=== PATIENT | female | born 1990 | race Caucasian/White ===

== ENCOUNTER 2017-07-13 22:19 | Emergency (ER) | payer OTHER ==
--- OUTSIDE RECORDS SUMMARY | 2017-07-13 22:22 | XMS REPORT | Clinical Summary ---
:1990 Author Organization [facility] Address [address] [place] [address] Phone Care Team Providers Name Role Phone Unavailable Primary Care Provider Unavailable Allergies No Known Allergies Current Medications Prescription Sig. Disp. Refills Start Date End Date Status brompheniramine-pseudoeph Take 10 mLs by 118 mL 0 07/05/2015 Active -DM (BROMFED DM) 2-30-10 mouth every 6 mg/5 mL Syrp (six) hours as needed (cough). Active Problems Not on file Social History Tobacco Use Types Packs/Day Years Used Date Never Assessed Sex Assigned at Date Recorded Not on file Last Filed Vital Signs Not on file Plan of Treatment Not on file Results Not on fileafter 07/12/2016
[2017-07-14] MEDS ORDERED: DICYCLOMINE HCL 10 MG CAP ONE (00:16)
[2017-07-14] MEDS ORDERED: ONDANSETRON 4 MG/2 ML VIAL ONE (00:17)
[2017-07-14] MEDS ORDERED: NA CHLORIDE 0.9% 1,000 ML ONE (00:17)
[2017-07-14 00:20] LABS: Absolute Lymphocytes (CBC) 2.7 K/uL (0.7-4.9); Absolute Monocytes 1.2 K/uL (0.1-1.3); Absolute Neutrophil 10.1 K/uL (1.8-8.0); Basophils % 0.5 % (0-1.3); Eosinophils % 0.9 % (0-4.4); Hematocrit 41.4 % (36.0-45.0); Lymphocytes % 19.2 % (15.3-44.8); MCH 27.9 pg (27.0-35.0); MCV 84.6 fL (80-100); MPV 8.7 fL (7.6-11.3); Monocytes % 8.4 % (3.3-12.3)
[2017-07-14 00:27] LABS: Bicarbonate 26 mEq/L (21-31); Glucose Level 92 mg/dL (65-120); Lipase 36 U/L (22-51); Potassium 3.6 mEq/L (3.6-5.0); Sodium Level 135 mEq/L (135-145)
[2017-07-14 00:33] LABS: ALT/SGPT 19 IU/L (10-60); AST/SGOT 18 IU/L (10-42); Albumin 3.9 g/dL (3.2-5.5); Alkaline Phosphatase 100 IU/L (42-121); Amylase Level 63 U/L (28-100); BUN Blood Urea Nitrogen 14 mg/dL (6-20); Bilirubin Direct < 0.1 mg/dL (0-0.2); Bilirubin Total 0.3 mg/dL (0.3-1.2); Protein, Total 7.9 g/dL (6.0-8.3)
[2017-07-14 01:05] LABS: Urine Bacteria >50 /HPF (<20); Urine Culture Reflex Order REFLEXED; Urine RBC NONE SEEN /HPF (NONE SEEN)
[2017-07-14 01:24] LABS: Urine Glucose NEGATIVE (NEG)
[2017-07-14 01:25] LABS: Urine Blood NEGATIVE (NEG); Urine Protein NEGATIVE (NEG)
[2017-07-14] MEDS ORDERED: BUPIVACAINE 0.5% PF 10 ML VIAL ONE (02:41)
[2017-07-14] MEDS ORDERED: CODEINE 30MG/APAP 300MG TAB ONE (03:00)
[2017-07-14] MEDS ORDERED: KETOROLAC 30 MG/ML INJ ONE (03:00)
--- NOTE | 2017-07-14 03:26 | EDPHYS ---
Physician Documentation [facility] Name: Veronica Moore Age: 27 yrs Sex: Female : 1990 Arrival Date: 07/13/2017 Time: 22:22 Bed 19 Private MD: ED Physician Osman George HPI: 07/13 23:50 This 27 yrs old Female presents to ER via Ambulatory with complaints of cp Abdominal Pain, Boil. 23:50 The patient presents with abdominal pain that is diffuse. Onset: The symptoms/episode cp began/occurred 3 day(s) ago. 23:50 Associated signs and symptoms: Pertinent negatives: chest pain, constipation, diarrhea, cp dysuria, fever, vaginal discharge, vaginal bleeding. 23:50 Severity of pain: in the emergency department the pain is unchanged despite home cp interventions. Patient also c/o abscess and cellulitis left inner upper leg for past couple days. 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 - Social history:: Smoking status: Patient uses tobacco products, smokes one-half pack cigarettes per day, Patient uses alcohol, occasionally. Patient/guardian denies using street drugs. - Ebola Screening: : Patient negative for fever greater than or equal to 101.5 degrees Fahrenheit, and additional compatible Ebola Virus Disease symptoms Patient denies exposure to infectious person Patient denies travel to an Ebola-affected area in the 21 days before illness onset. ROS: 23:55 Constitutional: Negative for body aches, chills, fever, poor PO intake. cp 23:55 Eyes: Negative for injury, pain, redness, and discharge. cp 23:55 ENT: Negative for drainage from ear(s), ear pain, sore throat, difficulty swallowing, difficulty handling secretions. 23:55 Cardiovascular: Negative for chest pain, edema, palpitations. 23:55 Respiratory: Negative for cough, shortness of breath, wheezing. 23:55 Abdomen/GI: Positive for abdominal pain, of the right lower quadrant and left lower quadrant, Negative for vomiting, diarrhea, constipation, anorexia, black/tarry stool, rectal bleeding. 23:55 : Negative for urinary symptoms, flank pain, vaginal bleeding, vaginal discharge. 23:55 Skin: Positive for abscess, cellulitis, of the left upper inner leg, Negative for rash. 23:55 Neuro: Negative for altered mental status, dizziness, headache, weakness. 23:55 All other systems are negative. Exam: 23:59 Constitutional: The patient appears in no acute distress, alert, awake, non-toxic, well cp developed, well nourished. 23:59 Head/Face: Normocephalic, atraumatic. cp 23:59 Eyes: Periorbital structures: appear normal, Conjunctiva: normal, no exudate, no injection, Sclera: no appreciated abnormality, Lids and lashes: appear normal, bilaterally. 23:59 ENT: External ear(s): are unremarkable, Nose: is normal, Mouth: Lips: moist, Oral mucosa: pink and intact, moist, Posterior pharynx: is normal, airway is patent, no erythema, no exudate. 23:59 Neck: External neck: is normal, ROM/movement: is normal, is supple, without pain, no range of motions limitations, no nuchal rigidity. 23:59 Chest/axilla: Inspection: normal, Palpation: is normal, no crepitus, no tenderness. 23:59 Cardiovascular: Rate: normal, Rhythm: regular. 23:59 Respiratory: the patient does not display signs of respiratory distress, Respirations: normal, no use of accessory muscles, no retractions, no splinting, no tachypnea, labored breathing, is not present, Breath sounds: are clear throughout, no decreased breath sounds, no stridor, no wheezing. 23:59 Abdomen/GI: Inspection: obese Bowel sounds: active, all quadrants, Palpation: soft, in all quadrants, moderate abdominal tenderness, in the left lower quadrant, rebound tenderness, is not appreciated, involuntary guarding, is elicited in the left lower quadrant. 23:59 Back: pain, is absent, ROM is normal, CVA tenderness, is absent. 23:59 Skin: abscess, that is small, of the left upper inner leg, cellulitis, that is mild, well demarcated, on the left inner upper leg, induration, is not appreciated, no rash present. 23:59 Neuro: Orientation: to person, place \T\ time. Mentation: lucid, able to follow commands, Cerebellar function: is grossly normal, Motor: moves all fours, strength is normal, Sensation: no obvious gross deficits. Vital Signs: 22:44 BP 132 / 84; Pulse 78; Resp 18; Temp 97.6(O); Pulse Ox 98% on R/A; Weight 104.33 kg; ao Height 5 ft. 6 in. (167.64 cm); Pain 7/10; 23:48 BP 123 / 83; Pulse 85; Resp 16; Pulse Ox 97% on R/A; rv 04 00:21 BP 121 / 76; Pulse 62; Resp 16; Pulse Ox 99% on R/A; rv 02:06 BP 112 / 63; Pulse 75; Resp 16; Pulse Ox 97% on R/A; rv 03:17 BP 128 / 83; Pulse 65; Resp 17; Pulse Ox 99% on R/A; rv 07/13 22:44 Body Mass Index 37.12 (104.33 kg, 167.64 cm) ao Procedures: 02:48 I \T\ D: Incision and drainage was performed for an abscess of the left inner upper leg cp Prepped with Betadine, Anesthetized with 6 ccs of 1% lidocaine with epi and 0.5% marcaine. Incised with #11 blade. Drained small amount purulent fluid. Cultures obtained. Packed with iodoform gauze, Dressing: sterile 4x4 gauze, the patient tolerated the procedure well. MDM: 07/13 22:57 Patient medically screened. cp 07/14 00:00 Differential diagnosis: cholecystitis, Cholelithiasis, Endometriosis, gastritis, cp Ovarian Torsion, Pelvic Inflammatory Disease, Pyelonephritis, Tubal Ovarian Abcess, Ureterolithiasis, urinary tract infection, cellulitis, abscess. 03:21 ED course: VSS. Verbal report from US tech, noted blood flow to bilateral ovaries with cp no signs of torsion. 03:24 Data reviewed: vital signs, nurses notes, lab test result(s), radiologic studies, CT cp scan, ultrasound. 03:24 Counseling: I had a detailed discussion with the patient and/or guardian regarding: the cp historical points, exam findings, and any diagnostic results supporting the discharge/admit diagnosis, lab results, radiology results, the need for outpatient follow up, an OB/Gyne specialist, to return to the emergency department if symptoms worsen or persist or if there are any questions or concerns that arise at home. Response to treatment: the patient's symptoms have markedly improved after treatment. 07/13 23:51 Order name: Amylase, Serum cp 07/13 23:51 Order name: Basic Metabolic Panel cp 07/13 23:51 Order name: CBC with Diff cp 07/13 23:51 Order name: Creatinine for Radiology cp 07/13 23:51 Order name: Hepatic Function cp 07/13 23:51 Order name: Lipase cp 07/13 23:51 Order name: Urine Microscopic Only; Complete Time: 01:48 cp 07/14 01:48 Interpretation: Normal except: UBACT >50. cp 07/13 23:52 Order name: Amylase Level; Complete Time: 00:42 EDMS 07/13 23:52 Order name: Basic Metabolic Panel; Complete Time: 00:42 EDMS 07/14 00:42 Interpretation: Normal except: GFR 77. cp 07/13 23:52 Order name: CBC with Automated Diff; Complete Time: 00:42 EDMS 07/14 00:42 Interpretation: Normal except: WBC 14.2; RBC 4.90; RDW 15.3; NEUT A 10.1. cp 07/13 23:52 Order name: Creatinine (Radiology Only); Complete Time: 00:42 EDMS 07/13 23:52 Order name: Liver (Hepatic) Function; Complete Time: 00:42 EDMS 04 00:43 Interpretation: Normal except: GLOB 4.0; A/G 1.0. cp 07/13 23:52 Order name: Lipase; Complete Time: 00:42 EDMS 04 00:43 Interpretation: LIP 36; Reviewed. cp / 00:15 Order name: Urine Dipstick--Ancillary (enter results); Complete Time: 01:48 ms 07/13 23:51 Order name: Urine Test (obtain specimen); Complete Time: 00:13 cp 07/13 23:51 Order name: IV Saline Lock; Complete Time: 00:13 cp 07/13 23:51 Order name: Labs collected and sent; Complete Time: 00:13 cp 07/13 23:51 Order name: Urine Dipstick-Ancillary (obtain specimen); Complete Time: 00:13 cp 07/13 23:52 Order name: CT Abd/Pelvis - W/Contrast cp 07/14 00:15 Order name: Urine --Ancillary (enter results); Complete Time: 01:48 ms 07/14 01:06 Order name: Urine Culture EDMS 07/14 01:51 Order name: US Transvaginal Study (Probe): r/o left ovarian torsion cp 07/14 02:24 Order name: I\T\D Setup; Complete Time: 02:30 cp 07/14 03:06 Order name: Wound Culture rv Administered Medications: 00:19 Drug: Zofran 4 mg Route: IVP; Site: right antecubital; rv 00:51 Follow up: Response: No adverse reaction; Pain is decreased rv 00:20 Drug: NS 0.9% 1000 ml Route: IV; Rate: 1 bolus; Site: right antecubital; rv 02:19 Follow up: IV Status: Completed infusion rv 00:20 Drug: Bentyl 20 mg Route: PO; rv 00:52 Follow up: Response: No adverse reaction; Pain is decreased rv 03:15 Drug: TORadol 30 mg Route: IVP; Site: right antecubital; rv 03:37 Follow up: Response: No adverse reaction; Pain is decreased rv 03:15 Drug: Tylenol #3 (300 mg-30 mg) 2 tabs Route: PO; rv 03:38 Follow up: Response: No adverse reaction; Pain is decreased rv 03:37 Drug: Bactrim (160 mg-800 mg (DS) 1 tablet Route: PO; rv Disposition: 05:33 Co-signature as Attending Physician, Osman George MD I agree with the assessment and tw4 plan of care. Disposition: 07/14/17 03:25 Discharged to Home. Impression: Other ovarian cysts - Left, Cutaneous abscess of left lower limb - Left Thigh with cellulitis. - Condition is Stable. - Discharge Instructions: Abscess, Incision and Drainage, Ovarian Cyst. - Prescriptions for Ibuprofen 800 mg Oral Tablet - take 1 tablet by ORAL route every 8 hours As needed take with food; 30 tablet. Tylenol- Codeine #3 300-30 mg Oral Tablet - take 2 tablets by ORAL route every 6 hours As needed no driving while taking medication; 20 tablet. Bactrim DS 800- 160 mg Oral Tablet - take 1 tablet by ORAL route every 12 hours for 10 days; 20 tablet. - Medication Reconciliation Form, Thank You Letter, Antibiotic Education, Prescription Opioid Use, Work release form form. - Follow up: Nikia Medina MD; When: 1 week; Reason: left ovarian cyst. - Problem is new. - Symptoms have improved. Signatures: Dispatcher [employer] EDMS Kael Boudreaux PA PA cp Ortiz, Alex, RN RN Osman Bhakta MD MD tw4 Eugene Perkins RN RN rv Corrections: (The following items were deleted from the chart) 03:40 03:25 07/14/2017 03:25 Discharged to Home. Impression: Other ovarian cysts - Left; rv Cutaneous abscess of left lower limb - Left Thigh with cellulitis. Condition is Stable. Forms are Medication Reconciliation Form, Thank You Letter, Antibiotic Education, Prescription Opioid Use. Follow up: Nikia Medina; When: 1 week; Reason: left ovarian cyst. Problem is new. Symptoms have improved. cp
--- NOTE | 2017-07-14 03:26 | ER ---
Nurse's Notes [facility] Name: Veronica Moore Age: 27 yrs Sex: Female : 1990 Arrival Date: 07/13/2017 Time: 22:22 Bed 19 Private MD: Diagnosis: Other ovarian cysts-Left;Cutaneous abscess of left lower limb-Left Thigh with cellulitis Presentation: 07/13 22:41 Presenting complaint: Patient states: Abdominal pain for the past few day and also in ao ingrown boil in the left leg. Patient denies nausea and vomiting. Transition of care: patient was not received from another setting of care. Onset of symptoms was July 11, 2017. Risk Assessment: Do you want to hurt yourself or someone else? Patient reports no desire to harm self or others. Initial Sepsis Screen: Does the patient meet any 2 criteria? No. Patient's initial sepsis screen is negative. Does the patient have a suspected source of infection? No. Patient's initial sepsis screen is negative. Care prior to arrival: None. 22:41 Method Of Arrival: Ambulatory ao 22:41 Acuity: MEANUEL 3 ao Triage Assessment: 07/14 00:23 General: Appears in no apparent distress. uncomfortable, Behavior is calm, cooperative, rv appropriate for age. Pain: Complains of pain in abdomen. 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 - Social history:: Smoking status: Patient uses tobacco products, smokes one-half pack cigarettes per day, Patient uses alcohol, occasionally. Patient/guardian denies using street drugs. - Ebola Screening: : Patient negative for fever greater than or equal to 101.5 degrees Fahrenheit, and additional compatible Ebola Virus Disease symptoms Patient denies exposure to infectious person Patient denies travel to an Ebola-affected area in the 21 days before illness onset. Screenin/04 00:21 Abuse screen: Denies threats or abuse. Denies injuries from another. Nutritional rv screening: No deficits noted. Tuberculosis screening: No symptoms or risk factors identified. Fall Risk None identified. Assessment: 07/13 23:44 General: patient states that she had the abdominal pain since Friday. she took rv laxatives hoping to relive the constipation. she had watery stools since after taking the laxatives.. Pain: Complains of pain in abdomen. Neuro: Level of Consciousness is awake, alert, obeys commands, Oriented to person, place, time, situation. Cardiovascular: Capillary refill < 3 seconds. Respiratory: Airway is patent. GI: Bowel sounds present X 4 quads. Abd is soft. : No signs and/or symptoms were reported regarding the genitourinary system. EENT: No signs and/or symptoms were reported regarding the EENT system. Derm: Skin is intact. Musculoskeletal: No signs and/or symptoms reported regarding the musculoskeletal system. 07/14 00:58 Reassessment: PT TO WITH FACILITY ENGINEER, NO PO CONTRAST PER PROVIDER. bp 01:49 Reassessment: Notified radiology of u/s order to r/o ovarian torsion. aa1 02:07 Reassessment: patient verbalized improvement with abd pain. rv 02:33 Reassessment: waiting for ultrasound. Dr Boudreaux is doing I\T\D at bedside. rv 03:16 Reassessment: patient just came back from ultrasound. rv 03:38 Reassessment: patient discharged ambulatory. rv Vital Signs: 07/13 22:44 BP 132 / 84; Pulse 78; Resp 18; Temp 97.6(O); Pulse Ox 98% on R/A; Weight 104.33 kg; ao Height 5 ft. 6 in. (167.64 cm); Pain 7/10; 23:48 BP 123 / 83; Pulse 85; Resp 16; Pulse Ox 97% on R/A; rv /04 00:21 BP 121 / 76; Pulse 62; Resp 16; Pulse Ox 99% on R/A; rv 02:06 BP 112 / 63; Pulse 75; Resp 16; Pulse Ox 97% on R/A; rv 03:17 BP 128 / 83; Pulse 65; Resp 17; Pulse Ox 99% on R/A; rv 07/13 22:44 Body Mass Index 37.12 (104.33 kg, 167.64 cm) ao ED Course: 07/13 22:22 Patient arrived in ED. es 22:42 Triage completed. ao 22:46 Arm band placed on right wrist. Patient placed in waiting room, Patient notified of ao wait time. 22:54 Aries Strauss, JANICE is Primary Nurse. bp 22:56 Kael Boudreaux PA is PHCP. cp 22:56 Osman George MD is Attending Physician. cp 06/04 00:21 Patient has correct armband on for positive identification. Fall risk band placed. rv Placed in gown. Bed in low position. Side rails up X 1. 00:23 Inserted saline lock: 20 gauge in right antecubital area, using aseptic technique. rv 00:[address] via wheelchair. kw1 01:12 CT completed. Patient tolerated procedure well. Patient moved back from CT. kw1 01:15 CT Abd/Pelvis - W/Contrast In Process Unspecified. EDMS 02:46 Patient taken to ultrasound. via wheelchair. lc3 02:54 Assist provider with I \T\ D: of an abscess on left leg Set up I\T\D tray. Performed by rv Kael VILLA Wound packed. Dressing with Patient tolerated. 03:13 US Transvaginal Study (Probe): r/o left ovarian torsion In Process Unspecified. EDMS 03:13 Ultrasound completed. Patient tolerated well. Patient moved back from ultrasound. lc3 03:23 Nikia Medina MD is Referral Physician. cp 03:39 IV discontinued, intact, bleeding controlled, No redness/swelling at site. Pressure rv dressing applied. Administered Medications: 00:19 Drug: Zofran 4 mg Route: IVP; Site: right antecubital; rv 00:51 Follow up: Response: No adverse reaction; Pain is decreased rv 00:20 Drug: NS 0.9% 1000 ml Route: IV; Rate: 1 bolus; Site: right antecubital; rv 02:19 Follow up: IV Status: Completed infusion rv 00:20 Drug: Bentyl 20 mg Route: PO; rv 00:52 Follow up: Response: No adverse reaction; Pain is decreased rv 03:15 Drug: TORadol 30 mg Route: IVP; Site: right antecubital; rv 03:37 Follow up: Response: No adverse reaction; Pain is decreased rv 03:15 Drug: Tylenol #3 (300 mg-30 mg) 2 tabs Route: PO; rv 03:38 Follow up: Response: No adverse reaction; Pain is decreased rv 03:37 Drug: Bactrim (160 mg-800 mg (DS) 1 tablet Route: PO; rv Outcome: 03:25 Discharge ordered by . cp 03:39 Discharged to home ambulatory. rv 03:39 Condition: good 03:39 Discharge instructions given to patient, Instructed on discharge instructions. 03:40 Patient left the ED. rv Addendum: 07/18/2017 08:47 Addendum: Culture Results: Positive wound culture. Bacteria is resistant to, has i w intermediate sensitivity, or is not tested against prescribed antibiotics. Report given to YADIRA for further evaluation and then to pricing supervisor for follow up with patient. Phone call Attempt #1 pt did not answer, left voice mail with call back number. Signatures: Dispatcher [employer] Erica Steinberg, RN RN aa1 Bettye Dixon Irene RN RN iw Kael Boudreaux PA PA cp Cunningham, Laulita lc3 Ortiz, Alex RN Aries Tapia RN RN bp Chiquita Ruiz1 Eugene Perkins RN RN rv
[2017-07-14] MEDS ORDERED: SMZ./TMP. 800/160 MG TABLET ONE (03:28)
--- NOTE | 2017-07-14 08:23 | RAD REPORT ---
EXAM DESCRIPTION: CT - Abdomen Pelvis W Contrast - 07/14/2017 4:04 am CLINICAL HISTORY: Abdominal pain A preliminary written report was provided at the time of the study, and the report was reviewed prio r to final dictation. COMPARISON: None. TECHNIQUE: Biphasic, helical CT imaging of the abdomen and pelvis was performed following 100 ml non -ionic IV contrast. No oral contrast was given. All CT scans are performed using dose optimization technique as appropriate and may include automated exposure control or mA/KV adjustment according to patient size. FINDINGS: No acute infiltrate or pleural effusion. No pericardial thickening or effusion. There are multiple noncalcified pulmonary nodules 6 mm or less in size. Lung harg[place] are not fully lisandro luated. Noncalcified granulomas would be the most likely etiology. A malignant process would be unusu al in a patient this age. No followup recommendation is made with a low risk patient. If there is add itional information placing the patient at high risk, six-month follow-up could be performed. Also, i f the patient is considered high risk, a full CT chest study could be performed to evaluate for any a dditional, larger nodules. The liver, spleen, and pancreas show no suspicious findings. Gallbladder is contracted. No biliary tr ee dilatation. Symmetric renal function is seen with no hydronephrosis or suspicious renal mass. No pyelonephritis o r acute renal parenchymal process. Urinary bladder is normal. Uterus and right ovary are normal. Left ovary is enlarged measuring 4 cm with heterogeneity likely in dicating a dominant hemorrhagic left ovarian cyst. No rupture or leakage into the peritoneal cavity. No dilated bowel loops or bowel wall thickening. No appendicitis or other acute GI process identifiab le. No free air, free fluid or inflammatory stranding. No hernia, mass or bulky lymphadenopathy. No adrenal abnormality. No suspicious bony findings. IMPRESSION: Approximately 4 centimeter left ovarian mass believed to be a hemorrhagic ovarian cyst. Follow-up sonography after 2-3 menstrual cycles could be performed to evaluate for involution. No free air or other emergent CT finding. Multiple 6 mm or less lung base pulmonary nodules with the entirety of the lung hargrove not fully asse ssed. Noncalcified granulomas would be most likely. If the patient is considered high risk, a full CT chest study could be performed to evaluate for additional larger nodules. Pulmonary nodules at 6 mm or le ss in a low risk patient do not warrant additional follow-up.
--- NOTE | 2017-07-14 08:28 | RAD REPORT ---
EXAM DESCRIPTION: US - Transvaginal Study Probe - 07/14/2017 3:13 am CLINICAL HISTORY: Severe pelvic pain. A preliminary report was provided at the time of the study. COMPARISON: None. TECHNIQUE: Endovaginal and transabdominal sonography were performed. FINDINGS: Uterus measures 8.1 x 3.4 x 3.9 cm. Endometrium is 7 mm. No endometrial or myometrial abno rmality. No blood or fluid in the cul-de-sac. Normal size right ovary is identified. Doppler evaluati on shows a normal stromal blood flow pattern. No dominant solid or cystic ovarian or adnexal findings on the right. Left ovary was not clearly identifiable on endovaginal approach. Transabdominal sonography identified a left ovary. Doppler evaluation shows blood flow in the stroma. An 18 millimeter cyst is identified. An additional 2.8 centimeter area within the left ovary is poss ibly a hemorrhagic cyst. IMPRESSION: Suspected 2.8 centimeter left ovarian hemorrhagic cyst. Torsion is not suspected. Uterus and right ovary are unremarkable.
== END 2017-07-14 03:40 | disposition home or self-care (01) ==
LOC: ER 22:19
PROC: 0J9M0ZZ Drainage of Left Upper Leg Subcutaneous Tissue and Fascia, Open Approach (ICD-10-PCS; principal; 2017-07-14)
DX: L02.416 Cutaneous abscess of left lower limb (principal); L03.116 Cellulitis of left lower limb; N83.292 Other ovarian cyst, left side; F17.210 Nicotine dependence, cigarettes, uncomplicated
CPT/HCPCS: 10060; 36415; 74177; 76830; 80048; 80076; 81003; 81015; 81025; 82150; 83690; 85025; 87070; 87077; 87086; 87088; 87186; 87205; 96361; 96374; 96375; 99284; J2405; J7030; Q9967

== ENCOUNTER 2019-02-21 14:44 | Emergency (ER) | payer BC, OTHER ==
--- OUTSIDE RECORDS SUMMARY | 2019-02-21 14:45 | XMS REPORT ---
:1990 [facility] Address [facility] [place] [address] Care Team Providers Name Role Phone Unavailable Unavailable Unavailable Problems This patient has no known problems. Allergies, Adverse Reactions, Alerts This patient has no known allergies or adverse reactions. Medications This patient has no known medications.
--- OUTSIDE RECORDS SUMMARY | 2019-02-21 14:46 | XMS REPORT | Summary of Care ---
:1990 Author Organization [facility] Address [address] [place] [id number] Care Team Providers Name Role Phone Lazaro Ross MD Primary Care Provider Sherine Palacios MD Unavailable Reason for Visit Reason Comments ANNUAL EXAM LAB WORK Encounter Details Date Type Department Care Team Description 09/07/[address] [facility] Family Lazaro Ross Annual physical exam (Primary Dx); Medicine - Erik Gomez MD Routine screening for STI (sexually transmitted infection); [facility] [address] [place] [address] Exercise counseling; [place], [place] Nutritional counseling; [phone] Needs smoking cessation education; [phone] Frequent menstruation; Generalized anxiety disorder; Major depression, chronic Allergies No Known Allergiesdocumented as of this encounter (statuses as of 09/07/2018) Medications Medication Sig Dispensed Refills Start Date End Date Status escitalopram oxalate 20 Take 1 tablet by 90 tablet 1 08/31/2018 Active mg tabletIndications: mouth every Generalized anxiety morning. disorder documented as of this encounter (statuses as of 09/07/2018) Active Problems Problem Noted Date Prediabetes 02/04/2017 Low HDL (under 40) 02/04/2017 Vitamin D deficiency 02/04/2017 Anxiety disorder, unspecified type 01/21/2017 Atopic dermatitis, unspecified type 01/21/2017 Tobacco use documented as of this encounter (statuses as of 09/07/2018) Immunizations Name Administration Dates Next Due Pneumococcal Polysaccharide, PPSV23 (PNEUMOVAX) 01/29/2017 Tdap 08/19/2013 documented as of this encounter Social History Tobacco Use Types Packs/Day Years Used Date Current Every Day Smoker Cigarettes Smokeless Tobacco: Never Used Tobacco Cessation: Ready to Quit: No; Counseling Given: Yes Alcohol Use Drinks/Week oz/Week Comments Yes 1 Glasses of wine 0.6 Sex Assigned at Date Recorded Not on file Job Start Date Occupation Industry Not on file Not on file Not on file Travel History Travel Start Travel End No recent travel history available. documented as of this encounter Last Filed Vital Signs Vital Sign Reading Time Taken Comments Blood Pressure 99/72 09/07/2018 9:16 AM CDT Pulse 71 09/07/2018 9:16 AM CDT Temperature 36.2 C (97.1 F) 09/07/2018 9:16 AM CDT Respiratory Rate - - Oxygen Saturation - - Inhaled Oxygen Concentration - - Weight 96.2 kg (212 lb) 09/07/2018 9:16 AM CDT Height 167.6 cm (5' 6") 09/07/2018 9:16 AM CDT Body Mass Index 34.22 09/07/2018 9:16 AM CDT documented in this encounter Patient Instructions Patient InstructionsCoLazaro perez MD - 09/07/2018 9:30 AM CDT Prevention Guidelines,Women Ages 18 to 39 Screening tests and vaccines are an important part of managing your health. A screening test is doneto find possible disorders or diseases in people who don' t have any symptoms. The goal is to find a disease early so lifestyle changes can be made and you can be watched more closely to reduce the riskof disease, or to detect it early enough to treat it most effectively. Screening tests are not considered diagnostic, but are used to determine if more testing is needed. Health counseling is essential, too. Below are guidelines for these, for women ages 18 to 39. Talk with your healthcare provider tomake sure youre up-to- date on what you need. Screening Who needs it How often Alcohol misuse All women in this age group At routine exams Blood pressure All women in this age group Yearly checkup if your blood pressure is normal Normal blood pressure is less than 120/80 mm Hg If your blood pressure reading is higher than normal, follow the advice of your healthcare provider Breast cancer All women in this age group should talk with their healthcare providers about the needfor clinical breast exams (CBE)1 Clinical breast exam every 3 years1 Cervical cancer Women ages 21 and older Women between ages 21 and 29 should have a Pap test every 3 years; women between ages 30 and 65 are advised to have a Pap test plus an HPV test every 5 years Chlamydia Sexually active women ages 25 and younger, and women at increased risk for infection (suchas having multiple sex partners) Every year if you're at risk or have symptoms Depression All women in this age group At routine exams Type 2 diabetes, prediabetes All women with no symptoms who are overweight or obese and have 1 or more other risk factors for diabetes At least every 3 years. Also, testing for diabetes during after the 24th week. Type 2 diabetes, prediabetes All women diagnosed with gestational diabetes Lifelong testing every 3 years Type 2 diabetes All women with prediabetes Every year Gonorrhea Sexually active women at increased risk for infection At routine exams Hepatitis C Anyone at increased risk At routine exams HIV All women should be tested at least once for HIV between the ages of 13 and 64 At routine exams.Those with risk factors for HIV should be tested at least annually. Obesity All women in this age group At routine exams Syphilis Women at increased risk for infection should talk with their healthcare provider At routineexams Tuberculosis Women at increased risk for infection should talk with their healthcare provider Ask your healthcare provider Vision All women in this age group At least 1 complete exam in your 20s, and 2 in your 30s Vaccine2 Who needs it How often Chickenpox (varicella) All women in this age group who have no record of this infection or vaccine 2doses; the second dose should be given 4 to 8 weeks after the first dose Hepatitis A Women at increased risk for infection should talk with their healthcare provider 2 dosesgiven at least 6 months apart Hepatitis B Women at increased risk for infection should talk with their healthcare provider 3 dosesover 6 months; second dose should be given 1 month after the first dose; the third dose should be given at least 2 months after the second dose and at least 4 months after the first dose Haemophilus influenzaeType B (HIB) Women at increased risk for infection should talk with their healthcare provider 1 to 3 doses Human papillomavirus (HPV) All women in this age group up to age 26 3 doses; the second dose should be given 1 to 2 months after the first dose and the third dose given 6 months after the first dose Influenza (flu) All women in this age group Once a year Measles, mumps, rubella (MMR) All women in this age group who have no record of these infections or vaccines 1 or 2 doses Meningococcal Women at increased risk for infection should talk with their healthcare provider 1 or more doses Pneumococcal conjugate vaccine (PCV13)and pneumococcal polysaccharide vaccine(PPSV23) Women at increased risk for infection should talk with their healthcare provider PCV13: 1 dose ages 19 to 65 (protects against 13 types of pneumococcal bacteria) PPSV23: 1 to2 doses through age 64, or 1 dose at 65 or older (protects against 23 types of pneumococcal bacteria) Tetanus/diphtheria/pertussis (Td/Tdap) booster All women in this age group Td every 10 years, or a one-time dose of Tdap instead of a Td booster after age 18 , then Td every 10 years Counseling Who needs it How often BRCA gene mutation testing for breast and ovarian cancer susceptibility Women with increased risk for having gene mutation When your risk is known Breast cancer and chemoprevention Women at high risk for breast cancer When your risk is known Diet and exercise Women who are overweight or obese When diagnosed, and then at routine exams Domestic violence Women at the age in which they are able to have children At routine exams Sexually transmitted infection prevention Women who are sexually active At routine exams Skin cancer Prevention of skin cancer in fair-skinned adults At routine exams Use of tobacco and the health effects it can cause All women in this age group Every visit 1 According to the ACS, women ages 20 to 39 years should have a clinical breast exam (CBE) as part of their routine health exam every 3 years. Breast self- exams are an option for women starting in their 20s.But the USPSTF does not recommend CBE. Date Last Reviewed: 11/10/201619993651-0920 [employer]. [address] [place] [address], [place] [address]. All rights reserved. This information is not intended as a substitute for professional medical care. Always follow your healthcare professional's instructions. Kicking the Smoking Habit If you smoke, quitting is one of the best changes you can make for your heart and your overall health. Your risk of heart attack goes down within one day of putting out that last cigarette. As you go longer without smoking, your risk goes down even more. Quitting isnt easy, but millions of people have done it. You can, too. Its never too late to quit. Getting started Boost your chances of success by deciding on your quit plan. Your health care provider and cardiac rehab team can help you develop this plan. Even if youve already quit, its easy to slip back into smoking. Your plan can help you avoid and recover from relapse. In any case, start by setting a date to quit within a month, and do it. [place] to your quit plan Talk to your healthcare provider about prescription medicines and nicotine replacement products that help stop the urge to smoke. Join a support group or quit smoking program. Talking with others about the challenges of quitting can help you get through them. Ask other smokers in your household to quit with you. Look for the cues in your life that you associate with smoking and avoid them. Track your triggers What gives you that G-ncls-l-cigarette feeling? List all the situations that make you want a cigarette. Then think of other ways to deal with these situations. Here are some examples: Situation How I'll handle it Finishing a meal Get up from the table and take a walk Having an argument Find a quiet place and breathe deeply Feeling lonely or bored Call a friend to talk Tips for quitting successfully List the benefits of quitting such as reducing heart risks and saving money. Keep this list and review it whenever you feel like smoking. Get support. Let your friends know you may call them to chat when you have an urge to smoke. If youve tried to quit before without success, this time avoid the triggers that may cause therelapse. Make the most of slip-ups. Try to learn from them, and then get back on track. Be accountable to your friends and your calendar so that you stay on track. For family and friends Be supportive and patient. Quitting smoking can be difficult and stressful. If you smoke, nows a great time to quit. Even if you dont quit, never smoke around your loved one. Secondhand smoke is dangerous to his or her heart. The best goals are accomplished in teams. Remember that when your loved one states he or she wants to stop smoking. Date Last Reviewed: 08/11/201519992450-2148 [employer]. [address] [place] [address], [place] [address]. All rights reserved. This information is not intended as a substitute for professional medical care. Always follow your healthcare professional's instructions. documented in this encounter Progress Notes Bárbara Varner - 09/07/2018 9:30 AM CDTVenipuncture Collection performed by clean technique. Total of 1 attempts were made. Slight pressureand a bandage/ dressing were applied to the site(s). The patient experienced no complications. Specimens were sent processed to [facility] laboratories. Lazaro horta MD - 09/07/2018 9:30 AM CDT Cc: Chief Complaint Patient presents with ANNUAL EXAM HPI Veronica Moore is a 28 year old female who presents today for annual exam. Annual wellness visit: Describes diet: Fair. Exercise frequency: The patient is active but doesn't formally exercise. Last CNC WOOD LATHE OPERATOR exam/pap smear: 07/28. Manager Commodities: Dr Palacios. Patient's last menstrual period was 08/12/2018 (exact date). STD screening consent?: Accepts. Candidate for HPV vaccine?: Yes but will discuss with her CNC WOOD LATHE OPERATOR. Candidate for pneumococcal vaccine?: UTD. Candidate for influenza vaccine?: Not available yet. Candidate for Tdap?: UTD, received this vaccine in 2013. Domestic/relationship violence screen is negative. Depression screen: Says she is feeling much better since restarting her escitalopram (see last visit note). PHQ-2 Little interest or pleasure in doing things: (!) Several days Feeling down, depressed, or hopeless: (!) Several days PHQ-2 Score (_/6): (!) 2 PHQ-2 Scoring Interpretation: Negative screen Accepts referral for skin cancer screening exam with a Pl Sql Programmer?: Declines. Allergies Veronica has No Known Allergies. Medications Outpatient Medications Prior to Visit Medication Sig Dispense Refill escitalopram oxalate 20 mg tablet Take 1 tablet by mouth every morning. 90 tablet 1 No facility-administered medications prior to visit. Histories Past Medical History: Diagnosis Date Anxiety Depression Eczema Low HDL (under 40) 02/04/2017 Migraines Prediabetes 02/04/2017 Tobacco use Vitamin D deficiency 02/04/2017 Past Surgical History: Procedure Laterality Date SECTION Social History Socioeconomic History Marital status: Spouse name: Not on file Number of children: Not on file Years of education: Not on file Highest education level: Not on file Occupational History Not on file Social Needs Financial resource strain: Not on file Food insecurity: Worry: Not on file Inability: Not on file Transportation needs: Medical: Not on file Non-medical: Not on file Tobacco Use Smoking status: Current Every Day Smoker Types: Cigarettes Smokeless tobacco: Never Used Substance and Sexual Activity Alcohol use: Yes Alcohol/week: 0.6 oz Types: 1 Glasses of wine per week Drug use: No Sexual activity: Yes Partners: Male control/protection: Condom Lifestyle Physical activity: Days per week: Not on file Minutes per session: Not on file Stress: Not on file Relationships Social connections: Talks on phone: Not on file Gets together: Not on file Attends hinduism service: Not on file Active member of club or organization: Not on file Attends meetings of clubs or organizations: Not on file Relationship status: Not on file Intimate partner violence: Fear of current or ex partner: Not on file Emotionally abused: Not on file Physically abused: Not on file Forced sexual activity: Not on file Other Topics Concern Not on file Social History Narrative 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 Family History Problem Relation Age of Onset Diabetes Mother DM2 Hypertension Father Panic attack Brother Arthritis NoFHx Asthma NoFHx defects NoFHx Breast Cancer NoFHx Colon Cancer NoFHx Ovarian Cancer NoFHx Uterine Cancer NoFHx Cancer NoFHx Depression NoFHx Genetic NoFHx Heart NoFHx High cholesterol NoFHx Mental retardation NoFHx Neurological NoFHx Osteoporosis NoFHx Psychiatry NoFHx Other - see comments NoFHx Review of Systems Constitutional: Negative. HENT: Negative. Eyes: Negative. Respiratory: Negative. Cardiovascular: Negative. Gastrointestinal: Negative. Genitourinary: Negative. Musculoskeletal: Negative. Skin: Negative. Neurological: Negative. Psychiatric/Behavioral: Positive for dysphoric mood (improving with time). Negative for suicidal ideas. The patient is nervous/anxious (improving with time ). Endocrine: Endocrine negative Vital Signs BP 99/72 (BP Location: Left arm, Patient Position: Sitting, BP CUFF SIZE: Adult Large) | Pulse 71 | Temp 36.2 C (97.1 F) (Tympanic) | Ht 5' 6" (1.676 m) | Wt 212 lb (96.2 kg) | LMP 08/12/2018 (Exact Date) | BMI 34.22 kg/m Physical Exam Constitutional: She is oriented to person, place, and time. She appears well- developed and well-nourished. HENT: Head: Normocephalic and atraumatic. Right Ear: Tympanic membrane and ear canal normal. Left Ear: Tympanic membrane and ear canal normal. Nose: Nose normal. Mouth/Throat: Oropharynx is clear and moist. Eyes: Pupils are equal, round, and reactive to light. Conjunctivae and EOM are normal. No scleral icterus. Neck: Normal range of motion. Neck supple. No thyromegaly present. Cardiovascular: Normal rate, regular rhythm, normal heart sounds and intact distal pulses. Exam reveals no gallop and no friction rub. No murmur heard. Pulmonary/Chest: Effort normal and breath sounds normal. No respiratory distress. She has no wheezes. She has no rales. Abdominal: Soft. Bowel sounds are normal. She exhibits no distension and no mass. There is no tenderness. Musculoskeletal: She exhibits no edema. Lymphadenopathy: She has no cervical adenopathy. Neurological: She is alert and oriented to person, place, and time. She has normal reflexes. Skin: Skin is warm and dry. No rash noted. No pallor. Psychiatric: She has a normal mood and affect. Her speech is normal and behavior is normal. Judgmentand thought content normal. Cognition and memory are normal. She does not exhibit a depressed mood. She expresses no suicidal ideation. Nursing note and vitals reviewed. Assessment/Plan Veronica was seen today for annual exam. Diagnoses and all orders for this visit: Annual physical exam, Routine screening for STI (sexually transmitted infection) Discussed cancer screening guidelines and other health maintenance recommendations for her age and gender. Healthy diet, importance of regular exercise, preventive dental care, and regular eye exams were encouraged. General safety, breast self-awareness, and STD screening were all discussed. See assurance auditor annually for routine evaluation manager care, pap smear schedule per CNC WOOD LATHE OPERATOR. Labs and any other orders as noted below. - CBC WITH DIFF; Standing - COMP. METABOLIC PANEL (00121); Standing - GLYCOSYLATED HEMOGLOBIN (A1C); Standing - LIPID PANEL (21148)(TOTAL CHOLESTEROL, TRIGLYCERIDES, HDL); Standing - THYROID STIMULATING HORMONE; Standing - TRICHOMONAS AMPLIFIED ASSAY; Standing - ADC OR FARIDA ONLY - RPR; Standing - ADC, CLC OR LCC ONLY - HIV TYPE 1 AND 2 ANTIBODY SCREEN WITH P24; Standing - GC & CHLAMYDIA AMPLIFIED ASSAY; Standing - URINALYSIS; Standing - VITAMIN D, 25-OH; Standing - HCV ANTIBODY; Standing - HEPATITIS B SURFACE ANTIGEN; Standing Exercise counseling, Nutritional counseling Nutritional/Exercise Counseling and Education: - Counseled on diet, exercise, weight control and goals - Follow-Up plan: -Follow up visit for weight management at next clinic visit Needs smoking cessation education Patient was given printed information on smoking cessation. Plan of care, desired health behaviors, goals, Ddx, and any prescribed medications were discussed with the patient. This visit did not involve counseling and coordination that comprised more than 50% of the visit time. Education resources and self-management tools were provided and reviewed with the AVS. Patient/guardian/family verbalized understanding and agrees to the plan of care. Barriers tocare: None. Ability to manage care: Good. Advanced care planning (living will) information was not given/offered to the patient to review for discussion at a future visit. If applicable, the [facility] database was accessed to review any controlled substance prescription claims data. If the patient is taking prescribed medications, the [employer] prescription claims data in [employer] was reviewed to assess patient compliance with the medication treatment plan. Follow-up: Return in about 3 months (around 12/08/2018) for depression/anxiety follow-up. Follow-up sooner if any problems or concerns. documented in this encounter Plan of Treatment Date Type Specialty Care Team Description 09/10/2018 Office Visit Obstetrics & Gynecology Farzaneh Loredo MD [address] [place] [phone] Name Type Priority Associated Diagnoses Order Schedule COMP. METABOLIC PANEL LAB Routine Annual physical exam 1 Occurrences starting (08946) 09/07/2018 until 11/06/2018 GLYCOSYLATED HEMOGLOBIN LAB Routine Annual physical exam 1 Occurrences starting (A1C) 09/07/2018 until 11/06/2018 LIPID PANEL LAB Routine Annual physical exam 1 Occurrences starting (14059)(TOTAL 09/07/2018 until CHOLESTEROL, 11/06/2018 TRIGLYCERIDES, HDL) TRICHOMONAS AMPLIFIED LAB Routine Annual physical exam 1 Occurrences starting ASSAY Routine screening for 09/07/2018 until STI (sexually 11/06/2018 transmitted infection) ADC OR FARIDA ONLY - LAB Routine Annual physical exam 1 Occurrences starting RPR Routine screening for 09/07/2018 until STI (sexually 03/06/2019 transmitted infection) ADC, CLC OR LCC ONLY - LAB Routine Annual physical exam 1 Occurrences starting HIV TYPE 1 AND 2 Routine screening for 09/07/2018 until ANTIBODY SCREEN WITH P24 STI (sexually 11/06/2018 transmitted infection) GC & CHLAMYDIA AMPLIFIED LAB Routine Annual physical exam 1 Occurrences starting ASSAY Routine screening for 09/07/2018 until STI (sexually 11/06/2018 transmitted infection) URINALYSIS LAB Routine Annual physical exam 1 Occurrences starting 09/07/2018 until 11/06/2018 VITAMIN D, 25-OH LAB Routine Annual physical exam 1 Occurrences starting 09/07/2018 until 11/06/2018 HCV ANTIBODY LAB Routine Annual physical exam 1 Occurrences starting Routine screening for 09/07/2018 until STI (sexually 11/06/2018 transmitted infection) HEPATITIS B SURFACE LAB Routine Annual physical exam 1 Occurrences starting ANTIGEN Routine screening for 09/07/2018 until STI (sexually 11/06/2018 transmitted infection) CBC WITH DIFFERENTIAL LAB Routine Frequent menstruation Ordered: 09/07/2018 Health Maintenance Due Date Last Done Comments INFLUENZA VACCINE 10/11/2018 PAP SMEAR 07/28/2020 07/28/2017 DTaP,Tdap,and Td Vaccines (2 - Td) 08/20/2023 08/19/2013 PNEUMOCOCCAL 0-64 YEARS COMBINED SERIES Completed 01/29/2017 VARICELLA VACCINES Discontinued documented as of this encounter Results Not on filedocumented in this encounter Visit Diagnoses Diagnosis Annual physical exam - Primary Routine general medical examination at a health care facility Routine screening for STI (sexually transmitted infection) Screening examination for venereal disease Exercise counseling Nutritional counseling Needs smoking cessation education Educational circumstance Frequent menstruation Excessive or frequent menstruation Generalized anxiety disorder Major depression, chronic Major depressive disorder, single episode, unspecified documented in this encounter Insurance Payer Benefit Plan Subscriber ID Effective Dates Phone Address Type / Group [facility] [id number] 2018-Chiara [phone] [address] PPO/POS [place] - OUT OF t [id number] [place] [address] documented as of this encounter
--- OUTSIDE RECORDS SUMMARY | 2019-02-21 14:46 | XMS REPORT | Summary of Care ---
:1990 Author Organization [facility] Address [address] [place] [address] Care Team Providers Name Role Phone Lazaro Ross MD Primary Care Provider Reason for Referral (Routine) Status Reason Specialty Diagnoses / Referred By Referred To Procedures Contact Contact Authorized Obstetrics & Diagnoses Frequent menstruation Cody, Gynecology Procedures CONSULT/REFERRAL STARCH DUMPER Lazaro Gomez MD [address] [place] [address] [place] [address] Reason for Visit Reason Comments Depression Ear Problem right Encounter Details Date Type Department Care Team Description 08/31/2018 Office Visit [facility] Family Lazaro Ross Generalized anxiety disorder (Primary Dx); Medicine - Erik Gomez MD Major depression, chronic; [facility] [address] [place] [address] DR Joey noguerauation; [place], [place] Acute otalgia, right; [id number] Viral URI [phone] Allergies No Known Allergiesdocumented as of this encounter (statuses as of 09/06/2018) Medications Medication Sig Dispensed Refills Start Date End Date Status escitalopram Take 1 tablet 90 tablet 1 08/31/2018 Active oxalate 20 mg by mouth every tabletIndications: morning. Generalized anxiety disorder montelukast 10 mg Take 1 tablet 30 tablet 5 01/20/2017 08/31/2018 Discontinued tabletIndications: by mouth every Atopic dermatitis, evening. unspecified type Cholecalciferol, Take 1 capsule 0 02/04/2017 08/31/2018 Discontinued Vitamin D3, by mouth (VITAMIN D3) 1,000 daily. Take unit capsule with food. acetaminophen-codei TK 2 TS PO Q 6 0 07/14/2017 08/31/2018 Discontinued ne 300-30 mg tablet H PRF PAIN. ibuprofen 800 mg TK 1 T PO Q 8 0 07/14/2017 08/31/2018 Discontinued tablet H PRF PAIN. sulfamethoxazole-tr TK 1 T PO Q 12 0 07/14/2017 08/31/2018 Discontinued imethoprim 800-160 H FOR 10 DAYS. mg per tablet escitalopram Take 1 tablet 90 tablet 1 07/21/2017 08/31/2018 Discontinued oxalate 20 mg by mouth every tabletIndications: morning. Generalized anxiety disorder mometasone 0.1 % Apply to 60 g 2 07/21/2017 08/31/2018 Discontinued creamIndications: area(s) daily. Other atopic dermatitis LOESTRIN FE Take 1 tablet 1 Package 4 07/28/2017 08/31/2018 Discontinued (LOESTRIN FE 03/01) by mouth 1 mg-20 mcg (21)/75 daily. mg (7) tablet documented as of this encounter (statuses as of 09/06/2018) Active Problems Problem Noted Date Prediabetes 02/04/2017 Low HDL (under 40) 02/04/2017 Vitamin D deficiency 02/04/2017 Anxiety disorder, unspecified type 01/21/2017 Atopic dermatitis, unspecified type 01/21/2017 Tobacco use documented as of this encounter (statuses as of 09/06/2018) Immunizations Name Administration Dates Next Due Pneumococcal Polysaccharide, PPSV23 (PNEUMOVAX) 01/29/2017 documented as of this encounter Social History Tobacco Use Types Packs/Day Years Used Date Current Every Day Smoker Cigarettes Smokeless Tobacco: Never Used Alcohol Use Drinks/Week oz/Week Comments Yes 1 Glasses of wine 0.6 Sex Assigned at Date Recorded Not on file Job Start Date Occupation Industry Not on file Not on file Not on file Travel History Travel Start Travel End No recent travel history available. documented as of this encounter Last Filed Vital Signs Vital Sign Reading Time Taken Comments Blood Pressure 99/69 08/31/2018 11:41 AM CDT Pulse 85 08/31/2018 11:41 AM CDT Temperature 36.3 C (97.4 F) 08/31/2018 11:41 AM CDT Respiratory Rate - - Oxygen Saturation - - Inhaled Oxygen Concentration - - Weight 96.2 kg (212 lb) 08/31/2018 11:41 AM CDT Height 167.6 cm (5' 6") 08/31/2018 11:41 AM CDT Body Mass Index 34.22 08/31/2018 11:41 AM CDT documented in this encounter Patient Instructions Patient InstructionsLazaro Ross MD - 08/31/2018 11:15 AM CDT Understanding the Normal Menstrual Cycle Having a period (menstruation) is a normal, healthy part of being a woman. It s also part of the menstrual cycle, a process that makes it possible for women to become . The first day of your period is the first day of your menstrual cycle. A woman who has irregular cycles can become during bleeding. This may not be a true menstrual period. An egg is released Eggs are female reproductive cells stored in the ovaries. During each cycle, a woman's hormones trigger an egg, (usually 1), to mature and be released from an ovary. This is called ovulation. The egg then travels from the ovary to a fallopian tube. The egg travels through a tube The egg moves through the fallopian tube toward the uterus. If sperm are present in the tube, the egg may be fertilized, and could result. The uterine lining grows thicker The lining of the uterus is made up of blood, tissue, and fluid. During each cycle, hormones cause the lining to thicken. This helps prepare the uterus to receive and nourish a fertilized egg. The egg and lining are shed If doesnt happen, the egg and thickened lining of the uterus are no longer needed. Theyare then shed through the vagina. This is called a menstrual period. How long is each cycle? It is normal for a cycle to take 21 to 34 days. For teenagers, the time between periods might be as much as 45 days. For adults, it will be around a month from the first day of one period to the first day of the next. Thats why you may hear women talk about a monthly cycle, even though cycle length can vary from one month to another, and anywhere from 3 to 5 weeks is normal. Not everyone hasa 28-day cycle. How long does a period last? Its normal for a period to last 2 to 7 days. Talk to your healthcare provider if your period lasts longer than 7 days for 2 cycles in a row. Date Last Reviewed: 01/11/201619990235-6645 [employer]. [address] [place] [address], [place] [address]. All rights reserved. This information is not intended as a substitute for professional medical care. Always follow your healthcare professional's instructions. documented in this encounter Progress Notes Lazaro Ross MD - 08/31/2018 11:15 AM CDT Cc: Chief Complaint Patient presents with Depression Ear Problem right HPI Veronica Moore is a 28 year old female who presents today for depression. She has been lost to f/u with me for over a year. Patient also complains of ear pain. She also requests a SHOP STEWARD referral forfrequent menses (she had two menstrual periods in the past 30 days). Depression: C/o depression symptoms for the past several years. Severity: Severe. Progression: Worsening. The patient's depression symptoms include: See PHQ- 9 responses below. She admits she often feels she would be better off but says she would never harm herself. She denies SI currently. Associated symptoms: Anxiety, irritability. Denies HI, manic symptoms, delusions, or hallucinations. Past mental health diagnoses: LUCAS,. Past treatments: Escitalopram, it worked well for her and she would like to restart it. Psychosocial stressors: Recently lost her job, Family stress. PHQ-2/PHQ-9 Little interest or pleasure in doing things: Not at all Feeling down, depressed, or hopeless: (!) Nearly every day PHQ-2 Score (_/6): (!) 3 PHQ-2 Scoring Interpretation: Positive screen Trouble falling or staying asleep, or sleeping too much: More than half the days Feeling tired or having little energy: Nearly every day Poor appetite or overeating: More than half the days Feeling bad about yourself - or that you are a failure or have let yourself or your family down: Nearly every day Trouble concentrating on things, such as reading the newspaper or watching television: More than half the days Moving or speaking so slowly that other people could have noticed. Or the opposite - being so fidgety or restless that you have been moving around a lot more than usual: Several days Thoughts that you would be better off , or of hurting yourself in some way: More than half the days PHQ-9: TOTAL SCORE: 18 If you checked off any problems, how difficult have these problems made it for you to do your work, take care of things at home, or get along with other people ?: Very difficult Ear Pain Location: Right Behind ear: No abnormality Quality: Sore Severity: Moderate Duration: 1 day Timing: Constant Progression: Unchanged Chronicity: New Relieved by: None tried Ineffective treatments: None tried Associated symptoms: congestion, cough, neck pain, rhinorrhea and sore throat Associated symptoms: no diarrhea, no ear discharge, no fever, no headaches, no rash and no tinnitus Allergies Veronica has No Known Allergies. Medications Outpatient Medications Prior to Visit Medication Sig Dispense Refill LOESTRIN FE (LOESTRIN FE 03/01) 1 mg-20 mcg (21)/75 mg (7) tablet Take 1 tablet by mouth daily. 1Package 4 acetaminophen-codeine 300-30 mg tablet TK 2 TS PO Q 6 H PRF PAIN. 0 escitalopram oxalate 20 mg tablet Take 1 tablet by mouth every morning. 90 tablet 1 ibuprofen 800 mg tablet TK 1 T PO Q 8 H PRF PAIN. 0 mometasone 0.1 % cream Apply to area(s) daily. 60 g 2 sulfamethoxazole-trimethoprim 800-160 mg per tablet TK 1 T PO Q 12 H FOR 10 DAYS. 0 Cholecalciferol, Vitamin D3, (VITAMIN D3) 1,000 unit capsule Take 1 capsule by mouth daily. Takewith food. montelukast 10 mg tablet Take 1 tablet by mouth every evening. 30 tablet 5 No facility-administered medications prior to visit. 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 Family History Problem Relation Age of Onset Diabetes Mother DM2 Hypertension Father Panic attack Brother Arthritis NoFHx Asthma NoFHx defects NoFHx Breast Cancer NoFHx Colon Cancer NoFHx Ovarian Cancer NoFHx Uterine Cancer NoFHx Cancer NoFHx Depression NoFHx Genetic NoFHx Heart NoFHx High cholesterol NoFHx Mental retardation NoFHx Neurological NoFHx Osteoporosis NoFHx Psychiatry NoFHx Other - see comments NoFHx Review of Systems Constitutional: Negative. Negative for fever. HENT: Positive for congestion, ear pain, postnasal drip, rhinorrhea and sore throat. Negative for ear discharge and tinnitus. Eyes: Negative. Respiratory: Positive for cough. Cardiovascular: Negative. Gastrointestinal: Negative. Negative for diarrhea. Genitourinary: Positive for menstrual problem. Musculoskeletal: Positive for neck pain. Skin: Negative. Negative for rash. Neurological: Negative. Negative for headaches. Psychiatric/Behavioral: Positive for agitation, decreased concentration, dysphoric mood and sleep disturbance. The patient is nervous/anxious. Endocrine: Endocrine negative Vital Signs BP 99/69 (BP Location: Left arm, Patient Position: Sitting, BP CUFF SIZE: Adult Medium) | Pulse 85| Temp 36.3 C (97.4 F) (Oral) | Ht 5' 6" (1.676 m) | Wt 212 lb (96.2 kg) | LMP 08/12/2018 (Exact Date) | BMI 34.22 kg/m Physical Exam Constitutional: She is oriented to person, place, and time. She appears well- developed and well-nourished. HENT: Right Ear: Tympanic membrane and ear canal normal. Left Ear: Tympanic membrane and ear canal normal. Nose: Mucosal edema and rhinorrhea present. Right sinus exhibits no maxillary sinus tenderness and no frontal sinus tenderness. Left sinus exhibits no maxillary sinus tenderness and no frontal sinus tenderness. Mouth/Throat: Mucous membranes are normal. Posterior oropharyngeal erythema present. No oropharyngeal exudate or posterior oropharyngeal edema. Eyes: Conjunctivae are normal. Right eye exhibits no discharge. No scleral icterus. Neck: Neck supple. No thyromegaly present. Cardiovascular: Normal rate, regular rhythm, normal heart sounds and intact distal pulses. No murmur heard. Pulmonary/Chest: Effort normal. No respiratory distress. She has no wheezes. She has no rales. Lymphadenopathy: She has no cervical adenopathy. Neurological: She is alert and oriented to person, place, and time. Skin: Skin is warm and dry. No rash noted. Psychiatric: Her speech is normal and behavior is normal. Judgment and thought content normal. Her mood appears anxious. Cognition and memory are normal. She exhibits a depressed mood. She expresses nohomicidal and no suicidal ideation. She expresses no suicidal plans and no homicidal plans. Nursing note and vitals reviewed. Assessment/Plan Diagnoses and all orders for this visit: Major depression, chronic; Generalized anxiety disorder Discussed the medication treatment options for the patient's depressive and anxiety disorder. We decided upon another trial of escitalopram given it worked well for her in the past. The potential side effects of this drug class/ medication were reviewed and the patient voiced understanding. The patient declined referral for counseling or Psychiatry care at this time. We discussed healthy ways of coping with depression and anxiety. Thyroid function testing is due. Close follow-up has been scheduled but the patient understands she can follow-up even sooner if her symptoms don't improve or if other mental health issues develop. The patient was advised to seek care at her local ED or to call [facility]'s [employer]-7 crisis line if she feels suicidal. The patient agreed to this plan and contracted [facility]. - escitalopram oxalate 20 mg tablet; Take 1 tablet by mouth every morning. - THYROID STIMULATING HORMONE; Standing - FREE T4; Standing Frequent menses Recommended evaluation and management by a SHOP STEWARD specialist. Referral intiated. Labs as noted. - CONSULT/REFERRAL STARCH DUMPER - CBC WITH DIFF; Standing - THYROID STIMULATING HORMONE; Standing - FREE T4; Standing - IRON PANEL; Standing - FERRITIN SERUM; Standing Acute otalgia, right; Viral URI I explained to the patient that she likely has a viral condition and antibiotic tx is not necessary. Symptomatic therapy suggested: Increase intake of non- caffeinated fluids, gargle PRN sore throat, use mist at bedside PRN congestion, apply facial warm packs PRN sinus pain, Mucinex max strength 1200mg tabs q12hr PRN congestion, and may use Flonase OTC, acetaminophen, ibuprofen, cough suppressant ofchoice prn. Return for re-evaluation if the symptoms worsen or persist. Plan of care, desired health behaviors, goals, [...] at a future visit. If applicable, the [facility] database was accessed to review any controlled substance prescription claims data. If the patient is taking prescribed medications, the [employer] prescription claims data in Sign[employer] was reviewed to assess patient compliance with the medication treatment plan. Follow-up: Return soon for fasting annual preventive/wellness check. Follow- up sooner if any problems or concerns. Scribe Attestation Henny Pena , am scribing for, and in the presence of, Lazaro Ross MD who performed the services described here-in. Henny Petersen, August 31, 2018, 11:42 AM Physician Attestation Lazaro Pena MD, personally performed the services described in this documentation , as scribed by, Henny Petersen in my presence and it is both accurate and complete. Lazaro Ross MD August 31, 2018, 11:42 AM documented in this encounter Plan of Treatment Date Type Specialty Care Team Description 09/07/2018 Office Visit Family Medicine Lazaro Ross MD [address] [place] [address] [place] FEL[place] [phone] 09/10/2018 Office Visit Obstetrics & Gynecology Farzaneh Loredo MD [address] [place] [phone] Name Type Priority Associated Diagnoses Order Schedule CBC WITH DIFF LAB Routine Frequent menstruation 1 Occurrences starting 08/31/2018 until 10/30/2018 THYROID STIMULATING LAB Routine Generalized anxiety 1 Occurrences starting HORMONE disorder 08/31/2018 until Major depression, 10/30/2018 chronic Frequent menstruation FREE T4 LAB Routine Generalized anxiety 1 Occurrences starting disorder 08/31/2018 until Major depression, 10/30/2018 chronic Frequent menstruation IRON PANEL LAB Routine Frequent menstruation 1 Occurrences starting 08/31/2018 until 10/30/2018 FERRITIN SERUM LAB Routine Frequent menstruation 1 Occurrences starting 08/31/2018 until 10/30/2018 Health Maintenance Due Date Last Done Comments VARICELLA VACCINES (1 of 2 - 13+ 2-dose series) 2001 DTaP,Tdap,and Td Vaccines (1 - Tdap) 06/26/2007 INFLUENZA VACCINE 10/11/2018 PAP SMEAR 07/28/2020 07/28/2017 PNEUMOCOCCAL 0-64 YEARS COMBINED SERIES Completed 01/29/2017 documented as of this encounter Results Not on filedocumented in this encounter Visit Diagnoses Diagnosis Generalized anxiety disorder - Primary Major depression, chronic Major depressive disorder, single episode, unspecified Frequent menstruation Excessive or frequent menstruation Acute otalgia, right Viral URI Acute upper respiratory infections of unspecified site documented in this encounter Insurance Payer Benefit Plan Subscriber ID Effective Dates Phone Address Type / Group [facility] [id number] 2018-Chiara [phone] [address] PPO/POS [place] - OUT OF t 7 [id number] [place] [address] documented as of this encounter
--- OUTSIDE RECORDS SUMMARY | 2019-02-21 14:46 | XMS REPORT | Summary of Care ---
:1990 Author Organization [facility] Address [address] [place] [address] Care Team Providers Name Role Phone Lazaro Ross MD Primary Care Provider Reason for Referral (Routine) Status Reason Specialty Diagnoses / Referred By Referred To Procedures Contact Contact Authorized Obstetrics & Diagnoses Frequent menstruation Cody, Gynecology Procedures CONSULT/REFERRAL SPECIAL AGENT Lazaro Gomez MD [address] [place] [address] [place] [address] Reason for Visit Reason Comments Depression Ear Problem right Encounter Details Date Type Department Care Team Description 08/31/2018 Office Visit [facility] Family Lazaro Ross Generalized anxiety disorder (Primary Dx); Medicine - Erik Gomez MD Major depression, chronic; [facility] [address] [place] [address] DR Joey noguerauation; [place], [place] Acute otalgia, right; [phone] Viral URI [phone] Allergies No Known Allergiesdocumented as of this [...] cycles in a row. Date Last Reviewed: 01/11/201619996920-1156 [employer]. [address] [place] [address], [place] [address]. All rights reserved. This information is not [...] of ear pain. 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 Family History Problem Relation Age of Onset [...] at her local ED or to call [facility]'s [employer]-7 crisis line if she feels suicidal. The patient agreed to this plan and contracted [facility]. - escitalopram oxalate 20 mg tablet; Take 1 tablet by mouth every morning. - THYROID STIMULATING HORMONE; Standing - FREE T4; Standing Frequent menses Recommended evaluation and management by a ORTHOPEDIC SPECIALIST specialist. Referral intiated. Labs as noted. - CONSULT/REFERRAL SPECIAL AGENT - CBC WITH DIFF; Standing - THYROID [...] at a future visit. If applicable, the [facility] database was accessed to review any controlled substance prescription claims data. If the patient is taking prescribed medications, the [employer] prescription claims data in TLabs was reviewed to assess patient compliance with [...] Office Visit Family Medicine Lazaro Ross MD [address] [place] [address] [place] [phone] 09/10/2018 Office Visit Obstetrics & Gynecology Farzaneh Loredo MD [address] [place] [phone] Name Type Priority Associated Diagnoses Order [...] Effective Dates Phone Address Type / Group [facility] [id number] 2018-Chiara [phone] [address] PPO/POS [place] - OUT OF t 7 [id number] [place] [address] documented as of this encounter
--- OUTSIDE RECORDS SUMMARY | 2019-02-21 14:46 | XMS REPORT | Summary of Care ---
:1990 Author Organization [facility] Address [address] [place] [address] Care Team Providers Name Role Phone Lazaro Ross MD Primary Care Provider Sherine Palacios MD Unavailable Reason for Visit Reason Comments ANNUAL EXAM LAB WORK Encounter Details Date Type Department Care Team Description 09/07/2018 Office Visit [facility] Family Lazaro Ross Annual physical exam (Primary Dx); Medicine - Erik Gomez MD Routine screening for STI (sexually transmitted infection); [facility] [address] [place] [address] Exercise counseling; [place], [place] Nutritional counseling; [phone] Needs smoking cessation education; [phone] Frequent menstruation; Generalized anxiety disorder; Major depression, [...] does not recommend CBE. Date Last Reviewed: 11/10/201619998778-[address] [employer] [place] [address], [place] [address]. All rights reserved. This information is not [...] quit within a month, and do it. [place] to your quit plan Talk to your [...] Track your triggers What gives you that V-gfjo-y-cigarette feeling? List all the situations that make [...] wants to stop smoking. Date Last Reviewed: 08/11/201519998718-7937 [employer]. [address] [place] [address], [place] [address]. All rights reserved. This information is not [...] no complications. Specimens were sent processed to [facility] laboratories. Lazaro horta MD - 09/07/2018 9:30 AM CDT Cc: Chief Complaint Patient presents with ANNUAL EXAM HPI Veronica Moore is a 28 year old female who presents today for annual exam. Annual wellness visit: Describes diet: Fair. Exercise frequency: The patient is active but doesn't formally exercise. Last GROCERY BAGGER exam/pap smear: 07/28. Instrument Maintenance Supervisor: Dr Palacios. Patient's last menstrual period was 08/12/2018 (exact date). STD screening consent?: Accepts. Candidate for HPV vaccine?: Yes but will discuss with her GROCERY BAGGER. Candidate for pneumococcal vaccine?: UTD. Candidate for [...] for skin cancer screening exam with a Refrigeration Tech?: Declines. Allergies Veronica has No Known Allergies. 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 Family History Problem Relation Age of Onset [...] and STD screening were all discussed. See laundry worker annually for routine senior data warehouse developer care, pap smear schedule per GROCERY BAGGER. Labs and any other orders as noted below. - CBC WITH DIFF; Standing - COMP. METABOLIC PANEL (85808); Standing - GLYCOSYLATED HEMOGLOBIN (A1C); Standing - LIPID PANEL (07877)(TOTAL CHOLESTEROL, TRIGLYCERIDES, HDL); Standing - THYROID STIMULATING [...] at a future visit. If applicable, the [facility] database was accessed to review any controlled substance prescription claims data. If the patient is taking prescribed medications, the [employer] prescription claims data in [employer] was reviewed to assess patient compliance with the medication treatment plan. Follow-up: Return in about 3 months (around 12/08/2018) for depression/anxiety follow-up. Follow-up sooner if any problems or concerns. documented in this encounter Plan of Treatment Date Type Specialty Care Team Description 09/10/2018 Office Visit Obstetrics & Gynecology Farzaneh Loredo MD [address] [place] [phone] Name Type Priority Associated Diagnoses Order Schedule COMP. METABOLIC PANEL LAB Routine Annual physical exam 1 Occurrences starting (40700) 09/07/2018 until 11/06/2018 GLYCOSYLATED HEMOGLOBIN LAB Routine Annual physical exam 1 Occurrences starting (A1C) 09/07/2018 until 11/06/2018 LIPID PANEL LAB Routine Annual physical exam 1 Occurrences starting (91879)(TOTAL 09/07/2018 until CHOLESTEROL, 11/06/2018 TRIGLYCERIDES, HDL) TRICHOMONAS [...] Effective Dates Phone Address Type / Group [facility] [id number] 2018-Chiara [phone] [address] PPO/POS [place] - OUT OF t 7 [id number] [place] [address] documented as of this encounter
--- OUTSIDE RECORDS SUMMARY | 2019-02-21 14:46 | XMS REPORT | Summary of Care ---
:1990 Author Organization [facility] Address [address] [place] [address] Care Team Providers Name Role Phone Lazaro Ross MD Primary Care Provider Sherine Palacios MD Unavailable Reason for Visit Reason Comments ANNUAL EXAM LAB WORK Encounter Details Date Type Department Care Team Description 09/07/2018 Office Visit [facility] Family Lazaro Ross Annual physical exam (Primary Dx); Medicine - Erik Gomez MD Routine screening for STI (sexually transmitted infection); [facility] [address] [place] [address] Exercise counseling; [place], [place] Nutritional counseling; [phone] Needs smoking cessation education; [phone] Frequent menstruation; Generalized anxiety disorder; Major depression, [...] does not recommend CBE. Date Last Reviewed: 11/10/201619997780-3297 [employer]. [address] [place] [address], [place] [address]. All rights reserved. This information is not [...] quit within a month, and do it. [place] to your quit plan Talk to your [...] Track your triggers What gives you that S-qrvv-y-cigarette feeling? List all the situations that make [...] wants to stop smoking. Date Last Reviewed: 08/11/201519992508-1800 [employer]. [address] [place] [address], [place] [address]. All rights reserved. This information is not [...] no complications. Specimens were sent processed to [facility] laboratories. Lazaro horta MD - 09/07/2018 9:30 AM CDT Cc: Chief Complaint Patient presents with ANNUAL EXAM HPI Veronica Moore is a 28 year old female who presents today for annual exam. Annual wellness visit: Describes diet: Fair. Exercise frequency: The patient is active but doesn't formally exercise. Last PATROL COMMANDER exam/pap smear: 07/28. Triage Clinician: Dr Palacios. Patient's last menstrual period was 08/12/2018 (exact date). STD screening consent?: Accepts. Candidate for HPV vaccine?: Yes but will discuss with her PATROL COMMANDER. Candidate for pneumococcal vaccine?: UTD. Candidate for [...] for skin cancer screening exam with a General Accountant?: Declines. Allergies Veronica has No Known Allergies. 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 Family History Problem Relation Age of Onset [...] and STD screening were all discussed. See supervisor drapery hanging annually for routine rn gynecology care, pap smear schedule per PATROL COMMANDER. Labs and any other orders as noted below. - CBC WITH DIFF; Standing - COMP. METABOLIC PANEL (89804); Standing - GLYCOSYLATED HEMOGLOBIN (A1C); Standing - LIPID PANEL (53461)(TOTAL CHOLESTEROL, TRIGLYCERIDES, HDL); Standing - THYROID STIMULATING [...] at a future visit. If applicable, the [facility] database was accessed to review any controlled substance prescription claims data. If the patient is taking prescribed medications, the [employer] prescription claims data in [employer] was reviewed to assess patient compliance with the medication treatment plan. Follow-up: Return in about 3 months (around 12/08/2018) for depression/anxiety follow-up. Follow-up sooner if any problems or concerns. documented in this encounter Plan of Treatment Date Type Specialty Care Team Description 09/10/2018 Office Visit Obstetrics & Gynecology Farzaneh Loredo MD [address] [place] [phone] Name Type Priority Associated Diagnoses Order Schedule COMP. METABOLIC PANEL LAB Routine Annual physical exam 1 Occurrences starting (04592) 09/07/2018 until 11/06/2018 GLYCOSYLATED HEMOGLOBIN LAB Routine Annual physical exam 1 Occurrences starting (A1C) 09/07/2018 until 11/06/2018 LIPID PANEL LAB Routine Annual physical exam 1 Occurrences starting (85552)(TOTAL 09/07/2018 until CHOLESTEROL, 11/06/2018 TRIGLYCERIDES, HDL) TRICHOMONAS [...] Effective Dates Phone Address Type / Group [facility] [id number] 2018-Chiara [phone] [address] PPO/POS [place] - OUT OF t 7 [id number] [place] [address] documented as of this encounter
--- OUTSIDE RECORDS SUMMARY | 2019-02-21 14:47 | XMS REPORT | Summary of Care ---
:1990 Author Organization [facility] Address [address] [place] [address] Care Team Providers Name Role Phone Lazaro Ross MD Primary Care Provider Sherine Palacios MD Unavailable Encounter Details Date Type Department Care Team Description 09/10/2018 Orders Only [facility] Doctor Unassigned, No [address] [facility] Name [place] [phone] Allergies No Known Allergiesdocumented as of this encounter (statuses as of 10/01/2018) Medications Medication Sig Dispensed Refills Start Date End Date Status escitalopram oxalate 20 Take 1 tablet by 90 tablet 1 08/31/2018 Active mg tabletIndications: mouth every Generalized anxiety morning. disorder norethindrone-e.estradi Take 1 tablet by 3 Package 4 09/10/2018 Active ol-iron 1.5 mg-30 mcg mouth daily. (21)/75 mg (7) per tabletIndications: Irregular menstrual cycle documented as of this encounter (statuses as of 10/01/2018) Active Problems Problem Noted Date Prediabetes 02/04/2017 Low HDL (under 40) 02/04/2017 Vitamin D deficiency 02/04/2017 Anxiety disorder, unspecified type 01/21/2017 Atopic dermatitis, unspecified type 01/21/2017 Tobacco use documented as of this encounter (statuses as of 10/01/2018) Immunizations Name Administration Dates Next Due HPV9 09/10/2018 11/10/2018 Pneumococcal Polysaccharide, PPSV23 (PNEUMOVAX) 01/29/2017 Tdap 08/19/2013 [...] of this encounter Last Filed Vital Signs Not on filedocumented in this encounter Plan of Treatment Date Type Specialty Care Team Description 12/08/2018 Office Visit Family Medicine Lazaro Ross MD [address] [place] [address] [place] [phone] Health Maintenance Due Date Last Done Comments INFLUENZA VACCINE (Retired version) 10/11/2018 PAP SMEAR 07/28/2020 07/28/2017 DTaP,Tdap,and Td Vaccines (2 - Td) 08/20/2023 08/19/2013 PNEUMOCOCCAL 0-64 YEARS COMBINED SERIES Completed 01/29/2017 VARICELLA VACCINES Discontinued documented as of this encounter Procedures Procedure Name Priority Date/Time Associated Diagnosis Comments CONSENT/REFUSAL FOR Routine 09/10/2018 12:01 AM CDT DIAGNOSIS AND TREATMENT documented in this encounter Results Not on filedocumented in this encounter Insurance Payer Benefit Plan Subscriber ID Effective Dates Phone Address Type / Group [facility] [id number] 2018-Chaira [phone] [address] PPO/POS [place] - OUT OF t 7 [id number] [place] [address] documented as of this encounter
--- OUTSIDE RECORDS SUMMARY | 2019-02-21 14:47 | XMS REPORT | Summary of Care ---
:1990 Author Organization [address] [address] Care Team Providers Name Role Phone Lazaro Ross MD Primary Care Provider Sherine Palacios MD Unavailable Reason for Visit Reason Comments IRREGULAR CYCLE (Routine) Status Reason Specialty Diagnoses / Referred By Referred To Procedures Contact Contact Closed Obstetrics & Diagnoses Frequent menstruation [facility] Procedures CONSULT/REFERRAL RIVET SORTER Lazaro Gomez MD [address] [place] [phone] Encounter Details Date Type Department Care Team Description 09/10/2018 Office Visit [facility] Women's Farzaneh Loredo MD Irregular menstrual cycle (Primary Dx); Healthcare- [address] Need for HPV vaccine [address] [place] [address] [address] [phone] [place], [place] [phone] Allergies No Known Allergiesdocumented as of this encounter (statuses as of 09/10/2018) Medications Medication Sig Dispensed Refills Start Date End Date Status escitalopram oxalate 20 Take 1 tablet by 90 tablet 1 08/31/2018 Active mg tabletIndications: mouth every Generalized anxiety morning. disorder norethindrone-e.estradi Take 1 tablet by 3 Package 4 09/10/2018 Active ol-iron 1.5 mg-30 mcg mouth daily. (21)/75 mg (7) per tabletIndications: Irregular menstrual cycle documented as of this encounter (statuses as of 09/10/2018) Active Problems Problem Noted Date Prediabetes 02/04/2017 Low HDL (under 40) 02/04/2017 Vitamin D deficiency 02/04/2017 Anxiety disorder, unspecified type 01/21/2017 Atopic dermatitis, unspecified type 01/21/2017 Tobacco use documented as of this encounter (statuses as of 09/10/2018) Immunizations Name Administration Dates Next Due HPV9 [...] Sign Reading Time Taken Comments Blood Pressure 114/74 09/10/2018 11:03 AM CDT Pulse 74 09/10/2018 11:03 AM CDT Temperature 36.8 C (98.3 F) 09/10/2018 11:03 AM CDT Respiratory Rate 20 09/10/2018 11:03 AM CDT Oxygen Saturation - - Inhaled Oxygen Concentration - - Weight 96.1 kg (211 lb 12.8 oz) 09/10/2018 11:03 AM CDT Height - - Body Mass Index 34.19 09/07/2018 9:16 AM CDT documented in this encounter Progress Notes Doris Horton RN - 09/10/2018 11:00 AM CDTHPV VIS given. History reviewed. No significant history affecting immunization. Vaccine(s) given as ordered with patient consent. See documentation under "Immunizations". Pt tolerated well. No reactionnoted post vaccination. ER warnings associated with oral contraceptive pills reviewed and consent signed. Copy of consent given to pt. Instructions reviewed. Advised to use a back up method such as condoms during the first month for prevention. Understanding verbalized. Farzaneh Medel MD - 09/10/2018 11:00 AM CDT Chief complaint: Chief Complaint Patient presents with IRREGULAR CYCLE HPI Veronica Moore is a 28 year old female presents with irregular menses. Her menses had been somewhat every month with normal flow until the last 2 months. She now states that her menses occurred 2 times in the last 30 days. She noted her regular menses 7/3 x 5 days, the another menses 7/14 x 5 days. Flow has been moderate with with minimal- moderate dysmenorrhea. She had seen Dr. Palacios and had a title attorney evaluation in 07/2017 due to her dysmenorrhea. She was placed on Loestrin but has since discontinued the medication. Patient had an outside US on 07/14/2017 which revealed an unremarkable uterus and right ovary with a 2.8 cm hemorrhagic cyst on the left ovary. Pap 07/2017 was normal. She is currently being treated by Family Medicine for major depression and anxiety. Her evaluation on 09/07/2018 with Family Medicine included a TSH, GC, chlamydia, HIV , and RPR. Note that patient also desires her series of the HPV vaccine. Histories OB History Obstetric Comments One Past Medical History: Diagnosis Date Anxiety Depression Eczema Low HDL (under 40) 02/04/2017 Migraines Prediabetes 02/04/2017 Tobacco use Vitamin D deficiency 02/04/2017 Family History Problem Relation Age of Onset Diabetes Mother DM2 Hypertension Father Panic attack Brother Arthritis NoFHx Asthma NoFHx defects NoFHx Breast Cancer NoFHx Colon Cancer NoFHx Ovarian Cancer NoFHx Uterine Cancer NoFHx Cancer NoFHx Depression NoFHx Genetic NoFHx Heart NoFHx High cholesterol NoFHx Mental retardation NoFHx Neurological NoFHx Osteoporosis NoFHx Psychiatry NoFHx Other - see comments NoFHx Family Status Relation Name Status Mo Alive Fa Alive Bro Alive NoFHx (Not Specified) Past Surgical History: Procedure Laterality Date SECTION [...] file Gets together: Not on file Attends jain service: Not on file Active member of [...] file Social History Narrative 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 Social History Substance and Sexual Activity Sexual Activity Yes Partners: Male control/protection: Condom Labs No new labs Radiology No new radiology. Allergies Veronica has No Known Allergies. Medications Veronica has a current medication list which includes the following prescription( s): norethindrone-e.estradiol-iron and escitalopram oxalate. Review of Systems Constitutional: Negative. HENT: Negative. Eyes: Negative. Respiratory: Negative. Breasts: Negative. Cardiovascular: Negative. Gastrointestinal: Negative. Genitourinary: Negative. Musculoskeletal: Negative. Skin: Negative. Neurological: Negative. Psychiatric/Behavioral: Depression for which she is being treated Endocrine: Endocrine negative BP 114/74 (BP Location: Left arm, Patient Position: Sitting, BP CUFF SIZE: Adult Medium) | Pulse 74 | Temp 36.8 C (98.3 F) (Oral) | Resp 20 | Wt 211 lb 12.8 oz (96.1 kg) | LMP 08/23/2018 | BMI 34.19 kg/m Pregravid BMI: Could not be calculated Physical Exam Vitals reviewed. Constitutional: She appears well-developed. Cardiovascular: Regular rate and rhythm. No murmur auscultated. No peripheral edema present. Pulmonary/Chest: Breath sounds clear to auscultation. Normal inspiratory effort. Abdominal: Abdomen is soft. No mass palpated. No tenderness present. There is no hepatomegaly. Neuro/Psychiatric: She has a normal mood and affect. Skin: Skin normal. Breast: Right breast exhibits no mass and no tenderness. Left breast exhibits no mass and no tenderness. Uterus: Uterus is normal size and non-tender. Adnexa: Right adnexa without tenderness or mass. Left adnexa mass. Left adnexa without tenderness. Assessment/Plan Irregular menstrual cycle Comment: Normal exam today. Patient previously on OCA and now desires for both contraception and control. Plan: norethindrone-e.estradiol-iron 1.5 mg-30 mcg (21)/75 mg (7) per tablet Patient denies self or family history of thromboembolic disease or thrombophilia , migraine headache. I counseled patient regarding use of oral contraceptives. There are combined oral contraceptive, which has both estrogen and progestin, and there is progestin only oral contraceptive. With typical use, 9 out 100 women get in the first year and with perfect use 0.3 out of 100 women get in the first year according to ACOG Practice Bulletin. Risks include but not limited to increase risk of thromboembolic disease, headache, weight gain, mood lability, and breast cancer. Decrease risks of ovarian cancer , colon cancer, and endometrial cancer. Oral contraceptive may decrease milk supply. Alternatives reviewed include patch, ring, Depo-Provera, Nexplanon, and IUD. Advise using condoms for STDs prevention. Need for HPV vaccine Comment: Patient desires. Plan: GARDASIL 9 (HPV 9V) VACCINE She will f/u for the next 2 injections in the series. Patient info given. Return to clinic in 1 year or prn weeks. This visit did not involve counseling and coordination that comprised more than 50% of the visit time. Farzaneh Loredo MD documented in this encounter Plan of Treatment Date Type Specialty Care Team Description 12/08/2018 Office Visit Family Medicine Lazaro Ross MD [address] [place] [address] [place] [phone] Health Maintenance Due Date Last Done Comments INFLUENZA VACCINE 10/11/2018 PAP SMEAR 07/28/2020 07/28/2017 DTaP,Tdap,and Td Vaccines (2 - Td) 08/20/2023 08/19/2013 PNEUMOCOCCAL 0-64 YEARS COMBINED SERIES Completed 01/29/2017 VARICELLA VACCINES Discontinued documented as of this encounter Procedures Procedure Name Priority Date/Time Associated Diagnosis Comments GARDASIL 9 (HPV 9V) Routine 09/10/2018 11:43 AM CDT Need for HPV vaccine VACCINE documented in this encounter Results Not on filedocumented in this encounter Visit Diagnoses Diagnosis Irregular menstrual cycle - Primary Need for HPV vaccine Need for prophylactic vaccination and inoculation against other viral diseases documented in this encounter Insurance Payer Benefit Plan Subscriber ID Effective Dates Phone Address Type / Group [facility] [id number] 2018-Chiara [phone] [address] PPO/POS [place] - OUT OF t 7 [id number] [place] [address] documented as of this encounter
--- OUTSIDE RECORDS SUMMARY | 2019-02-21 14:47 | XMS REPORT | Summary of Care ---
:1990 Author Organization [facility] Address [address] [place] [address] Care Team Providers Name Role Phone Lazaro Ross MD Primary Care Provider Sherine Palacios MD Unavailable Reason for Visit Reason Comments ANNUAL EXAM LAB WORK Encounter Details Date Type Department Care Team Description 09/07/2018 Office Visit [facility] Family Lazaro Ross Annual physical exam (Primary Dx); Medicine - Erik Gomez MD Routine screening for STI (sexually transmitted infection); [facility] [address] [place] [address] Exercise counseling; [place], [place] Nutritional counseling; [phone] Needs smoking cessation education; [phone] Frequent menstruation; Generalized anxiety disorder; Major depression, chronic Allergies No Known Allergiesdocumented as of this encounter (statuses as of 09/09/2018) Medications Medication Sig Dispensed Refills Start Date End Date Status escitalopram oxalate 20 Take 1 tablet by 90 tablet 1 08/31/2018 Active mg tabletIndications: mouth every Generalized anxiety morning. disorder documented as of this encounter (statuses as of 09/09/2018) Active Problems Problem Noted Date Prediabetes 02/04/2017 Low HDL (under 40) 02/04/2017 Vitamin D deficiency 02/04/2017 Anxiety disorder, unspecified type 01/21/2017 Atopic dermatitis, unspecified type 01/21/2017 Tobacco use documented as of this encounter (statuses as of 09/09/2018) Immunizations Name Administration Dates Next Due Pneumococcal [...] does not recommend CBE. Date Last Reviewed: 11/10/201619999994-10[address] [employer] [place] [address], [place] [address]. All rights reserved. This information is not [...] quit within a month, and do it. [place] to your quit plan Talk to your [...] Track your triggers What gives you that Z-zdac-i-cigarette feeling? List all the situations that make [...] wants to stop smoking. Date Last Reviewed: 08/11/201519999569-6085 [employer]. [address] [place] [address], [place] [address]. All rights reserved. This information is not [...] no complications. Specimens were sent processed to [facility] laboratories. Lazaro horta MD - 09/07/2018 9:30 AM CDT Cc: Chief Complaint Patient presents with ANNUAL EXAM HPI Veronica Moore is a 28 year old female who presents today for annual exam. Annual wellness visit: Describes diet: Fair. Exercise frequency: The patient is active but doesn't formally exercise. Last ELECTRIC MOTOR WINDERS ASSEMBLER exam/pap smear: 07/28. Clay Pigeon Setter: Dr Palacios. Patient's last menstrual period was 08/12/2018 (exact date). STD screening consent?: Accepts. Candidate for HPV vaccine?: Yes but will discuss with her [employer]LECT[employer]OR [employer] ASSEMBLER. Candidate for pneumococcal vaccine?: UTD. Candidate for [...] for skin cancer screening exam with a Telemarketer?: Declines. Allergies Veronica has No Known Allergies. 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 Family History Problem Relation Age of Onset [...] STD screening were all discussed. See supervisor cereal annually for routine basket braider care, pap smear schedule per [employer]SEM[employer]ER. Labs and any other orders as noted below. - CBC WITH DIFF; Standing - COMP. METABOLIC PANEL (67687); Standing - GLYCOSYLATED HEMOGLOBIN (A1C); Standing - LIPID PANEL (02446)(TOTAL CHOLESTEROL, TRIGLYCERIDES, HDL); Standing - THYROID STIMULATING [...] at a future visit. If applicable, the [facility] database was accessed to review any controlled substance prescription claims data. If the patient is taking prescribed medications, the [employer] prescription claims data in FL3XX was reviewed to assess patient compliance with the medication treatment plan. Follow-up: Return in about 3 months (around 12/08/2018) for depression/anxiety follow-up. Follow-up sooner if any problems or concerns. documented in this encounter Plan of Treatment Date Type Specialty Care Team Description 09/10/2018 Office Visit Obstetrics & Gynecology Farzaneh Loredo MD [address] [place] [phone] 12/08/2018 Office Visit Family Medicine Lazaro Ross MD [address] [place] [address] [place] [phone] Name Type Priority Associated Diagnoses Date/Time VITAMIN D, 25-OH LAB Routine Annual physical exam 09/07/2018 9:49 AM CDT Name Type Priority Associated Diagnoses Order Schedule VITAMIN D, 25-OH LAB Routine Annual physical exam 1 Occurrences starting until 11/06/2018 Health Maintenance Due Date Last Done Comments INFLUENZA VACCINE 10/11/2018 PAP SMEAR 07/28/2020 07/28/2017 DTaP,Tdap,and Td Vaccines (2 - Td) 08/20/2023 08/19/2013 PNEUMOCOCCAL 0-64 YEARS COMBINED SERIES Completed 01/29/2017 VARICELLA VACCINES Discontinued documented as of this encounter Procedures Procedure Name Priority Date/Time Associated Diagnosis Comments TRICHOMONAS AMPLIFIED Routine 09/07/2018 9:52 Annual physical exam Results for this ASSAY AM CDT Routine screening procedure are in for STI (sexually the results transmitted section. infection) CBC WITH DIFFERENTIAL Routine 09/07/2018 9:52 Frequent Results for this AM CDT menstruation procedure are in the results section. ADC, CLC OR LCC ONLY Routine 09/07/2018 9:52 Annual physical exam Results for this - HIV TYPE 1 AND 2 AM CDT Routine screening procedure are in ANTIBODY SCREEN WITH for STI (sexually the results P24 transmitted section. infection) ADC OR FARIDA ONLY - Routine 09/07/2018 9:52 Annual physical exam Results for this RPR AM CDT Routine screening procedure are in for STI (sexually the results transmitted section. infection) GC & CHLAMYDIA Routine 09/07/2018 9:52 Annual physical exam Results for this AMPLIFIED ASSAY AM CDT Routine screening procedure are in for STI (sexually the results transmitted section. infection) HCV ANTIBODY Routine 09/07/2018 9:52 Annual physical exam Results for this AM CDT Routine screening procedure are in for STI (sexually the results transmitted section. infection) HEPATITIS B SURFACE Routine 09/07/2018 9:52 Annual physical exam Results for this ANTIGEN AM CDT Routine screening procedure are in for STI (sexually the results transmitted section. infection) URINALYSIS Routine 09/07/2018 9:52 Annual physical exam Results for this AM CDT procedure are in the results section. GLYCOSYLATED Routine 09/07/2018 9:52 Annual physical exam Results for this HEMOGLOBIN (A1C) AM CDT procedure are in the results section. CBC WITH DIFF Routine 09/07/2018 9:52 Frequent Results for this AM CDT menstruation procedure are in the results section. IRON PANEL Routine 09/07/2018 9:52 Frequent Results for this AM CDT menstruation procedure are in the results section. LIPID PANEL Routine 09/07/2018 9:52 Annual physical exam Results for this (74172)(TOTAL AM CDT procedure are in CHOLESTEROL, the results TRIGLYCERIDES, HDL) section. COMP. METABOLIC PANEL Routine 09/07/2018 9:52 Annual physical exam Results for this (66872) AM CDT procedure are in the results section. THYROID STIMULATING Routine 09/07/2018 9:52 Generalized anxiety Results for this HORMONE AM CDT disorder procedure are in Major depression, the results chronic section. Frequent menstruation FREE T4 Routine 09/07/2018 9:52 Generalized anxiety Results for this AM CDT disorder procedure are in Major depression, the results chronic section. Frequent menstruation FERRITIN SERUM Routine 09/07/2018 9:52 Frequent Results for this AM CDT menstruation procedure are in the results section. documented in this encounter Results CBC WITH DIFFERENTIAL (09/07/2018 9:52 AM CDT) WBC 7.53 4.30 - 11.10 [facility] 10*3/L [facility] RBC 4.63 3.93 - 5.25 [facility] 10*6/L [facility] HGB 13.6 11.6 - 15.0 g/dL [facility] HCT 40.6 35.7 - 45.2 % [facility] MCV 87.7 80.6 - 95.5 fL [facility] MCH 29.4 25.9 - 32.8 pg [facility] MCHC 33.5 31.6 - 35.1 g/dL [facility] RDW-SD 45.3 39.0 - 49.9 fL [facility] RDW-CV 14.2 12.0 - 15.5 % [facility] PLT 291 166 - 358 [facility] 10*3/L [facility] MPV 10.4 9.5 - 12.9 fL [facility] NRBC/100 WBC 0.0 0.0 - 10.0 /100 [facility] NRBC x10^3 <0.01 10*3/L [facility] GRAN MAT (NEUT) % 63.5 % [facility] IMM GRAN % 0.30 % [facility] LYMPH % 25.5 % [facility] MONO % 8.8 % [facility] EOS % 1.5 % [facility] BASO % 0.4 % [facility] GRAN MAT x10^3(ANC) 4.79 1.88 - 7.09 [facility] 10*3/uL [facility] IMM GRAN x10^3 <0.03 0.00 - 0.06 [facility] 10*3/uL HOSPITAL [facility] LYMPH x10^3 1.92 1.32 - 3.29 [facility] 10*3/uL H[facility]PITAL [facility] MONO x10^3 0.66 0.33 - 0.92 [facility] 10*3/uL [facility] EOS x10^3 0.11 0.03 - 0.39 [facility] 10*3/uL [facility] BASO x10^3 0.03 0.01 - 0.07 [facility] 103/uL [facility] Specimen Blood Performing Organization Address [facility] Phone Number [facility] CLIA: [id number], [address] [address] FERRITIN SERUM (09/07/2018 9:52 AM CDT) FERRITIN 10.9 6.0 - 137.0 ng/mL [facility] Specimen Blood Narrative Performed At Biotin has been reported to cause a negative [facility] bias, interpret results relative to patient's use of biotin. Performing Organization Address [facility] Phone Number [facility] CLIA: [id number], [id number] [address] IRON PANEL (09/07/2018 9:52 AM CDT) IRON 42 (L) 50 - 160 ug/dL [facility] TIBC 371 250 - 410 ug/dL [facility] % FE SAT 11 (L) 20 - 50 % [facility] Specimen Blood Performing Organization Address [facility] Phone Number [facility] CLIA: [id number], [address] FREE T4 (09/07/2018 9:52 AM CDT) FREE T4 1.09 0.78 - 2.20 ng/dL [facility] Specimen Blood Performing Organization Address City/[facility]/Zipcode Phone Number [facility] CLIA: [id number], [address] [place] [address] THYROID STIMULATING HORMONE (09/07/2018 9:52 AM CDT) TSH 1.36 0.45 - 4.70 mIU/L [facility] Specimen Blood Performing Organization Address [facility] Phone Number [facility] CLIA: [id number], [address] [place] [address] HEPATITIS B SURFACE ANTIGEN (09/07/2018 9:52 AM CDT) Pathologist [facility] HBsAg HEPATITIS B Negative [facility] SURFACE ANTIGEN SERVICES NEGATIVE HBsAg 0.05 [facility] Semi-Quantitative SERVICES Specimen Blood Performing Organization Address [facility] Phone Number [facility] CLIA: [id number], [address] [place] [address] [facility] HCV ANTIBODY (09/07/2018 9:52 AM CDT) Pathologist [facility] HCV Ab NEGATIVE [facility] HCV Semi-Quantitative 0.03 [facility] SERVICES Specimen Blood Performing Organization Address [facility] Phone Number [facility] CLIA: [id number], [address] [place] [address] [phone] [facility] URINALYSIS (09/07/2018 9:52 AM CDT) APPEARANCE Hazy (A) Clear [facility] COLOR Yellow Yellow [facility] PH 6.0 4.8 - 8.0 [facility] SP GRAVITY 1.025 1.003 - 1.030 [facility] GLU U QUAL Negative Negative [facility] BLOOD Negative Negative [facility] KETONES Negative Negative [facility] PROTEIN Negative Negative [facility] UROBILIN 0.2 mg/dL 0-1.0 mg/dL [facility] BILIRUBIN Negative Negative [facility] NITRITE Negative Negative [facility] LEUK ARABELLA Negative Negative [facility] RBC/HPF 0 0 - 3 HPF [facility] WBC/HPF 1 0 - 5 HPF [facility] BACTERIA Moderate (A) Negative [facility] MUCOUS Marked (A) Negative LPF [facility] AMORPHOUS Few HPF [facility] SQ EPITH 5 HPF [facility] Specimen Urine - URINE, CLEAN CATCH Performing Organization Address [facility] Phone Number [facility] CLIA: [id number], [address] [place] [address] GC & CHLAMYDIA AMPLIFIED ASSAY (09/07/2018 9:52 AM CDT) C. trachomatis Nucleic NEGATIVE Negative [facility] Acid SERVICES N. gonorrhoeae Nucleic NEGATIVE Negative [facility] Acid SERVICES Specimen Urine - URINE, UNSPECIFIED SOURCE Performing Organization Address [facility] Phone Number [facility] CLIA: [id number], [address] [place] [address] [phone] [facility] ADC, CLC OR LCC ONLY - HIV TYPE 1 AND 2 ANTIBODY SCREEN WITH P24 (09/07/2018 9: 52 AM CDT) HIV 1/2 AG/AB NON-REACTIVE Nonreactive [facility] Specimen Blood - VENOUS Performing Organization Address [facility] Phone Number [facility] CLIA: [id number], [address] [place] [address] ADC OR FARIDA ONLY - RPR (09/07/2018 9:52 AM CDT) RPR (Qualitative) NON-REACTIVE Nonreactive [facility] Specimen Blood Performing Organization Address [facility] Phone Number [facility] CLIA: [id number], [address] [place] [address] TRICHOMONAS AMPLIFIED ASSAY (09/07/2018 9:52 AM CDT) Trichomonas Nucleic Negative Negative [facility] Acid SERVICES Specimen Urine - URINE, UNSPECIFIED SOURCE Performing Organization Address [facility] Phone Number [facility] CLIA: [id number], [address] [place], [place] [address] [phone] [facility] LIPID PANEL (52814)(TOTAL CHOLESTEROL, TRIGLYCERIDES, HDL) (09/07/2018 9:52 AM CDT) CHOL 163 120 - 200 mg/dL [facility] HDL 30 (L) >50 mg/dL [facility] HDLC RATIO 5.4 (H) <=4.5 [facility] TRIG 92 30 - 170 mg/dL [facility] LDL CHOL 115 <=160 mg/dL [facility] VLDL 18 5 - 60 mg/dL [facility] Specimen Blood Performing Organization Address City/[facility] Phone Number [facility] CLIA: [id number], [address] [place] [address] GLYCOSYLATED HEMOGLOBIN (A1C) (09/07/2018 9:52 AM CDT) HGB A1C 5.0 4.0 - 6.0 % NGSP [facility] Specimen Blood Narrative Performed At %A1C (NGSP) Interpretation (ADA) [facility] 4.8-5.6 Normal or (Non-Diabetic Range) 5.7-6.4 Increased Risk (Pre-Diabetic) >6.5Diabetes Indicated Performing Organization Address City[facility] Phone Number [facility] CLIA: [id number], [address] [place] [address] COMP. METABOLIC PANEL (78523) (09/07/2018 9:52 AM CDT) NA 141 135 - 145 mmol/L [facility] K 4.4 3.5 - 5.0 mmol/L [facility] CL 105 98 - 108 mmol/L [facility] CO2 TOTAL 27 23 - 31 mmol/L [facility] AGAP 9 2 - 16 [facility] BUN 9 7 - 23 mg/dL [facility] GLUCOSE 93 70 - 110 mg/dL [facility] CREATININE 0.84 0.50 - 1.04 [facility] mg/dL HOSPITAL LABORATORY TOTAL BILI 0.4 0.1 - 1.1 mg/dL [facility] CALCIUM 8.7 8.6 - 10.6 mg/dL [facility] T PROTEIN 7.3 6.3 - 8.2 g/dL [facility] ALBUMIN 4.1 3.5 - 5.0 g/dL [facility] ALK PHOS 110 34 - 122 U/L [facility] ALT(SGPT) 19 9 - 51 U/L [facility] AST(SGOT) 17 13 - 40 U/L [facility] eGFR Calculation 79.6 mL/min/1.73m2 [facility] (Non-) [facility] eGFR Calculation 96.5 mL/min/1.73m2 [facility] () [facility] Specimen Blood Narrative Performed At Association of Glomerular Filtration Rate (GFR) [facility] and Staging of Kidney Disease* + + +- + | GFR (mL/min/1.73 m2)| With Kidney Damage|Without Kidney Damage + + +- + |>90| Stage one| Normal + + +- + |60-89|S tage two| Decreased GFR + + +- + |30-59|S tage three| Stage three + + +- + |15-29|S tage four | Stage four + + +- + |<15 (or dialysis)|Stage five | Stage five + + +- + *Each stage assumes the associated GFR level has been in effect for at least three months.Stages 1 to 5, with or without kidney disease, indicate chronic kidney disease. Notes: Determination of stages one and two (with eGFR >59mL/min/1.73 m2) requires estimation of kidney damage for at least three months as defined by structural or functional abnormalities of the kidney, manifested by either: Pathological abnormalities or Markers of kidney damage (including abnormalities in the composition of the blood or urine or abnormalities in imaging tests). Performing Organization Address City/State/Zipcode Phone Number [facility] CLIA: [id number], [address] [place] [address] [facility] [address] documented in this encounter Visit Diagnoses Diagnosis Annual [...] Effective Dates Phone Address Type / Group [facility] [id number] 2018-Chiara [phone] [address] PPO/POS [place] - OUT OF t 7 [id number] [place] [address] documented as of this encounter
--- OUTSIDE RECORDS SUMMARY | 2019-02-21 14:47 | XMS REPORT | Summary of Care ---
:1990 Author Organization [address] [address] Care Team Providers Name Role Phone Lazaro Ross MD Primary Care Provider Sherine Palacios MD Unavailable Reason for Visit Reason Comments IRREGULAR CYCLE (Routine) Status Reason Specialty Diagnoses / Referred By Referred To Procedures Contact Contact Closed Obstetrics & Diagnoses Frequent menstruation [facility]necology Procedures CONSULT/REFERRAL [employer] MATE G Lazaro Gomez MD [address] [place] [phone] Encounter Details Date Type Department Care Team Description 09/10/2018 Office Visit [facility] Women's Farzaneh Loredo MD Irregular menstrual cycle (Primary Dx); Healthcare- [address] Need for HPV vaccine [address] [place] [address] [address] [phone] [place], [place] [phone] [phone] Allergies No Known Allergiesdocumented as of this [...] had seen Dr. Palacios and had a supervisory it specialist evaluation in 07/2017 due to her dysmenorrhea. 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 Social History Substance and Sexual Activity Sexual [...] Office Visit Family Medicine Lazaro Ross MD [address] [place] [address] [place] [phone] Health Maintenance Due Date Last Done Comments [...] Dates Phone Address Type / Group [employer] [facility] [id number] 2018-[place] [phone] [address] PPO/POS [place] - OUT OF t 7 [id number] [place] [address] documented as of this encounter
--- OUTSIDE RECORDS SUMMARY | 2019-02-21 14:47 | XMS REPORT | Summary of Care ---
:1990 Author Organization [facility] Address [address] [place] [address] Care Team Providers Name Role Phone Lazaro Ross MD Primary Care Provider Sherine Palacios MD Unavailable Reason for Visit Reason Comments ANNUAL EXAM LAB WORK Encounter Details Date Type Department Care Team Description 09/07/2018 Office Visit [facility] Family Lazaro Ross Annual physical exam (Primary Dx); Medicine - Erik Gomez MD Routine screening for STI (sexually transmitted infection); [facility] [address] [place] [address] Exercise counseling; [place], [place] Nutritional counseling; [phone] Needs smoking cessation education; [phone] Frequent menstruation; Generalized anxiety disorder; Major depression, [...] does not recommend CBE. Date Last Reviewed: 11/10/201619994863-6575 [employer]. [address] [place] [address], [place] [address]. All rights reserved. This information is not [...] quit within a month, and do it. [place] to your quit plan Talk to your [...] Track your triggers What gives you that Y-ilmr-v-cigarette feeling? List all the situations that make [...] wants to stop smoking. Date Last Reviewed: 08/11/201519999883-3322 [employer]. [address] [place] [address], [place] [address]. All rights reserved. This information is not [...] no complications. Specimens were sent processed to [facility] laboratories. Lazaro horta MD - 09/07/2018 9:30 AM CDT Cc: Chief Complaint Patient presents with ANNUAL EXAM HPI Veronica Moore is a 28 year old female who presents today for annual exam. Annual wellness visit: Describes diet: Fair. Exercise frequency: The patient is active but doesn't formally exercise. Last FRAME CLEANER exam/pap smear: 07/28. Saddle Maker: Dr Palacios. Patient's last menstrual period was 08/12/2018 (exact date). STD screening consent?: Accepts. Candidate for HPV vaccine?: Yes but will discuss with her FRAME CLEANER. Candidate for pneumococcal vaccine?: UTD. Candidate for [...] for skin cancer screening exam with a Conventional Mortgage Underwriter?: Declines. Allergies Veronica has No Known Allergies. 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 Family History Problem Relation Age of [...] and STD screening were all discussed. See artificial stone setter annually for routine mechanical service specialist care, pap smear schedule per FRAME CLEANER. Labs and any other orders as noted below. - CBC WITH DIFF; Standing - COMP. METABOLIC PANEL (10177); Standing - GLYCOSYLATED HEMOGLOBIN (A1C); Standing - LIPID PANEL (42205)(TOTAL CHOLESTEROL, TRIGLYCERIDES, HDL); Standing - THYROID STIMULATING [...] at a future visit. If applicable, the [facility] database was accessed to review any controlled substance prescription claims data. If the patient is taking prescribed medications, the [employer] prescription claims data in [place] was reviewed to assess patient compliance with the medication treatment plan. Follow-up: Return in about 3 months (around 12/08/2018) for depression/anxiety follow-up. Follow-up sooner if any problems or concerns. documented in this encounter Plan of Treatment Date Type Specialty Care Team Description 09/10/2018 Office Visit Obstetrics & Gynecology Farzaneh Loredo MD [address] [place] [phone] 12/08/2018 Office Visit Family Medicine Lazaro Ross MD [address] [place] [address] [place] [address] Name Type Priority Associated Diagnoses Order Schedule COMP. METABOLIC PANEL LAB Routine Annual physical exam 1 Occurrences starting (15828) 09/07/2018 until 11/06/2018 GLYCOSYLATED HEMOGLOBIN LAB Routine Annual physical exam 1 Occurrences starting (A1C) 09/07/2018 until 11/06/2018 LIPID PANEL LAB Routine Annual physical exam 1 Occurrences starting (46139)(TOTAL 09/07/2018 until CHOLESTEROL, 11/06/2018 TRIGLYCERIDES, HDL) TRICHOMONAS [...] Effective Dates Phone Address Type / Group [facility] [id number] 2018-Chiara [phone] [address] PPO/POS [place] - OUT OF 7 [id number] [place] [address] documented as of this encounter
[2019-02-21] MEDS ORDERED: MORPHINE 4 MG/ML SYR ONE (15:08)
[2019-02-21] MEDS ORDERED: NA CHLORIDE 0.9% 1,000 ML ONE (15:08)
[2019-02-21] MEDS ORDERED: ONDANSETRON 4 MG/2 ML VIAL ONE (15:08)
[2019-02-21 15:12] LABS: Urine Blood 3+ (NEG); Urine Glucose NEGATIVE (NEG); Urine Protein 2+ (NEG); Urine Specific Gravity >1.030 (1.005-1.030); Urine pH 5.5 (5.0-7.0)
[2019-02-21 15:19] LABS: Urine Bacteria >50 /HPF (<20); Urine Culture Reflex Order NOT NEEDED; Urine RBC >50 /HPF (NONE SEEN)
[2019-02-21 15:26] LABS: Absolute Lymphocytes (CBC) 2.2 K/uL (0.7-4.9); Basophils % 0.6 % (0-1.3); Hematocrit 40.8 % (36.0-45.0); MPV 8.5 fL (7.6-11.3); RBC Red Blood Cell Count 4.57 M/uL (3.86-4.86)
--- NOTE | 2019-02-21 15:39 | RAD REPORT ---
EXAM DESCRIPTION: CT - Stone Protocol - 02/21/2019 3:29 pm CLINICAL HISTORY: Flank pain. Flank pain;Abd pain COMPARISON: Abdomen Pelvis W Contrast dated 07/14/2017 TECHNIQUE: Axial images were obtained without oral or IV contrast. Lack of contrast limits solid org an and vascular assessment. The [id number] spans the entirety of the system partially obscuring uppermost abdomen and lung bases. Coronal reformatted images were obtained and reviewed. All CT scans are performed using dose optimization technique as appropriate and may include automated exposure control or mA/KV adjustment according to patient size. FINDINGS: 6 mm nodule posterior left lung base. Imaged portions of the liver and spleen show no suspicious findings on non-contrast imaging. The panc reas and adrenal glands are normal. No pathologic lymphadenopathy in the abdomen or pelvis. Subtle inflammation is seen surrounding the left ureter suggesting ascending urinary tract infection. No renal stone or hydronephrosis. No bowel obstruction, free air, free fluid or abscess. Normal appendix noted. No significant bony abnormality. IMPRESSION: No urinary tract stones or obstructive uropathy. An ascending urinary tract infection may be present on the left. Suggest correlation with urinalysis.
[2019-02-21] MEDS ORDERED: CEFTRIAXONE/SWI 1gm 1 GM/10 ML SYR ONE (15:46)
[2019-02-21 16:03] LABS: Potassium 3.9 mmol/L (3.5-5.1)
--- NOTE | 2019-02-21 16:12 | ER ---
Nurse's Notes [facility] Name: Veronica Moore Age: 28 yrs Sex: Female : 1990 Arrival Date: 02/21/2019 Time: 14:45 Bed 25 Private MD: Diagnosis: Urinary tract infection, site not specified Presentation: 02/21 14:46 Presenting complaint: Patient states: "I have a really bad left side pain and its aj1 shooting all the way to my back and whenever I have the urge to pee its like trickles. I can't fully stand up straight because of the pain. It started last night." Denies N/V/D. Reports urinary frequency. Denies dysuria. Transition of care: patient was not received from another setting of care. Onset of symptoms was 2019. Risk Assessment: Do you want to hurt yourself or someone else? Patient reports no desire to harm self or others. Initial Sepsis Screen: Does the patient meet any 2 criteria? No. Patient's initial sepsis screen is negative. Does the patient have a suspected source of infection? Yes: Acute abdominal pain. Care prior to arrival: None. 14:46 Method Of Arrival: Ambulatory aj1 14:46 Acuity: EMANUEL 3 aj1 Triage Assessment: 14:49 General: Appears in no apparent distress. uncomfortable, Behavior is calm, cooperative, aj1 appropriate for age. Pain: Pain currently is 9 out of 10 on a pain scale. Neuro: Level of Consciousness is awake, alert, obeys commands. Cardiovascular: Patient's skin is warm and dry. Respiratory: Airway is patent Respiratory effort is even, unlabored, Respiratory pattern is regular, symmetrical. GI: Reports lower abdominal pain. 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 - Social history:: Smoking status: Patient uses tobacco products, smokes one-half pack cigarettes per day. - Ebola Screening: : Patient denies travel to an Ebola-affected area in the 21 days before illness onset. Screenin:56 Abuse screen: Denies threats or abuse. Denies injuries from another. Nutritional mg2 screening: No deficits noted. Tuberculosis screening: No symptoms or risk factors identified. Fall Risk None identified. Assessment: 15:20 General: Appears in no apparent distress. comfortable, Behavior is calm, cooperative. mg2 Pain: Complains of pain in abdomen Pain does not radiate. Pain currently is 5 out of 10 on a pain scale. Quality of pain is described as aching, Pain began gradually, 1 day ago. Is intermittent. Neuro: Level of Consciousness is awake, alert, obeys commands, Oriented to person, place, time, situation. Cardiovascular: Capillary refill < 3 seconds Patient's skin is warm and dry. Respiratory: Airway is patent Respiratory effort is even, unlabored, Respiratory pattern is regular, symmetrical. GI: Bowel sounds present X 4 quads. Abd is soft and non tender Reports lower abdominal pain. : Reports pain in left flank(s), in lower back urinary frequency. EENT: No signs and/or symptoms were reported regarding the EENT system. Derm: Skin is intact, is healthy with good turgor, Skin is pink, warm \\T\\ dry. normal. Musculoskeletal: Circulation, motion, and sensation intact. Capillary refill < 3 seconds. Vital Signs: 14:49 BP 125 / 88; Pulse 107; Resp 20; Temp 97.8; Pulse Ox 100% on R/A; Weight 95.71 kg (R); aj1 Height 5 ft. 6 in. (167.64 cm) (R); Pain 9/10; 16:07 BP 121 / 74 RA (auto/lg); Pulse 72; Pulse Ox 96% on R/A; jp3 16:49 BP 110 / 73; Pulse 85; Resp 18; Temp 98; Pulse Ox 100% on R/A; mg2 14:49 Body Mass Index 34.06 (95.71 kg, 167.64 cm) aj1 ED Course: 14:45 Patient arrived in ED. as 14:48 Triage completed. aj1 14:49 Julianna Arce FNP-C is PHCP. kb 14:49 Abimael Barrientos MD is Attending Physician. kb 14:49 Arm band placed on Patient placed in an exam room. aj1 14:51 Julian Li, JANICE is Primary Nurse. mg2 15:01 Placed in gown. Bed in low position. Call light in reach. Side rails up X 1. Warm jp3 blanket given. Verbal reassurance given. Pulse ox on. NIBP on. 15:01 Urine collected: clean catch specimen, cloudy, lillian colored. Patient maintains SpO2 jp3 saturation greater than 95% on room air. 15:05 Radiology exam delayed due to test not completed at this time. mw3 15:13 Inserted saline lock: 20 gauge in left antecubital area, using aseptic technique. Blood mg2 collected. 15:19 No provider procedures requiring assistance completed. mg2 15:29 CT Stone Protocol In Process Unspecified. EDMS 15:47 Lab(s) recollected, by me, sent to lab. jp3 16:49 IV discontinued, intact, bleeding controlled, No redness/swelling at site. Pressure mg2 dressing applied. Administered Medications: 15:18 Drug: morphine 4 mg Route: IVP; Site: left antecubital; mg2 16:46 Follow up: Response: No adverse reaction; Marked relief of symptoms mg2 15:18 Drug: Zofran 4 mg Route: IVP; Site: left antecubital; mg2 16:46 Follow up: Response: No adverse reaction mg2 15:19 Drug: NS 0.9% 1000 ml Route: IV; Rate: 1000 ml; Site: left antecubital; mg2 16:47 Follow up: Response: No adverse reaction; IV Status: Completed infusion; IV Intake: mg2 1000ml 15:50 Drug: Rocephin 1 grams Route: IV; Rate: calculated rate; Site: left antecubital; mg2 16:45 Follow up: Response: No adverse reaction; IV Status: Completed infusion mg2 Intake: 16:47 IV: 1000ml; Total: 1000ml. mg2 Outcome: 16:12 Discharge ordered by . kb 16:49 Discharged to home ambulatory, with family. mg2 16:49 Condition: stable 16:49 Discharge instructions given to patient, family, Instructed on discharge instructions, follow up and referral plans. medication usage, Demonstrated understanding of instructions, follow-up care, medications, Prescriptions given X 1. 16:50 Patient left the ED. mg2 Signatures: Dispatcher [employer] EDMS Julianna Arce, PASTRY ASSISTANT-C PASTRY ASSISTANT-Steph Villalta RN RN aj1 Ruby Evans Michele, RN RN mg2 Annetta Rivera mw3 Trevon Vasquez jp3
--- NOTE | 2019-02-21 16:12 | EDPHYS ---
Physician Documentation [facility] Name: Veronica Moore Age: 28 yrs Sex: Female : 1990 Arrival Date: 02/21/2019 Time: 14:45 Bed 25 Private MD: ED Physician Abimael Barrientos HPI: 02/21 15:45 This 28 yrs old Female presents to ER via Ambulatory with complaints of kb Abdominal Pain. 15:45 The patient presents with abdominal pain in the left lower quadrant. The symptoms kb radiate to the left flank. 15:46 Onset: The symptoms/episode began/occurred last week. Associated signs and symptoms: kb Pertinent positives: flank pain, urinary frequency, urgency and small amounts. The symptoms are described as constant. Modifying factors: The symptoms are alleviated by nothing, the symptoms are aggravated by nothing. Severity of pain: At its worst the pain was moderate in the emergency department the pain is unchanged. The patient has not experienced similar symptoms in the past. The patient has not recently seen a physician. 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 - Social history:: Smoking status: Patient uses tobacco products, smokes one-half pack cigarettes per day. - Ebola Screening: : Patient denies travel to an Ebola-affected area in the 21 days before illness onset. ROS: 15:45 Constitutional: Negative for fever, chills, and weight loss, ENT: Negative for injury, kb pain, and discharge, Neck: Negative for injury, pain, and swelling, Cardiovascular: Negative for chest pain, palpitations, and edema, Respiratory: Negative for shortness of breath, cough, wheezing, and pleuritic chest pain, MS/Extremity: Negative for injury and deformity, Skin: Negative for injury, rash, and discoloration, Neuro: Negative for headache, weakness, numbness, tingling, and seizure. 15:45 Abdomen/GI: Positive for abdominal pain. 15:45 : Positive for flank pain, urinary frequency, small amounts. Exam: 15:44 Constitutional: This is a well developed, well nourished patient who is awake, alert, kb and in no acute distress. Head/Face: Normocephalic, atraumatic. ENT: Nares patent. No nasal discharge, no septal abnormalities noted. Tympanic membranes are normal and external auditory canals are clear. Oropharynx with no redness, swelling, or masses, exudates, or evidence of obstruction, uvula midline. Mucous membranes moist. Neck: Trachea midline, no thyromegaly or masses palpated, and no cervical lymphadenopathy. Supple, full range of motion without nuchal rigidity, or vertebral point tenderness. No Meningismus. Chest/axilla: Normal chest wall appearance and motion. Nontender with no deformity. No lesions are appreciated. Cardiovascular: Regular rate and rhythm with a normal S1 and S2. No gallops, murmurs, or rubs. Normal PMI, no JVD. No pulse deficits. Respiratory: Lungs have equal breath sounds bilaterally, clear to auscultation and percussion. No rales, rhonchi or wheezes noted. No increased work of breathing, no retractions or nasal flaring. Skin: Warm, dry with normal turgor. Normal color with no rashes, no lesions, and no evidence of cellulitis. MS/ Extremity: Pulses equal, no cyanosis. Neurovascular intact. Full, normal range of motion. Neuro: Awake and alert, GCS 15, oriented to person, place, time, and situation. Cranial nerves II-XII grossly intact. Motor strength 5/5 in all extremities. Sensory grossly intact. Cerebellar exam normal. Normal gait. 15:44 Abdomen/GI: Inspection: abdomen appears normal, Bowel sounds: normal, in all quadrants, Palpation: soft, in all quadrants, moderate abdominal tenderness, in the left lower quadrant. 15:44 Back: CVA tenderness, that is moderate, is noted on the left. Vital Signs: 14:49 BP 125 / 88; Pulse 107; Resp 20; Temp 97.8; Pulse Ox 100% on R/A; Weight 95.71 kg (R); aj1 Height 5 ft. 6 in. (167.64 cm) (R); Pain 9/10; 16:07 BP 121 / 74 RA (auto/lg); Pulse 72; Pulse Ox 96% on R/A; jp3 16:49 BP 110 / 73; Pulse 85; Resp 18; Temp 98; Pulse Ox 100% on R/A; mg2 14:49 Body Mass Index 34.06 (95.71 kg, 167.64 cm) aj1 MDM: 14:55 Patient medically screened. kb 15:44 Data reviewed: vital signs, nurses notes. Data interpreted: Pulse oximetry: on room air kb is 100 %. Interpretation: normal. Counseling: I had a detailed discussion with the patient and/or guardian regarding: the historical points, exam findings, and any diagnostic results supporting the discharge/admit diagnosis, lab results, radiology results, the need for outpatient follow up, a family practitioner, to return to the emergency department if symptoms worsen or persist or if there are any questions or concerns that arise at home. 02/21 15:01 Order name: Urine Microscopic Only; Complete Time: 15:22 kb 02/21 15:01 Order name: Basic Metabolic Panel; Complete Time: 16:12 kb 02/21 15:01 Order name: CT Stone Protocol; Complete Time: 15:42 kb 02/21 15:01 Order name: CBC with Diff; Complete Time: 15:28 kb 02/21 15:06 Order name: Urine Dipstick--Ancillary (enter results); Complete Time: 15:13 ms 02/21 15:06 Order name: Urine --Ancillary (enter results); Complete Time: 15:13 ms 02/21 14:49 Order name: Urine Dipstick-Ancillary (obtain specimen); Complete Time: 15:00 kb 02/21 15:01 Order name: IV Saline Lock; Complete Time: 15:18 kb 02/21 15:01 Order name: Labs collected and sent; Complete Time: 15:18 kb 02/21 15:28 Order name: Labs - recollect needed; Complete Time: 15:41 ms Administered Medications: 15:18 Drug: morphine 4 mg Route: IVP; Site: left antecubital; mg2 16:46 Follow up: Response: No adverse reaction; Marked relief of symptoms mg2 15:18 Drug: Zofran 4 mg Route: IVP; Site: left antecubital; mg2 16:46 Follow up: Response: No adverse reaction mg2 15:19 Drug: NS 0.9% 1000 ml Route: IV; Rate: 1000 ml; Site: left antecubital; mg2 16:47 Follow up: Response: No adverse reaction; IV Status: Completed infusion; IV Intake: mg2 1000ml 15:50 Drug: Rocephin 1 grams Route: IV; Rate: calculated rate; Site: left antecubital; mg2 16:45 Follow up: Response: No adverse reaction; IV Status: Completed infusion mg2 Disposition: 17:33 Co-signature as Attending Physician, Abimael Barrientos MD. rn Disposition: 02/21/19 16:12 Discharged to Home. Impression: Urinary tract infection, site not specified. - Condition is Stable. - Discharge Instructions: Pyelonephritis, Adult, [id number], Urinary Tract Infection, Adult, [id number]. - Prescriptions for Augmentin 875- 125 mg Oral Tablet - take 1 tablet by ORAL route every 12 hours for 10 days; 20 tablet. - Medication Reconciliation Form, Thank You Letter, Antibiotic Education, Prescription Opioid Use form. - Follow up: Emergency Department; When: As needed; Reason: Worsening of condition. Follow up: Private Physician; When: 2 - 3 days; Reason: Recheck today's complaints, Continuance of care, Re-evaluation by your physician. Signatures: Dispatcher [employer] EDJulianna Luo, LINE UP EXAMINER-C LINE UP EXAMINER-Ckb Steph Mayorga RN RN ajLenore Turner ms, Roman, MD MD rn Gardose, Michele, RN RN mg2 Corrections: (The following items were deleted from the chart) 16:50 16:12 02/21/2019 16:12 Discharged to Home. Impression: Urinary tract infection, site mg2 not specified. Condition is Stable. Discharge Instructions: Pyelonephritis, Adult, Yxkz-au-Tixy, Urinary Tract Infection, Adult, Uufe-va-Mtcs. Prescriptions for Augmentin 875-125 mg Oral Tablet - take 1 tablet by ORAL route every 12 hours for 10 days; 20 tablet. and Forms are Medication Reconciliation Form, Thank You Letter, Antibiotic Education, Prescription Opioid Use. Follow up: Emergency Department; When: As needed; Reason: Worsening of condition. Follow up: Private Physician; When: 2 - 3 days; Reason: Recheck today's complaints, Continuance of care, Re-evaluation by your physician. kb
[2019-02-21 18:22] VITALS: BP 110/73; TEMP 98; O2SAT 100
== END 2019-02-21 16:50 | disposition home or self-care (01) ==
LOC: ER 14:44
DX: N39.0 Urinary tract infection, site not specified (principal); F17.210 Nicotine dependence, cigarettes, uncomplicated; Z88.6 Allergy status to analgesic agent
CPT/HCPCS: 96365; 96361; 85025; 80048; 36415; 81025; 76377; 74176; 96375; 99284; J0696; J7030; J2405; 81003; 81015

== ENCOUNTER 2019-06-19 22:57 | Emergency (ER) | payer BC, OTHER ==
--- OUTSIDE RECORDS SUMMARY | 2019-06-19 22:58 | XMS REPORT ---
:1990 Author Organization [facility] t Address [address] [place] [address] Dr. Braun [address] [place] [address] Care Team Providers Name Role Phone Unavailable Unavailable Unavailable Problems This patient has no known problems. Allergies, Adverse Reactions, Alerts This patient has no known allergies or adverse reactions. Medications This patient has no known medications.
--- OUTSIDE RECORDS SUMMARY | 2019-06-19 22:58 | XMS REPORT | Clinical Summary ---
:1990 Author Organization [facility] Address [address] [place] [address] Care Team Providers Name Role Phone Unavailable Primary Care Provider Unavailable Allergies No Known Allergies Medications Medication Sig Dispensed Refills Start Date End Date Status brompheniramine-pseudo Take 10 mLs by 118 mL 0 07/05/2015 Active eph-DM (BROMFED DM) mouth every 6 2-30-10 mg/5 mL Syrp (six) hours as needed (cough). Active Problems Not on file Social History Tobacco Use Types Packs/Day Years Used Date Never Assessed Sex Assigned at Date Recorded Not on file Job Start Date Occupation Industry Not on file Not on file Not on file Travel History Travel Start Travel End No recent travel history available. Last Filed Vital Signs Not on file Plan of Treatment Not on file Results Not on fileafter 06/18/2018 Insurance Payer Benefit Plan / Group Subscriber ID Type Phone A ddress [employer] - MGD CARE CIGNA HMO/POS/OPEN ACCESS xxxxxxxxxxx HMO/POS
--- OUTSIDE RECORDS SUMMARY | 2019-06-19 23:00 | XMS REPORT | Summary of Care ---
:[address] [facility] - Health Address [address] [place] [address] Care Team Providers Name Role Phone Lazaro Ross MD Primary Care Provider Ike Palacios MD Unavailable Encounter Details Date Type Department Care Team Description 03/22/[address] [facility] Doctor Unassigned, No [address] [facility] Name [place] [phone] [place] [phone] Allergies No Known Allergiesdocumented as of this encounter (statuses as of 03/22/2019) Medications Medication Sig Dispensed Refills Start Date End Date Status norethindrone-e.estradio Take 1 tablet by 3 Package 4 09/11/19 19 Active l-iron 1.5 mg-30 mcg mouth daily. (21)/75 mg (7) per tabletIndications: Irregular menstrual cycle buPROPion XL (WELLBUTRIN Take 1 tablet by 30 tablet 3 12/09/19 19 Active XL) 150 mg 24 hr mouth daily. tabletIndications: Chronic depression, Tobacco use escitalopram oxalate 20 Take 1 tablet by 90 tablet 1 9 Active mg tabletIndications: mouth every Generalized anxiety morning. disorder azithromycin (ZITHROMAX) Take 500 mg PO 6 tablet 0 12/08/2018 Active 250 mg day 1, then 250 tabletIndications: Acute mg daily days 2 bacterial bronchitis, to 5. Acute bacterial sinusitis benzonatate 200 mg Take 1 capsule 30 capsule 0 12/08/2018 Active capsuleIndications: by mouth 3 Acute bacterial (three) times bronchitis, Acute daily as needed bacterial sinusitis for Cough. methylPREDNISolone 4 mg follow package 21 Each 0 12/08/2018 Active tabletsIndications: directions Acute bacterial bronchitis, Acute bacterial sinusitis albuterol 90 Inhale 2 Puffs 1 Inhaler 0 12/08/2018 A ctive mcg/actuation every 6 (six) inhalerIndications: hours as needed Acute bacterial for Wheezing, bronchitis, Bronchospasm Shortness of Breath or Chest tightness. documented as of this encounter (statuses as of 03/22/2019) Active Problems Problem Noted Date Chronic depression 12/08/2018 Prediabetes 02/04/2017 Low HDL (under 40) 02/04/2017 Vitamin D deficiency 02/04/2017 Anxiety disorder, unspecified type 01/21/2017 Atopic dermatitis, unspecified type 01/21/2017 Tobacco use documented as of this encounter (statuses as of 03/22/2019) Immunizations Name Administration Dates Next Due HPV9 09/10/2018 11/10/2018 Pneumococcal Polysaccharide, PPSV23 (PNEUMOVAX) 01/29/2017 Tdap 08/19/2013 documented as of this encounter Social History Tobacco Use Types Packs/Day Years Used Date Current Every Day Smoker Cigarettes Smokeless Tobacco: Never Used Alcohol Use Drinks/Week oz/Week Comments Yes 1 Glasses of wine 1.0 Sex Assigned at Date Recorded Not on file Job Start Date Occupation Industry Not on file Not on file Not on file Travel History Travel Start Travel End No recent travel history available. documented as of this encounter Last Filed Vital Signs Not on filedocumented in this encounter Plan of Treatment Date Type Specialty Care Team Description 03/22/2019 Office Visit Family Medicine Edvin Ross MD [place] [phone] Health Maintenance Due Date Last Done Comments INFLUENZA VACCINE (#1) 2019 Postponed from 10/11/2018 (Refused) PAP SMEAR 07/28/2020 07/28/2017 DTaP,Tdap,and Td Vaccines (2 - 08/20/2023 08/19/2013 Td) PNEUMOCOCCAL 0-64 YEARS COMBINED Completed 01/29/2017 SERIES VARICELLA VACCINES Discontinued documented as of this encounter Procedures Procedure Name Priority Date/Time Associated Diagnosis Comme nts ASSIGNMENT OF BENEFITS Routine 03/22/2019 12:34 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
--- OUTSIDE RECORDS SUMMARY | 2019-06-19 23:01 | XMS REPORT | Summary of Care ---
:1990 Author Organization [facility] Address [address] [place] [address] Care Team Providers Name Role Phone Lazaro Ross MD Primary Care Provider Ike Palacios MD Unavailable Reason for Visit Reason Comments Anxiety Depression Follow-up Encounter Details Date Type Department Care Team Description 03/22/2019 Office Visit [facility] [place] Inso mnia due to other mental disorder (Primary Dx); Medicine - Erik Gomez MD Chronic depression; [facility] [address] [place] [address] [place] [phone] Allergies No Known Allergiesdocumented as of this encounter (statuses as of 03/28/2019) Medications Medication Sig Dispensed Refills Start End Status Date Date norethindrone-e.estrad Take 1 tablet 3 Package 4 09/11/19 Active iol-iron 1.5 mg-30 mcg by mouth 19 (21)/75 mg (7) per daily. tabletIndications: Irregular menstrual cycle TRINTELLIX 10 mg Take 1 tablet 30 tablet 5 03/22/19 Active TabIndications: by mouth 20 Chronic depression, daily. STOP Anxiety ESCITALOPRAM. buPROPion 200 mg 12 hr Take 1 tablet 60 tablet 5 03/22/19 Active tabletIndications: by mouth 2 20 Chronic depression, (two) times Anxiety daily. STOP BUPROPION XL. buPROPion XL Take 1 tablet 30 tablet 3 12/09/19 Dis continued (WELLBUTRIN XL) 150 mg by mouth (Alternate 24 hr daily. therapy) tabletIndications: Chronic depression, Tobacco use escitalopram oxalate Take 1 tablet 90 tablet 1 12/09/1903/22 Discontinued 20 mg by mouth every (Inef fective tabletIndications: morning. M edication) Generalized anxiety disorder azithromycin Take 500 mg PO 6 tablet 0 12/09/19 Di scontinued (ZITHROMAX) 250 mg day 1, then (Therapy tabletIndications: 250 mg daily completed) Acute bacterial days 2 to 5. bronchitis, Acute bacterial sinusitis benzonatate 200 mg Take 1 capsule 30 capsule 0 12/09/1903/22 Discontinued capsuleIndications: by mouth 3 (Therapy Acute bacterial (three) times completed) bronchitis, Acute daily as bacterial sinusitis needed for Cough. methylPREDNISolone 4 follow package 21 Each 0 12/09/1903/13 0/ Discontinued mg tabletsIndications: directions (Therapy Acute bacterial comp leted) bronchitis, Acute bacterial sinusitis albuterol 90 Inhale 2 Puffs 1 Inhaler 0 12/09/19 Di scontinued mcg/actuation every 6 (six) (T herapy inhalerIndications: hours as completed) Acute bacterial needed for bronchitis, Wheezing, Bronchospasm Shortness of Breath or Chest tightness. documented as of this encounter (statuses as of 03/28/2019) Active Problems Problem Noted Date Chronic depression 12/08/2018 Prediabetes 02/04/2017 Low HDL (under 40) 02/04/2017 Vitamin D deficiency 02/04/2017 Anxiety disorder, unspecified type 01/21/2017 Atopic dermatitis, unspecified type 01/21/2017 Tobacco use documented as of this encounter (statuses as of 03/28/2019) Immunizations Name Administration Dates Next Due HPV9 [...] Sign Reading Time Taken Comments Blood Pressure 98/64 03/22/2019 1:03 PM VIDEO LIBRARY ASSISTANT Pulse 75 03/22/2019 1:03 PM VIDEO LIBRARY ASSISTANT Temperature 36.9 C (98.4 F) 03/22/2019 1:03 PM VIDEO LIBRARY ASSISTANT Respiratory Rate - - Oxygen Saturation - - Inhaled Oxygen Concentration - - Weight 102.1 kg (225 lb) 03/22/2019 1:03 PM VIDEO LIBRARY ASSISTANT Height 167.6 cm (5' 6") 03/22/2019 1:03 PM VIDEO LIBRARY ASSISTANT Body Mass Index 36.32 03/22/2019 1:03 PM VIDEO LIBRARY ASSISTANT documented in this encounter Patient Instructions Patient InstructionsLazaro Ross MD - 03/22/2019 1:00 PM VIDEO LIBRARY ASSISTANT Depression: Tips to Help Yourself As your healthcare providers help treat your depression, you can also help yourself. Keep in mind that your illness affects you emotionally, physically, mentally, and socially. So full recovery will take time. Take care of your body and your soul, and be patient with yourself as you get better. Self-care Educate yourself. Read about treatment and medicine options. If you have the energy, attend localconferences or support groups. Keep a list of useful websites and helpful books and use them as needed. This illness is not your fault. Dont blame yourself for your depression. Manage early symptoms. If you notice symptoms returning, experience triggers, or identify other factors that may lead to a depressive episode, get help as soon as possible. Ask trusted friends and family to monitor your behavior and let you know if they see anything of concern. Work with your provider. Find a provider you can trust. Communicate honestly with that person andshare information on your treatment for depression and your reaction to medicines. Be prepared for a crisis. Know what to do if you experience a crisis. Keep the phone number of a crisis hotline and know the location of your community's urgent care centers and the closest emergency department. Hold off on big decisions. Depression can cloud your judgment. So wait until you feel better before making major life decisions, such as changing jobs, moving, or getting or . Be patient. Recovering from depression is a process. Dont be discouraged if it takes some timeto feel better. Keep it simple. Depression saps your energy and concentration. So you wont be able to do all the things you used to do. Set small goals and do what you can. Be with others. Dont isolate yourselfyoull only feel worse. Try to be with other people.And take part in fun activities when you can. Go to a movie, ballgame, baptism service, or social event. Talk openly with people you can trust. And accept help when its offered. Take care of your body People with depression often lose the desire to take care of themselves. That only makes their problems worse. During treatment and afterward, make a point to: Exercise. Its a great way to take care of your body. And studies have shown that exercise helps fight depression. Avoid drugs and alcohol. These may ease the pain in the short term. But theyll only make your problems worse in the long run. Get relief from stress. Ask your healthcare provider for relaxation exercises and techniques to help relieve stress. Eat right. A balanced and healthy diet helps keep your body healthy. [employer] last reviewed this educational content on 02/11/201619999318-4354 The [employer]. [address] [place] [address]. All rights reserved. This information is not intended as a substitute for professional medical care. Always follow your healthcare professional's instructions. Try melatonin for sleep. Try 3-10mg at bedtime. O LIBRARY ASSISTANT documented in this encounter Progress Notes Lazaro Ross MD - 03/22/2019 1:00 PM CST Cc: Chief Complaint Patient presents with Anxiety Depression Follow-up HPI Veronica [place] is a 28 year old female who presents for follow-up of anxiety and depression. Anxiety, Depression follow-up: Medication(s): Bupropion, escitalopram. Medication effectiveness: Poor lately. Residual symptomson medication: A lot of breakthrough episodes of dysphoric mood and anxiousness, frequent crying spells, profound anhedonia, difficulty sleeping, low motivation. Medication side effects: None. Current psychosocial stressors: Multiple stressors that she would not expound upon. In counseling?: No, declines referral. Denies manic sxs, delusions, hallucinations, SI or HI. Allergies Veronica has No Known Allergies. Medications Outpatient Medications Prior to Visit Medication Sig Dispense Refill albuterol 90 mcg/actuation inhaler Inhale 2 Puffs every 6 (six) hours as needed for Wheezing, Shortness of Breath or Chest tightness. 1 Inhaler 0 azithromycin (ZITHROMAX) 250 mg tablet Take 500 mg PO day 1, then 250 mg daily days 2 to 5. 6 tablet 0 benzonatate 200 mg capsule Take 1 capsule by mouth 3 (three) times daily as needed for Cough. 30capsule 0 buPROPion XL (WELLBUTRIN XL) 150 mg 24 hr tablet Take 1 tablet by mouth daily. 30 tablet 3 escitalopram oxalate 20 mg tablet Take 1 tablet by mouth every morning. 90 tablet 1 methylPREDNISolone 4 mg tablets follow package directions 21 Each 0 norethindrone-e.estradiol-iron 1.5 mg-30 mcg (21)/75 mg (7) per tablet Take 1 tablet by mouth daily. 3 Package 4 No facility-administered medications prior to visit. Histories Past Medical History: Diagnosis Date Anxiety Chronic depression 12/08/2018 Depression Eczema Low HDL (under 40) 02/04/2017 [...] and Sexual Activity Alcohol use: Yes Alcohol/week: 1.0 standard drinks Types: 1 Glasses of wine per week Drug use: No Sexual activity: Yes Partners: Male control/protection: Condom Lifestyle Physical activity: Days per week: Not on file Minutes per session: Not on file Stress: Not on file Relationships Social connections: Talks on phone: Not on file Gets together: Not on file Attends baptism service: Not on file Active member of [...] file Social History Narrative 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 Family History Problem Relation Age of Onset Diabetes Mother DM2, on insulin Hypertension Father Other - see comments Father prediabetes Panic attack Brother Arthritis NoFHx Asthma NoFHx defects NoFHx Breast Cancer NoFHx Colon Cancer NoFHx Ovarian Cancer NoFHx Uterine Cancer NoFHx Cancer NoFHx Depression NoFHx Genetic NoFHx Heart NoFHx High cholesterol NoFHx Mental retardation NoFHx Neurological NoFHx Osteoporosis NoFHx Psychiatry NoFHx Review of Systems Constitutional: Negative. Neurological: Negative. Psychiatric/Behavioral: Positive for decreased concentration, dysphoric mood and sleep disturbance. Negative for suicidal ideas. The patient is nervous/anxious. Vital Signs BP 98/64 | Pulse 75 | Temp 36.9 C (98.4 F) (Tympanic) | Ht 5' 6" (1.676 m) | Wt 225 lb (102.1 kg) | LMP 03/10/2019 (Approximate) | BMI 36.32 kg/m Physical Exam Constitutional: She appears well-developed and well-nourished. No distress. Psychiatric: Her speech is normal. Judgment and thought content normal. Her mood appears anxious. She is not actively hallucinating. Thought content is not paranoid and not delusional. Cognition and memory are normal. She exhibits a depressed mood. She expresses no homicidal and no suicidal ideation. She is attentive. Nursing note and vitals reviewed. Recent Labs 09/07/18 0952 TSH 1.36 Assessment/Plan Veronica was seen today for anxiety and depression follow-up. Diagnoses and all orders for this visit: ICD-10-CM ICD-9-CM 1. Chronic depression F32.9 311 2. Anxiety F41.9 300.00 3. Insomnia due to other mental disorder F51.05 300.9 F99 327.02 Discussed the medication treatment options and we decided on an increased dose of bupropion and a trial of Trintellix to replace the escitalopram. She will also try 3-10mg of melatonin QHS to help hersleep. The potential side effects of these drug classes/medications were reviewed and the patient voiced understanding. The patient declined referral for counseling or Psychiatry care at this time. We discussed healthy ways of coping with depression, anxiety, and insomnia. We discussed good sleep hygiene. Thyroid function testing is UTD. Close follow-up has been scheduled but the patient understands she can follow-up even sooner if her symptoms don't improve or if other mental health issues dev elop. Orders: - TRINTELLIX 10 mg Tab; Take 1 tablet by mouth daily. STOP ESCITALOPRAM. - buPROPion 200 mg 12 hr tablet; Take 1 tablet by mouth 2 (two) times daily. STOP BUPROPION XL. Plan of care, desired health behaviors, goals, [...] at a future visit. If applicable, the [facility] database was accessed to review any controlled substance prescription claims data. If the patient is taking prescribed medications, the [employer] prescription claims data in [place] was reviewed to assess patient compliance with the medication treatment plan. Follow-up: Return in about 6 weeks (around 05/03/2019) for depression and anxiety follow-up. Follow-up sooner if any problems or concerns. O LIBRARY ASSISTANT documented in this encounter Plan of Treatment Date Type Specialty Care Team Description 05/03/2019 Office Visit Family Medicine Edvin Ross MD [address] [place] [address] [phone] Health Maintenance Due Date Last Done Comments INFLUENZA VACCINE (#1) 2019 Postponed from 10/11/2018 (Refused) PAP SMEAR 07/28/2020 07/28/2017 DTaP,Tdap,and Td Vaccines (2 - 08/20/2023 08/19/2013 Td) PNEUMOCOCCAL 0-64 YEARS COMBINED Completed 01/29/2017 SERIES VARICELLA VACCINES Discontinued documented as of this encounter Results Not on filedocumented in this encounter Visit Diagnoses Diagnosis Insomnia due to other mental disorder - Primary Chronic depression Depressive disorder, not elsewhere class ified Anxiety Anxiety state, unspecified documented in this encounter Insurance Payer Benefit Plan Subscriber ID Effective Dates Phone Address Type / Group [facility] [id number] 2018-Chiara [phone] [address] PPO/POS [place] - OUT OF t 7 [id number] [place] [address] documented as of this encounter
--- OUTSIDE RECORDS SUMMARY | 2019-06-19 23:01 | XMS REPORT | Summary of Care ---
:1990 Author Organization [facility] Address [address] [place] [address] Care Team Providers Name Role Phone Lazaro Ross MD Primary Care Provider Ike Palacios MD Unavailable Reason for Visit Reason Comments Anxiety Depression Follow-up Encounter Details Date Type Department Care Team Description 03/22/[address] [facility] Family [place]uil[place]avneet Inso mnia due to other mental disorder (Primary Dx); Medicine - Erik Gomez MD Chronic depression; [facility] [address] [place] [address] [place] [phone] Allergies No Known Allergiesdocumented [...] Comments Blood Pressure 98/64 03/22/2019 1:03 PM LAPPER Pulse 75 03/22/2019 1:03 PM LAPPER Temperature 36.9 C (98.4 F) 03/22/2019 1:03 PM LAPPER Respiratory Rate - - Oxygen Saturation - - Inhaled Oxygen Concentration - - Weight 102.1 kg (225 lb) 03/22/2019 1:03 PM LAPPER Height 167.6 cm (5' 6") 03/22/2019 1:03 PM LAPPER Body Mass Index 36.32 03/22/2019 1:03 PM LAPPER documented in this encounter Patient Instructions Patient InstructionsLazaro Ross MD - 03/22/2019 1:00 PM LAPPER Depression: Tips to Help Yourself As your [...] you can. Go to a movie, ballgame, religion service, or social event. Talk openly with [...] healthy diet helps keep your body healthy. [employer] last reviewed this educational content on 02/11/201619994985-5554 [employer]. [address] [place] [address]. All rights reserved. This information is not intended as a substitute for professional medical care. Always follow your healthcare professional's instructions. Try melatonin for sleep. Try 3-10mg at bedtime. 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 Family History Problem Relation Age of Onset [...] at a future visit. If applicable, the [facility] database was accessed to review any controlled substance prescription claims data. If the patient is taking prescribed medications, the [employer] prescription claims data in [employer] was reviewed to assess patient compliance with the medication treatment plan. Follow-up: Return in about 6 weeks (around 05/03/2019) for depression and anxiety follow-up. Follow-up sooner if any problems or concerns. ER documented in this encounter Plan of Treatment Date Type Specialty Care Team Description 05/03/2019 Office Visit Family Medicine Edvin Ross MD [address] [place] [address] [phone] Health Maintenance Due Date Last Done [...] Effective Dates Phone Address Type / Group [facility] [id number] 2018-Chiara [phone] [address] PPO/POS [place] - OUT OF t 7 [id number] [place] [address] documented as of this encounter
--- OUTSIDE RECORDS SUMMARY | 2019-06-19 23:01 | XMS REPORT | Summary of Care ---
:1990 Author Organization [facility] Address [address] [place] [id number] Care Team Providers Name Role Phone Lazaro Ross MD Primary Care Provider Ike Palacios MD Unavailable Reason for Visit Reason Comments Follow-up Anxiety, Depression, Insomni a Encounter Details Date Type Department Care Team Description 05/03/2019 Telemedicine Visit [facility] Family Edvin Ross Insomnia due to other mental disorder (Primary Dx); Medicine - Erik Gomez MD Chronic depression; [facility] [address] [place] [id number] Allergies No Known Allergiesdocumented as of this encounter (statuses as of 05/04/2019) Medications Medication Sig Dispensed Refills Start Date End Date Status norethindrone-e. Take 1 tablet 3 Package 4 09/10/2018 Active estradiol-iron by mouth 1.5 mg-30 mcg daily. (21)/75 mg (7) per tabletIndication s: Irregular menstrual cycle traZODone 50 mg Take 0.5-1 90 tablet 1 05/03/2019 Ac tive tabletIndication tablets by s: Chronic mouth at depression, bedtime. Anxiety, Insomnia due to other mental disorder buPROPion 200 mg Take 1 tablet 180 tablet 1 05/03/2019 Active 12 hr by mouth 2 tabletIndication (two) times s: Chronic daily. depression, Anxiety, Insomnia due to other mental disorder TRINTELLIX 10 mg Take 1 tablet 30 tablet 5 05/03/2019 Active TabIndications: by mouth Chronic daily. depression, Anxiety, Insomnia due to other mental disorder TRINTELLIX 10 mg Take 1 tablet 30 tablet 5 03/22/2019 05/03/19 2 Discontinued TabIndications: by mouth 0 (Reo rder) Chronic daily. STOP depression, ESCITALOPRAM. Anxiety buPROPion 200 mg Take 1 tablet 60 tablet 5 03/22/2019 05/03/19 2 Discontinued 12 hr by mouth 2 0 (Reorder) tabletIndication (two) times s: Chronic daily. STOP depression, BUPROPION XL. Anxiety documented as of this encounter (statuses as of 05/04/2019) Active Problems Problem Noted Date Insomnia due to other mental disorder 05/04/2019 Chronic depression 12/08/2018 Prediabetes 02/04/2017 Low HDL (under 40) 02/04/2017 Vitamin D deficiency 02/04/2017 Anxiety disorder, unspecified type 01/21/2017 Atopic dermatitis, unspecified type 01/21/2017 Tobacco use documented as of this encounter (statuses as of 05/04/2019) Immunizations Name Administration Dates Next Due HPV9 [...] Signs Not on filedocumented in this encounter Patient Instructions Patient InstructionsLazaro Ross MD - 05/03/2019 1:15 PM CDT Patient Education Treating Insomnia Learning to relax before bedtime can improve your sleep. Good sleeping habits are a clifton part of treatment. If needed, some medicines may help you sleep better at first. But, making healthy lifestyle changes and learning to relax can improve your sleep long-term. Treating insomnia takes commitment. But trust that your efforts will pay off. Be sure to talk with your healthcare provider before taking any medicine. Healthy lifestyle Your lifestyle affects your health and your sleep. Here are some healthy habits: Keep a regular sleep schedule. Go to bed and get up at the same time each day. Exercise regularly. It may help you reduce stress. Don't do strenuous exercise for 2 to 4 hours before bedtime. Avoid or limit naps, especially in the late afternoon. Use your bed only for sleep and sex. Dont spend too much time in bed trying to fall asleep. If you cant fall asleep, get up and do something (no electronics)until you become tired and drowsy. Avoid or limit caffeine and nicotinefor up to 6 hours before bedtime. They can keep you awake at night. Also avoid alcoholfor at least 4 to 6 hoursbefore bedtime. It may help you fall asleep at first. Butyou will have more awakenings during the night. Andyour sleep will not be restful. Before bedtime To sleep better every night, try these tips: Have a bedtime routine to let your body and mind know when its time to sleep. Think of going to bed as relaxing and enjoyable. Sleep will come sooner. If your worries dont let you sleep, write them down in a diary. Then close it, and go to bed. Make sure the room is not too hot or too cold. If its not dark enough, an eye mask can help. If its noisy, try using earplugs. Don't eat alarge meal just before bedtime. If you are hungry, eat a light, healthy snack. Remove noises, bright lights, TVs, cell phones, and computers from your sleeping environment. Use a comfortable mattress and pillow. Learn to relax Stress, anxiety, and body tension may keep you awake at night. To unwind before bedtime, try a warm bath, meditation, or yoga. Also try the following: Deep breathing. Sit or lie back in a chair. Take a slow, deep breath. Hold it for 5 counts. Then breathe out slowly through your mouth. Keep doing this until you feel relaxed. Progressive muscle relaxation. Tense and then relax the muscles in your body as you breathe deeply. Start with your feet and work up your body to your neck and face. AudioName last reviewed this educational content on 10/11/201819990949-7254 [employer]. [address] [place] [id number]. All rights reserved. This information is not intended as a substitute for professional medical care. Always follow your healthcare professional's instructions. documented in this encounter Progress Notes Lazaro Ross MD - 05/03/2019 1:15 PM CDT TELEHEALTH NOTE Verbal consent obtained from Patient: Veronica Moore for telehealth services provided below. Communication with patient was conducted via Telephone. Other participants in this telehealth encounter: None. Location of Patient: Home. Location of Provider: Office. Date of Service: 05/03/2019 Cc: Chief Complaint Patient presents with Follow-up Anxiety, Depression, Insomnia HPI Veronica Moore is a 28 year old female who participated in a Telehealth visit today for anxiety, depression, and insomnia. Anxiety/ Depression/ Insomnia follow-up: Medication(s): Bupropion, Trintellix. Medication effectiveness: Good. She feels these medicationsare working much better that previously tried medications (SSRIs). Residual symptoms on medication:Mild situational anxiety, continued insomnia (trouble falling asleep and staying asleep). Medication side effects: None. Current psychosocial stressors: None voiced. In counseling?: No. Denies manic sxs, delusions, hallucinations, SI or HI. Allergies Veronica has No Known Allergies. Medications Outpatient Medications Prior to Visit Medication Sig Dispense Refill norethindrone-e.estradiol-iron 1.5 mg-30 mcg (21)/75 mg (7) per tablet Take 1 tablet by mouth daily. 3 Package 4 buPROPion 200 mg 12 hr tablet Take 1 tablet by mouth 2 (two) times daily. STOP BUPROPION XL. 60 tablet 5 TRINTELLIX 10 mg Tab Take 1 tablet by mouth daily. STOP ESCITALOPRAM. 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 Family History Problem Relation Age of Onset [...] Psychiatry NoFHx Review of Systems Constitutional: Negative. HENT: Negative. Eyes: Negative. Respiratory: Negative. Cardiovascular: Negative. Gastrointestinal: Negative. Genitourinary: Negative. Musculoskeletal: Negative. Skin: Negative. Neurological: Negative. Psychiatric/Behavioral: Positive for sleep disturbance. The patient is nervous/anxious. Endocrine: Endocrine negative Vital Signs Level of pain 0. Physical Exam Constitutional: She is oriented to person, place, and time. No distress. Pulmonary/Chest: No respiratory distress. No audible adventitious breath sounds Neurological: She is alert and oriented to person, place, and time. Answers questions appropriately Psychiatric: She has a normal mood and affect. Her speech is normal. Judgment and thought content normal. Her mood appears not anxious. She is not actively hallucinating. Thought content is not paranoid and not delusional. Cognition and memory are normal. She does not express impulsivity or inappropriate judgment. She does not exhibit a depressed mood. She expresses no homicidal and no suicidal ideation. She is attentive. LABS: CBC CMP WBC (10*3/L) Date Value 09/07/2018 7.53 NA (mmol/L) Date Value 09/07/2018 141 RBC (10*6/L) Date Value 09/07/2018 4.63 K (mmol/L) Date Value 09/07/2018 4.4 PLT (10*3/L) Date Value 09/07/2018 291 CALCIUM (mg/dL) Date Value 09/07/2018 8.7 HGB (g/dL) Date Value 09/07/2018 13.6 CL (mmol/L) Date Value 09/07/2018 105 HCT (%) Date Value 09/07/2018 40.6 BUN (mg/dL) Date Value 09/07/2018 9 LIPID PANEL CREATININE (mg/dL) Date Value 09/07/2018 0.84 CHOL (mg/dL) Date Value 09/07/2018 163 GLUCOSE (mg/dL) Date Value 09/07/2018 93 LDL CHOL (mg/dL) Date Value 09/07/2018 115 CO2 TOTAL (mmol/L) Date Value 09/07/2018 27 HDL (mg/dL) Date Value 09/07/2018 30 (L) ALBUMIN Date Value Ref Range Status 09/07/2018 4.1 3.5 - 5.0 g/dL Final TRIG (mg/dL) Date Value 09/07/2018 92 T PROTEIN Date Value Ref Range Status 09/07/2018 7.3 6.3 - 8.2 g/dL Final TSH TOTAL BILI Date Value Ref Range Status 09/07/2018 0.4 0.1 - 1.1 mg/dL Final TSH (mIU/L) Date Value 09/07/2018 1.36 No components found for: BILIUNCOM No results found for: BILICONJ ALT(SGPT) Date Value Ref Range Status 09/07/2018 19 9 - 51 U/L Final AST(SGOT) Date Value Ref Range Status 09/07/2018 17 13 - 40 U/L Final ALK PHOS Date Value Ref Range Status 09/07/2018 110 34 - 122 U/L Final ASSESSMENT/PLAN Veronica was seen today for follow-up. Diagnoses and all orders for this visit: ICD-10-CM ICD-9-CM 1. Insomnia due to other mental disorder F51.05 300.9 F99 327.02 2. Chronic depression F32.9 311 3. Anxiety F41.9 300.00 Her condition has improved. Discussed her psychotropic medication treatment options to better address her insomnia and we decided upon a trial of trazodone as an add-on medication, she will continue bupropion SR and Trintellix at the current doses. The potential side effects of this drug class/medication were reviewed and the patient voiced understanding. The patient declined referral for counseling or Psychiatry care at this time. We discussed healthy ways of coping with anxiety and insomnia. Sleep hygiene tips were reviewed. Thyroid function testing is UTD. Close follow-up has been scheduled but the patient understands she can follow-up even sooner if her symptoms don't improve or if other mental health issues develop. Orders: - traZODone 50 mg tablet; Take 0.5-1 tablets by mouth at bedtime. - buPROPion 200 mg 12 hr tablet; Take 1 tablet by mouth 2 (two) times daily. - TRINTELLIX 10 mg Tab; Take 1 tablet by mouth daily. Plan of care, desired health behaviors, goals, Ddx, and any prescribed medications were discussed with the patient. I spent 10 minute(s) conducting this Telehealth encounter with the patient. Education resources and self- management tools were provided is the AVS which is accessible through [employer]. Patient/guardian/family verbalized understanding and agrees to the plan of care. Barriers to care:None. Ability to manage care: Good. Advanced care planning (living will) information was not given/offered to the patient to review for discussion at a future visit. If applicable, the [place] [employer] database was accessed to review any controlled substance prescription claims data. If the patient is taking prescribed medications, the [employer] prescription claims data in [employer] was reviewed to assess patient compliance with the medication treatment plan. COVID-19 precautions given including frequent handwashing, social distancing, cleaning and disinfecting, indications for testing, etc. Follow-up: Return in about 6 months (around 11/03/2019) for routine follow- up/med refill. Follow-upsooner if any problems or concerns. Scribe Attestation I, Henny Petersen , am scribing for, and in the presence of, Lazaro Ross MD who performed the services described here-in. Henny Petersen, May 03, 2019, 4:46 PM Physician Attestation I, Lazaro Ross MD, personally performed the services described in this documentation , as scribed by, Henny Petersen in my presence and it is both accurate and complete. Lazaro Ross MD May 03, 2019, 4:46 PM documented in this encounter Plan of Treatment Health Maintenance Due Date Last Done Comments [...] Effective Dates Phone Address Type / Group [facility] [id number] 2018-Chiara [phone] [address] PPO/POS [place] - OUT OF t 7 [id number] [place] [address] documented as of this encounter
[2019-06-19] MEDS ORDERED: LIDOCAINE 1% 20 ML MDV ONE (23:17)
[2019-06-19] MEDS ORDERED: PROMETHAZINE 25 MG TABLET ONE (23:17)
[2019-06-19] MEDS ORDERED: HYDROCODONE/APAP 10/325 TAB ONE (23:17)
[2019-06-19] MEDS ORDERED: DOXYCYCLINE 100 MG CAP PO ONE (23:18)
[2019-06-19] MEDS ORDERED: TETANUS & DIPHTHERIA TOX,ADULT 0.5 ML VIAL ONE (23:18)
--- NOTE | 2019-06-19 23:57 | EDPHYS ---
Physician Documentation [facility] Name: Veronica Moore Age: 28 yrs Sex: Female : 1990 Arrival Date: 06/19/2019 Time: 23:00 Bed 17 Private MD: ED Physician Reggie Irwin HPI: 06/18 23:21 This 28 yrs old Female presents to ER via Ambulatory with complaints of Boil, snw Nausea. 23:21 The patient presents with an abscess of the right femoral area. Description: The snw affected area is large, poorly defined, draining, swollen, warm. Onset: The symptoms/episode began/occurred gradually, 4 day(s) ago, and became worse and became persistent. Possible cause(s): unknown. Associated signs and symptoms: Pertinent positives: nausea. Severity of symptoms: At their worst the symptoms were moderate, severe, in the emergency department the symptoms are unchanged. The patient has experienced a previous episode. It is unknown whether or not the patient has recently seen a physician. Historical: - Allergies: 23:15 Naprosyn; ll1 - PMHx: 23:15 Depression; Anxiety; ll1 - PSHx: 23:15 ; ll1 - Immunization history:: Adult Immunizations up to date. - Social history:: Smoking status: Patient reports the use of cigarette tobacco products, smokes one-half pack cigarettes per day, Patient uses alcohol, only on a social basis. Patient/guardian denies using street drugs. ROS: 23:20 Constitutional: Negative for fever, chills, and weight loss, Eyes: Negative for injury, snw pain, redness, and discharge, ENT: Negative for injury, pain, and discharge, Neck: Negative for injury, pain, and swelling, Cardiovascular: Negative for chest pain, palpitations, and edema, Respiratory: Negative for shortness of breath, cough, wheezing, and pleuritic chest pain, Abdomen/GI: Negative for abdominal pain, vomiting, diarrhea, and constipation, positive for nausea Back: Negative for injury and pain, : Negative for injury, bleeding, discharge, and swelling, MS/Extremity: Negative for injury and deformity, Neuro: Negative for headache, weakness, numbness, tingling, and seizure, Psych: Negative for depression, anxiety, suicide ideation, homicidal ideation, and hallucinations. 23:20 Skin: Positive for abscess, of the right femoral area. Exam: 23:19 Constitutional: This is a well developed, well nourished patient who is awake, alert, snw and in no acute distress. Head/Face: Normocephalic, atraumatic. Eyes: Pupils equal round and reactive to light, extra-ocular motions intact. Lids and lashes normal. Conjunctiva and sclera are non-icteric and not injected. Cornea within normal limits. Periorbital areas with no swelling, redness, or edema. ENT: Nares patent. No nasal discharge, no septal abnormalities noted. Tympanic membranes are normal and external auditory canals are clear. Oropharynx with no redness, swelling, or masses, exudates, or evidence of obstruction, uvula midline. Mucous membranes moist. Neck: Trachea midline, no thyromegaly or masses palpated, and no cervical lymphadenopathy. Supple, full range of motion without nuchal rigidity, or vertebral point tenderness. No Meningismus. Chest/axilla: Normal chest wall appearance and motion. Nontender with no deformity. No lesions are appreciated. Cardiovascular: Regular rate and rhythm with a normal S1 and S2. No gallops, murmurs, or rubs. Normal PMI, no JVD. No pulse deficits. Respiratory: Lungs have equal breath sounds bilaterally, clear to auscultation and percussion. No rales, rhonchi or wheezes noted. No increased work of breathing, no retractions or nasal flaring. Abdomen/GI: Soft, non-tender, with normal bowel sounds. No distension or tympany. No guarding or rebound. No evidence of tenderness throughout. Back: No spinal tenderness. No costovertebral tenderness. Full range of motion. Skin: Warm, dry with normal turgor. Normal color with no rashes, no lesions, and no evidence of cellulitis. + tender, draining abscess to right groin x 3x3cm MS/ Extremity: Pulses equal, no cyanosis. Neurovascular intact. Full, normal range of motion. Neuro: Awake and alert, GCS 15, oriented to person, place, time, and situation. Cranial nerves II-XII grossly intact. Motor strength 5/5 in all extremities. Sensory grossly intact. Cerebellar exam normal. Normal gait. Psych: Awake, alert, with orientation to person, place and time. Behavior, mood, and affect are within normal limits. Vital Signs: 23:13 BP 117 / 88; Pulse 87; Resp 17; Temp 97.6; Pulse Ox 96% ; Pain 10/10; ll1 Procedures: 23:23 I \T\ D: Incision and drainage was performed for an abscess of the right right femoral snw area Prepped with Betadine, Anesthetized with 5 ml's 1% Lidocaine. Incised with #11 blade. Drained large amount purulent fluid. Packed with iodoform gauze, Dressing: sterile 4x4 gauze. MDM: 23:25 Patient medically screened. snw 23:57 Data reviewed: vital signs, nurses notes. Data interpreted: Pulse oximetry: on room air snw is 96 %. Interpretation: acceptable. Counseling: I had a detailed discussion with the patient and/or guardian regarding: the historical points, exam findings, and any diagnostic results supporting the discharge/admit diagnosis, the need for outpatient follow up, to return to the emergency department if symptoms worsen or persist or if there are any questions or concerns that arise at home. Response to treatment: the patient's symptoms have markedly improved after treatment. Special discussion: Based on the history and exam findings, there is no indication for further emergent testing or inpatient evaluation. I discussed with the patient/guardian the need to see the general surgeon for further evaluation of the symptoms. I discussed with the patient/guardian the need to see the primary care provider for further evaluation of the symptoms. Administered Medications: 23:15 Drug: Tetanus-Diphtheria Toxoid Adult 0.5 ml {Director Regulatory Affairs: [employer]. Exp: lp1 03/26/2021. Lot #: [id number]. } Route: IM; Site: right deltoid; 23:15 Drug: Doxycycline 100 mg Route: PO; lp1 23:15 Drug: Portis 10 mg-325 mg 1 tabs {Note: RASS 0.} Route: PO; lp1 23:15 Drug: Phenergan 25 mg Route: PO; lp1 23:20 Drug: Lidocaine (1 %) 1 vials Volume: 20 ml; Route: Infiltration; lp1 Disposition: 06/19/19 23:56 Discharged to Home. Impression: Cutaneous abscess of right groin. - Condition is Stable. - Discharge Instructions: Skin Abscess, Wound Packing, Incision and Drainage, Care After. - Prescriptions for Ultram 50 mg Oral Tablet - take 1 tablet by ORAL route every 6 hours As needed; 12 tablet. promethazine 25 mg Oral Tablet - take 1 tablet by ORAL route every 6 hours As needed; 20 tablet. Doxycycline Hyclate 100 mg Oral Tablet - take 1 tablet by ORAL route every 12 hours; 20 tablet. - Medication Reconciliation Form, Thank You Letter, Antibiotic Education, Prescription Opioid Use form. - Follow up: Emergency Department; When: As needed; Reason: Worsening of condition. Follow up: Mike Gaines MD; When: 1 week; Reason: Recheck today's complaints, Continuance of care, Re-evaluation by your physician. - Problem is new. - Symptoms are unchanged. Addendum: 06/21/2019 07:11 Co-signature as Attending Physician, Reggie Irwin MD I agree with the assessment and m plan of care. Signatures: Enriqueta Crouch, DESK EDITOR-C DESK EDITOR-Csnw Estephanie Tang RN RN lp1 Daniella Byrd RN RN Belkis Pinedo RN RN 1 Reggie Irwin MD MD [email or web address] Corrections: (The following items were deleted from the chart) 06/19 00:04 06/18 23:56 06/19/2019 23:56 Discharged to Home. Impression: Cutaneous abscess of right vc groin. Condition is Stable. Discharge Instructions: Skin Abscess, Wound Packing, Incision and Drainage, Care After. Prescriptions for Ultram 50 mg Oral Tablet - take 1 tablet by ORAL route every 6 hours As needed; 12 tablet, promethazine 25 mg Oral Tablet - take 1 tablet by ORAL route every 6 hours As needed; 20 tablet. and Forms are Medication Reconciliation Form, Thank You Letter, Antibiotic Education, Prescription Opioid Use. Follow up: Emergency Department; When: As needed; Reason: Worsening of condition. Follow up: Mike Gaines; When: 1 week; Reason: Recheck today's complaints, Continuance of care, Re-evaluation by your physician. Problem is new. Symptoms are unchanged. snw
--- NOTE | 2019-06-19 23:57 | ER ---
Nurse's Notes [facility] Name: Veronica Moore Age: 28 yrs Sex: Female : 1990 Arrival Date: 06/19/2019 Time: 23:00 Bed 17 Private MD: Diagnosis: Cutaneous abscess of right groin Presentation: 06/18 23:13 Chief complaint: Patient states: Abscess to right groin area for 2 days getting ll1 progressively worse. Drainage has stopped now. No known fever. Coronavirus screen: Proceed with normal triage. Patient denies a cough. Patient denies shortness of breath or difficulty breathing. Patient denies measured and/or subjective temperature greater than 100.4F prior to today's visit. Patient denies travel on a cruise ship or to a country the [facility] currently lists as an affected area. Patient denies contact with known and/or suspected case of COVID-19. Ebola Screen: Patient denies travel to an Ebola-affected area in the 21 days before illness onset. Initial Sepsis Screen: Does the patient meet any 2 criteria? No. Patient's initial sepsis screen is negative. Does the patient have a suspected source of infection? No. Patient's initial sepsis screen is negative. Risk Assessment: Do you want to hurt yourself or someone else? Patient reports no desire to harm self or others. Onset of symptoms was June 18, 2019. 23:13 Method Of Arrival: Ambulatory ll1 23:13 Acuity: EMANUEL 3 ll1 Triage Assessment: 23:15 General: Appears in no apparent distress. Behavior is calm, cooperative, appropriate vc for age. Pain: Complains of pain in pelvis and right femoral area. GI: Reports nausea. Historical: - Allergies: 23:15 Naprosyn; ll1 - PMHx: 23:15 Depression; Anxiety; ll1 - PSHx: 23:15 ; ll1 - Immunization history:: Adult Immunizations up to date. - Social history:: Smoking status: Patient reports the use of cigarette tobacco products, smokes one-half pack cigarettes per day, Patient uses alcohol, only on a social basis. Patient/guardian denies using street drugs. Screenin:15 Abuse screen: Denies threats or abuse. Nutritional screening: No deficits noted. vc Tuberculosis screening: No symptoms or risk factors identified. 23:15 Fall Risk None identified. vc Assessment: 23:15 GI: Abdomen is round non-distended. vc 23:15 General: Appears in no apparent distress. Behavior is calm, cooperative, appropriate vc for age. Pain: Complains of pain in right femoral area. Neuro: Level of Consciousness is awake, alert, obeys commands, Oriented to person, place, time, situation, Appropriate for age. Cardiovascular: Capillary refill < 3 seconds Patient's skin is warm and dry. Vital Signs: 23:13 BP 117 / 88; Pulse 87; Resp 17; Temp 97.6; Pulse Ox 96% ; Pain 10/10; ll1 ED Course: 23:00 Patient arrived in ED. cl3 23:14 Triage completed. ll1 23:15 Arm band placed on Patient placed in an exam room, on a stretcher. ll1 23:18 Enriqueta Crouch FNP-C is PHCP. snw 23:18 Reggie Irwin MD is Attending Physician. snw 23:20 Assist provider with I \T\ D: of an abscess on right perineal Set up I\T\D tray. Performed vc by Enriqueta GASCA Culture sent to lab. Wound packed. iodoform gauze, Dressing with 4X4s, tape Patient tolerated well. 23:54 Mike Gaines MD is Referral Physician. snw 23:55 Patient did not have IV access during this emergency room visit. vc 06/19 00:03 Daniella Byrd RN is Primary Nurse. vc Administered Medications: 06/18 23:15 Drug: Tetanus-Diphtheria Toxoid Adult 0.5 ml {Bellows Tester: [employer]. Exp: lp1 03/26/2021. Lot #: [id number]. } Route: IM; Site: right deltoid; 23:15 Drug: Doxycycline 100 mg Route: PO; lp1 23:15 Drug: [place] 10 mg-325 mg 1 tabs {Note: RASS 0.} Route: PO; lp1 23:15 Drug: Phenergan 25 mg Route: PO; lp1 23:20 Drug: Lidocaine (1 %) 1 vials Volume: 20 ml; Route: Infiltration; lp1 Outcome: 23:56 Discharge ordered by . snw 06/19 00:00 Discharged to home ambulatory. vc Condition: good Discharge instructions given to patient, Instructed on discharge instructions, follow up and referral plans. no drinking with medication, no driving heavy equipment, medication usage, Demonstrated understanding of instructions, follow-up care, medications, Prescriptions given X 2. 00:04 Patient left the ED. vc Signatures: Enriqueta Crouch, INTERNET SITE DESIGNER-C INTERNET SITE DESIGNER-Csnw Estephanie Tang RN RN lp1 Praneeth Pinedo cl3 Daniella Byrd RN RN vc Lewis, Lynsay, RN RN ll1
[2019-06-20 00:18] VITALS: BP 117/88; TEMP 97.6; O2SAT 96
== END 2019-06-20 00:04 | disposition home or self-care (01) ==
LOC: ER 22:57
PROC: 0J9L0ZZ Drainage of Right Upper Leg Subcutaneous Tissue and Fascia, Open Approach (ICD-10-PCS; principal; 2019-06-19)
DX: L02.214 Cutaneous abscess of groin (principal); F17.210 Nicotine dependence, cigarettes, uncomplicated; Z23 Encounter for immunization
CPT/HCPCS: 90471; 90714; 99284; 10060; Q0169

== ENCOUNTER 2020-02-07 17:45 | Emergency (ER) | payer OTHER ==
--- OUTSIDE RECORDS SUMMARY | 2020-02-07 17:47 | XMS REPORT | Summary of Care ---
:1990 Author Organization [facility] Address [address] [place] [id number] Care Team Providers Name Role Phone Lazaro Ross MD Primary Care Provider Ike Palacios MD Unavailable Reason for Visit Reason Comments Refill Request Encounter Details Date Type Department Care Team Description 11/18/2019 Refill [facility] Women's Grazyna Lloyd PA-C Refill Request Healthcare- [address] [facility] [address] [place] [address] [place] [address] [phone] Allergies No Known Allergiesdocumented as of this encounter (statuses as of 11/18/2019) Medications Medication Sig Dispensed Refills Start Date End Date Status traZODone 50 mg Take 0.5-1 90 tablet [...] Anxiety, Insomnia due to other mental disorder norethindrone-e. Take 1 tablet 1 Package 0 11/18/2019 Active estradioL-iron by mouth 1.5 mg-30 mcg daily. (21)/75 mg (7) per tabletIndication s: Irregular menstrual cycle norethindrone-e. Take 1 tablet 3 Package 4 09/10/2018 11/18/19 2 Discontinued estradiol-iron by mouth 0 (Reor talia) 1.5 mg-30 mcg daily. (21)/75 mg (7) per tabletIndication s: Irregular menstrual cycle documented as of this encounter (statuses as of 11/18/2019) Active Problems Problem Noted Date Insomnia due to other mental disorder 05/04/2019 Chronic depression 12/08/2018 Prediabetes 02/04/2017 Low HDL (under 40) 02/04/2017 Vitamin D deficiency 02/04/2017 Anxiety disorder, unspecified type 01/21/2017 Atopic dermatitis, unspecified type 01/21/2017 Tobacco use documented as of this encounter (statuses as of 11/18/2019) Immunizations Name Administration Dates Next Due HPV9 09/10/2018 11/10/2018 Pneumococcal Polysaccharide, PPSV23 (PNEUMOVAX) 01/29/2017 TDAP 08/19/2013 documented as of this encounter Social History Tobacco Use Types Packs/Day Years Used Date Current Every Day Smoker Cigarettes Smokeless Tobacco: Never Used Alcohol Use Drinks/Week oz/Week Comments Yes 1 Glasses of wine 1.0 Sex Assigned at Date Recorded Not on file documented as of this encounter Last Filed Vital Signs Not on filedocumented in this encounter Miscellaneous Notes Telephone Encounter - Melissa Cunha MA - 11/18/2019 2:30 PM CDTSpoke with patient, name and verified. Patient stated she is needing a refill on her control pills. Informed patient I can send in a one month supply but she will need to make a WWE for future refills. Patient verbalized understanding, call transferred to [facility] for appointment. documented in this encounter Plan of Treatment Date Type Specialty Care Team Description 11/22/2019 Office Visit Obstetrics & Gynecology Radha Lloyd PA-C [address] [phone] Health Maintenance Due Date Last Done Comments Depression Screening 2000 INFLUENZA VACCINE (#1) 2019 PAP SMEAR 07/28/2020 07/28/2017 DTaP,Tdap,and Td Vaccines (2 - Td) 08/20/2023 08/19/2013 PNEUMOCOCCAL 0-64 YEARS COMBINED SERIES Completed 01/30/20 17 VARICELLA VACCINES Discontinued documented as of this encounter Results Not on filedocumented in this encounter Visit Diagnoses Diagnosis Irregular menstrual cycle documented in this encounter Insurance Payer Benefit Plan Subscriber ID Effective Dates Phone Address Type / Group BC[facility] OF [facility] [id number] 2018-[place]ara [phone] [place] [address] [place] P[place] - OUT OF t 7 [id number] [place] [address] documented as of this encounter
--- OUTSIDE RECORDS SUMMARY | 2020-02-07 17:47 | XMS REPORT | Summary of Care ---
:1990 Author Organization [facility] Address [address] [place] [id number] Care Team Providers Name Role Phone Lazaro Ross MD Primary Care Provider Ike Palacios MD Unavailable Reason for Visit Reason Comments Well Woman Exam Vaginal Discharge Encounter Details Date Type Department Care Team Description 12/13/2019 Office Visit [facility] Radha Lloyd Well woman exam with routine gynecological exam (Primary Dx); [facility]- Encounter for surveillance of contracept david pills; [address] [place] [address]i ng breast examination; [facility], [address] Vaginal discharge; [place], [place] [address] Vaginal odor; [id number] [place], [place] Irregular menstrual cycle [phone] [id number] Allergies No Known Allergiesdocumented as of this encounter (statuses as of 12/13/2019) Medications Medication Sig Dispensed Refills Start Date [...] disorder norethindrone-e. Take 1 tablet 1 Package 12 12/13/2019 Active estradioL-iron by mouth 1.5 mg-30 mcg daily. (21)/75 mg (7) per tabletIndication s: Irregular menstrual cycle norethindrone-e. Take 1 tablet 1 Package 0 11/18/2019 12/13/19 2 Discontinued estradioL-iron by mouth 0 (Reor talia) 1.5 mg-30 mcg daily. (21)/75 mg (7) per tabletIndication s: Irregular menstrual cycle documented as of this encounter (statuses as of 12/13/2019) Active Problems Problem Noted Date Obesity (BMI 30-39.9) 12/13/2019 Insomnia due to other mental disorder 05/04/2019 Chronic depression 12/08/2018 Prediabetes 02/04/2017 Low HDL (under 40) 02/04/2017 Vitamin D deficiency 02/04/2017 Anxiety disorder, unspecified type 01/21/2017 Atopic dermatitis, unspecified type 01/21/2017 Tobacco use documented as of this encounter (statuses as of 12/13/2019) Immunizations Name Administration Dates Next Due HPV9 09/10/2018 11/10/2018 Pneumococcal Polysaccharide, PPSV23 (PNEUMOVAX) 01/29/2017 TDAP 08/19/2013 documented as of this encounter Social History Tobacco Use Types Packs/Day Years Used Date Current Every Day Smoker Cigarettes 0.5 Smokeless Tobacco: Never Used Alcohol Use Drinks/Week oz/Week Comments Yes 1 Glasses of wine 1.0 Sex Assigned at Date Recorded Not on file COVID-19 Exposure Response Date Recorded In the last month, have you been in contact with No / Unsure 12/13/2019 12:56 PM MORTGAGE UNDERWRITER someone who was confirmed or suspected to have Coronavirus / COVID-19? documented as of this encounter Last Filed Vital Signs Vital Sign Reading Time Taken Comments Blood Pressure 115/75 12/13/2019 1:23 PM MORTGAGE UNDERWRITER Pulse 82 12/13/2019 1:23 PM MORTGAGE UNDERWRITER Temperature 36.8 C (98.2 F) 12/13/2019 1:23 PM MORTGAGE UNDERWRITER Respiratory Rate 18 12/13/2019 1:23 PM MORTGAGE UNDERWRITER Oxygen Saturation - - Inhaled Oxygen Concentration - - Weight 102.5 kg (226 lb) 12/13/2019 1:23 PM MORTGAGE UNDERWRITER Height 167.6 cm (5' 6") 12/13/2019 1:23 PM MORTGAGE UNDERWRITER Body Mass Index 36.48 12/13/2019 1:23 PM MORTGAGE UNDERWRITER documented in this encounter Patient Instructions Patient InstructionsPj Koehler - 12/13/2019 1:30 PM MORTGAGE UNDERWRITER Patient Education Clinical Breast Exam Many health organizations recommend a yearly clinical breast exam. This exam may be done by a 3rd grade teacher, family healthcare provider, nurse practitioner, nurse director product safety, or specially trained nurse. Yearly breast exams help tomake surethat breast conditions are found early. Your healthcare providers role A healthcare professional knows the tests and follow-up care needed if a problem is found. Your clinical exam is also a great time to ask questions about breast self-exams. You can find out if yourechecking your breasts in the best way. Or you may want to ask how , breast implants, or breast reduction surgery affect the way you should check your breasts. Diagnostic tests If a clinical exam reveals a breast change, you may have other tests to find out more. These tests may include: Mammography. A low-dose X-ray of your breast tissue. Ultrasound. An imaging test that uses sound waves to create images of your breast. Biopsy. A small amount of breast tissue is removed by needle or by a cut (incision). The tissue is then checked under a microscope. Guidelines for having clinical breast exams The [place] [employer] recommends that starting at age 29, you should have a clinical breast exam every 1 to 3 years. After age 40, have a clinical breast exam each year. If youre at higher risk for breast cancer, you may need exams more often. Risk factors for breast cancer may include: Being over 50 or postmenopausal Having a family history of breast cancer Having the BRCA1 or BRCA2 gene mutation or certain other gene mutations Having more menstrual periods due to starting menstruation early(before age 12) or having a late menopause (after age 55) Having no pregnancies Having a first after age 30 Being obese Having a history of radiation treatment to your chest area Exposure to BOL[place] during your mother's Not being active Drinking too much alcohol Having dense breast tissue Taking hormone therapy after menopause Other health organizations have different recommendations. Talk with your healthcare provider about what is best for you. [employer] reviewed this educational content on 05/12/201919992843-1938 The [employer]. All rights reserved. This information is not intended as a substitute for professional medical care. Always follow your healthcare professional's instructions. Patient Education Breast Health: Breast Self-Awareness What is breast self-awareness? Breast self-awareness is knowing how your breasts normally look and feel. Your breasts change as yougo through different stages of your life. So its important to learn what is normal for your breasts. Knowing about your breasts helps you spot any changes in them right away. Tell your healthcare provider about any changes. Why is breast self-awareness important? Many experts now say that women should focus on breast self-awareness instead of doing a breast self-examination (BSE). These experts include the [place] [employer] and the [place] [employer] Gynec[employer]. Some experts even advise not teaching women to do a BSE. Thats because research hasnt shown a clear benefit to doing BSEs. Breast self-awareness is different than a BSE. It isnt about following a certain method and schedule. Its about knowing what's normal for your breasts. That way you can spot even small changes right away. If you see any changes, tell your healthcare provider. Changes to look for Call your healthcare provider if you find any changes in your breasts that worry you. These changes may be: A lump Nipple discharge other than breast milk, especially if it's bloody Swelling A change in size or shape Skin changes, such as redness, thickening, or dimpling of the skin Swollen lymph nodes in the armpit Nipple problems, such as pain or redness If you find a lump Call your provider if you find lumpiness in one breast. Also call if you feel something different inthe tissue or feel a definite lump. Sometimes lumpiness may be due to menstrual changes. But there may be reason for concern. Your provider may want to see you right away if you have: Nipple discharge that is bloody Skin changes on your breast, such as dimpling or puckering Its okay to be upset if you find a lump. Be sure to call your provider right away. Remember that most breast lumps are benign. This means they are not cancer. [employer] last reviewed this educational content on 06/11/201919992985-0471 The [employer]. All rights reserved. This information is not intended as a substitute for professional medical care. Always follow your healthcare professional's instructions. Patient Education Ethinyl Estradiol; Norethindrone Acetate tablets (contraception) Brand Names: Gildess, Junel .07/09, Junel 03/01, COLE, Loestrin .07/09, Loestrin 03/01, Microgestin .07/09, Microgestin 03/01 What is this medicine? ETHINYL ESTRADIOL; NORETHINDRONE ACETATE (ETH in il es tra DYE ole; nor eth IN drone e curiel) is an oral contraceptive. The products combine two types of female hormones, an estrogen and a progestin.They are used to prevent ovulation and . How should I use this medicine? Take this medicine by mouth. To reduce nausea, this medicine may be taken with food. Follow the directions on the prescription label. Take this medicine at the same time each day and in the order directed on the package. Do not take your medicine more often than directed. Contact your paid search marketing strategist regarding the use of this medicine in children. Special care may be needed. This medicine has been used in female children who have started having menstrual periods. A patient package insert for the product will be given with each prescription and refill. Read this sheet carefully each time. The sheet may change frequently. What side effects may I notice from receiving this medicine? Side effects that you should report to your doctor or health post acute care nurse practitioner as soon as possible: breast tissue changes or discharge changes in vaginal bleeding during your period or between your periods chest pain coughing up blood dizziness or fainting spells headaches or migraines leg, arm or groin pain severe or sudden headaches stomach pain (severe) sudden shortness of breath sudden loss of coordination, especially on one side of the body speech problems symptoms of vaginal infection like itching, irritation or unusual discharge tenderness in the upper abdomen vomiting weakness or numbness in the arms or legs, especially on one side of the body yellowing of the eyes or skin Side effects that usually do not require medical attention (report to your doctor or health post acute care nurse practitioner if they continue or are bothersome): breakthrough bleeding and spotting that continues beyond the 3 initial cycles of pills breast tenderness mood changes, anxiety, depression, frustration, anger, or emotional outbursts increased sensitivity to sun or ultraviolet light nausea skin rash, acne, or brown spots on the skin weight gain (slight) What may interact with this medicine? Do not take this medicine with the following medication: dasabuvir; ombitasvir; paritaprevir; ritonavir ombitasvir; paritaprevir; ritonavir This medicine may also interact with the following medications: acetaminophen antibiotics or medicines for infections, especially rifampin, rifabutin, rifapentine, and griseofulvin, and possibly penicillins or tetracyclines aprepitant ascorbic acid (vitamin C) atorvastatin barbiturate medicines, such as phenobarbital bosentan carbamazepine caffeine clofibrate cyclosporine dantrolene doxercalciferol felbamate grapefruit juice hydrocortisone medicines for anxiety or sleeping problems, such as diazepam or temazepam medicines for diabetes, including pioglitazone mineral oil modafinil mycophenolate nefazodone oxcarbazepine phenytoin prednisolone ritonavir or other medicines for HIV infection or AIDS rosuvastatin selegiline soy isoflavones supplements [place]'s wort tamoxifen or raloxifene theophylline thyroid hormones topiramate warfarin What if I miss a dose? If you miss a dose, refer to the patient information sheet you received with your medicine for direction. If you miss more than one pill, this medicine may not be as effective and you may need to use another form of control. Where should I keep my medicine? Keep out of the reach of children. Store at room temperature between 15 and 30 degrees C (59 and 86 degrees F). Throw away any unused medicine after the expiration date. What should I tell my health care provider before I take this medicine? They need to know if you have or ever had any of these conditions: abnormal vaginal bleeding blood vessel disease or blood clots breast, cervical, endometrial, ovarian, liver, or uterine cancer diabetes gallbladder disease heart disease or recent heart attack high blood pressure high cholesterol kidney disease liver disease migraine headaches stroke systemic lupus erythematosus (SLE) tobacco smoker an unusual or allergic reaction to estrogens, progestins, other medicines, foods, dyes, or preservatives or trying to get breast-feeding What should I watch for while using this medicine? Visit your doctor or health post acute care nurse practitioner for regular checks on your progress. You will need a regular breast and pelvic exam and Pap smear while on this medicine. Use an additional method of contraception during the first cycle that you take these tablets. If you have any reason to think you are , stop taking this medicine right away and contact your doctor or health post acute care nurse practitioner. If you are taking this medicine for hormone related problems, it may take several cycles of use to see improvement in your condition. Smoking increases the risk of getting a blood clot or having a stroke while you are taking control pills, especially if you are more than 35 years old. You are strongly advised not to smoke. This medicine can make your body retain fluid, making your fingers, hands, or ankles swell. Your blood pressure can go up. Contact your doctor or health post acute care nurse practitioner if you feel you are retaining fluid. This medicine can make you more sensitive to the sun. Keep out of the sun. If you cannot avoid beingin the sun, wear protective clothing and use sunscreen. Do not use sun lamps or tanning beds/booths. If you wear contact lenses and notice visual changes, or if the lenses begin to feel uncomfortable, consult your eye nurse healthcare manager. In some women, tenderness, swelling, or minor bleeding of the gums may occur. Notify your dentist ifthis happens. Brushing and flossing your teeth regularly may help limit this. See your dentist regularly and inform your dentist of the medicines you are taking. If you are going to have elective surgery, you may need to stop taking this medicine before the surgery. Consult your health post acute care nurse practitioner for advice. This medicine does not protect you against HIV infection (AIDS) or any other sexually transmitted diseases. NOTE:This sheet is a summary. It may not cover all possible information. If you have questions aboutthis medicine, talk to your doctor, pharmacist, or health care provider. Copyright 2018 [employer] GAGE UNDERWRITER documented in this encounter Progress Notes Radha Lloyd PA-C - 12/13/2019 1:30 PM CST Chief complaint: Chief Complaint Patient presents with Well Woman Exam HPI Veronica Moore is a 29 year old female No obstetric history on file. presenting for well woman exam. She is particularly concerned about vaginal discharge/vaginal odor. The patient has a Body mass index is 36.48 kg/m.. She is working on eating healthier and exercising more. The patient is not concerned about her menstrual cycles. Her cycles are regular and last about 4-7days. Her bleeding is moderate. The patient is sexually active. She currently has 1 sexual partner(s). She is offered sexually transmitted disease testing and declines. She has had 1 sexual partners in the past year. She engages in vaginal and oral sex. She prefers men. She is currently using ocps for contraception. The patient denies any urinary incontinence. She denies any fecal incontinence. Her last pap smear was in 2017 and was normal. Her next pap smear is due 2020. She engages in breast self awareness. She denies any breast changes. She denies any family history of breast, ovarian, uterine or colon cancer. She declines to get a flu shot this year. The patient feels safe at home. She denies any history of drug use. She does smoke cigarettes daily. She drinks socially. Her mood is good. Histories OB History Obstetric Comments One Past Medical History: Diagnosis Date Anxiety Chronic depression 12/08/2018 Depression Eczema Insomnia Low HDL (under 40) 02/04/2017 Migraines Prediabetes [...] NoFHx Neurological NoFHx Osteoporosis NoFHx Psychiatry NoFHx Family Status Relation Name Status Mo [...] Financial resource strain: Not on file Food insecurity Worry: Not on file Inability: Not on file Transportation needs Medical: Not on file Non-medical: Not on file Tobacco Use Smoking status: Current Every Day Smoker Packs/day: 0.50 Types: Cigarettes Smokeless tobacco: Never Used Substance and Sexual Activity Alcohol use: Yes Alcohol/week: 1.0 standard drinks Types: 1 Glasses of wine per week Drug use: No Sexual activity: Yes Partners: Male control/protection: Condom Lifestyle Physical activity Days per week: Not on file Minutes per session: Not on file Stress: Not on file Relationships Social connections Talks on phone: Not on file Gets together: Not on file Attends druze service: Not on file Active member of club or organization: Not on file Attends meetings of clubs or organizations: Not on file Relationship status: Not on file Intimate partner violence Fear of current or ex partner: Not on file Emotionally abused: Not on file Physically abused: Not on file Forced sexual activity: Not on file Other Topics Concern Not on file Social History Narrative 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 Social History Substance and Sexual Activity Sexual Activity Yes Partners: Male control/protection: Condom Labs None Radiology none Allergies Veronica has No Known Allergies. Medications Veronica has a current medication list which includes the following prescription(s): norethindrone-e.estradiol-iron, bupropion, trintellix, and trazodone. Review of Systems Constitutional: Negative for appetite change, fatigue, fever, unexpected weight change, weight gain and weight loss. HENT: Negative for rhinorrhea and sore throat. Eyes: Negative for pain and itching. Respiratory: Negative for cough, chest tightness and shortness of breath. Breasts: Negative for discharge, mass and pain. Cardiovascular: Negative for chest pain, palpitations and leg swelling. Gastrointestinal: Negative for abdominal pain, constipation, diarrhea and nausea. Genitourinary: Positive for vaginal discharge. Negative for bladder incontinence, dysuria, difficulty urinating, vaginal pain and pelvic pain. Musculoskeletal: Negative for gait problem and myalgias. Skin: Negative for rash. Neurological: Negative for dizziness and headaches. Psychiatric/Behavioral: Negative for suicidal ideas. The patient is not nervous/anxious. Endocrine: Negative for hair loss, weight gain and weight loss. BP 115/75 (BP Location: Left arm, Patient Position: Sitting, BP CUFF SIZE: Adult Large) | Pulse 82| Temp 36.8 C (98.2 F) (Oral) | Resp 18 | Ht 5' 6" (1.676 m) | Wt 226 lb (102.5 kg) | LMP 11/22/2019 | BMI 36.48 kg/m Pregravid BMI: Could not be calculated Physical Exam Vitals reviewed. Constitutional: She is oriented to person, place, and time. She appears well- developed and well-nourished. Neck: No mass. No thyromegaly palpated. No neck adenopathy. Cardiovascular: Regular rate and rhythm. Pulmonary/Chest: Normal inspiratory effort. Abdominal: Abdomen is soft. No tenderness present. No hernia palpated or inspected. Neuro/Psychiatric: She has a normal mood and affect. She is oriented to person, place, and time. Skin: Skin normal. Lymphadenopathy: No neck adenopathy present. No axillary adenopathy present. No inguinal adenopathy present. Breast: Right breast exhibits no mass, no nipple discharge and no tenderness. Left breast exhibits no mass, no nipple discharge and no tenderness. Breasts are symmetrical. Normal left breast and normalright breast External genitalia: Normal external genitalia appropriate for age. Urethral meatus: Normal urethral meatus Urethra: Normal urethra. Bladder: No tenderness. Normal bladder Vagina:Normal vagina. No lesion inspected. No abnormal vaginal discharge found. No lesions in thevagina. Cervix: Normal cervix. No lesion. No tenderness and no discharge present. Uterus: Uterus is non-tender. Normal uterus Adnexa: Right adnexa without tenderness. Left adnexa without tenderness. Normal left adnexa and normal right adnexa Anus/perineum: Normal perineum and normal anus. Assessment/Plan Well woman exam with routine gynecological exam (primary encounter diagnosis) FOLLOW-UP in 1 yr WWE Vaginal discharge Vag path -ordered. Encounter for surveillance of contraceptive pills Patient denies self or family history of thromboembolic disease or thrombophilia, migraine headache. I counseled patient regarding use of oral contraceptives. There are combined oral contraceptive, which has both estrogen and progestin, and there is progestin only oral contraceptive. With typical us e, 9 out 100 women get in the first year and with perfect use 0.3 out of 100 women get in the first year according to ACOG Practice Bulletin. Risks include but not limited to increase risk of thromboembolic disease, headache, weight gain, mood lability, and breast cancer. Decrease risks of ovarian cancer, colon cancer, and endometrial cancer. Oral contraceptive may decrease milk supply. Alternatives reviewed include patch, ring, Depo-Provera, Nexplanon, and IUD. Advise using condoms for STDs prevention. Screening breast examination No complaints, self awareness Return to clinic in 1 yr WWE Discussed treatment options. Medications as ordered. Reviewed patient instructions and provided printed copy. This visit did not involve counseling and coordination that comprised more than 50% of the visit time. Radha Lloyd PA-C 12/13/2019 1:03 PM GAGE UNDERWRITER documented in this encounter Plan of Treatment Health Maintenance Due Date Last Done Comments Depression Screening 2000 INFLUENZA VACCINE (#1) 2019 PAP SMEAR 07/28/2020 07/28/2017 DTaP,Tdap,and Td Vaccines (2 - Td) 08/20/2023 08/19/2013 PNEUMOCOCCAL 0-64 YEARS COMBINED SERIES Completed 01/30/20 17 VARICELLA VACCINES Discontinued documented as of this encounter Results Not on filedocumented in this encounter Visit Diagnoses Diagnosis Well woman exam with routine gynecologic al exam - Primary Routine gynecological examination Encounter for surveillance of contracept david pills Surveillance of previously prescribed co ntraceptive pill Screening breast examination Other screening breast examination Vaginal discharge Leukorrhea, not specified as infective Vaginal odor Unspecified symptom associated with fema le genital organs Irregular menstrual cycle documented in this encounter Insurance Payer Benefit Plan Subscriber ID Effective Dates Phone Address Type / Group [facility] [id number] 2018-Chiara [phone] [address] PPO/POS [place] - OUT OF t [id number] [place] [address] documented as of this encounter
--- OUTSIDE RECORDS SUMMARY | 2020-02-07 17:47 | XMS REPORT | Summary of Care ---
:1990 Author Organization [facility] Address [address] [place] [address] Care Team Providers Name Role Phone Lazaro Ross MD Primary Care Provider Ike Palacios MD Unavailable Reason for Visit Reason Comments Well Woman Exam Vaginal Discharge Encounter Details Date Type Department Care Team Description 12/13/2019 Office Visit [facility] Women's Radha Lloyd Well woman exam with routine gynecological exam (Primary Dx); [facility]- Encounter for surveillance of contracept david pills; [address] [place], [place] [address]i ng breast examination; [facility], [address] Vaginal discharge; [place], [place] [address] Vaginal odor; [address] [place], [place] Irregular menstrual cycle [phone] Allergies No Known Allergiesdocumented as of [...] with No / Unsure 12/13/2019 12:56 PM JAVASCRIPT DEVELOPER someone who was confirmed or suspected to have Coronavirus / COVID-19? documented as of this encounter Last Filed Vital Signs Vital Sign Reading Time Taken Comments Blood Pressure 115/75 12/13/2019 1:23 PM JAVASCRIPT DEVELOPER Pulse 82 12/13/2019 1:23 PM JAVASCRIPT DEVELOPER Temperature 36.8 C (98.2 F) 12/13/2019 1:23 PM JAVASCRIPT DEVELOPER Respiratory Rate 18 12/13/2019 1:23 PM JAVASCRIPT DEVELOPER Oxygen Saturation - - Inhaled Oxygen Concentration - - Weight 102.5 kg (226 lb) 12/13/2019 1:23 PM JAVASCRIPT DEVELOPER Height 167.6 cm (5' 6") 12/13/2019 1:23 PM JAVASCRIPT DEVELOPER Body Mass Index 36.48 12/13/2019 1:23 PM JAVASCRIPT DEVELOPER documented in this encounter Patient Instructions Patient InstructionsPj Koehler - 12/13/2019 1:30 PM JAVASCRIPT DEVELOPER Patient Education Clinical Breast Exam Many health organizations recommend a yearly clinical breast exam. This exam may be done by a building carpenter, family healthcare provider, nurse practitioner, nurse pediatric acute care unit nurse, or specially trained nurse. Yearly breast exams [...] Guidelines for having clinical breast exams The [employer] College [employer] Obstetricians and Gynecologists recommends that [...] provider about what is best for you. [facility] ruddy reviewed this educational content on 05/12/201919998841-9552 The [employer], [employer]. All rights reserved. This information is not [...] breast self-examination (BSE). These experts include the [employer] and the [place] [employer] of Obstetricians and Gynecologists. Some experts [...] benign. This means they are not cancer. [employer] last reviewed this educational content on 06/11/201919992445-5307 The [employer]. All rights reserved. This information is not [...] medicine more often than directed. Contact your glass sander belt regarding the use of this medicine in [...] should report to your doctor or health care management assistant as soon as possible: breast tissue changes [...] attention (report to your doctor or health care management assistant if they continue or are bothersome): breakthrough [...] or AIDS rosuvastatin selegiline soy isoflavones supplements [employer]'s wort tamoxifen or raloxifene theophylline thyroid hormones [...] this medicine? Visit your doctor or health care management assistant for regular checks on your progress. You will need a regular breast and pelvic exam and Pap smear while on this medicine. Use an additional method of contraception during the first cycle that you take these tablets. If you have any reason to think you are , stop taking this medicine right away and contact your doctor or health care management assistant. If you are taking this medicine for [...] go up. Contact your doctor or health care management assistant if you feel you are retaining fluid. This medicine can make you more sensitive to the sun. Keep out of the sun. If you cannot avoid beingin the sun, wear protective clothing and use sunscreen. Do not use sun lamps or tanning beds/booths. If you wear contact lenses and notice visual changes, or if the lenses begin to feel uncomfortable, consult your eye daycare worker. In some women, tenderness, swelling, or minor [...] medicine before the surgery. Consult your health care management assistant for advice. This medicine does not protect you against HIV infection (AIDS) or any other sexually transmitted diseases. NOTE:This sheet is a summary. It may not cover all possible information. If you have questions aboutthis medicine, talk to your doctor, pharmacist, or health care provider. 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 Social History Substance and Sexual Activity Sexual [...] time. Radha Lloyd PA-C 12/13/2019 1:03 PM SCRIPT DEVELOPER documented in this encounter Plan of Treatment [...] Dates Phone Address Type / Group BCBS [facility] [id number] 2018-Chiara [phone] [address] PPO/POS [place] - OUT OF t 7 [id number] [place] [address] documented as of this encounter
--- OUTSIDE RECORDS SUMMARY | 2020-02-07 17:47 | XMS REPORT | Continuity of Care Document ---
:1990 Author Organization [facility] t Address [address] [place] [address] Care Team Providers Name Role Phone Gabino ALCANTARA Attending Clinician Problems This patient has no known problems. Allergies, Adverse Reactions, Alerts This patient has no known allergies or adverse reactions. Social History Social Habit Start Date Stop Date Quantity Comments Source Sex Assigned At [facility] Medications Ordered Filled Start Stop Current Ordering Indication Dosage Frequency Signature Comments Components Source Medication Medication Date Date Medication? Clinician (SIG) Name Name vilma Yes 10mL Take 10 [facility] mine-pseudo 5-25 mLs by [facility]-DM 00:00: mouth Medical (BROMFED 00 every 6 Center DM) 2-30-10 (six) mg/5 mL hours as Syrp needed (cough). Procedures This patient has no known procedures. Encounters Start End Encounter Admission Attending Care Care Encounter Source Date/Time Date/Time Type Type Clinicians Facility Department ID 2020-01-04 2020-01-04 Office MIRANDA Lloyd [id number] 07:59:56 08:53:24 Visit Radha Valencia [id number] Micky [id number] Tonio [id number] [address] Building Results This patient has no known results.
--- OUTSIDE RECORDS SUMMARY | 2020-02-07 17:47 | XMS REPORT | Clinical Summary ---
:1990 Author Organization [facility] Address [address] [place] [address] Care Team Providers Name Role Phone Unavailable [...] Not on file Results Not on fileafter 02/06/2019 Insurance Payer Benefit Plan / Subscriber ID Effective Dates Phone Addre ss Type Group CIGNA - MGD CIGNA [id number] 2015-Present HMO/POS CARE HMO/POS/OPEN ACCESS
--- OUTSIDE RECORDS SUMMARY | 2020-02-07 17:48 | XMS REPORT | Summary of Care ---
:1990 Author Organization [facility] Address [address] [place] [address] Care Team Providers Name Role Phone Lazaro Ross MD Primary Care Provider Ike Palacios MD Unavailable Reason for Visit Reason Comments Well Woman Exam Vaginal Discharge Encounter Details Date Type Department Care Team Description 12/13/2019 Office Visit [facility] Women's Radha Lloyd Well woman exam with routine gynecological exam (Primary Dx); [facility]- Encounter for surveillance of contracept david pills; [address] [place], [place] [address] ng breast examination; [facility], [address] Vaginal discharge; [place], [place] [address] Vaginal odor; [address] [place], [place] Irregular menstrual cycle [phone] Allergies No Known Allergiesdocumented as of [...] with No / Unsure 12/13/2019 12:56 PM KICKING MACHINE OPERATOR someone who was confirmed or suspected to have Coronavirus / COVID-19? documented as of this encounter Last Filed Vital Signs Vital Sign Reading Time Taken Comments Blood Pressure 115/75 12/13/2019 1:23 PM KICKING MACHINE OPERATOR Pulse 82 12/13/2019 1:23 PM KICKING MACHINE OPERATOR Temperature 36.8 C (98.2 F) 12/13/2019 1:23 PM KICKING MACHINE OPERATOR Respiratory Rate 18 12/13/2019 1:23 PM KICKING MACHINE OPERATOR Oxygen Saturation - - Inhaled Oxygen Concentration - - Weight 102.5 kg (226 lb) 12/13/2019 1:23 PM KICKING MACHINE OPERATOR Height 167.6 cm (5' 6") 12/13/2019 1:23 PM KICKING MACHINE OPERATOR Body Mass Index 36.48 12/13/2019 1:23 PM KICKING MACHINE OPERATOR documented in this encounter Patient Instructions Patient InstructionsPj Koehler - 12/13/2019 1:30 PM KICKING MACHINE OPERATOR Patient Education Clinical Breast Exam Many health organizations recommend a yearly clinical breast exam. This exam may be done by a radiology teacher, family healthcare provider, nurse practitioner, nurse slag production worker, or specially trained nurse. Yearly breast exams [...] Guidelines for having clinical breast exams The [place] [employer] of Obstetricians and Gynecologists recommends that [...] provider about what is best for you. [employer] ruddy reviewed this educational content on 05/12/201919994908-8962 The [employer], [employer]. All rights reserved. This information is not [...] breast self-examination (BSE). These experts include the [place] [employer] and the [place] Congress of Obstetricians and Gynecologists. Some experts [...] benign. This means they are not cancer. MersimoLambert last reviewed this educational content on 06/11/201919991069-4709 The [employer]. All rights reserved. This information is not [...] medicine more often than directed. Contact your information technology intern regarding the use of this medicine in [...] should report to your doctor or health regular senior care provider as soon as possible: breast tissue changes [...] attention (report to your doctor or health regular senior care provider if they continue or are bothersome): breakthrough [...] or AIDS rosuvastatin selegiline soy isoflavones supplements [employer]'s wort tamoxifen or raloxifene theophylline thyroid hormones [...] this medicine? Visit your doctor or health regular senior care provider for regular checks on your progress. You will need a regular breast and pelvic exam and Pap smear while on this medicine. Use an additional method of contraception during the first cycle that you take these tablets. If you have any reason to think you are , stop taking this medicine right away and contact your doctor or health regular senior care provider. If you are taking this medicine for [...] go up. Contact your doctor or health regular senior care provider if you feel you are retaining fluid. This medicine can make you more sensitive to the sun. Keep out of the sun. If you cannot avoid beingin the sun, wear protective clothing and use sunscreen. Do not use sun lamps or tanning beds/booths. If you wear contact lenses and notice visual changes, or if the lenses begin to feel uncomfortable, consult your eye medicare sales executive. In some women, tenderness, swelling, or minor [...] medicine before the surgery. Consult your health regular senior care provider for advice. This medicine does not protect you against HIV infection (AIDS) or any other sexually transmitted diseases. NOTE:This sheet is a summary. It may not cover all possible information. If you have questions aboutthis medicine, talk to your doctor, pharmacist, or health care provider. 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 Social History Substance and Sexual Activity Sexual [...] time. Radha Lloyd PA-C 12/13/2019 1:03 PM ING MACHINE OPERATOR documented in this encounter Miscellaneous Notes Addendum Note - Pj Koehler - 12/13/2019 1:30 PM KICKING MACHINE OPERATOR Addended by: PJ KOEHLER on: 12/13/2019 03:45 PM Modules accepted: Orders documented in this encounter Plan of Treatment Date Type Specialty Care Team Description 12/12/2020 Office Visit Obstetrics & Gynecology Radha Lloyd PA-C [address] [place] [phone] Name Type Priority Associated Diagnoses Order S chedule [facility] ONLY - VAGINAL LAB Routine Well woman exam with Ordered: 12/13/2019 PATHOGENS BY NUCLEIC routine ground support agent ecological exam ACID TESTING Vaginal discharg e Vaginal odor Health Maintenance Due Date Last Done Comments [...] Dates Phone Address Type / Group [facility]BS [facility] [id number] 2018-Chiara [phone] [address] PPO/POS [place] - OUT OF t 7 [id number] [place] [address] documented as of this encounter
--- OUTSIDE RECORDS SUMMARY | 2020-02-07 17:48 | XMS REPORT | Summary of Care ---
:1990 Author Organization [facility] Address [address] [place] [address] Care Team Providers Name Role Phone Lazaro Ross MD Primary Care Provider Ike Palacios MD Unavailable Reason for Visit Reason Comments Assessment Encounter Details Date Type Department Care Team Description 01/03/2020 Telephone [facility] Women's Grazyna Lloyd PA-C Assessment Healthcare- [address] [facility] [address] [place] [address] [place] [address] [phone] Allergies No Known Allergiesdocumented as of this encounter (statuses as of 01/03/2020) Medications Medication Sig Dispensed Refills Start Date End Date Status traZODone 50 mg Take 0.5-1 tablets 90 tablet 1 05/03/2019 Active tabletIndications: by mouth at Chronic depression, bedtime. Anxiety, Insomnia due to other mental disorder buPROPion 200 mg 12 Take 1 tablet by 180 tablet 1 05/03/2019 Active hr tabletIndications: mouth 2 (two) Chronic depression, times daily. Anxiety, Insomnia due to other mental disorder TRINTELLIX 10 mg Take 1 tablet by 30 tablet 5 05/03/2019 Active TabIndications: mouth daily. Chronic depression, Anxiety, Insomnia due to other mental disorder norethindrone-e.estra Take 1 tablet by 1 Package 12 12/13/2019 Active dioL-iron 1.5 mg-30 mouth daily. mcg (21)/75 mg (7) per tabletIndications: Irregular menstrual cycle documented as of this encounter (statuses as of 01/03/2020) Active Problems Problem Noted Date Obesity (BMI 30-39.9) 12/13/2019 Insomnia due to other mental disorder 05/04/2019 Chronic depression 12/08/2018 Prediabetes 02/04/2017 Low HDL (under 40) 02/04/2017 Vitamin D deficiency 02/04/2017 Anxiety disorder, unspecified type 01/21/2017 Atopic dermatitis, unspecified type 01/21/2017 Tobacco use documented as of this encounter (statuses as of 01/03/2020) Immunizations Name Administration Dates Next Due HPV9 [...] with No / Unsure 12/13/2019 12:56 PM LOW VOLTAGE TECHNICIAN someone who was confirmed or suspected to have Coronavirus / COVID-19? documented as of this encounter Last Filed Vital Signs Not on filedocumented in this encounter Miscellaneous Notes Telephone Encounter - Atiya Zambrano RN - 01/03/2020 4:58 PM CSTRN spoke with patient, name and verified. Patient reports that she had some vaginal irritation yesterday, so she used monistat 1 day treatment. RN educated patient that the monistat 1 day treatmentis very irritating to the vagina and we only recommend the 7 day treatment. RN advised patient to use a douche bottle with warm water only and rinse her vagina out 2-3 times a day for the next several d ays and schedule an appointment to be seen next week. Call transferred to [facility] for scheduling. Patient verbalized understanding and agrees to plan of care. Atiya Zambrano RN 01/03/2020 5:02 PM VOLTAGE TECHNICIAN Telephone Encounter - Milly Ugalde - 01/03/2020 8:34 AM CSTPatient states she thinks she has a yeast infection or UTI but she would like to speak to a nurse before scheduling,please call [phone] Patient also states if she does not answer, please leave a voicemail. documented in this encounter Plan of Treatment Date Type Specialty Care Team Description 12/12/2020 Office Visit Obstetrics & Gynecology Radha Lloyd PA-C [address] [place] [phone] Health Maintenance Due Date Last Done Comments Depression Screening 2000 INFLUENZA VACCINE (#1) 2019 PAP SMEAR 07/28/2020 07/28/2017 DTaP,Tdap,and Td Vaccines (2 - Td) 08/20/2023 08/19/2013 PNEUMOCOCCAL 0-64 YEARS COMBINED SERIES Completed 01/30/20 17 VARICELLA VACCINES Discontinued documented as of this encounter Results Not on filedocumented in this encounter
--- OUTSIDE RECORDS SUMMARY | 2020-02-07 17:48 | XMS REPORT | Summary of Care ---
:1990 Author Organization [facility] Address [address] [place] [address] Care Team Providers Name Role Phone Lazaro Ross MD Primary Care Provider Ike Palacios MD Unavailable Reason for Visit Reason Comments UTI Vaginal Problem Encounter Details Date Type Department Care Team Description 01/04/2020 Office Visit [facility] [place] Women's Radha Lloyd Vagi nal discharge (Primary Dx); [facility]- [place] PA-C Burning with urination; [address] [place] [address] Urinary tract infection without hematuria, site unspecified Drive, [address] [facility] 208 [address] [place], [place] [phone] Allergies No Known Allergiesdocumented as of this encounter (statuses as of 01/04/2020) Medications Medication Sig Dispensed Refills Start Date End Date Status traZODone 50 mg Take 0.5-1 90 tablet 1 05/03/2019 Ac tive tabletIndications: tablets by mouth Chronic at bedtime. depression, Anxiety, Insomnia due to other mental disorder buPROPion 200 mg Take 1 tablet by 180 tablet 1 05/03/2019 Active 12 hr mouth 2 (two) tabletIndications: times daily. Chronic depression, Anxiety, Insomnia due to other mental disorder TRINTELLIX 10 mg Take 1 tablet by 30 tablet 5 05/03/2019 Active TabIndications: mouth daily. Chronic depression, Anxiety, Insomnia due to other mental disorder norethindrone-e.es Take 1 tablet by 1 Package 12 12/13/2019 Active tradioL-iron 1.5 mouth daily. mg-30 mcg (21)/75 mg (7) per tabletIndications: Irregular menstrual cycle Nitrofurantoin&Nit Take 1 capsule by 14 capsule 0 01/04/2020 Active . Macrocryst mouth 2 (two) (MACROBID) 100 mg times daily. capsuleIndications : Vaginal discharge, Burning with urination miconazole 100 mg Insert 1 7 Suppository 0 01/04/2020 Active vaginal Suppository into suppositoryIndicat vagina at ions: Vaginal bedtime. discharge, Burning with urination fluconazole 200 mg Take 1 tablet by 1 tablet 0 01/04/2020 Active tabletIndications: mouth daily for 1 Vaginal discharge, day. Burning with urination documented as of this encounter (statuses as of 01/04/2020) Active Problems Problem Noted Date Obesity (BMI 30-39.9) 12/13/2019 Insomnia due to other mental disorder 05/04/2019 Chronic depression 12/08/2018 Prediabetes 02/04/2017 Low HDL (under 40) 02/04/2017 Vitamin D deficiency 02/04/2017 Anxiety disorder, unspecified type 01/21/2017 Atopic dermatitis, unspecified type 01/21/2017 Tobacco use documented as of this encounter (statuses as of 01/04/2020) Immunizations Name Administration Dates Next Due HPV9 [...] been in contact with No / Unsure 01/04/2020 7:59 AM DIRECTOR OF SPEECH PATHOLOGY someone who was confirmed or suspected to have Coronavirus / COVID-19? documented as of this encounter Last Filed Vital Signs Vital Sign Reading Time Taken Comments Blood Pressure 124/84 01/04/2020 8:17 AM DIRECTOR OF SPEECH PATHOLOGY Pulse 86 01/04/2020 8:17 AM DIRECTOR OF SPEECH PATHOLOGY Temperature 36.7 C (98.1 F) 01/04/2020 8:17 AM DIRECTOR OF SPEECH PATHOLOGY Respiratory Rate 18 01/04/2020 8:17 AM DIRECTOR OF SPEECH PATHOLOGY Oxygen Saturation - - Inhaled Oxygen Concentration - - Weight 102.1 kg (225 lb) 01/04/2020 8:17 AM DIRECTOR OF SPEECH PATHOLOGY Height 167.6 cm (5' 6") 01/04/2020 8:17 AM DIRECTOR OF SPEECH PATHOLOGY Body Mass Index 36.32 01/04/2020 8:17 AM DIRECTOR OF SPEECH PATHOLOGY documented in this encounter Progress Notes Radha Lloyd PA-C - 01/04/2020 8:15 AM CST Veronica Moore is a 29 year old female presented for vaginal discharge. Patient had WWE on 12/13/2019. Vaginal discharge started last week. Vaginal discharge appears white/thick. + vaginal itching. + vaginal pain. + vaginal odor. not associated with menstrual cycle. + associated with intercourse. no vaginal douching. + history of prior infection: trich/BV. + cotton underwear. Past Medical History: Diagnosis Date Anxiety Chronic depression 12/08/2018 Depression Eczema Insomnia Low HDL (under 40) 02/04/2017 Migraines Prediabetes 02/04/2017 Tobacco use Vitamin D deficiency 02/04/2017 Past Surgical History: Procedure Laterality Date SECTION No Known Allergies Current Outpatient Medications on File Prior to Visit Medication Sig Dispense Refill norethindrone-e.estradioL-iron 1.5 mg-30 mcg (21)/75 mg (7) per tablet Take 1 tablet by mouth daily. 1 Package 12 buPROPion 200 mg 12 hr tablet Take 1 tablet by mouth 2 (two) times daily. 180 tablet 1 traZODone 50 mg tablet Take 0.5-1 tablets by mouth at bedtime. 90 tablet 1 TRINTELLIX 10 mg Tab Take 1 tablet by mouth daily. 30 tablet 5 No current facility-administered medications on file prior to visit. 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 Family History Problem Relation Age of Onset Diabetes Mother DM2, on insulin Hypertension Father Other - see comments Father prediabetes Panic attack Brother Arthritis NoFHx Asthma NoFHx defects NoFHx Breast Cancer NoFHx Colon Cancer NoFHx Ovarian Cancer NoFHx Uterine Cancer NoFHx Cancer NoFHx Depression NoFHx Genetic NoFHx Heart NoFHx High cholesterol NoFHx Mental retardation NoFHx Neurological NoFHx Osteoporosis NoFHx Psychiatry NoFHx ROS: Denies chest pain, SOB, fever/chill, abdominal pain, vaginal bleeding/spotting, +dysuria. BP: (124)/(84) Temp: [36.7 C (98.1 F)] Temp source: Oral (01/03 0817) Pulse: [86] Resp: [18] SpO2: -- Height: [5' 6" (167.6 cm)] Weight: [225 lb (102.1 kg)] BMI (calculated): [36.32] NAD RRR Breathing unlabored External genitalia: + erythema. no lesions. Speculum exam: + vaginal discharge (white). no odor BME: no uterine tenderness, no CMT, no adnexal tenderness Vaginal discharge (primary encounter diagnosis) Patient reports took TWO one day monistat and states it worsened the pain. Patient was recently treated for BV and trich. +UTI. Sent rx to pharmacy. Patient advised to incr fluid intake. Pending UC. Vag path collected today. Pending results. Feminine hygiene reviewed. Advise patient to rinse vagina with warm water after sexual intercourse and menses. May try probiotic yogurt. Follow-up PRN if symptoms do not resolved, improved, or worsened Radha Lloyd PA-C 01/04/2020 8:17 AM CTOR OF SPEECH PATHOLOGY documented in this encounter Plan of Treatment Date Type Specialty Care Team Description 03/07/2020 Nurse Visit Obstetrics & Gynecology Nurse, [facility] Women' s Health 12/12/2020 Office Visit Obstetrics & Gynecology Radha Lloyd PA-C [address] [place] [address] [phone] Name Type Priority Associated Diagnoses Order S chedule GALV ONLY - VAGINAL LAB Routine Vaginal discharge Ord ered: 01/04/2020 PATHOGENS BY NUCLEIC ACID TESTING URINE CULTURE LAB Routine Vaginal discharg e Expected: 01/04/2020, Burning with urination Expir es: 04/05/2020 Health Maintenance Due Date Last Done Comments Depression Screening 2000 INFLUENZA VACCINE (#1) 2019 PAP SMEAR 07/28/2020 07/28/2017 DTaP,Tdap,and Td Vaccines (2 - Td) 08/20/2023 08/19/2013 PNEUMOCOCCAL 0-64 YEARS COMBINED SERIES Completed 01/30/20 17 VARICELLA VACCINES Discontinued documented as of this encounter Procedures Procedure Name Priority Date/Time Associated Diagnosis Comme nts POCT URINALYSIS W/O Routine 01/04/2020 Burning with urinatio n Results for this SPECIFIC GRAVITY procedure a re in the results section . documented in this encounter Results POCT URINALYSIS W/O SPECIFIC GRAVITY (01/04/2020) Pathologist Sig nature POCT PH U 5 5 - 8 mg/dl POCT U LEUK EST ++ Negative - Negative POCT U NIT positive Negative - Negative POCT U PROT trace Negative - Negative POCT U GLU neg Negative - Negative POCT U KETONE neg Negative - Negative POCT U BLD 250 Negative - Negative Specimen Urine - URINE, CLEAN CATCH documented in this encounter Visit Diagnoses Diagnosis Vaginal discharge - Primary Leukorrhea, not specified as infective Burning with urination Dysuria Urinary tract infection without hematuri a, site unspecified documented in this encounter documented as of this encounter
--- OUTSIDE RECORDS SUMMARY | 2020-02-07 17:48 | XMS REPORT | Summary of Care ---
:1990 Author Organization [facility] Address [address] [place] [address] Care Team Providers Name Role Phone Lazaro Ross MD Primary Care Provider Ike Palacios MD Unavailable Encounter Details Date Type Department Care Team Description 12/13/2019 Orders Only [facility] Doctor Unassigned, No [address] [facility] Name [place] [id number] [place] [address] Allergies No Known Allergiesdocumented as of this encounter (statuses as of 12/21/2019) Medications Medication Sig Dispensed Refills Start Date [...] as of this encounter (statuses as of 12/21/2019) Active Problems Problem Noted Date Obesity (BMI 30-39.9) 12/13/2019 Insomnia due to other mental disorder 05/04/2019 Chronic depression 12/08/2018 Prediabetes 02/04/2017 Low HDL (under 40) 02/04/2017 Vitamin D deficiency 02/04/2017 Anxiety disorder, unspecified type 01/21/2017 Atopic dermatitis, unspecified type 01/21/2017 Tobacco use documented as of this encounter (statuses as of 12/21/2019) Immunizations Name Administration Dates Next Due HPV9 [...] with No / Unsure 12/13/2019 12:56 PM SHUTTLE VAN DRIVER someone who was confirmed or suspected to have Coronavirus / COVID-19? documented as of this encounter Last Filed Vital Signs Not on filedocumented in this encounter Plan of Treatment Date Type Specialty Care Team Description 12/12/2020 Office Visit Obstetrics & Gynecology Radha Lloyd PA-C [address] [place] [address] [phone] Health Maintenance Due Date Last Done Comments Depression Screening 2000 INFLUENZA VACCINE (#1) 2019 PAP SMEAR 07/28/2020 07/28/2017 DTaP,Tdap,and Td Vaccines (2 - Td) 08/20/2023 08/19/2013 PNEUMOCOCCAL 0-64 YEARS COMBINED SERIES Completed 01/30/20 17 VARICELLA VACCINES Discontinued documented as of this encounter Procedures Procedure Name Priority Date/Time Associated Diagnosis Comme nts CONSENT FOR ORAL Routine 12/13/2019 12:01 AM CONTRACEPTIVES SHUTTLE VAN DRIVER documented in this encounter Results Not on filedocumented in this encounter
--- OUTSIDE RECORDS SUMMARY | 2020-02-07 17:48 | XMS REPORT | Summary of Care ---
:1990 Author Organization [facility] Address [address] [place] [address] Care Team Providers Name Role Phone Lazaro Ross MD Primary Care Provider Ike Palacios MD Unavailable Reason for Visit Reason Comments Medication Assistance Encounter Details Date Type Department Care Team Description 12/14/2019 Telephone [facility] Radha Lloyd [facility] [address] [place] [address], [address] [place] [address] [place], [place] [phone] Allergies No Known Allergiesdocumented as of this encounter (statuses as of 12/14/2019) Medications Medication Sig Dispensed Refills Start Date End Date Status traZODone 50 mg Take 0.5-1 90 tablet 1 05/03/2019 Ac tive tabletIndications: tablets by Chronic depression, mouth at Anxiety, Insomnia due bedtime. to other mental disorder buPROPion 200 mg 12 hr Take 1 tablet 180 tablet 1 05/03/2019 Active tabletIndications: by mouth 2 Chronic depression, (two) times Anxiety, Insomnia due daily. to other mental disorder TRINTELLIX 10 mg Take 1 tablet 30 tablet 5 05/03/2019 Active TabIndications: by mouth daily. Chronic depression, Anxiety, Insomnia due to other mental disorder norethindrone-e.estrad Take 1 tablet 1 Package 12 12/13/2019 Active ioL-iron 1.5 mg-30 mcg by mouth daily. (21)/75 mg (7) per tabletIndications: Irregular menstrual cycle metroNIDAZOLE 500 mg Take 4 tablets 4 tablet 0 12/14/201904/2019 Active tabletIndications: by mouth once Trichomoniasis, BV now for 1 dose. (bacterial vaginosis) documented as of this encounter (statuses as of 12/14/2019) Active Problems Problem Noted Date Obesity (BMI 30-39.9) 12/13/2019 Insomnia due to other mental disorder 05/04/2019 Chronic depression 12/08/2018 Prediabetes 02/04/2017 Low HDL (under 40) 02/04/2017 Vitamin D deficiency 02/04/2017 Anxiety disorder, unspecified type 01/21/2017 Atopic dermatitis, unspecified type 01/21/2017 Tobacco use documented as of this encounter (statuses as of 12/14/2019) Immunizations Name Administration Dates Next Due HPV9 [...] with No / Unsure 12/13/2019 12:56 PM ASSISTANT BOOKKEEPER someone who was confirmed or suspected to have Coronavirus / COVID-19? documented as of this encounter Last Filed Vital Signs Not on filedocumented in this encounter Miscellaneous Notes Telephone Encounter - Estephanie Douglas RN - 12/14/2019 2:44 PM CSTPatient called back regarding recent diagnosis of trichomonas. She would now like rx called in for her . Husbands name: Dinesh Moore : 08/13/1986 Allergies: NKDA Pharmacy: [facility] in [place]. Flagyl 2gm called in to [facility] in [place] for partner as requested. Patient advised to remain abstinent x 1 week post tx of both partners. DENISE appointment recommended in 3 months. Understanding verbalized. ETOH warnings given r/t flagyl use. documented in this encounter Plan of Treatment Date Type Specialty Care Team Description 12/12/2020 Office Visit Obstetrics & Gynecology Radha Lloyd PA-C [address] [place] [phone] Health Maintenance Due Date Last Done [...] Phone Address Type / Group [facility] [id number] 2018-[place] [phone] [address] PPO/POS [place] - OUT OF t 7 [id number] [place] [address] documented as of this encounter
--- OUTSIDE RECORDS SUMMARY | 2020-02-07 17:48 | XMS REPORT | Summary of Care ---
:1990 Author Organization [facility] Address [address] [place] [address] Care Team Providers Name Role Phone Lazaro Ross MD Primary Care Provider Ike Palacios MD Unavailable Reason for Visit Reason Comments New Medication Encounter Details Date Type Department Care Team Description 12/14/2019 Case Management [facility] Women's Radha Lloyd N ew Medication [facility] [place] PA-C [address] [place] [address], [address] [place] [address] [facility] 208 [place] [address] Allergies No Known Allergiesdocumented as of this [...] with No / Unsure 12/13/2019 12:56 PM ORIENTAL MEDICINE PRACTITIONER someone who was confirmed or suspected to have Coronavirus / COVID-19? documented as of this encounter Last Filed Vital Signs Not on filedocumented in this encounter Plan of Treatment Date Type Specialty Care Team Description 12/12/2020 Office Visit Obstetrics & Gynecology Radha Lloyd PA-C [address] [place] [address] [phone] Health Maintenance Due Date Last Done Comments Depression Screening 2000 INFLUENZA VACCINE (#1) 2019 PAP SMEAR 07/28/2020 07/28/2017 DTaP,Tdap,and Td Vaccines (2 - Td) 08/20/2023 08/19/2013 PNEUMOCOCCAL 0-64 YEARS COMBINED SERIES Completed 01/30/20 17 VARICELLA VACCINES Discontinued documented as of this encounter Results Not on filedocumented in this encounter Visit Diagnoses Diagnosis Trichomoniasis - Primary Trichomoniasis, unspecified BV (bacterial vaginosis) Vaginitis and vulvovaginitis, unspecifie d documented in this encounter Insurance Payer Benefit Plan Subscriber ID Effective Dates Phone Address Type / Group [facility] [id number] [facility] [phone] [address] PPO/POS [place] - OUT OF t 7 [id number] [place] [address] documented as of this encounter
--- OUTSIDE RECORDS SUMMARY | 2020-02-07 17:48 | XMS REPORT | Summary of Care ---
:1990 Author Organization [facility] Address [address] [place] [address] Care Team Providers Name Role Phone Lazaro Ross MD Primary Care Provider Ike Palacios MD Unavailable Reason for Visit Reason Comments UTI Vaginal Problem Encounter Details Date Type Department Care Team Description 01/04/[address] [facility] Women's Radha Lloyd Vagi nal discharge (Primary Dx); [facility] [place] PA-C Burning with urination; [address] [place] [address] Urinary tract infection without hematuria, site unspecified Drive, [address] [facility] 208 [address] [place], [place] [phone] Allergies No Known Allergiesdocumented as of this [...] with No / Unsure 01/04/2020 7:59 AM MED SURG RN someone who was confirmed or suspected to have Coronavirus / COVID-19? 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 Family History Problem Relation Age of Onset [...] worsened Radha Lloyd PA-C 01/04/2020 8:17 AM SURG RN documented in this encounter Plan of Treatment Date Type Specialty Care Team Description 03/07/2020 Nurse Visit Obstetrics & Gynecology Nurse, [facility] Women' s Health 12/12/2020 Office Visit Obstetrics & Gynecology Radha Lloyd PA-C [address] [place] [address] [phone] Name Type Priority Associated Diagnoses Order [...]
--- OUTSIDE RECORDS SUMMARY | 2020-02-07 17:48 | XMS REPORT | Summary of Care ---
:1990 Author Organization [facility] Address [address] [place] [address] Care Team Providers Name Role Phone Lazaro Ross MD Primary Care Provider Ike Palacios MD Unavailable Reason for Visit Reason Comments UTI Vaginal Problem Encounter Details Date Type Department Care Team Description 01/04/2020 Office Visit [facility] Women's Radha Lloyd Vagi nal discharge (Primary Dx); [facility]- [place] PA-C Burning with urination; [address] [place] [address] Urinary tract infection without hematuria, site unspecified Drive, [address] [facility] [phone] [place], [place] [phone] Allergies No Known Allergiesdocumented as of this [...] with No / Unsure 01/04/2020 7:59 AM MEDICAL EDUCATION MANAGER someone who was confirmed or suspected to have Coronavirus / COVID-19? documented as of this encounter Last Filed Vital Signs Vital Sign Reading Time Taken Comments Blood Pressure 124/84 01/04/2020 8:17 AM MEDICAL EDUCATION MANAGER Pulse 86 01/04/2020 8:17 AM MEDICAL EDUCATION MANAGER Temperature 36.7 C (98.1 F) 01/04/2020 8:17 AM MEDICAL EDUCATION MANAGER Respiratory Rate 18 01/04/2020 8:17 AM MEDICAL EDUCATION MANAGER Oxygen Saturation - - Inhaled Oxygen Concentration - - Weight 102.1 kg (225 lb) 01/04/2020 8:17 AM MEDICAL EDUCATION MANAGER Height 167.6 cm (5' 6") 01/04/2020 8:17 AM MEDICAL EDUCATION MANAGER Body Mass Index 36.32 01/04/2020 8:17 AM MEDICAL EDUCATION MANAGER documented in this encounter Progress Notes Radha [...] file Gets together: Not on file Attends [employer] service: Not on file Active member of [...] file Social History Narrative 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 Family History Problem Relation Age of [...] worsened Radha Lloyd PA-C 01/04/2020 8:17 AM CAL EDUCATION MANAGER documented in this encounter Plan of Treatment Date Type Specialty Care Team Description 03/07/2020 Nurse Visit Obstetrics & Gynecology Nurse, [facility] Women' s Health 12/12/2020 Office Visit Obstetrics & Gynecology Radha Lloyd PA-C [address] [place] [address] [phone] Name Type Priority Associated Diagnoses Order [...]
[2020-02-07] MEDS ORDERED: LIDOCAINE 1% MPF 5 ML VIAL ONE (19:05)
--- NOTE | 2020-02-07 19:08 | EDPHYS ---
Physician Documentation [facility] Name: Veronica Moore Age: 29 yrs Sex: Female : 1990 Arrival Date: 02/07/2020 Time: 17:48 Bed 27 Private MD: ED Physician Abimael Barrientos HPI: 02/06 19:05 This 29 yrs old Female presents to ER via Ambulatory with complaints of Ear pm1 Pain. 19:05 The patient presents with pain, swelling. The complaints affect the right ear. pm1 19:05 Onset: The symptoms/episode began/occurred 1 week(s) ago. Modifying factors: The pm1 symptoms are alleviated by nothing, the symptoms are aggravated by touching, wearing mask. Associated signs and symptoms: Pertinent negatives: fever. Severity of symptoms: in the emergency department the symptoms are worse. The patient has not experienced similar symptoms in the past. The patient has not recently seen a physician. Patient noticed small bump behind right ear. Worse this AM with drainage from the bottom of right ear and abscess present to posterior aspect of right ear. Historical: - Allergies: 17:57 Naprosyn; ll1 - PMHx: 17:57 Anxiety; Depression; ll1 - PSHx: 17:57 ; ll1 - Immunization history:: Flu vaccine is not up to date. - Social history:: Smoking status: Patient reports the use of cigarette tobacco products, smokes one-half pack cigarettes per day. ROS: 19:05 Constitutional: Negative for fever, chills, and weight loss. pm1 19:05 Cardiovascular: Negative for chest pain, palpitations, and edema, Respiratory: Negative for shortness of breath, cough, wheezing, and pleuritic chest pain. 19:05 ENT: Positive for ear pain, Negative for sore throat. 19:05 Skin: Positive for abscess, of the right ear. Exam: 19:05 Constitutional: This is a well developed, well nourished patient who is awake, alert, pm1 and in no acute distress. Head/Face: Normocephalic, atraumatic. 19:05 MS/ Extremity: Pulses equal, no cyanosis. Neurovascular intact. Full, normal range of motion. 19:05 Cardiovascular: Exam negative for acute changes, Rate: normal, Rhythm: regular, Pulses: no pulse deficits are appreciated. 19:05 Respiratory: Exam negative for acute changes, respiratory distress, shortness of breath. 19:05 Skin: Exam negative for Appearance: normal except for affected area, abscess, that is small, approximately 0.5 cm(s), of the posterior aspect of pinna of right ear, with fluctuance, no drainage, induration, pointing, or surrounding cellulitis, cellulitis, is not appreciated. 19:05 Neuro: Exam negative for acute changes, Orientation: is normal, Mentation: is normal, Motor: is normal, moves all fours. Vital Signs: 17:55 BP 135 / 89; Pulse 85; Resp 17; Temp 98.4; Pulse Ox 98% ; Weight 102.51 kg; Height 5 ll1 ft. 6 in. (167.64 cm); Pain 8/10; 18:36 BP 136 / 99 RA (auto/reg); Pulse 86; Pulse Ox 95% ; Pain 8/10; jp3 17:55 Body Mass Index 36.48 (102.51 kg, 167.64 cm) ll1 Procedures: 19:03 I \T\ D: Incision and drainage was performed for an abscess of the right posterior aspect pm1 of pinna of right ear Prepped with Betadine, Anesthetized with 1 ml's 1% Lidocaine. Incised with #11 blade. Drained small amount serosanguinous fluid. Loculations removed. Cultures obtained. Packed with too small to apply. the patient tolerated the procedure well. MDM: 18:35 Patient medically screened. pm1 19:04 Data reviewed: vital signs. Data interpreted: Pulse oximetry: on room air is 95 %. pm1 Interpretation: normal. 19:05 Counseling: I had a detailed discussion with the patient and/or guardian regarding: the pm1 historical points, exam findings, and any diagnostic results supporting the discharge/admit diagnosis, the need for outpatient follow up, a plastic surgeon, to return to the emergency department if symptoms worsen or persist or if there are any questions or concerns that arise at home. 02/06 19:05 Order name: Wound Culture pm1 02/06 18:45 Order name: Incision \T\ Drainage Setup; Complete Time: 19:53 pm1 Administered Medications: 19:33 Drug: Bactrim (160 mg-800 mg (DS) 1 tablet Route: PO; iw 19:40 Drug: Tetanus-Diphtheria Toxoid Adult 0.5 ml {Paste Maker: [employer]. Exp: iw 02/11/2020. Lot #: [id number]. } Route: IM; Site: right deltoid; Disposition: 02/07 07:06 Co-signature as Attending Physician, Abimael Barrientos MD. rn Disposition: 02/07/20 19:07 Discharged to Home. Impression: Cutaneous abscess of other sites - right ear. - Condition is Stable. - Discharge Instructions: Skin Abscess. - Prescriptions for Bactrim DS 800- 160 mg Oral Tablet - take 1 tablet by ORAL route every 12 hours for 10 days; 20 tablet. - Medication Reconciliation Form, Thank You Letter, Antibiotic Education, Prescription Opioid Use form. - Follow up: Emergency Department; When: As needed; Reason: Worsening of condition. Follow up: Private Physician; When: 2 - 3 days; Reason: Recheck today's complaints, Continuance of care, Re-evaluation by your physician. - Problem is new. - Symptoms have improved. Signatures: Dispatcher [employer] EDSridevi Escobar RN RN iw Nieto, MD MD adelaida Varghese Patrick, CHILD SUPPORT AGENT CHILD SUPPORT AGENT pm1 Belkis Pinedo RN RN ll1 Corrections: (The following items were deleted from the chart) 02/06 19:53 19:07 02/07/2020 19:07 Discharged to Home. Impression: Cutaneous abscess of other sites iw - right ear. Condition is Stable. Forms are Medication Reconciliation Form, Thank You Letter, Antibiotic Education, Prescription Opioid Use. Follow up: Emergency Department; When: As needed; Reason: Worsening of condition. Follow up: Private Physician; When: 2 - 3 days; Reason: Recheck today's complaints, Continuance of care, Re-evaluation by your physician. Problem is new. Symptoms have improved. pm1
--- NOTE | 2020-02-07 19:08 | ER ---
Nurse's Notes [facility] Name: Veronica Moore Age: 29 yrs Sex: Female : 1990 Arrival Date: 02/07/2020 Time: 17:48 Bed 27 Private MD: Diagnosis: Cutaneous abscess of other sites-right ear Presentation: 02/06 17:55 Chief complaint: Patient states: R posterior ear pain and swelling for 1 week, worse ll1 today. Small abscesses behind R ear. States one drained pus earlier today, Site feels hot, no fever. Coronavirus screen: Client denies travel out of the [place] in the last 14 days. At this time, the client does not indicate any symptoms associated with coronavirus-19. Ebola Screen: Patient denies travel to an Ebola-affected area in the 21 days before illness onset. Initial Sepsis Screen: Does the patient meet any 2 criteria? No. Patient's initial sepsis screen is negative. Does the patient have a suspected source of infection? Yes: Skin breakdown/wound. Risk Assessment: Do you want to hurt yourself or someone else? Patient reports no desire to harm self or others. Onset of symptoms was January 31, 2020. 17:55 Method Of Arrival: Ambulatory ll1 17:55 Acuity: EMANUEL 4 ll1 Historical: - Allergies: 17:57 Naprosyn; ll1 - PMHx: 17:57 Anxiety; Depression; ll1 - PSHx: 17:57 ; ll1 - Immunization history:: Flu vaccine is not up to date. - Social history:: Smoking status: Patient reports the use of cigarette tobacco products, smokes one-half pack cigarettes per day. Vital Signs: 17:55 BP 135 / 89; Pulse 85; Resp 17; Temp 98.4; Pulse Ox 98% ; Weight 102.51 kg; Height 5 ll1 ft. 6 in. (167.64 cm); Pain 8/10; 18:36 BP 136 / 99 RA (auto/reg); Pulse 86; Pulse Ox 95% ; Pain 8/10; jp3 17:55 Body Mass Index 36.48 (102.51 kg, 167.64 cm) ll1 ED Course: 17:48 Patient arrived in ED. rg4 17:57 Triage completed. ll1 17:57 Arm band placed on. ll1 18:35 Marinas, Carl, DECORATION CHECKER is PHCP. pm1 18:35 Abimael Barrientos MD is Attending Physician. pm1 18:36 Patient maintains SpO2 saturation greater than 95% on room air. jp3 18:37 Bed in low position. Call light in reach. Warm blanket given. Verbal reassurance given. jp3 Pulse ox on. NIBP on. 18:52 Sridevi Mike RN is Primary Nurse. iw Administered Medications: 19:33 Drug: Bactrim (160 mg-800 mg (DS) 1 tablet Route: PO; iw 19:40 Drug: Tetanus-Diphtheria Toxoid Adult 0.5 ml {Customer Field Representative: [employer]. Exp: iw 02/11/2020. Lot #: [id number]. } Route: IM; Site: right deltoid; Outcome: 19:07 Discharge ordered by . pm1 19:53 Patient left the ED. iw Addendum: 02/11/2020 07:52 Addendum: Culture Results: Positive wound culture. No further action required. Bacteria e b sensitive to prescribed antibiotic. Signatures: Sridevi Mike, RN RN Carl Burleson NP DECORATION CHECKER pm1 Melany Mcnamara rg4 Brandi Alberts Jacob jp3 Belkis Pinedo RN RN ll1 Corrections: (The following items were deleted from the chart) 02/06 18:07 17:55 Acuity: EMANUEL 3 ll1 ll1
[2020-02-07] MEDS ORDERED: SMZ./TMP. 800/160 MG TABLET ONE (19:32)
[2020-02-07] MEDS ORDERED: TETANUS & DIPHTHERIA TOX,ADULT 0.5 ML VIAL ONE (19:58)
[2020-02-07 20:15] VITALS: BP 136/99; O2SAT 95
[2020-02-07 20:17] VITALS: TEMP 98.4
== END 2020-02-07 19:53 | disposition home or self-care (01) ==
LOC: ER 17:45
PROC: 0990XZZ Drainage of Right External Ear, External Approach (ICD-10-PCS; principal; 2020-02-07)
DX: H60.01 Abscess of right external ear (principal); F17.210 Nicotine dependence, cigarettes, uncomplicated; Z23 Encounter for immunization; Z88.6 Allergy status to analgesic agent
CPT/HCPCS: 87070; 87077; 87186; 87205; 90471; 90714; 99284

== ENCOUNTER 2020-04-16 22:26 | Emergency (ER) | payer OTHER ==
--- OUTSIDE RECORDS SUMMARY | 2020-04-16 22:29 | XMS REPORT | Continuity of Care Document ---
:1990 Author Organization [facility] t Address [address] [place] [address] Care Team Providers Name Role Phone Gabino ALCANTARA Attending Clinician Problems This patient has no known problems. Allergies, Adverse Reactions, Alerts This patient has no known allergies or adverse reactions. Social History Social Habit Start Date Stop Date Quantity Comments Source Sex Assigned At [facility] Medications Ordered Filled Start Stop Current Ordering Indication Dosage Frequency Signature Comments Components Source Medication Medication Date Date Medication? Clinician (SIG) Name Name vilma Yes 10mL Take [address] [facility] [address] mine-pseudo 5-25 mLs by [facility]-DM 00:00: mouth Medical (BROMFED 00 every 6 Center DM) 2-30-10 (six) mg/5 mL hours as Syrp needed (cough). Procedures This patient has no known procedures. Encounters Start End Encounter Admission Attending Care Care Encounter Source Date/Time Date/Time Type Type Clinicians Facility Department ID 2020-01-04 2020-01-04 Office MIRANDA Lloyd [id number] 07:59:56 08:53:24 Visit Radha Valencia [id number] Micky [id number] Tonio [id number] [address] Building Results This patient has no known results.
[2020-04-16] MEDS ORDERED: NA CHLORIDE 0.9% 1,000 ML ONE (23:34)
[2020-04-16] MEDS ORDERED: MORPHINE 4 MG/ML SYR ONE (23:34)
[2020-04-16] MEDS ORDERED: ONDANSETRON 4 MG/2 ML VIAL ONE (23:34)
[2020-04-16 23:39] LABS: Absolute Lymphocytes (CBC) 2.8 K/uL (0.7-4.9); Basophils % 0.8 % (0-1.3); Hematocrit 41.4 % (36.0-45.0); Lymphocytes % 23.4 % (15.3-44.8); MPV 8.6 fL (7.6-11.3); RBC Red Blood Cell Count 4.56 M/uL (3.86-4.86)
[2020-04-16 23:50] LABS: Potassium 3.8 mmol/L (3.5-5.1)
--- NOTE | 2020-04-17 00:39 | EDPHYS ---
Physician Documentation [facility] Name: Veronica Moore Age: 29 yrs Sex: Female : 1990 Arrival Date: 04/16/2020 Time: 22:39 Bed 19 Private MD: ED Physician Reggie Irwin HPI: 04/17 00:23 This 29 yrs old Female presents to ER via Ambulatory with complaints of Pain. kb 00:23 The patient presents with abdominal pain right lower quadrant. Onset: The kb symptoms/episode began/occurred yesterday. The symptoms do not radiate. Associated signs and symptoms: none. The symptoms are described as constant. Modifying factors: The symptoms are alleviated by nothing, the symptoms are aggravated by movement, pressure, walking. Severity of pain: At its worst the pain was moderate severe in the emergency department the pain is unchanged. The patient has not experienced similar symptoms in the past. The patient has not recently seen a physician. STORE RECEIVING CLERK: 00:15 LMP 04/09/2020 rr5 Historical: - Allergies: 04/16 23:00 No Known Allergies; rr5 - Home Meds: 23:00 control pill [Active]; rr5 - PMHx: 23:00 Anxiety; Depression; rr5 - PSHx: 23:00 ; rr5 - Immunization history:: Adult Immunizations unknown. - Social history:: Smoking status: Patient reports the use of cigarette tobacco products, smokes one-half pack cigarettes per day. ROS: 04/17 00:21 Constitutional: Negative for fever, chills, and weight loss, Cardiovascular: Negative kb for chest pain, palpitations, and edema, Respiratory: Negative for shortness of breath, cough, wheezing, and pleuritic chest pain, : Negative for injury, bleeding, discharge, and swelling, MS/Extremity: Negative for injury and deformity, Skin: Negative for injury, rash, and discoloration, Neuro: Negative for headache, weakness, numbness, tingling, and seizure. Abdomen/GI: Positive for abdominal pain, Negative for nausea, vomiting, and diarrhea. Exam: 00:21 Constitutional: This is a well developed, well nourished patient who is awake, alert, kb and in no acute distress. Head/Face: Normocephalic, atraumatic. Chest/axilla: Normal chest wall appearance and motion. Cardiovascular: Regular rate and rhythm with a normal S1 and S2. No gallops, murmurs, or rubs. No pulse deficits. Respiratory: Lungs have equal breath sounds bilaterally, clear to auscultation. No rales, rhonchi or wheezes noted. No increased work of breathing, no retractions or nasal flaring. Skin: Warm, dry with normal turgor. Normal color with no rashes, no lesions, and no evidence of cellulitis. MS/ Extremity: Pulses equal, no cyanosis. Neurovascular intact. Full, normal range of motion. Neuro: Awake and alert, GCS 15, oriented to person, place, time, and situation. Cranial nerves II-XII grossly intact. Moves all extremities. Sensory grossly intact. Cerebellar exam normal. Normal gait. 00:21 Abdomen/GI: Inspection: abdomen appears normal, Bowel sounds: normal, in all quadrants, Palpation: soft, in all quadrants, mild abdominal tenderness, in the right upper quadrant and left lower quadrant, moderate abdominal tenderness, in the right lower quadrant. Vital Signs: 04/16 23:00 BP 126 / 91; Pulse 94; Resp 17; Temp 97.8; Pulse Ox 99% ; rr5 04/17 00:30 BP 115 / 70; Pulse 90; Resp 16; Pulse Ox 98% ; Pain 9/10; rr5 MDM: 04/16 23:01 Patient medically screened. kb 04/17 00:20 Data reviewed: vital signs, nurses notes. Data interpreted: Pulse oximetry: on room air kb is 99 %. Interpretation: normal. 00:37 Counseling: I had a detailed discussion with the patient and/or guardian regarding: the kb historical points, exam findings, and any diagnostic results supporting the discharge/admit diagnosis, lab results, radiology results, the need for outpatient follow up, an OB/Gyne specialist, to return to the emergency department if symptoms worsen or persist or if there are any questions or concerns that arise at home. 04/16 23:02 Order name: Basic Metabolic Panel kb 04/16 23:02 Order name: CBC with Diff kb 04/16 23:26 Order name: Urine --Ancillary (enter results) tt3 04/16 23:26 Order name: Urine Dipstick--Ancillary (enter results) tt3 04/16 23:41 Order name: CBC with Automated Diff; Complete Time: 23:44 EDMS 04/16 23:50 Order name: Basic Metabolic Panel; Complete Time: 23:54 EDMS 04/16 23:02 Order name: IV Saline Lock; Complete Time: 23:24 kb 04/16 23:02 Order name: Labs collected and sent; Complete Time: 23:24 kb 04/16 23:02 Order name: CT Abd/Pelvis - IV Contrast Only kb 04/16 23:02 Order name: Urine Test (obtain specimen); Complete Time: 23:24 kb 04/16 23:02 Order name: Urine Dipstick-Ancillary (obtain specimen); Complete Time: 23:24 kb Administered Medications: 04/16 23:23 Drug: Zofran (Ondansetron) 4 mg Route: IVP; Site: left antecubital; mg2 04/17 00:41 Follow up: Response: No adverse reaction mg2 04/16 23:23 Drug: NS 0.9% 1000 ml Route: IV; Rate: 1000 ml; Site: left antecubital; mg2 04/17 00:41 Follow up: Response: No adverse reaction; IV Status: Completed infusion; IV Intake: mg2 1000ml 00:51 Follow up: Response: No adverse reaction; IV Status: Completed infusion; IV Intake: rr5 1000ml 04/16 23:24 Drug: morphine 4 mg Route: IVP; Site: left antecubital; mg2 0308 00:42 Follow up: Response: No adverse reaction mg2 00:41 Drug: TORadol 30 mg Route: IVP; Site: left antecubital; mg2 01:03 Follow up: Response: No adverse reaction; Pain is decreased rr5 Disposition: 05:54 Co-signature as Attending Physician, Reggie Irwin MD. mh7 Disposition: 04/17/20 00:38 Discharged to Home. Impression: Other ovarian cysts. - Condition is Stable. - Discharge Instructions: Ovarian Cyst, [id number]. - Prescriptions for Diclofenac Sodium 75 mg Oral Tablet, Delayed Release (E.C.) - take 1 tablet by ORAL route 2 times per day As needed; 30 tablet. - Medication Reconciliation Form, Thank You Letter, Antibiotic Education, Prescription Opioid Use, Work release form form. - Follow up: Emergency Department; When: As needed; Reason: Worsening of condition. Follow up: Private Physician; When: 2 - 3 days; Reason: Recheck today's complaints, Continuance of care, Re-evaluation by your physician. Signatures: Dispatcher [employer] EDJulianna Luo, ELO GOMEZ-Julian Keller, RN RN mg2 Dylan Preston RN RN rr5 Reggie Irwin MD MD mh7 Corrections: (The following items were deleted from the chart) 01:03 00:38 04/17/2020 00:38 Discharged to Home. Impression: Other ovarian cysts. Condition rr5 is Stable. Forms are Medication Reconciliation Form, Thank You Letter, Antibiotic Education, Prescription Opioid Use. Follow up: Emergency Department; When: As needed; Reason: Worsening of condition. Follow up: Private Physician; When: 2 - 3 days; Reason: Recheck today's complaints, Continuance of care, Re-evaluation by your physician. kb
--- NOTE | 2020-04-17 00:39 | ER ---
Nurse's Notes [facility] Name: Veronica Moore Age: 29 yrs Sex: Female : 1990 Arrival Date: 04/16/2020 Time: 22:39 Bed 19 Private MD: Diagnosis: Other ovarian cysts Presentation: 04/16 23:00 Ebola Screen: Patient negative for fever greater than or equal to 101.5 degrees rr5 Fahrenheit, and additional compatible Ebola Virus Disease symptoms Patient denies exposure to infectious person. Patient denies travel to an Ebola-affected area in the 21 days before illness onset. Initial Sepsis Screen: Does the patient meet any 2 criteria? No. Patient's initial sepsis screen is negative. Does the patient have a suspected source of infection? No. Patient's initial sepsis screen is negative. 23:00 Chief complaint: Patient states: pain in my right lower abdomen started yesterday. rr5 23:00 Coronavirus screen: Client denies travel out of the [place] in the last 14 days. At this rr5 time, the client does not indicate any symptoms associated with coronavirus-19. Risk Assessment: Do you want to hurt yourself or someone else? Patient reports no desire to harm self or others. Onset of symptoms was April 15, 2020. 23:00 Method Of Arrival: Ambulatory rr5 23:00 Acuity: EMANUEL 3 rr5 ROUGH ROUNDER: 04/17 00:15 LMP 04/09/2020 rr5 Historical: - Allergies: 04/16 23:00 No Known Allergies; rr5 - Home Meds: 23:00 control pill [Active]; rr5 - PMHx: 23:00 Anxiety; Depression; rr5 - PSHx: 23:00 ; rr5 - Immunization history:: Adult Immunizations unknown. - Social history:: Smoking status: Patient reports the use of cigarette tobacco products, smokes one-half pack cigarettes per day. Screenin/08 00:15 Abuse screen: Denies threats or abuse. Denies injuries from another. Nutritional rr5 screening: No deficits noted. Tuberculosis screening: No symptoms or risk factors identified. Fall Risk IV access (20 points). Total Messina Fall Scale indicates No Risk (0-24 pts). Assessment: 00:15 General: Appears in no apparent distress. comfortable, Behavior is calm, cooperative. rr5 Pain: Complains of pain in abdomen and right lower quadrant Pain currently is 9 out of 10 on a pain scale. Quality of pain is described as aching, Pain began gradually, Is intermittent. 00:15 Neuro: Level of Consciousness is awake, alert, obeys commands, Oriented to person, rr5 place, time. Cardiovascular: Capillary refill < 3 seconds Patient's skin is warm and dry. Respiratory: Airway is patent Respiratory effort is even, unlabored, Respiratory pattern is regular, symmetrical. GI: Abdomen is round non-distended, Reports lower abdominal pain. : No signs and/or symptoms were reported regarding the genitourinary system. EENT: No signs and/or symptoms were reported regarding the EENT system. Derm: Skin is intact, is healthy with good turgor, Skin temperature is warm. Musculoskeletal: Capillary refill < 3 seconds. 00:50 Reassessment: Patient appears in no apparent distress at this time. Patient is alert, rr5 oriented x 3, equal unlabored respirations, skin warm/dry/pink. discharge instruction given and explained without complaints made Patient states symptoms have improved. Vital Signs: 04/16 23:00 BP 126 / 91; Pulse 94; Resp 17; Temp 97.8; Pulse Ox 99% ; rr5 04/17 00:30 BP 115 / 70; Pulse 90; Resp 16; Pulse Ox 98% ; Pain 9/10; rr5 ED Course: 04/16 22:39 Patient arrived in ED. am4 23:01 Julian[facility] Arec [facility]-C [facility]. kb 23:01 Reggie Irwin MD is Attending Physician. kb 23:15 Inserted saline lock: 20 gauge in left antecubital area, using aseptic technique. Blood mg2 collected. 23:20 Triage completed. rr5 23:23 Julian Li, JANICE is Primary Nurse. mg2 04/17 00:10 Patient has correct armband on for positive identification. Bed in low position. Call rr5 light in reach. Pulse ox on. NIBP on. 00:15 Arm band placed on right wrist. rr5 00:51 No provider procedures requiring assistance completed. IV discontinued, intact, rr5 bleeding controlled, No redness/swelling at site. Pressure dressing applied. Administered Medications: 04/16 23:23 Drug: Zofran (Ondansetron) 4 mg Route: IVP; Site: left antecubital; mg2 04/17 00:41 Follow up: Response: No adverse reaction mg2 04/16 23:23 Drug: NS 0.9% 1000 ml Route: IV; Rate: 1000 ml; Site: left antecubital; mg2 04/17 00:41 Follow up: Response: No adverse reaction; IV Status: Completed infusion; IV Intake: mg2 1000ml 00:51 Follow up: Response: No adverse reaction; IV Status: Completed infusion; IV Intake: rr5 1000ml 04/16 23:24 Drug: morphine 4 mg Route: IVP; Site: left antecubital; mg2 03 00:42 Follow up: Response: No adverse reaction mg2 00:41 Drug: TORadol 30 mg Route: IVP; Site: left antecubital; mg2 01:03 Follow up: Response: No adverse reaction; Pain is decreased rr5 Intake: 00:41 IV: 1000ml; Total: 1000ml. mg2 00:51 IV: 1000ml; Total: 2000ml. rr5 Outcome: 00:38 Discharge ordered by . sergey 00:51 Discharged to home ambulatory. rr5 00:51 Condition: stable 00:51 Discharge instructions given to patient, Instructed on discharge instructions, follow up and referral plans. medication usage, Demonstrated understanding of instructions, follow-up care, medications, Prescriptions given X 1. 01:03 Patient left the ED. rr5 Signatures: Julianna Arce FNP-C FNP-Julian Keller RN RN mg2 Dylan Preston RN RN rr5 Yeni Evans
[2020-04-17] MEDS ORDERED: KETOROLAC 30 MG/ML INJ ONE (00:59)
[2020-04-17 01:05] LABS: Urine Blood 1+ (NEG); Urine Glucose NEGATIVE (NEG); Urine Protein NEGATIVE (NEG); Urine Specific Gravity 1.025 (1.005-1.030); Urine pH 6.5 (5.0-7.0)
[2020-04-17 01:55] VITALS: TEMP 97.8
[2020-04-17 01:56] VITALS: BP 115/70; O2SAT 98
--- NOTE | 2020-04-17 12:35 | RAD REPORT ---
EXAM DESCRIPTION: CT - Abdomen Pelvis W Contrast - 04/17/2020 5:03 am CLINICAL HISTORY: The patient is 29 years old and is Female; abdominal pain TECHNIQUE: Axial computed tomography images of the abdomen and pelvis with intravenous contrast. S agittal and coronal reformatted images were created and reviewed. This CT exam was performed using one or more of the following dose reduction techniques: automated exposure control, adjustment of t he mA and/or kV according to patient size, and/or use of iterative reconstruction technique. DLP: 2254 mGy*cm COMPARISON: CT head without contrast dated 02/21/2019. FINDINGS: LUNG BASES: Mild bibasilar atelectasis or scarring. No focal consolidation. No pleural e ffusion. HEART: Visualized heart is normal. ABDOMEN: LIVER: Unremarkable. No mass. GALLBLADDER AND BILE DUCTS: Unremarkable. No calcified stones. No ductal dilation. PANCREAS: Unremarkable. No mass. No ductal dilation. SPLEEN: Unremarkable. No splenomegaly. ADRENALS: Unremarkable. No mass. KIDNEYS AND URETERS: Unremarkable. No solid mass. No hydronephrosis. STOMACH AND BOWEL: Unremarkable. No obstruction. No mucosal thickening. PELVIS: APPENDIX: The appendix is seen and is within normal limits. BLADDER: Bladder is decompressed. REPRODUCTIVE: 3 cm right ovarian cyst. ABDOMEN and PELVIS: INTRAPERITONEAL SPACE: Unremarkable. No free air. No significant fluid collection. BONES/JOINTS: No acute fracture. No dislocation. SOFT TISSUES: Unremarkable. VASCULATURE: Minimal atherosclerotic vascular disease. No abdominal aortic aneurysm. LYMPH NODES: Unremarkable. No enlarged lymph nodes. IMPRESSION: 1. No acute abdominal or pelvic abnormality. 2. 3 cm right ovarian cyst. No follow-up imaging is recommended. Reference: US recommendations based on Radiology 2010 Sep;256(3):943-54; CT/MR recommendations based on J Am Hope Radiol 2013;10:675-681. Electronically signed by: Kavin Mills DO 04/17/2020 12:24 AM STORY WRITER Due to temporary technical issues with the PACS/Fluency reporting system, reports are being signed by the in house radiologists without review as a courtesy to insure prompt reporting. The interpreting radiologist is fully responsible for the content of the report.
== END 2020-04-17 01:03 | disposition home or self-care (01) ==
LOC: ER 22:26
DX: N83.291 Other ovarian cyst, right side (principal); F17.210 Nicotine dependence, cigarettes, uncomplicated
CPT/HCPCS: 96361; 85025; 80048; 36415; 81025; 82565; 81003; 74177; 96375; 96374; 99284; Q9967; J7030; J2405

== ENCOUNTER 2020-06-11 23:05 | Emergency (ER) | payer OTHER ==
--- OUTSIDE RECORDS SUMMARY | 2020-06-11 23:07 | XMS REPORT | Continuity of Care Document ---
:1990 Author Organization [facility] t Address [address] [place] [address] Care Team Providers Name Role Phone Joe Becker DO Attending Clinician Doctor Unassigned, Name Attending Clinician Unavailable Gabino ALCANTARA Attending Clinician Problems This patient has no known problems. Allergies, Adverse Reactions, Alerts This patient has no known allergies or adverse reactions. Medications This patient has no known medications. Procedures This patient has no known procedures. Encounters Start End Encounter Admission Attending Care Care Encounter Source Date/Time Date/Time Type Type Clinicians Facility Department ID 2020-05-02 2020-05-02 Patient MIRANDA Becker [id number] 00:00:00 00:00:00 Outreach [facility] [id number] [facility] [id number] LINDA [id number] 2020-05-01 2020-05-01 Orders Doctor JAEL [id number] 00:00:00 00:00:00 Only UnassignedMARCELINO [id number] [place] [facility] [id number] 2020-04-26 2020-04-26 Telephone MIRANDA Lloyd [id number] 00:00:00 00:00:00 Radha Valencia [id number] [place] [id number] Professbuddy [id number] [address] 2020-04-25 2020-04-25 Case Gabino [facility] [id number] 00:00:00 00:00:00 Management Radha Valencia [id number] [place] [id number] [place] [id number] [address] 2020-04-19 2020-04-19 Orders Doctor JAEL [id number] 00:00:00 00:00:00 Only Unassigned, MARCELINO [id number] [place] [facility] [id number] Results This patient has no known results.
[2020-06-12] MEDS ORDERED: NA CHLORIDE 0.9% 1,000 ML ONE (01:06)
[2020-06-12] MEDS ORDERED: ONDANSETRON 4 MG/2 ML VIAL ONE (01:06)
[2020-06-12] MEDS ORDERED: MORPHINE 4 MG/ML SYR ONE ×2 (01:06→04:53)
[2020-06-12 01:14] LABS: Urine Blood Trace-intact (Negative); Urine Glucose Negative (Negative); Urine Protein Negative (Negative); Urine Specific Gravity 1.025 (1.005-1.030)
[2020-06-12 01:25] LABS: Urine Specific Gravity/Preg 1.025 (1.005-1.030)
[2020-06-12 01:33] LABS: Absolute Lymphocytes (CBC) 2.9 K/uL (0.7-4.9); Basophils % 0.8 % (0-1.3); Hematocrit 38.5 % (36.0-45.0); Lymphocytes % 28.7 % (15.3-44.8); MPV 8.5 fL (7.6-11.3); RBC Red Blood Cell Count 4.29 M/uL (3.86-4.86)
[2020-06-12 01:45] LABS: ALT/SGPT 15 U/L (12-78); AST/SGOT 9 U/L (15-37); Albumin 3.2 g/dL (3.4-5.0); Alkaline Phosphatase 84 U/L (45-117); BUN Blood Urea Nitrogen 10 mg/dL (7-18); Bicarbonate 25 mmol/L (21-32); Bilirubin Direct < 0.1 mg/dL (0-0.2); Bilirubin Total 0.2 mg/dL (0.2-1.0); Glucose Level 97 mg/dL (74-106); Lipase 162 U/L (73-393); Potassium 3.8 mmol/L (3.5-5.1); Protein, Total 7.7 g/dL (6.4-8.2); Sodium Level 139 mmol/L (136-145)
[2020-06-12] MEDS ORDERED: KETOROLAC 30 MG/ML INJ ONE (05:04)
--- NOTE | 2020-06-12 05:22 | ER ---
Nurse's Notes [facility] Name: Veronica Moore Age: 29 yrs Sex: Female : 1990 Arrival Date: 06/11/2020 Time: 23:09 Bed 15 Private MD: Diagnosis: Lower abdominal pain, unspecified Presentation: 06/11 23:30 Chief complaint: Patient states: lower ABD pain since yesterday , stomach is swelling iw today, denies n/v/d. Coronavirus screen: At this time, the client does not indicate any symptoms associated with coronavirus-19. Ebola Screen: Patient negative for fever greater than or equal to 101.5 degrees Fahrenheit, and additional compatible Ebola Virus Disease symptoms Patient denies exposure to infectious person. Patient denies travel to an Ebola-affected area in the 21 days before illness onset. No symptoms or risks identified at this time. Initial Sepsis Screen: Does the patient meet any 2 criteria? No. Patient's initial sepsis screen is negative. Does the patient have a suspected source of infection? No. Patient's initial sepsis screen is negative. Risk Assessment: Do you want to hurt yourself or someone else? Patient reports no desire to harm self or others. Onset of symptoms was June 10, 2020. 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 - Social history:: Smoking status: Patient reports the use of cigarette tobacco products, smokes one-half pack cigarettes per day. Screenin/03 01:10 Abuse screen: Denies threats or abuse. Denies injuries from another. Nutritional rr5 screening: No deficits noted. Tuberculosis screening: No symptoms or risk factors identified. Fall Risk IV access (20 points). Total Messina Fall Scale indicates No Risk (0-24 pts). Assessment: 00:30 General: Appears in no apparent distress. uncomfortable, Behavior is calm, cooperative, rr5 appropriate for age. 00:30 Pain: Complains of pain in right lower quadrant and left lower quadrant Pain radiates rr5 to pelvis Pain currently is 8 out of 10 on a pain scale. Quality of pain is described as aching, Pain began gradually, Is intermittent. Neuro: Level of Consciousness is awake, alert, obeys commands, Oriented to person, place, time. Cardiovascular: Capillary refill < 3 seconds Patient's skin is warm and dry. Respiratory: Airway is patent Respiratory effort is even, unlabored, Respiratory pattern is regular, symmetrical. GI: Abdomen is round non-distended, Abd is soft and non tender Reports lower abdominal pain. : No signs and/or symptoms were reported regarding the genitourinary system. Denies burning with urination. EENT: No signs and/or symptoms were reported regarding the EENT system. Derm: Skin is intact, is healthy with good turgor, Skin temperature is warm. Musculoskeletal: Capillary refill < 3 seconds. 02:00 Reassessment: Patient appears in no apparent distress at this time. Patient is alert, rr5 oriented x 3, equal unlabored respirations, skin warm/dry/pink. Patient states symptoms have improved. 03:00 Reassessment: Patient appears in no apparent distress at this time. Patient is alert, rr5 oriented x 3, equal unlabored respirations, skin warm/dry/pink. awaiting for result. 04:00 Reassessment: Patient appears in no apparent distress at this time. Patient is alert, rr5 oriented x 3, equal unlabored respirations, skin warm/dry/pink. 04:50 Reassessment: complaint of abdominal pain ED provider aware with order made and carried rr5 out. 05:31 Reassessment: Patient appears in no apparent distress at this time. Patient is alert, rr5 oriented x 3, equal unlabored respirations, skin warm/dry/pink. discharge instruction given and explained without complaints made. Vital Signs: 06/11 23:30 BP 131 / 94; Pulse 88; Resp 16; Temp 97.6; Pulse Ox 99% on R/A; Weight 102.06 kg; iw Height 5 ft. 6 in. (167.64 cm); Pain 8/10; 06/12 01:00 BP 126 / 85; Pulse 80; Resp 19; Pulse Ox 98% ; rr5 02:00 BP 105 / 65; Pulse 80; Resp 16; Pulse Ox 98% ; Pain 6/10; rr5 03:00 BP 121 / 70; Pulse 80; Resp 19; Pulse Ox 98% ; rr5 04:00 BP 110 / 80; Pulse 86; Resp 17; Pulse Ox 99% ; rr5 04:51 BP 112 / 65; Pulse 75; Resp 19; Pulse Ox 98% ; rr5 05:31 BP 115 / 70; Pulse 70; Resp 18; Pulse Ox 98% ; rr5 06/11 23:30 Body Mass Index 36.32 (102.06 kg, 167.64 cm) ED Course: 06/11 23:09 Patient arrived in ED. bp1 23:31 Triage completed. iw 23:32 Arm band placed on. iw 06/12 00:09 Reggie Irwin MD is Attending Physician. 7 00:42 Dylan Preston RN is Primary Nurse. rr5 01:05 Patient has correct armband on for positive identification. Bed in low position. Call rr5 light in reach. 01:05 Pulse ox on. NIBP on. rr5 01:10 Inserted saline lock: 20 gauge in right forearm, using aseptic technique. Blood rr5 collected. 01:15 Urine collected: clean catch specimen, clear. rr5 03:29 CT Abd/Pelvis - IV Contrast Only In Process Unspecified. EDMS 05:31 No provider procedures requiring assistance completed. IV discontinued, intact, rr5 bleeding controlled, No redness/swelling at site. Pressure dressing applied. Administered Medications: 01:10 Drug: NS 0.9% 1000 ml Route: IV; Rate: 1000 ml; Site: right forearm; rr5 02:41 Follow up: Response: No adverse reaction; IV Status: Completed infusion; IV Intake: rr5 1000ml 01:10 Drug: Zofran (Ondansetron) 4 mg Route: IVP; Site: right forearm; rr5 02:10 Follow up: Response: No adverse reaction rr5 01:12 Drug: morphine 4 mg {Note: rass 0.} Route: IVP; Site: right forearm; rr5 02:10 Follow up: Response: No adverse reaction; Pain is decreased; RASS: Alert and Calm (0) rr5 04:49 Drug: TORadol (ketorolac) 30 mg Route: IVP; Site: right forearm; rr5 05:30 Follow up: Response: No adverse reaction; Pain is decreased rr5 Intake: 02:41 IV: 1000ml; Total: 1000ml. rr5 Outcome: 05:21 Discharge ordered by . padmini 05:31 Discharged to home ambulatory. rr5 05:31 Condition: stable 05:31 Discharge instructions given to patient, Instructed on discharge instructions, follow up and referral plans. medication usage, Demonstrated understanding of instructions, follow-up care, medications, Prescriptions given X 2. 05:31 Patient left the ED. rr5 Signatures: Dispatcher [employer] EDMS Sridevi Mike RN JANICE Dylan Preston RN RN rr5 Jacqueline Caldwell Maurice, MD MD mh7
--- NOTE | 2020-06-12 05:22 | EDPHYS ---
Physician Documentation [facility] Name: Veronica Moore Age: 29 yrs Sex: Female : 1990 Arrival Date: 06/11/2020 Time: 23:09 Bed 15 Private MD: ED Physician Reggie Irwin HPI: 06/12 01:28 This 29 yrs old Female presents to ER via Ambulatory with complaints of mh7 Abdominal Pain. 01:28 The patient presents with abdominal pain in the lower abdomen. Onset: The mh7 symptoms/episode began/occurred 2 day(s) ago. The symptoms do not radiate. 01:28 Associated signs and symptoms: Pertinent negatives: nausea, vomiting, and diarrhea, mh7 nausea and vomiting, anorexia, blood in stools, chest pain, constipation, diarrhea, dysuria, fever, headache, hematuria, nausea, palpitations, shortness of breath, vaginal discharge, vomiting, vomiting blood. The symptoms are described as intermittent, vague, waxing/waning. Modifying factors: The symptoms are alleviated by nothing, the symptoms are aggravated by movement, touching the area. Severity of pain: At its worst the pain was moderate yesterday, in the emergency department the pain is unchanged. 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 - Social history:: Smoking status: Patient reports the use of cigarette tobacco products, smokes one-half pack cigarettes per day. ROS: 06/12 01:28 Constitutional: Negative for fever, chills, and weight loss, Eyes: Negative for injury, mh7 pain, redness, and discharge, Neck: Negative for injury, pain, and swelling, Cardiovascular: Negative for chest pain, palpitations, and edema, Respiratory: Negative for shortness of breath, cough, wheezing, and pleuritic chest pain. Back: Negative for injury and pain, : Negative for injury, bleeding, discharge, and swelling, MS/Extremity: Negative for injury and deformity, Skin: Negative for injury, rash, and discoloration, Neuro: Negative for headache, weakness, numbness, tingling, and seizure, Psych: Negative for depression, anxiety, suicide ideation, homicidal ideation, and hallucinations, Allergy/Immunology: Negative for hives, rash, and allergies, Endocrine: Negative for neck swelling, polydipsia, polyuria, polyphagia, and marked weight changes, Hematologic/Lymphatic: Negative for swollen nodes, abnormal bleeding, and unusual bruising. Exam: 01:28 Constitutional: This is a well developed, well nourished patient who is awake, alert, mh7 and in no acute distress. Head/Face: Normocephalic, atraumatic. Eyes: Pupils equal round and reactive to light, extra-ocular motions intact. Lids and lashes normal. Conjunctiva and sclera are non-icteric and not injected. Cornea within normal limits. Periorbital areas with no swelling, redness, or edema. Neck: Trachea midline, no thyromegaly or masses palpated, and no cervical lymphadenopathy. Supple, full range of motion without nuchal rigidity, or vertebral point tenderness. No Meningismus. Chest/axilla: Normal chest wall appearance and motion. Nontender with no deformity. No lesions are appreciated. Cardiovascular: Regular rate and rhythm with a normal S1 and S2. No gallops, murmurs, or rubs. Normal PMI, no JVD. No pulse deficits. Respiratory: Lungs have equal breath sounds bilaterally, clear to auscultation and percussion. No rales, rhonchi or wheezes noted. No increased work of breathing, no retractions or nasal flaring. 01:28 Back: No spinal tenderness. No costovertebral tenderness. Full range of motion. Skin: Warm, dry with normal turgor. Normal color with no rashes, no lesions, and no evidence of cellulitis. MS/ Extremity: Pulses equal, no cyanosis. Neurovascular intact. Full, normal range of motion. Neuro: Awake and alert, GCS 15, oriented to person, place, time, and situation. Cranial nerves II-XII grossly intact. Motor strength 5/5 in all extremities. Sensory grossly intact. Cerebellar exam normal. Normal gait. Psych: Awake, alert, with orientation to person, place and time. Behavior, mood, and affect are within normal limits. 01:28 Abdomen/GI: Inspection: abdomen appears normal, Bowel sounds: normal, in all quadrants, Palpation: moderate abdominal tenderness, in the suprapubic area, right lower quadrant and left lower quadrant, mass, is not appreciated, rebound tenderness, is not appreciated, voluntary guarding, is not appreciated, involuntary guarding, is not appreciated, no appreciated organomegaly, Rectal exam: the exam is deferred, because of patient request, Indicators: McBurney's point is not tender, Coe's sign is negative, Rovsing's sign is negative, Obturator sign is negative, Psoas sign is negative, Liver: no appreciated palpable abnormalities, Hernia: not appreciated. Vital Signs: 06/11 23:30 BP 131 / 94; Pulse 88; Resp 16; Temp 97.6; Pulse Ox 99% on R/A; Weight 102.06 kg; iw Height 5 ft. 6 in. (167.64 cm); Pain 8/10; 06/12 01:00 BP 126 / 85; Pulse 80; Resp 19; Pulse Ox 98% ; rr5 02:00 BP 105 / 65; Pulse 80; Resp 16; Pulse Ox 98% ; Pain 6/10; rr5 03:00 BP 121 / 70; Pulse 80; Resp 19; Pulse Ox 98% ; rr5 04:00 BP 110 / 80; Pulse 86; Resp 17; Pulse Ox 99% ; rr5 04:51 BP 112 / 65; Pulse 75; Resp 19; Pulse Ox 98% ; rr5 05:31 BP 115 / 70; Pulse 70; Resp 18; Pulse Ox 98% ; rr5 06/11 23:30 Body Mass Index 36.32 (102.06 kg, 167.64 cm) iw MDM: 05:19 Differential diagnosis: bowel obstruction, diverticulitis, Ectopic , mh7 non-specific abd pain, Pyelonephritis, Ureterolithiasis, urinary tract infection. Data reviewed: vital signs, nurses notes, lab test result(s), amylase and lipase, CBC, electrolytes, urinalysis, UPT: negative radiologic studies, CT scan. Data interpreted: Pulse oximetry: on room air is 98 %. Interpretation: normal. Counseling: I had a detailed discussion with the patient and/or guardian regarding: the historical points, exam findings, and any diagnostic results supporting the discharge/admit diagnosis, lab results, radiology results, the need for outpatient follow up, to return to the emergency department if symptoms worsen or persist or if there are any questions or concerns that arise at home. Response to treatment: the patient's symptoms have resolved after treatment, the patient's blood pressure is in an acceptable range, mental status has returned to baseline, the patient no longer shows bradycardia, the patient is not short of breath, the patient is not tachycardic, the patient's pain is gone, the patient's temperature has normalized, the patient is now symptom free, patient is well hydrated. 05:21 Patient medically screened. [facility] 06/12 00:36 Order name: Basic Metabolic Panel; Complete Time: 02:43 [facility] 06/12 00:36 Order name: CBC with Diff; Complete Time: 02:43 [facility] 06/12 00:36 Order name: Hepatic Function; Complete Time: 02:43 [facility] 06/12 00:36 Order name: Lipase; Complete Time: 02:43 7 06/12 01:14 Order name: Urine Dipstick-Ancillary; Complete Time: 02:43 [facility] 06/12 01:15 Order name: Urine --Ancillary (enter results); Complete Time: 02:43 [facility] 06/12 00:36 Order name: IV Saline Lock; Complete Time: 01:50 7 06/12 00:36 Order name: Labs collected and sent; Complete Time: 01:50 [facility] 06/12 00:36 Order name: Urine Dipstick-Ancillary (obtain specimen); Complete Time: 01:49 7 06/12 02:44 Order name: CT Abd/Pelvis - IV Contrast Only [facility] 06/12 00:36 Order name: Urine Test (obtain specimen); Complete Time: 01:49 mh7 Administered Medications: 01:10 Drug: NS 0.9% 1000 ml Route: IV; Rate: 1000 ml; Site: right forearm; rr5 02:41 Follow up: Response: No adverse reaction; IV Status: Completed infusion; IV Intake: rr5 1000ml 01:10 Drug: Zofran (Ondansetron) 4 mg Route: IVP; Site: right forearm; rr5 02:10 Follow up: Response: No adverse reaction rr5 01:12 Drug: morphine 4 mg {Note: rass 0.} Route: IVP; Site: right forearm; rr5 02:10 Follow up: Response: No adverse reaction; Pain is decreased; RASS: Alert and Calm (0) rr5 04:49 Drug: TORadol (ketorolac) 30 mg Route: IVP; Site: right forearm; rr5 05:30 Follow up: Response: No adverse reaction; Pain is decreased rr5 Disposition: 06/12/20 05:21 Discharged to Home. Impression: Lower abdominal pain, unspecified. - Condition is Stable. - Discharge Instructions: Abdominal Pain, Adult, [id number]-Pdbt, Clear Liquid Diet, Qhaq-ly-Nbwb. - Prescriptions for Bentyl 20 mg Oral Tablet - take 1 tablet by ORAL route every 6 hours As needed; 20 tablet. Pepcid 20 mg Oral Tablet - take 1 tablet by ORAL route every 12 hours for 5 days; 10 tablet. - Work release form, Medication Reconciliation Form, Thank You Letter, Antibiotic Education, Prescription Opioid Use form. - Follow up: Private Physician; When: 1 - 2 days; Reason: Worsening of condition, Recheck today's complaints, Continuance of care, Re-evaluation by your physician. - Problem is new. - Symptoms have improved. Signatures: Dispatcher [employer] EDMS Sridevi Miek RN RN Dylan Preston RN RN rr5 Reggie Irwin MD MD mh7 Corrections: (The following items were deleted from the chart) 05:31 05:21 06/12/2020 05:21 Discharged to Home. Impression: Lower abdominal pain, rr5 unspecified. Condition is Stable. Forms are Medication Reconciliation Form, Thank You Letter, Antibiotic Education, Prescription Opioid Use. Follow up: Private Physician; When: 1 - 2 days; Reason: Worsening of condition, Recheck today's complaints, Continuance of care, Re-evaluation by your physician. Problem is new. Symptoms have improved. mh7
[2020-06-12 05:44] VITALS: TEMP 97.6
[2020-06-12 05:53] VITALS: O2SAT 98
[2020-06-12 05:55] VITALS: BP 115/70
--- NOTE | 2020-06-12 16:04 | RAD REPORT ---
EXAM DESCRIPTION: CT Abdomen and Pelvis COMPARISON: CT abdomen and pelvis April 16, 2020 report only CLINICAL HISTORY: [facility] MAIN ABD PAIN TECHNIQUE: CT of the abdomen and pelvis was acquired with IV contrast material. Coronal and sagitt al reconstructions were obtained. Automated exposure control was utilized on this examination as a dose lowering technique. FINDINGS: Lung bases: Atelectasis is present in the lung bases there are several bilateral small pul monary nodules. The largest, in the right lower lobe, measures up to 5 mm on axial series 4 one image 5. Liver: Normal. Gallbladder and biliary: Normal gallbladder. Unremarkable biliary tree. Pancreas: Normal. Spleen: Normal. Adrenal glands: Normal adrenal glands. Kidneys: Normal kidneys Stomach and Small Bowel: Normal stomach. A few loops of small bowel in the left abdomen are mildly di lated. Urinary bladder: Normal. Uterus and Adnexa: Normal. Colon and Appendix: The colon is unremarkable. No evidence of appendicitis. Retroperitoneum and lymph nodes: Normal. Vascular: Trace atherosclerosis. Peritoneal cavity: No ascites or free air. Musculoskeletal and soft tissues: Soft tissues are unremarkable. No aggressive bone lesions. No com pression fracture. IMPRESSION: 1. A few loops of small bowel in the left abdomen are mildly dilated. This is nonspecifi c but may be seen with mild enteritis or ileus. 2. Small bilateral pulmonary nodules measure up to 5 mm. These are favored to be infectious or inflam matory given patient age and size. No dedicated routine follow-up is necessary if the patient is low- risk for neoplasm. Electronically signed by: Eugenio Breen MD 06/12/2020 3:49 AM CDT Due to temporary technical issues with the PACS/Fluency reporting system, reports are being signed by the in house radiologists without review as a courtesy to insure prompt reporting. The interpreting radiologist is fully responsible for the content of the report.
== END 2020-06-12 05:31 | disposition home or self-care (01) ==
LOC: ER 23:05
DX: R10.30 Lower abdominal pain, unspecified (principal); F17.210 Nicotine dependence, cigarettes, uncomplicated
CPT/HCPCS: 85025; 80048; 36415; 81025; 80076; 81003; 83690; 74177; Q9967; J7030; J2405; 96361; 96374; 96375; 99284

== ENCOUNTER 2020-06-30 01:51 | Emergency (ER) | payer OTHER ==
--- OUTSIDE RECORDS SUMMARY | 2020-06-30 01:55 | XMS REPORT | Continuity of Care Document ---
:1990 Author Organization [facility] t Address [address] [place] [address] Care Team Providers Name Role Phone Joe Becker DO Attending Clinician Doctor Unassigned, Name Attending Clinician Unavailable Gabino ALCANTARA Attending Clinician Problems This patient has no known problems. Allergies, Adverse Reactions, Alerts This patient has no known allergies or adverse reactions. Social History Social Habit Start Date Stop Date Quantity Comments Source Sex Assigned At [facility] Medications Ordered Filled Start Stop Current Ordering Indication Dosage Frequency Signature Comments Components Source Medication Medication Date Date Medication? Clinician (SIG) Name Name bromphenira 2016-0 Yes 10mL Take 10 [facility] mine-pseudo 5-25 mLs by [facility]-DM 00:00: mouth Medical (BROMFED 00 every 6 Center DM) 2-30-10 (six) mg/5 mL hours as Syrp needed (cough). Procedures This patient has no known procedures. Encounters Start End Encounter Admission Attending Care Care Encounter Source Date/Time Date/Time Type Type Clinicians Facility Department ID 2020-05-02 2020-05-02 Patient Eugenio MIRANDA [id number] 00:00:00 00:00:[address] [facility] [id number] Joe [facility] [id number] LINDA [id number] 2020-05-01 2020-05-01 Orders Doctor JAEL [id number] 00:00:00 00:00:00 Only Unassigned, MARCELINO [id number] [place] [facility] [id number] 2020-04-26 2020-04-26 [facility] [id number] 00:00:00 00:00:00 aRdha Valencia [id number] [place] [id number] [place] [id number] [address] 2020-04-25 2020-04-25 [facility] [id number] 00:00:00 00:00:00 Management Radha Valencia [id number] [place] [id number] [facility] [id number] [address] 2020-04-19 2020-04-19 Orders Doctor JAEL [id number] 00:00:00 00:00:00 Only Unassigned, MARCELINO [id number] [place] [facility] [id number] Results This patient has no known results.
[2020-06-30] MEDS ORDERED: METOCLOPRAMIDE 10 MG/2mL INJ ONE (03:10)
[2020-06-30] MEDS ORDERED: NA CHLORIDE 0.9% 1,000 ML ONE (03:11)
[2020-06-30] MEDS ORDERED: DIPHENHYDRAMINE 50 MG/ML VIAL ONE (03:11)
[2020-06-30] MEDS ORDERED: KETOROLAC 30 MG/ML INJ ONE (03:11)
[2020-06-30 03:12] LABS: Urine Blood Trace-intact (Negative); Urine Glucose Negative (Negative); Urine Protein Negative (Negative)
[2020-06-30 03:28] LABS: Absolute Lymphocytes (CBC) 2.6 K/uL (0.7-4.9); Basophils % 0.9 % (0-1.3); Lymphocytes % 26.5 % (15.3-44.8); MPV 8.6 fL (7.6-11.3)
[2020-06-30 03:40] LABS: Albumin 3.4 g/dL (3.4-5.0); Bilirubin Total 0.2 mg/dL (0.2-1.0); C-Reactive Protein 14.6 mg/L (<3.00); Potassium 3.7 mmol/L (3.5-5.1); Protein, Total 7.5 g/dL (6.4-8.2)
--- NOTE | 2020-06-30 05:24 | ER ---
Nurse's Notes [facility] Name: Veronica Moore Age: 30 yrs Sex: Female : 1990 Arrival Date: 06/30/2020 Time: 01:54 Bed 24 Private MD: Diagnosis: Headache;Dizziness and giddiness Presentation: 06/30 02:14 Chief complaint: Patient states: Pt c/o CHAPPELL that began yesterday with dizziness. ad5 +nausea. No relief at home with Tylenol, last dose 1500. HOWARD with ease, speech clear and appropriate. Pt denies hx of similar s/s. Recent BC change in past 2 mos. Coronavirus screen: Client denies travel out of the [place] in the last 14 days. At this time, the client does not indicate any symptoms associated with coronavirus-19. Ebola Screen: Patient negative for fever greater than or equal to 101.5 degrees Fahrenheit, and additional compatible Ebola Virus Disease symptoms Patient denies exposure to infectious person. Patient denies travel to an Ebola-affected area in the 21 days before illness onset. No symptoms or risks identified at this time. Initial Sepsis Screen: Does the patient meet any 2 criteria? No. Patient's initial sepsis screen is negative. Does the patient have a suspected source of infection? No. Patient's initial sepsis screen is negative. Risk Assessment: Do you want to hurt yourself or someone else? Patient reports no desire to harm self or others. Onset of symptoms was June 29, 2020. 02:14 Method Of Arrival: Ambulatory ad5 02:14 Acuity: EMANUEL 3 ad5 Triage Assessment: 05:33 Headache History: The patient has had previous headaches and this one is similar to iw previous episodes. General: Appears in no apparent distress. Behavior is calm. Pain: Pain Also complains of no other associated symptoms. 05:34 Pain: Pain began. 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 - Social history:: Smoking status: unknown. - Family history:: not pertinent. Screenin:21 Abuse screen: Denies threats or abuse. Denies injuries from another. Nutritional ad5 screening: No deficits noted. Tuberculosis screening: No symptoms or risk factors identified. Fall Risk None identified. Assessment: 02:18 General: Appears in no apparent distress. uncomfortable, Behavior is calm, cooperative, ad5 appropriate for age. Pain: Complains of pain in right sikh, left sikh, occipital area. Neuro: Level of Consciousness is awake, alert, obeys commands, Oriented to person, place, time, situation, Appropriate for age Machine Operator Slitter Technician are equal bilaterally Moves all extremities. Gait is steady, Speech is normal, Facial symmetry appears normal, Pupils are PERRLA, Intact Reports headache occipital area, L and R sikh regions. Cardiovascular: No deficits noted. Heart tones present Capillary refill < 3 seconds Patient's skin is warm and dry. Pulses are all present. Rhythm is regular. Respiratory: No deficits noted. Airway is patent Respiratory effort is even, unlabored, Respiratory pattern is regular, symmetrical, Breath sounds are clear bilaterally. GI: No deficits noted. Bowel sounds present X 4 quads. Reports nausea. : No deficits noted. EENT: No deficits noted. Derm: No deficits noted. Skin is pink, warm \T\ dry. Musculoskeletal: No deficits noted. 03:30 Reassessment: Patient and/or family updated on plan of care and expected duration. Pain ad5 level reassessed. Patient is alert, oriented x 3, equal unlabored respirations, skin warm/dry/pink. Patient states feeling better. 05:30 Reassessment: Patient appears in no apparent distress at this time. Patient and/or iw family updated on plan of care and expected duration. Pain level reassessed. Patient is alert, oriented x 3, equal unlabored respirations, skin warm/dry/pink. Patient states feeling better. Patient states symptoms have improved. Vital Signs: 02:14 BP 134 / 96; Pulse 81; Resp 18 S; Temp 98.2; Pulse Ox 100% on R/A; Weight 102.06 kg; ad5 Height 5 ft. 6 in. (167.64 cm); Pain 8/10; 04:07 BP 101 / 64; Pulse 68; Resp 16 S; Pulse Ox 100% ; ad5 02:14 Body Mass Index 36.32 (102.06 kg, 167.64 cm) ad5 Mitchell Coma Score: 02:46 Eye Response: spontaneous(4). Verbal Response: oriented(5). Motor Response: obeys romeo commands(6). Total: 15. ED Course: 01:54 Patient arrived in ED. bp1 02:07 Kael Finley MD is Attending Physician. romeo 02:07 Ric Brooke is Primary Nurse. ad5 02:17 Triage completed. ad5 02:17 Arm band placed on Patient placed in the treatment room, on a stretcher. ad5 02:21 Patient has correct armband on for positive identification. Bed in low position. Call ad5 light in reach. Side rails up X 1. Pulse ox on. NIBP on. Door closed. Noise minimized. Lights dimmed. Head of bed elevated. 03:11 No provider procedures requiring assistance completed. Initial lab(s) drawn, by ks, ad5 sent to lab. Urine collected: clean catch specimen, clear. Inserted saline lock: 20 gauge in left antecubital area, using aseptic technique. 04:10 CT Head Angio In Process Unspecified. EDMS 04:10 CT Head Brain wo Cont In Process Unspecified. EDMS 05:23 Osbaldo Brown MD is Referral Physician. romeo 05:33 IV discontinued, intact, bleeding controlled, No redness/swelling at site. Pressure iw dressing applied. Administered Medications: 02:56 Drug: NS 0.9% 1000 ml Route: IV; Rate: 1 bolus; Site: left antecubital; ad5 02:58 Drug: Benadryl (diphenhydrAMINE) 50 mg Route: IVP; Site: left antecubital; ad5 05:35 Follow up: Response: No adverse reaction; Pain is decreased iw 03:00 Drug: Reglan (metoCLOPramide) 10 mg Route: IVP; Site: left antecubital; ad5 05:34 Follow up: Response: No adverse reaction; Pain is decreased iw 03:03 Drug: TORadol (ketorolac) 30 mg Route: IVP; Site: left antecubital; ad5 05:34 Follow up: Response: No adverse reaction; Pain is decreased iw Outcome: 05:23 Discharge ordered by . romeo 05:33 Discharged to home ambulatory. iw 05:33 Condition: good 05:33 Discharge instructions given to patient, Instructed on discharge instructions, follow up and referral plans. medication usage, Demonstrated understanding of instructions, follow-up care, medications, Prescriptions given X 2. 05:33 Patient left the ED. iw Signatures: Dispatcher [employer] EDSC Kael Finley MD MD cha Williams, Irene, RN RN iw Jacqueline Caldwell Andrea ad5
--- NOTE | 2020-06-30 05:24 | EDPHYS ---
Physician Documentation [facility] Name: Veronica Moore Age: 30 yrs Sex: Female : 1990 Arrival Date: 06/30/2020 Time: 01:54 Bed 24 Private MD: ED Physician Kael Finley HPI: 06/30 02:44 This 30 yrs old Female presents to ER via Ambulatory with complaints of romeo Headache, Dizziness. 02:44 The patient complains of pain to the top of head, forehead, left frontal area, left romeo side of the back of head, left occipital area, left base of the skull, right frontal area, right side of the back of head, right occipital area and right base of the skull. The patient describes the headache as aching, a pressure. Onset: The symptoms/episode began/occurred yesterday. Associated signs and symptoms: Pertinent positives: dizziness, nausea. Severity of symptoms: At its worst the pain was moderate, in the emergency department the pain is actually worse. Headache History: Denies prior headaches. The symptoms are alleviated by nothing. the symptoms are aggravated by nothing. The patient has not experienced similar symptoms in the past. 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 - Social history:: Smoking status: unknown. - Family history:: not pertinent. ROS: 02:44 Constitutional: Negative for fever, chills, and weight loss, Eyes: Negative for injury, romeo pain, redness, and discharge, ENT: Negative for injury, pain, and discharge, Neck: Negative for injury, pain, and swelling, Cardiovascular: Negative for chest pain, palpitations, and edema, Respiratory: Negative for shortness of breath, cough, wheezing, and pleuritic chest pain, Abdomen/GI: Negative for abdominal pain, nausea, vomiting, diarrhea, and constipation, Back: Negative for injury and pain, : Negative for injury, bleeding, discharge, and swelling, MS/Extremity: Negative for injury and deformity, Skin: Negative for injury, rash, and discoloration, Psych: Negative for depression, anxiety, suicide ideation, homicidal ideation, and hallucinations, Allergy/Immunology: Negative for hives, rash, and allergies, Endocrine: Negative for neck swelling, polydipsia, polyuria, polyphagia, and marked weight changes, Hematologic/Lymphatic: Negative for swollen nodes, abnormal bleeding, and unusual bruising. 02:44 Neuro: Positive for dizziness, headache, weakness. Exam: :44 Constitutional: This is a well developed, well nourished patient who is awake, alert, romeo and in no acute distress. Head/Face: Normocephalic, atraumatic. Eyes: Pupils equal round and reactive to light, extra-ocular motions intact. Lids and lashes normal. Conjunctiva and sclera are non-icteric and not injected. Cornea within normal limits. Periorbital areas with no swelling, redness, or edema. ENT: Nares patent. No nasal discharge, no septal abnormalities noted. Tympanic membranes are normal and external auditory canals are clear. Oropharynx with no redness, swelling, or masses, exudates, or evidence of obstruction, uvula midline. Mucous membranes moist. Neck: Trachea midline, no thyromegaly or masses palpated, and no cervical lymphadenopathy. Supple, full range of motion without nuchal rigidity, or vertebral point tenderness. No Meningismus. Chest/axilla: Normal chest wall appearance and motion. Nontender with no deformity. No lesions are appreciated. Cardiovascular: Regular rate and rhythm with a normal S1 and S2. No gallops, murmurs, or rubs. Normal PMI, no JVD. No pulse deficits. Respiratory: Lungs have equal breath sounds bilaterally, clear to auscultation and percussion. No rales, rhonchi or wheezes noted. No increased work of breathing, no retractions or nasal flaring. Abdomen/GI: Soft, non-tender, with normal bowel sounds. No distension or tympany. No guarding or rebound. No evidence of tenderness throughout. Back: No spinal tenderness. No costovertebral tenderness. Full range of motion. Skin: Warm, dry with normal turgor. Normal color with no rashes, no lesions, and no evidence of cellulitis. MS/ Extremity: Pulses equal, no cyanosis. Neurovascular intact. Full, normal range of motion. Neuro: Awake and alert, GCS 15, oriented to person, place, time, and situation. Cranial nerves II-XII grossly intact. Motor strength 5/5 in all extremities. Sensory grossly intact. Cerebellar exam normal. Normal gait. Psych: Awake, alert, with orientation to person, place and time. Behavior, mood, and affect are within normal limits. 02:44 Musculoskeletal/extremity: DVT Exam: No signs of deep vein thrombosis. no pain, no swelling, no tenderness, negative Homans' sign noted on exam, no appreciated bluish discoloration, no erythema, no increased warmth. Vital Signs: 02:14 BP 134 / 96; Pulse 81; Resp 18 S; Temp 98.2; Pulse Ox 100% on R/A; Weight 102.06 kg; ad5 Height 5 ft. 6 in. (167.64 cm); Pain 8/10; 04:07 BP 101 / 64; Pulse 68; Resp 16 S; Pulse Ox 100% ; ad5 02:14 Body Mass Index 36.32 (102.06 kg, 167.64 cm) ad5 [place] Coma Score: 02:46 Eye Response: spontaneous(4). Verbal Response: oriented(5). Motor Response: obeys [facility] commands(6). Total: 15. MDM: 02:07 Patient medically screened. [facility] 02:46 Differential diagnosis: cluster headache, intracerebral hemorrhage, meningitis, romeo migraine, neoplasm, sinusitis, subarachnoid bleed, subdural hematoma, temporal arteritis, tension headache, traumatic injuries, trigeminal neuralgia, vasomotor headache. Data reviewed: vital signs, nurses notes, lab test result(s), radiologic studies, CT scan. Data interpreted: ball assembler: rate is 81 beats/min, rhythm is regular, Pulse oximetry: is not applicable for this patient encounter. Test interpretation: by ED physician or midlevel provider:. Counseling: I had a detailed discussion with the patient and/or guardian regarding: the historical points, exam findings, and any diagnostic results supporting the discharge/admit diagnosis, lab results, radiology results. 06/30 02:44 Order name: CBC with Diff; Complete Time: 04:07 romeo 06/30 02:44 Order name: Comprehensive Metabolic Panel; Complete Time: 04:07 [facility] 06/30 02:44 Order name: Urine Culture [facility] 06/30 03:12 Order name: Urine --Ancillary (enter results) tt3 06/30 02:44 Order name: CT Head Angio romeo 06/30 02:44 Order name: CT Head Brain wo Cont [facility] 06/30 03:12 Order name: Urine Dipstick-Ancillary EDMS 06/30 03:19 Order name: C-Reactive Protein; Complete Time: 04:07 EDPR 06/30 03:19 Order name: Sedimentation Rate, Westergren; Complete Time: 04:07 [facility] 06/30 02:44 Order name: Urine Dipstick-Ancillary (obtain specimen); Complete Time: 03:13 [facility] 06/30 02:44 Order name: Urine Test (obtain specimen); Complete Time: 03:13 [facility] 06/30 02:44 Order name: Oxygen; Complete Time: 03:13 [facility] Administered Medications: 02:56 Drug: NS 0.9% 1000 ml Route: IV; Rate: 1 bolus; Site: left antecubital; ad5 02:58 Drug: Benadryl (diphenhydrAMINE) 50 mg Route: IVP; Site: left antecubital; ad5 05:35 Follow up: Response: No adverse reaction; Pain is decreased iw 03:00 Drug: Reglan (metoCLOPramide) 10 mg Route: IVP; Site: left antecubital; ad5 05:34 Follow up: Response: No adverse reaction; Pain is decreased iw 03:03 Drug: TORadol (ketorolac) 30 mg Route: IVP; Site: left antecubital; ad5 05:34 Follow up: Response: No adverse reaction; Pain is decreased iw Disposition: 06/30/20 05:23 Discharged to Home. Impression: Headache, Dizziness and giddiness. - Condition is Stable. - Discharge Instructions: Dizziness, General Headache Without Cause, General Headache Without Cause, Fqek-gn-Iljq, Dizziness, Vxzk-to-Rrmo. - Prescriptions for Fioricet with Codeine 50- 325-40-30 mg Oral capsule - take 1 capsule by ORAL route every 4 hours as needed not to exceed 6 capsules per 24hrs; 20 capsule. Zofran 4 mg Oral Tablet - take 1 tablet by ORAL route every 12 hours As needed; 20 tablet. - Medication Reconciliation Form, Thank You Letter, Antibiotic Education, Prescription Opioid Use, Work release form form. - Follow up: Private Physician; When: 2 - 3 days; Reason: Recheck today's complaints, Continuance of care, Re-evaluation by your physician. Follow up: Osbaldo Brown; When: 2 - 3 days; Reason: Recheck today's complaints, Re-evaluation by your physician. - Problem is new. - Symptoms have improved. Signatures: Dispatcher [employer] EDPR Kael Finley MD MD cha Williams, Irene, RN RN Ric Vargas Corrections: (The following items were deleted from the chart) 03:19 02:49 C-REACTIVE PROTEIN+C.LAB.BRZ ordered. EDPR EDPR 03:19 02:49 WESTERGREN SEDRATE+H.LAB.BRZ ordered. EDPR EDPR 05:33 05:23 06/30/2020 05:23 Discharged to Home. Impression: Headache; Dizziness and iw giddiness. Condition is Stable. Discharge Instructions: Dizziness, General Headache Without Cause, General Headache Without Cause, Ijbz-eq-Uvfi, Dizziness, Ovez-sr-Cfta. Prescriptions for Fioricet with Codeine 70-873-01-30 mg Oral capsule - take 1 capsule by ORAL route every 4 hours as needed not to exceed 6 capsules per 24hrs; 20 capsule, Zofran 4 mg Oral Tablet - take 1 tablet by ORAL route every 12 hours As needed; 20 tablet. and Forms are Medication Reconciliation Form, Thank You Letter, Antibiotic Education, Prescription Opioid Use. Follow up: Private Physician; When: 2 - 3 days; Reason: Recheck today's complaints, Continuance of care, Re-evaluation by your physician. Follow up: Osbaldo Brown; When: 2 - 3 days; Reason: Recheck today's complaints, Re-evaluation by your physician. Problem is new. Symptoms have improved. romeo
[2020-06-30 05:48] VITALS: TEMP 98.2; O2SAT 100
[2020-06-30 05:52] VITALS: BP 101/64
--- NOTE | 2020-06-30 08:49 | RAD REPORT ---
EXAM DESCRIPTION: CT Angiography Head With Intravenous Contrast CLINICAL HISTORY: The patient is 30 years old and is Female; Dizziness;Headache TECHNIQUE: Axial computed tomographic angiography images of the head with intravenous contrast. Sa gittal and coronal reformatted images were created and reviewed. This CT exam was performed using o ne or more of the following dose reduction techniques: automated exposure control, adjustment of th e mA and/or kV according to patient size, and/or use of iterative reconstruction technique. MIP rec onstructed images were created and reviewed. COMPARISON: No relevant prior studies available. FINDINGS: Right internal carotid artery: No acute findings. Intracranial segment is patent with no significant stenosis. No aneurysm. Right anterior cerebral artery: Unremarkable. No occlusion or significant stenosis. No aneur ysm. Right middle cerebral artery: Unremarkable. No occlusion or significant stenosis. No aneurys m. Right posterior cerebral artery: Unremarkable. No occlusion or significant stenosis. No aneu rysm. Right vertebral artery: Unremarkable as visualized. Left internal carotid artery: No acute findings. Intracranial segment is patent with no signif icant stenosis. No aneurysm. Left anterior cerebral artery: Unremarkable. No occlusion or significant stenosis. No aneury sm. Left middle cerebral artery: Unremarkable. No occlusion or significant stenosis. No aneurysm . Left posterior cerebral artery: Left STAFF TOXICOLOGIST. No occlusion or significant stenosis. No aneur ysm. Left vertebral artery: Unremarkable as visualized. Basilar artery: Unremarkable. No occlusion or significant stenosis. No aneurysm. IMPRESSION: No occlusion or significant stenosis. No aneurysm. Electronically signed by: Jase Sue MD 06/30/2020 4:56 AM CDT Due to temporary technical issues with the PACS/Fluency reporting system, reports are being signed by the in house radiologist without review as a courtesy to ensure prompt reporting. The interpreting r adiologist is fully responsible for the content of the report.
--- NOTE | 2020-06-30 08:50 | RAD REPORT ---
EXAM DESCRIPTION: CT Head Without Intravenous Contrast CLINICAL HISTORY: The patient is 30 years old and is Female; HEADACHE TECHNIQUE: Axial computed tomography images of the head/brain without intravenous contrast. Sagitt al and coronal reformatted images were created and reviewed. This CT exam was performed using one o r more of the following dose reduction techniques: automated exposure control, adjustment of the mA and/or kV according to patient size, and/or use of iterative reconstruction technique. COMPARISON: No relevant prior studies available. FINDINGS: Brain: Unremarkable. No hemorrhage. No significant white matter disease. No edema. Ventricles: Unremarkable. No ventriculomegaly. Bones/joints: Unremarkable. No acute fracture. Soft tissues: Unremarkable. Sinuses: Unremarkable as visualized. Mastoid air cells: Unremarkable as visualized. No mastoid effusion. IMPRESSION: No acute intracranial abnormality. Electronically signed by: Jase Sue MD 06/30/2020 4:55 AM CDT Due to temporary technical issues with the PACS/Fluency reporting system, reports are being signed by the in house radiologist without review as a courtesy to ensure prompt reporting. The interpreting r adiologist is fully responsible for the content of the report.
== END 2020-06-30 05:33 | disposition home or self-care (01) ==
LOC: ER 01:51
DX: R51.9 Headache, unspecified (principal)
CPT/HCPCS: 87088; 85025; 87086; 36415; 81025; 85652; 81003; 80053; 86140; 70450; 70496; 96375; 96374; 99284; Q9967; J2765; J1200; J7030

== ENCOUNTER 2020-08-17 04:24 | Emergency (ER) | payer OTHER ==
--- OUTSIDE RECORDS SUMMARY | 2020-08-17 04:27 | XMS REPORT | Continuity of Care Document ---
:[address] [facility] t Address [address] [place] [address] Care Team Providers Name Role Phone Joe Becker DO Attending Clinician Doctor Unassigned, Name Attending Clinician Unavailable Gabino ALCANTARA Attending Clinician Problems This patient has no known problems. Allergies, Adverse Reactions, Alerts This patient has no known allergies or adverse reactions. Social History Social Habit Start Date Stop Date Quantity Comments Source Sex Assigned At [facility] Medications Ordered Filled Start Stop Current Ordering Indication Dosage Frequency Signature Comments Components Source Medication Medication Date Date Medication? Clinician (SIG) Name Name bromphenira 2016-0 Yes 10mL Take 10 [facility] mine-pseudo 5-25 mLs by [facility]-DM 00:00: mouth Medical (BROMFED 00 every 6 Center DM) 2-30-10 (six) mg/5 mL hours as Syrp needed (cough). Procedures This patient has no known procedures. Encounters Start End Encounter Admission Attending Care Care Encounter Source Date/Time Date/Time Type Type Clinicians Facility Department ID 2020-05-02 2020-05-02 Patient Eugenio MIRANDA [id number] 00:00:00 00:00:00 Outreach [facility] [id number] Joe [facility] [id number] LINDA [id number] 2020-05-01 2020-05-01 Orders Doctor JAEL [id number] 00:00:00 00:00:00 Only Unassigned, MARCELINO [id number] [place] [facility] [id number] 2020-04-26 2020-04-26 [facility] [id number] 00:00:00 00:00:00 Radha Valencia [id number] [place] [id number] Professio [phone] [address] 2020-04-25 2020-04-25 [facility] [id number] 00:00:00 00:00:00 Management Radha Valencia [id number] [place] [id number] Profess[facility] [id number] [address] 2020-04-19 2020-04-19 Orders Doctor JAEL [id number] 00:00:00 00:00:00 Only Unassigned, MARCELINO [id number] [place] [facility] [id number] Results This patient has no known results.
[2020-08-17] MEDS ORDERED: METHYLPREDNISOLONE 125 MG INJ ONE (05:02)
[2020-08-17] MEDS ORDERED: DIPHENHYDRAMINE 50 MG/ML VIAL ONE (05:03)
[2020-08-17] MEDS ORDERED: FAMOTIDINE 20 MG/2 ML VIAL IV ONE (05:03)
--- NOTE | 2020-08-17 05:12 | ER ---
Nurse's Notes [facility] Name: eVronica Moore Age: 30 yrs Sex: Female : 1990 Arrival Date: 08/17/2020 Time: 04:27 Bed 4 Private MD: Diagnosis: Allergic urticaria;Allergy status to other antibiotic agents status Presentation: 08/17 04:40 Chief complaint: Patient states: she suddenly started having an allergic reaction to bb something this morning took Bactrim but does not know what it could be. Coronavirus screen: At this time, the client does not indicate any symptoms associated with coronavirus-19. Ebola Screen: No symptoms or risks identified at this time. Onset: The symptoms/episode began/occurred suddenly. Anaphylaxis evaluation, no signs or symptoms of anaphylaxis were noted. Initial Sepsis Screen: Does the patient meet any 2 criteria? No. Patient's initial sepsis screen is negative. Does the patient have a suspected source of infection? No. Patient's initial sepsis screen is negative. Risk Assessment: Do you want to hurt yourself or someone else? Patient reports no desire to harm self or others. Onset of symptoms was August 17, 2020. 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 - Social history:: Smoking status: Patient reports the use of cigarette tobacco products, smokes one-half pack cigarettes per day, Smoking status: Patient reports the use of cigarette tobacco products, smokes one-half pack cigarettes per day. Screenin:47 Abuse screen: Denies threats or abuse. Nutritional screening: No deficits noted. ea Tuberculosis screening: No symptoms or risk factors identified. Fall Risk IV access (20 points). Assessment: 04:49 General: Appears uncomfortable, Behavior is appropriate for age. Pain: Denies pain. ea Neuro: Level of Consciousness is awake, alert, obeys commands, Oriented to person, place, time. Cardiovascular: Patient's skin is warm and dry. Respiratory: Airway is patent Respiratory effort is even, unlabored, Respiratory pattern is regular, symmetrical. Derm: Skin is pink, warm \T\ dry. 05:20 Reassessment: Patient and/or family updated on plan of care and expected duration. Pain ea level reassessed. Patient is alert, oriented x 3, equal unlabored respirations, skin warm/dry/pink. Discharge instruction given to patient verbalized the understanding of instruction Patient states feeling better. Vital Signs: 04:40 BP 133 / 77; Pulse 78; Resp 18 S; Temp 97.7(O); Pulse Ox 97% on R/A; Weight 104.33 kg bb (R); Height 5 ft. 6 in. (167.64 cm) (R); Pain 0/10; 04:40 Body Mass Index 37.12 (104.33 kg, 167.64 cm) bb ED Course: 04:27 Patient arrived in ED. es 04:35 Osman George MD is Attending Physician. tw4 04:41 Missed attempt(s): 20 gauge in right antecubital area. Bleeding controlled, band aid bb applied, catheter tip intact. Inserted saline lock: 20 gauge in left antecubital area, using aseptic technique. 04:46 Yanni Pacheco, RN is Primary Nurse. ea 04:48 Triage completed. bb 04:48 Patient has correct armband on for positive identification. Call light in reach. Side ea rails up X2. 04:49 Arm band placed on right wrist. Patient placed in an exam room, on a stretcher, on ea pulse oximetry. 05:20 IV discontinued, intact, bleeding controlled, No redness/swelling at site. Pressure ea dressing applied. 05:21 No provider procedures requiring assistance completed. ea Administered Medications: 04:46 Drug: SOLU-Medrol (methylPrednisoLONE) 125 mg Route: IVP; Site: left antecubital; ea 05:21 Follow up: Response: No adverse reaction ea 04:47 Drug: Pepcid (famotidine) 20 mg Route: IVP; Site: left antecubital; ea 05:21 Follow up: Response: No adverse reaction ea 04:47 Drug: Benadryl (diphenhydrAMINE) 12.5 mg Route: IVP; Site: left antecubital; ea 05:22 Follow up: Response: No adverse reaction ea 04:47 Drug: Benadryl (diphenhydrAMINE) 12.5 mg Route: IVP; Site: left antecubital; ea 05:22 Follow up: Response: No adverse reaction ea Outcome: 05:11 Discharge ordered by tw4 05:20 Discharged to home ambulatory, with family. ea 05:20 Condition: stable 05:20 Discharge instructions given to patient, Instructed on discharge instructions, follow up and referral plans. medication usage, Demonstrated understanding of instructions, follow-up care, medications, Prescriptions given X 1. 05:21 Patient left the ED. ea Signatures: Bettye Dixon Brenda, RN RN Yanni Ken RN RN Osman Rosenbaum MD MD tw4
--- NOTE | 2020-08-17 05:13 | EDPHYS ---
Physician Documentation [facility] Name: Veronica Moore Age: 30 yrs Sex: Female : 1990 Arrival Date: 08/17/2020 Time: 04:27 Bed 4 Private MD: ED Physician Osman George HPI: 08/17 04:36 This 30 yrs old Female presents to ER via Unassigned with complaints of tw4 Allergic Reaction. 04:36 The patient presents with itching, rash. Onset: The symptoms/episode began/occurred tw4 just prior to arrival. Associated signs and symptoms: The patient has no apparent associated signs or symptoms. Possible causes: antibiotics, Bactrim. At home the patient or guardian has treated the symptoms with nothing. Severity of symptoms: At their worst the symptoms were moderate in the emergency department the symptoms are unchanged. 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 - Social history:: Smoking status: Patient reports the use of cigarette tobacco products, smokes one-half pack cigarettes per day, Smoking status: Patient reports the use of cigarette tobacco products, smokes one-half pack cigarettes per day. ROS: 04:36 Constitutional: Negative for fever, chills, and weight loss, Eyes: Negative for injury, tw4 pain, redness, and discharge, Cardiovascular: Negative for chest pain, palpitations, and edema, Respiratory: Negative for shortness of breath, cough, wheezing, and pleuritic chest pain, Abdomen/GI: Negative for abdominal pain, nausea, vomiting, diarrhea, and constipation, Back: Negative for injury and pain, Skin: Negative for injury, rash, and discoloration. Exam: 04:36 Constitutional: This is a well developed, well nourished patient who is awake, alert, tw4 and in no acute distress. Head/Face: Normocephalic, atraumatic. Chest/axilla: Normal chest wall appearance and motion. Nontender with no deformity. No lesions are appreciated. Cardiovascular: Regular rate and rhythm with a normal S1 and S2. No gallops, murmurs, or rubs. Normal PMI, no JVD. No pulse deficits. Respiratory: Lungs have equal breath sounds bilaterally, clear to auscultation and percussion. No rales, rhonchi or wheezes noted. No increased work of breathing, no retractions or nasal flaring. Abdomen/GI: Soft, non-tender, with normal bowel sounds. No distension or tympany. No guarding or rebound. No evidence of tenderness throughout. Back: No spinal tenderness. No costovertebral tenderness. Full range of motion. 04:36 Skin: urticaria. Vital Signs: 04:40 BP 133 / 77; Pulse 78; Resp 18 S; Temp 97.7(O); Pulse Ox 97% on R/A; Weight 104.33 kg bb (R); Height 5 ft. 6 in. (167.64 cm) (R); Pain 0/10; 04:40 Body Mass Index 37.12 (104.33 kg, 167.64 cm) bb MDM: 04:46 Patient medically screened. tw4 Administered Medications: 04:46 Drug: SOLU-Medrol (methylPrednisoLONE) 125 mg Route: IVP; Site: left antecubital; ea 05:21 Follow up: Response: No adverse reaction ea 04:47 Drug: Pepcid (famotidine) 20 mg Route: IVP; Site: left antecubital; ea 05:21 Follow up: Response: No adverse reaction ea 04:47 Drug: Benadryl (diphenhydrAMINE) 12.5 mg Route: IVP; Site: left antecubital; ea 05:22 Follow up: Response: No adverse reaction ea 04:47 Drug: Benadryl (diphenhydrAMINE) 12.5 mg Route: IVP; Site: left antecubital; ea 05:22 Follow up: Response: No adverse reaction ea Disposition Summary: 08/17/20 05:12 Discharge Ordered Location: Home tw4 Problem: new tw4 Symptoms: have improved tw4 Condition: Stable tw4 Diagnosis - Allergic urticaria tw4 - Allergy status to other antibiotic agents status tw4 Followup: tw4 - With: Private Physician - When: Upon discharge from the Emergency Department - Reason: Recheck today's complaints, Continuance of care, Re-evaluation by your physician Discharge Instructions: - Discharge Summary Sheet tw4 - Allergies, Adult tw4 - Drug Allergy, [id number] tw4 Forms: - Medication Reconciliation Form tw4 - Work release form bb - Thank You Letter 4 - Antibiotic Education tw4 - Prescription Opioid Use tw4 Prescriptions: - Medrol (Elvin) 4 mg Oral Tablets, Dose Pack - take 1 tablet by ORAL route as directed - follow package instructions; 1 4 packet; Refills: 0, Product Selection Permitted Signatures: Lorena Minor RN RN Yanni Ken RN RN Osman Rosenbaum MD MD tw4
[2020-08-17 06:13] VITALS: BP 133/77; TEMP 97.7; O2SAT 97
== END 2020-08-17 05:21 | disposition home or self-care (01) ==
LOC: ER 04:24
DX: L50.0 Allergic urticaria (principal); Z88.1 Allergy status to other antibiotic agents; F17.210 Nicotine dependence, cigarettes, uncomplicated
CPT/HCPCS: 96375; 96374; 99284; J1200; J2930

== ENCOUNTER 2020-09-05 23:16 | Emergency (ER) | payer OTHER ==
--- OUTSIDE RECORDS SUMMARY | 2020-09-05 23:19 | XMS REPORT | Continuity of Care Document ---
:1990 Author Organization [facility] t Address [address] [place] [address] Care Team Providers Name Role Phone Joe Becker DO Attending Clinician Doctor Unassigned, Name Attending Clinician Unavailable Gabino ALCANTARA Attending Clinician Problems This patient has no known problems. Allergies, Adverse Reactions, Alerts This patient has no known allergies or adverse reactions. Social History Social Habit Start Date Stop Date Quantity Comments Source Sex Assigned At [facility] Medications Ordered Filled Start Stop Current Ordering Indication Dosage Frequency Signature Comments Components Source Medication Medication Date Date Medication? Clinician (SIG) Name Name bromphenira 2016-0 Yes 10mL Take 10 [facility] mine-pseudo 5-25 mLs by [facility]-DM 00:00: mouth Medical (BROMFED 00 every 6 Center DM) 2-30-10 (six) mg/5 mL hours as Syrp needed (cough). Procedures This patient has no known procedures. Encounters Start End Encounter Admission Attending Care Care Encounter Source Date/Time Date/Time Type Type Clinicians Facility Department ID 2020-05-02 2020-05-02 Patient Eugenio MIRANDA [id number] 00:00:00 00:00:00 Outreach Thiago [facility] [id number] Joe [facility] [id number] LINDA [id number] 2020-05-01 2020-05-01 Orders Doctor JAEL [id number] 00:00:00 00:00:00 Only Unassigned, MARCELINO [id number] [place] [facility] [id number] 2020-04-26 2020-04-26 [facility] [id number] 00:00:00 00:00:00 Radha Valencia [id number] [place] [id number] Professio [id number] [address] 2020-04-25 2020-04-25 [facility] [id number] 00:00:00 00:00:00 Management Radha Valencia [id number] [place] [id number] Professio [id number] [address] 2020-04-19 2020-04-19 Orders Doctor JAEL [id number] 00:00:00 00:00:00 Only Unassigned, MARCELINO [id number] [place] [facility] [id number] [id number] Results This patient has no known results.
[2020-09-06] MEDS ORDERED: LIDOCAINE 1% 20 ML MDV ONE (00:13)
[2020-09-06] MEDS ORDERED: BUPIVACAINE 0.5% PF 10 ML VIAL ONE (00:13)
--- NOTE | 2020-09-06 00:20 | EDPHYS ---
Physician Documentation [facility] Name: Veronica Moore Age: 30 yrs Sex: Female : 1990 Arrival Date: 09/05/2020 Time: 23:18 Bed 2 Private MD: ED Physician Brady Woodard HPI: 09/06 00:16 This 30 yrs old Female presents to ER via Ambulatory with complaints of jmm Abscess, IN BIKINI LINE. 00:16 The patient presents with an abscess of the left leg. Onset: The symptoms/episode jmm began/occurred gradually, 4 day(s) ago. Possible cause(s): unknown. Associated signs and symptoms: Pertinent positives: swelling, Pertinent negatives: fever. Modifying factors: the symptoms are alleviated by nothing, the symptoms are aggravated by nothing. The patient has experienced similar episodes in the past. 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 - Social history:: Smoking status: Patient reports the use of cigarette tobacco products, smokes one-half pack cigarettes per day, Patient uses alcohol, occasionally. ROS: 09/06 00:16 Constitutional: Negative for fever, chills, and weight loss, Cardiovascular: Negative jmm for chest pain, palpitations, and edema, Respiratory: Negative for shortness of breath, cough, wheezing, and pleuritic chest pain. Skin: Positive for swelling. All other systems are negative. Exam: 00:16 Constitutional: This is a well developed, well nourished patient who is awake, alert, jmm and in no acute distress. Head/Face: atraumatic. Eyes: EOMI, no conjunctival erythema appreciated ENT: Moist Mucus Membranes Neck: Trachea midline, Supple Chest/axilla: Normal chest wall appearance and motion. Cardiovascular: Regular rate and rhythm. No edema appreciated Respiratory: Normal respirations, no respiratory distress appreciated Abdomen/GI: Non distended, soft Back: Normal ROM 00:16 Skin: abscess, that is moderate sized, of the left leg. 00:16 Neuro: Orientation: is normal, Mentation: is normal, Memory: is normal. 00:16 Psych: Behavior/mood is pleasant, cooperative. Vital Signs: 09/05 23:39 BP 137 / 89; Pulse 93; Resp 20; Temp 98.1(O); Pulse Ox 100% on R/A; Weight 95.25 kg; kg Height 5 ft. 6 in. (167.64 cm); Pain 8/10; 23:39 Body Mass Index 33.89 (95.25 kg, 167.64 cm) kg Procedures: 09/06 00:16 I \T\ D: Incision and drainage was performed for an abscess of the left left leg Prepped [facility] with Deepak. Anesthetized with 10 ml's 1% Lidocaine. Incised with #11 blade. Drained moderate amount purulent fluid. Loculations removed. Abscess cavity explored. Packed with sterile gauze, Dressing: sterile 4x4 gauze, the patient tolerated the procedure well. MDM: 00:[address] [facility] 00:16 Data reviewed: vital signs, nurses notes. Counseling: I had a detailed discussion with rico the patient and/or guardian regarding: the historical points, exam findings, and any diagnostic results supporting the discharge/admit diagnosis, the need for outpatient follow up, to return to the emergency department if symptoms worsen or persist or if there are any questions or concerns that arise at home. ED course: Patient is alert nontoxic in appearance in the ED. The abscess was drained and packed. Advised to follow general surgery for further evaluation otherwise given strict return precautions. Patient understood and agrees plan of care.. Administered Medications: 00:15 Drug: Lidocaine (1 %) 20 ml {Note: by provider .} Volume: 20 ml; Route: Infiltration; ea 00:24 Follow up: Response: No adverse reaction ea 00:15 Drug: Marcaine (bupivacaine) (0.5 %) 10 ml {Note: by provider .} Volume: 10 ml; Route: ea Infiltration; 00:24 Follow up: Response: No adverse reaction ea Disposition Summary: 09/06/20 00:19 Discharge Ordered Location: Home [facility] Condition: Stable [facility] Diagnosis - Cutaneous abscess of left lower limb [facility] Followup: [facility] - With: Mike Gaines MD - When: 2 - 3 days - Reason: Recheck today's complaints, Continuance of care, Re-evaluation by your physician Discharge Instructions: - Discharge Summary Sheet rico - Skin Abscess rico - Incision and Drainage, Care After jmm Forms: - Medication Reconciliation Form rico - Thank You Letter rico - Antibiotic Education jmm - Prescription Opioid Use jmm - Work release form ea Prescriptions: - Doxycycline Monohydrate 100 mg Oral Tablet - take 1 tablet by ORAL route every 12 hours for 10 days; 20 tablet; Refills: 0, jmm Product Selection Permitted Signatures: Miquel Bowling PA PA jmm Antunez, Elena, RN RN Ashley Murphy, RN RN kg
--- NOTE | 2020-09-06 00:20 | ER ---
Nurse's Notes [facility] Name: Veronica Moore Age: 30 yrs Sex: Female : 1990 Arrival Date: 09/05/2020 Time: 23:18 Bed 2 Private MD: Diagnosis: Cutaneous abscess of left lower limb Presentation: 09/05 23:39 Chief complaint: Patient states: Abscess left groin starting 09/02 and has gotten bigger kg and now has a long red streak coming off of it. Pt denies oozing. Coronavirus screen: Client denies travel out of the [place] in the last 14 days. At this time, unable to obtain information related to travel outside the [place] At this time, the client does not indicate any symptoms associated with coronavirus-19. Ebola Screen: Patient negative for fever greater than or equal to 101.5 degrees Fahrenheit, and additional compatible Ebola Virus Disease symptoms Patient denies exposure to infectious person. Patient denies travel to an Ebola-affected area in the 21 days before illness onset. Initial Sepsis Screen: Does the patient meet any 2 criteria? No. Patient's initial sepsis screen is negative. Does the patient have a suspected source of infection? No. Patient's initial sepsis screen is negative. Risk Assessment: Do you want to hurt yourself or someone else? Patient reports no desire to harm self or others. Onset of symptoms was September 02, 2020. 23:39 Method Of Arrival: Ambulatory kg 23:39 Acuity: EMANUEL 4 kg Triage Assessment: 23:42 General: Appears in no apparent distress. Behavior is calm, cooperative, appropriate kg for age, quiet. Pain: Complains of pain in Left groin Pain currently is 8 out of 10 on a pain scale. at worst was 10 out of 10 on a pain scale. level that patient reports is acceptable is 5 out of 10 on a pain scale. Quality of pain is described as burning, throbbing. Derm: Abscess located on groin left is quarter sized, has no drainage, is red, is raised, Long red streak. 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 - Social history:: Smoking status: Patient reports the use of cigarette tobacco products, smokes one-half pack cigarettes per day, Patient uses alcohol, occasionally. Screenin:44 Abuse screen: Denies threats or abuse. Denies injuries from another. Nutritional kg screening: No deficits noted. Tuberculosis screening: No symptoms or risk factors identified. Fall Risk None identified. No fall in past 12 months (0 pts). No secondary diagnosis (0 pts). No IV (0 pts). Ambulatory Aid- None/Bed Rest/Nurse Assist (0 pts). Gait- Normal/Bed Rest/Wheelchair (0 pts) Mental Status- Oriented to own ability (0 pts). Total Messina Fall Scale indicates No Risk (0-24 pts). Assessment: 09/06 00:23 General: Appears in no apparent distress. Behavior is calm, cooperative, appropriate ea for age. Neuro: Level of Consciousness is awake, alert, obeys commands, Oriented to person, place, time. Respiratory: Airway is patent Respiratory effort is even, unlabored, Respiratory pattern is regular, symmetrical. Derm: Skin is pink, warm \T\ dry. Vital Signs: 09/05 23:39 BP 137 / 89; Pulse 93; Resp 20; Temp 98.1(O); Pulse Ox 100% on R/A; Weight 95.25 kg; kg Height 5 ft. 6 in. (167.64 cm); Pain 8/10; 23:39 Body Mass Index 33.89 (95.25 kg, 167.64 cm) kg ED Course: 23:18 Patient arrived in ED. cf2 23:42 Triage completed. kg 23:44 Patient has correct armband on for positive identification. kg 23:44 No provider procedures requiring assistance completed. kg 23:45 Arm band placed on right wrist. kg 23:49 Miquel Bowling PA is PHCP. [facility] 23:49 Brady Woodard MD is Attending Physician. [facility] 09/06 00:19 Mike Gaines MD is Referral Physician. [facility] 00:22 Yanni Pacheco RN is Primary Nurse. ea 00:24 Patient did not have IV access during this emergency room visit. ea Administered Medications: 00:15 Drug: Lidocaine (1 %) 20 ml {Note: by provider .} Volume: 20 ml; Route: Infiltration; ea 00:24 Follow up: Response: No adverse reaction ea 00:15 Drug: Marcaine (bupivacaine) (0.5 %) 10 ml {Note: by provider .} Volume: 10 ml; Route: ea Infiltration; 00:24 Follow up: Response: No adverse reaction ea Outcome: 00:19 Discharge ordered by MD. gómez 00:24 Condition: stable ea 00:40 Patient left the ED. ea Signatures: Miquel Bowling PA PA jmm Antunez, Elena RN RN Lauryn Li 2 Ashley Metzger, RN RN kg
[2020-09-07 05:32] VITALS: BP 137/89; TEMP 98.1; O2SAT 100
== END 2020-09-06 00:40 | disposition home or self-care (01) ==
LOC: ER 23:16
PROC: 0H9LXZZ Drainage of Left Lower Leg Skin, External Approach (ICD-10-PCS; principal; 2020-09-06)
DX: L02.416 Cutaneous abscess of left lower limb (principal); F17.210 Nicotine dependence, cigarettes, uncomplicated; Z88.1 Allergy status to other antibiotic agents
CPT/HCPCS: 99282

== ENCOUNTER 2020-10-09 00:01 | Emergency (ER) | payer OTHER ==
--- OUTSIDE RECORDS SUMMARY | 2020-10-09 00:06 | XMS REPORT | Continuity of Care Document ---
:1990 Author Organization [facility] t Address [address] [place] [address] Care Team Providers Name Role Phone Joe Becker DO Attending Clinician Doctor Unassigned, Name Attending Clinician Unavailable Gabino ALCANTARA Attending Clinician Problems This patient has no known problems. Allergies, Adverse Reactions, Alerts This patient has no known allergies or adverse reactions. Social History Social Habit Start Date Stop Date Quantity Comments Source Sex Assigned At [facility] Medications Ordered Filled Start Stop Current Ordering Indication Dosage Frequency Signature Comments Components Source Medication Medication Date Date Medication? Clinician (SIG) Name Name vilma Yes 10mL Take [address] [facility] mine-pseudo 5-25 mLs by [facility]DM 00:00: mouth Medical (BROMFED 00 every 6 Center DM) 2-30-10 (six) mg/5 mL hours as Syrp needed (cough). bromphenira Yes 10mL Take [address] [facility] mine-pseudo 5-25 mLs by [facility]-DM 00:00: mouth Medical (BROMFED 00 every 6 Center DM) 2-30-10 (six) mg/5 mL hours as Syrp needed (cough). Procedures This patient has no known procedures. Encounters Start End Encounter Admission Attending Care Care Encounter Source Date/Time Date/Time Type Type Clinicians Facility Department ID 2020-05-02 2020-05-02 Patient Eugenio ORANA [id number] 00:00:00 00:00:00 Outreach [facility] [id number] [facility] [id number] PAVJAVIER [id number] 2020-05-01 2020-05-01 Orders Doctor JAEL [id number] 00:00:00 00:00:00 Only Unassigned, MARCELINO [id number] [place] [facility] [id number] 2020-04-26 2020-04-[address] [facility] [facility] [id number] 00:00:00 00:00:00 Radha Valencia [id number] [place] [id number] Professio [phone] [address] 2020-04-25 2020-04-[address] [facility] [id number] 00:00:00 00:00:00 Management Radha Valencia [id number] [place] [id number] Professio [phone] [address] 2020-04-19 2020-04-19 Orders Doctor JAEL [id number] 00:00:00 00:00:00 Only Unassigned, MARCELINO [id number] [place] [facility] [id number] Results This patient has no known results.
--- NOTE | 2020-10-09 02:10 | EDPHYS ---
Physician Documentation [facility] Name: Veronica Moore Age: 30 yrs Sex: Female : 1990 Arrival Date: 10/09/2020 Time: 00:04 Bed Treatment Private MD: ED Physician Reggie Irwin HPI: 10/09 02:08 This 30 yrs old Female presents to ER via Ambulatory with complaints of Poss. pm1 Staph Infection on inner thigh. 02:08 the patient presents with a swollen area of the left inner thigh. Description: raised. pm1 Onset: The symptoms/episode began/occurred 2 day(s) ago. Possible cause(s): unknown. Associated signs and symptoms: Pertinent negatives: fever. Modifying factors: the symptoms are aggravated by walking, touching. Severity of symptoms: in the emergency department the symptoms are actually worse. The patient has experienced a previous episode, approximately 1 months ago, and the symptoms today are exactly the same. The patient has not recently seen a physician. Patient with abscess to left groin/left upper thigh area 1 month ago requiring incision and drainage. patient reports that the same area she is starting to develop another possible abscess. Reports positive for drainage from a small quantity this morning. 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 - Social history:: Smoking status: Patient denies any tobacco usage or history of. ROS: 02:08 Constitutional: Negative for fever, chills, and weight loss, Cardiovascular: Negative pm1 for chest pain, palpitations, and edema, Respiratory: Negative for shortness of breath, cough, wheezing, and pleuritic chest pain, MS/Extremity: Negative for injury and deformity. 02:08 Neuro: Negative for headache, weakness, numbness, tingling, and seizure. 02:08 Skin: Positive for abscess, of the left inner thigh. 02:08 All other systems are negative. Exam: 02:08 Constitutional: This is a well developed, well nourished patient who is awake, alert, pm1 and in no acute distress. Head/Face: Normocephalic, atraumatic. 02:08 Cardiovascular: Exam negative for acute changes, Rate: normal, Rhythm: regular, Pulses: no pulse deficits are appreciated. 02:08 Respiratory: Exam negative for acute changes, respiratory distress, shortness of breath. 02:08 Skin: Appearance: normal except for affected area, cellulitis, 1 x 2 cm phlegmon area without fluctuance or drainage or surrounding cellulitis. 02:08 Neuro: Exam negative for acute changes, Orientation: is normal, Mentation: is normal, Motor: is normal, moves all fours, Gait: is steady, at a normal pace, without difficulty. Vital Signs: 00:29 BP 122 / 93; Pulse 88; Resp 18; Temp 97.8; Pulse Ox 100% on R/A; Weight 97.52 kg; bb Height 5 ft. 6 in. (167.64 cm); Pain 8/10; 00:29 Body Mass Index 34.70 (97.52 kg, 167.64 cm) bb MDM: 01:52 Patient medically screened. pm1 02:08 Data reviewed: vital signs. Data interpreted: Pulse oximetry: on room air is 100 %. pm1 Interpretation: normal. Counseling: I had a detailed discussion with the patient and/or guardian regarding: the historical points, exam findings, and any diagnostic results supporting the discharge/admit diagnosis, the need for outpatient follow up, to return to the emergency department if symptoms worsen or persist or if there are any questions or concerns that arise at home. Administered Medications: No medications were administered Disposition: 05:15 Co-signature as Attending Physician, Reggie Irwin MD. [email or web address] Disposition Summary: 10/09/20 02:09 Discharge Ordered Location: Home pm1 Problem: new pm1 Symptoms: have improved pm1 Condition: Stable pm1 Diagnosis - Phlegmon left upper leg pm1 Followup: pm1 - With: Emergency Department - When: As needed - Reason: Worsening of condition Followup: pm1 - With: Private Physician - When: 2 - 3 days - Reason: Recheck today's complaints, Continuance of care, Re-evaluation by your physician Discharge Instructions: - Discharge Summary Sheet pm1 - Cellulitis, Adult pm1 Forms: - Medication Reconciliation Form pm1 - Thank You Letter pm1 - Work release form em - Antibiotic Education pm1 - Prescription Opioid Use pm1 Prescriptions: - Doxycycline Hyclate 100 mg Oral Tablet - take 1 tablet by ORAL route every 12 hours; 20 tablet; Refills: 0, Product pm1 Selection Permitted Signatures: Lorena Minor, RN RN bb Carl Burleson, WHITESMITH WHITESMITH pm1 Reggie Irwin MD MD mh7
--- NOTE | 2020-10-09 02:10 | ER ---
Nurse's Notes [facility] Name: Veronica Moore Age: 30 yrs Sex: Female : 1990 Arrival Date: 10/09/2020 Time: 00:04 Bed Treatment Private MD: Diagnosis: Phlegmon left upper leg Presentation: 10/09 00:29 Chief complaint: Patient states: left inner thigh infection has been there for 2 days, bb reports drainage, denies fever. Coronavirus screen: Vaccine status: Patient reports being unvaccinated. Ebola Screen: Patient negative for fever greater than or equal to 101.5 degrees Fahrenheit, and additional compatible Ebola Virus Disease symptoms Patient denies exposure to infectious person. Patient denies travel to an Ebola-affected area in the 21 days before illness onset. No symptoms or risks identified at this time. Initial Sepsis Screen: Does the patient meet any 2 criteria? No. Patient's initial sepsis screen is negative. Does the patient have a suspected source of infection? Yes: Skin breakdown/wound. Risk Assessment: Do you want to hurt yourself or someone else? Patient reports no desire to harm self or others. Onset of symptoms was October 09, 2020. 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 - Social history:: Smoking status: Patient denies any tobacco usage or history of. Screenin:55 Abuse screen: Denies threats or abuse. Nutritional screening: No deficits noted. em Tuberculosis screening: No symptoms or risk factors identified. Fall Risk None identified. Assessment: 01:00 General: Appears in no apparent distress. uncomfortable, Behavior is calm, cooperative, em appropriate for age, Denies fever. Pain: Complains of pain in pelvis Pain currently is 8 out of 10 on a pain scale. Neuro: Level of Consciousness is awake, alert, obeys commands, Oriented to person, place, time, situation. Cardiovascular: Capillary refill < 3 seconds Patient's skin is warm and dry. Respiratory: Airway is patent Respiratory effort is even, unlabored, Respiratory pattern is regular, symmetrical. Derm: Skin is intact, is healthy with good turgor, Skin is pink, warm \T\ dry. Wound noted pelvis. Musculoskeletal: Capillary refill < 3 seconds, Range of motion: intact in all extremities. Vital Signs: 00:29 BP 122 / 93; Pulse 88; Resp 18; Temp 97.8; Pulse Ox 100% on R/A; Weight 97.52 kg; bb Height 5 ft. 6 in. (167.64 cm); Pain 8/10; 00:29 Body Mass Index 34.70 (97.52 kg, 167.64 cm) bb ED Course: 00:04 Patient arrived in ED. 00:31 Triage completed. bb 00:31 Arm band placed on. bb 01:52 Carl Burleson NP is PHCP. pm1 01:52 Reggie Irwin MD is Attending Physician. pm1 01:55 Maximilian Arellano, RN is Primary Nurse. em 01:55 Patient has correct armband on for positive identification. em 02:16 No provider procedures requiring assistance completed. Patient did not have IV access em during this emergency room visit. Administered Medications: No medications were administered Outcome: 02:09 Discharge ordered by . pm1 02:16 Discharged to home ambulatory. em 02:16 Condition: stable 02:16 Discharge instructions given to patient, Instructed on discharge instructions, follow up and referral plans. medication usage, Demonstrated understanding of instructions, follow-up care, medications, wound care, Prescriptions given X 1. 02:16 Patient left the ED. em Signatures: Maximilian Arellano, JANICE RN em Lorena Minor RN RN bb Carl Burleson NP PROFESSIONAL SKATEBOARDER pm1 Anayeli Hager
[2020-10-09 02:22] VITALS: BP 122/93; TEMP 97.8; O2SAT 100
== END 2020-10-09 02:16 | disposition home or self-care (01) ==
LOC: ER 00:01
DX: L02.416 Cutaneous abscess of left lower limb (principal); Z88.1 Allergy status to other antibiotic agents
CPT/HCPCS: 99282

== ENCOUNTER 2020-11-06 01:30 | Emergency (ER) | payer OTHER ==
[2020-11-06 02:43] LABS: SARS-COV-2 RT PCR NEGATIVE (NEGATIVE)
--- NOTE | 2020-11-06 03:08 | ER ---
Nurse's Notes [facility] Name: Veronica Moore Age: 30 yrs Sex: Female : 1990 Arrival Date: 11/06/2020 Time: 01:31 Bed 16 Private MD: Diagnosis: Acute pharyngitis, unspecified;Acute upper respiratory infection, unspecified Presentation: 11/06 01:41 Chief complaint: Patient states: that she had body aches, chills, sore throat, runny lh3 nose, and non productive cough for past 3 days. Denies being around anybody sick. Took tylenol yesterday at 6pm. Coronavirus screen: Vaccine status: Patient reports being unvaccinated. Ebola Screen: No symptoms or risks identified at this time. Initial Sepsis Screen: Does the patient meet any 2 criteria? No. Patient's initial sepsis screen is negative. Does the patient have a suspected source of infection? No. Patient's initial sepsis screen is negative. Risk Assessment: Do you want to hurt yourself or someone else? Patient reports no desire to harm self or others. Onset of symptoms was November 06, 2020. 01:41 Method Of Arrival: Ambulatory 3 01:41 Acuity: EMANUEL 4 3 Triage Assessment: 01:47 General: Appears in no apparent distress. Behavior is calm, cooperative, appropriate lh3 for age. Pain: Complains of pain in generalized body aches. EENT: Throat has enlarged tonsils with gag reflex present, Reports nasal congestion since yesterday. 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 - Social history:: Smoking status: Patient reports the use of cigarette tobacco products, smokes one-half pack cigarettes per day. - Family history:: not pertinent. - Hospitalizations: : No recent hospitalization is reported. Screenin:52 Abuse screen: Denies threats or abuse. Nutritional screening: No deficits noted. cw2 Tuberculosis screening: No symptoms or risk factors identified. Fall Risk None identified. Assessment: 02:02 General: Appears in no apparent distress. Behavior is calm, cooperative, Smells of. cw2 Neuro: No deficits noted. Cardiovascular: No deficits noted. Respiratory: No deficits noted. GI: No deficits noted. : No deficits noted. 03:08 Respiratory: Airway is patent Breath sounds are clear bilaterally. cw2 03:09 Respiratory: Respiratory effort is even, Respiratory pattern is regular. cw2 Vital Signs: 01:41 Pulse 98; Resp 18; Temp 98.3(O); Pulse Ox 99% on R/A; Weight 96.16 kg; Height 5 ft. 6 3 in. (167.64 cm); 01:41 Body Mass Index 34.22 (96.16 kg, 167.64 cm) 3 ED Course: 01:31 Patient arrived in ED. 01:42 Abimael Barrientos MD is Attending Physician. rn 01:47 Triage completed. 3 01:47 Arm band placed on right wrist. [facility] 01:51 Olivier Mike RN is Primary Nurse. 2 02:44 COVID-19 : Document "Date of Symptom Onset" if Symptomatic. Sent. cw2 03:08 No provider procedures requiring assistance completed. cw2 03:09 Patient has correct armband on for positive identification. Bed in low position. Call cw2 light in reach. Side rails up X 1. Administered Medications: No medications were administered Outcome: 03:08 Discharge ordered by . rn 03:08 Condition: good cw2 03:35 Patient left the ED. cw2 Signatures: Abimael Barrientos MD MD rn Marsh, Wendy Marta Dutton RN RN [facility] Olivier Mike RN RN cw2
--- NOTE | 2020-11-06 03:08 | EDPHYS ---
Physician Documentation [facility] Name: Veronica Moore Age: 30 yrs Sex: Female : 1990 Arrival Date: 11/06/2020 Time: 01:31 Bed 16 Private MD: ED Physician Abimael Barrientos HPI: 11/06 01:44 This 30 yrs old Female presents to ER via Unassigned with complaints of Sore rn Throat, Fever, Cough. 01:44 The patient presents with sore throat. The patient describes throat pain as raw. Onset: rn The symptoms/episode began/occurred 2 day(s) ago. Severity of symptoms: At their worst the symptoms were mild, in the emergency department the symptoms are unchanged. Modifying factors: The symptoms are alleviated by nothing, the symptoms are aggravated by swallowing. Associated signs and symptoms: Pertinent positives: chills, cough, fever, flu-like symptoms, rhinorrhea. The patient has not experienced similar symptoms in the past. The patient has not recently seen a physician. Reports 2 days of subjective fever/chills/congestion/sore throat/cough. No known sick contacts. No shortness of breath. No diarrhea.. 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 - Social history:: Smoking status: Patient reports the use of cigarette tobacco products, smokes one-half pack cigarettes per day. - Family history:: not pertinent. - Hospitalizations: : No recent hospitalization is reported. ROS: 01:44 Constitutional: + for fever and chills Eyes: Negative for injury, pain, redness, and internal control analyst, ENT: + nasal congestion, + sore throat Neck: Negative for injury, pain, and swelling, Cardiovascular: Negative for chest pain, palpitations, and edema, Respiratory: + cough, negative for shortness of breath Abdomen/GI: Negative for abdominal pain, nausea, vomiting, diarrhea, and constipation, Back: Negative for injury and pain, MS/Extremity: Negative for injury and deformity, Skin: Negative for injury, rash, and discoloration, Neuro: Negative for weakness, numbness, tingling, and seizure. Exam: 01:44 Constitutional: This is a well developed, well nourished patient who is awake, alert, rn and in no acute distress. Ambulatory to triage room without difficulty or assistance. Head/Face: Normocephalic, atraumatic. Eyes: Periorbital areas with no swelling, redness, or edema. ENT: Moist mucous membranes, no stridor, mild pharyngeal erythema without tonsillar hypertrophy or exudate Neck: Trachea midline, no masses palpated, and no cervical lymphadenopathy. Supple, full range of motion without nuchal rigidity, or vertebral point tenderness. No Meningismus. Cardiovascular: Regular rate and rhythm. No pulse deficits. Respiratory: No increased work of breathing, no retractions or nasal flaring. Abdomen/GI: Soft, non-tender Skin: Warm, dry MS/ Extremity: Pulses equal, no cyanosis. Neuro: Awake and alert, GCS 15 Vital Signs: 01:41 Pulse 98; Resp 18; Temp 98.3(O); Pulse Ox 99% on R/A; Weight 96.16 kg; Height 5 ft. 6 lh3 in. (167.64 cm); 01:41 Body Mass Index 34.22 (96.16 kg, 167.64 cm) 3 MDM: 01:50 Patient medically screened. rn 03:05 Differential diagnosis: group A strep tonsillitis, influenza, laryngitis, pharyngitis, rn upper respiratory infection, viral syndrome covid. Data reviewed: vital signs, nurses notes, lab test result(s), and as a result, I will discharge patient. Counseling: I had a detailed discussion with the patient and/or guardian regarding: the historical points, exam findings, and any diagnostic results supporting the discharge/admit diagnosis, lab results, the need for outpatient follow up, to return to the emergency department if symptoms worsen or persist or if there are any questions or concerns that arise at home. Response to treatment: There is no appreciated change of the patient's symptoms at this time, and as a result, I will discharge patient. Special discussion: I discussed with the patient/guardian in detail that at this point there is no indication for admission to the hospital. It is understood, however, that if the symptoms persist or worsen the patient needs to return immediately for re-evaluation. 11/06 01:43 Order name: COVID-19 : Document "Date of Symptom Onset" if Symptomatic. rn 11/06 01:43 Order name: Strep; Complete Time: 03:03 rn 11/06 02:44 Order name: COVID-19/FLU A+B; Complete Time: 03:03 EDMS Administered Medications: No medications were administered Disposition Summary: 11/06/20 03:08 Discharge Ordered Location: Home rn Problem: new rn Symptoms: have improved rn Condition: Stable rn Diagnosis - Acute pharyngitis, unspecified rn - Acute upper respiratory infection, unspecified rn Followup: rn - With: Private Physician - When: As needed - Reason: Recheck today's complaints, Re-evaluation by your physician Discharge Instructions: - Discharge Summary Sheet rn - Upper Respiratory Infection, Adult rn - Viral Respiratory Infection rn - Form - Return To Work cw2 Forms: - Medication Reconciliation Form rn - Thank You Letter rn - Antibiotic rn tele - Prescription Opioid Use rn - Work release form cw2 Signatures: Dispatcher [employer] EDMS Abimael Barrientos MD MD rn Hardee, Latisha, RN RN 3 Corrections: (The following items were deleted from the chart) 01:58 01:43 Influenza Screen (A \\T\\ B)+[id number].[id number] ordered. EDMS EDMS 01:59 01:43 CORONAVIRUS ordered. EDMS EDMS
[2020-11-06 03:42] VITALS: TEMP 98.3; O2SAT 99
== END 2020-11-06 03:35 | disposition home or self-care (01) ==
LOC: ER 01:30
DX: J06.9 Acute upper respiratory infection, unspecified (principal); Z20.822 Contact with and (suspected) exposure to COVID-19; Z88.1 Allergy status to other antibiotic agents
CPT/HCPCS: 87070; 87081; 0240U; 99282

== ENCOUNTER 2021-01-23 21:59 | Emergency (ER) | payer OTHER ==
--- OUTSIDE RECORDS SUMMARY | 2021-01-23 22:02 | XMS REPORT | Continuity of Care Document ---
:1990 Author Organization [facility] t Address [address] [place] [address] Care Team Providers Name Role Phone Raul BARGER, A Primary Care Physician Patricia CARTER Attending Clinician Unavailable AGUSTÍN Attending Clinician Unavailable Raul BARGER, A Attending Clinician Joe Becker DO Attending Clinician Doctor Unassigned, Name Attending Clinician Unavailable Agustín ALCANTARA Attending Clinician Payers Payer Name Policy Type Policy Number Effective Date Ex[facility] Date [id number] 2018 00:00:00 OUT OF STATE Problems Condition Condition Condition Status Onset Resolution Last Treating Co mments Source Name Details Category Date Date Treatment Clinician Date Obesity Obesity Disease Active 2019-02 Univers (BMI (BMI 1-02 ity of 30-39.9) 30-39.9) 00:00: [place] [address] Medical Branch Insomnia Insomnia Disease Active Unive rs due to due to 3-24 ity of other other 00:00: [place] mental mental 00 Medical disorder disorder Branch Chronic Chronic Disease Active 2018-02 Univers depression depression 0-29 it y of 00:00: [place] [address] Medical Branch Prediabete Prediabete Disease Active 2016-02 U nivers s s 2-26 ity of 00:00: [place] [address] Medical Branch Low HDL Low HDL Disease Active 2016-02 Univers (under 40) (under 40) 2-26 it y of 00:00: [place] 00 [facility] Vitamin D Vitamin D Disease Active 2016-02 Uni vers deficiency deficiency 04-07 it y of 00:00: [place] 00 [facility] Anxiety Anxiety Disease Active 2016-02 Univers disorder, disorder, -12 ity of unspecif[place]specif[place] type d type 00 [place] Atopic Atopic Disease Active 2016-02 Univers dermatitis dermatitis -12 it y of , , 00:00: [place] unspecifie unspecifie 00 Me dical d type d type Branch Tobacco Tobacco Disease Active Univers use use ity of [facility] Allergies, Adverse Reactions, Alerts Allergy Allergy Status Severity Reaction(s) Onset Inactive Treating Comm ents Source Name Type Date Date Clinician Sulfa Propensi Active Swelling Univer s (Sulfona ty to 9-13 ity of mide adverse 00:00: [place] Antibiot reaction 00 Medica l ics) s Branch SULFA Drug Active Hives Univers (SULFONA Class 9-13 ity of MIDE 00:00: [place] ANTIBIOT 00 Medical ICS) Branch NO KNOWN Drug Active Univers ALLERGIE Class ity of S [facility] Social History Social Habit Start Date Stop Date Quantity Comments Source History of tobacco Cigarette Smoker University of use [facility] Exposure to Not sure [facility] SARS-CoV-2 (event) [facility] Alcohol intake 2020-12-03 2020-12-03 .14 /d University of 00:00:00 00:00:00 [facility] Cigarettes smoked 2017-01-20 2017-01-20 Univers ity of current (pack per 00:00:00 00:00:00 ) - Reported Branch Tobacco use and 2017-01-20 2017-01-20 Never used Universit y of exposure 00:00:00 00:00:00 [facility] Sex [birth year] Universit y of 00:00:00 00:00:00 [facility] Smoking Status Start Date Stop Date Source Current every day smoker 2017-01-20 00:00:00 Uni versity of [facility] Medications Ordered Filled Start Stop Current Ordering Indication Dosage Frequency Signature Comments Components Source Medication Medication Date Date Medication? Clinician (SIG) Name Name dwayne 2020-02 Yes [id number] Take 500 Univers n 0-18 mg PO day ity of (ZITHROMAX 00:00[place] Z-[place] 250 00 250 mg Medical mg tablet days 2 to Branc h 5. methylPREDN 2020-02 Yes [id number] Follow Univers ISolone 4 0-18 package ity of mg tablets 00:00: directions [place] benzonatate 2020-02 Yes [id number] 200mg Take 1 Univers 200 mg 0-18 capsule by ity of capsule 00:00: mouth 3 [place] 00 (three) Medical times Branch daily as needed for Cough. buPROPion 2020-02 Yes [id number] 200mg Take 1 U nivers 200 mg 12 0-18 tablet by ity o f hr tablet 00:00: mouth 2 [place] 00 (two) Medical times Branch daily. traZODone 2020-02 Yes [id number] 25mg Take 0.5-1 Univers 50 mg 0-18 tablets by ity of tablet 00:00: mouth at [place] 00 bedtime. Medical Branch vortioxetin 2020-02 Yes [id number] 1{tbl} Take 1 Univers e 0-18 tablet by ity of (TRINTELLIX 00:00: mouth [place] ) 10 mg Tab 00 daily. Medica l Branch norgestimat Yes [id number] 1{tbl} Take 1 Univers e-ethinyl 3-10 tablet by ity o f estradioL 00:00: mouth [place] 0.25-35 00 daily. Medical mg-mcg per Branch tablet diclofenac No TAKE 1 Univ ers 75 mg EC 3-08 10-18 TABLET BY ity o f tablet 00:00: 00:00 MOUTH [place] 00 :00 TWICE Medical DAILY Branch NEEDED traZODone No [id number] 25mg Take 0.5-1 Univers 50 mg 3-23 10-18 tablets by ity of tablet 00:00: 00:00 mouth at [place] 00 :00 bedtime. Medical Branch buPROPion 2020- No [id number] 200mg Take 1 Univers 200 mg 12 3-23 10-18 tablet by ity of hr tablet 00:00: 00[place] (two) Medical times Branch daily. TRINTELLIX 2020- No [id number] 1{tbl} Take 1 Univers 10 mg Tab 3-23 -18 tablet by ity 00:00: 00:00 mouth [place] 00 :00 daily. Medical Branch [facility] Yes 10mL Take [address] [facility]-pseudo 5-25 mLs by [facility] eph-DM 00:00: mouth Medical (BROMFED 00 every 6 Center DM) 2-30-10 (six) mg/5 mL hours as Syrp needed (cough). [facility] Yes 10mL Take [address] [facility] mine-pseudo 5-25 mLs by [facility] - eph-DM 00:00: mouth Medical (BROMFED 00 every 6 Center DM) 2-30-10 (six) mg/5 mL hours as Syrp needed (cough). Immunizations Ordered Filled Immunization Date Status Comments [facility] e Immunization Name Name HPV9 2018-09-10 Completed [facility] 00:00:00 [facility] Pneumococcal 2017-01-29 Completed [facility] Polysaccharide, 00:00:00 [facility] ical PPSV23 (PNEUMOVAX) Branch TDAP 2013-08-19 Completed [facility] 00:00:00 [facility] Procedures This patient has no known procedures. Encounters Start End Encounter Admission Attending Care Care Encounter Source Date/Time Date/Time Type Type Clinicians Facility Department ID 2021-05-28 2021-05-28 Outpatient Lalo CARTER [facility] [id number] Univers 14:00:00 14:00:00 [facility] [id number] ity o f [facility] 2020-12-12 2020-12-12 Outpatient Lalo RANDOLPH [facility] [id number] Univers 13:00:00 13:00:00 RADHA [id number] [facility] 2020-12-12 2020-12-12 Outpatient Lalo RANDOLPH [facility] [id number] Univers 13:00:00 13:00:00 RADHA [facility] 2020-11-27 2020-11-27 Office Raul [facility] [id number] Univers 12:55:17 13:47:11 Visit [facility] A [facility] [id number] [facility] [place] [id number] Nikko as Julian?Blea [phone] Hi larry [address]man[address] Medical Office [facility] 2020-11-27 2020-11-27 Outpatient R RAUL [facility] [id number] Univers 13:15:00 13:15:00 W[place] [id number] ity o f [facility] 2020-11-27 2020-11-[address] [facility] [id number] Univers 13:15:00 13:15:00 WOND[place] ity o f [facility] 2020-10-23 2020-10-23 Outpatient R [facility] [id number] Univers 08:30:00 08:30:00 RADHA [id number] [facility] 2020-10-23 2020-10-23 Outpatient R AGUSTÍN, [facility] [id number] Univers 08:30:00 08:30:00 RADHA [facility] 2020-05-02 2020-05-02 [facility] [id number] 00:00:00 00:00:00 Outreach [facility] [id number] [facility] [id number] [facility] [phone] [id number] 2020-05-01 2020-05-01 Orders Doctor JAEL [id number] 00:00:00 00:00:00 Only Unassigned, MARCELINO [id number] [place] [facility] [id number] 2020-04-26 2020-04-26 Telephone [facility] [id number] 00:00:00 00:00:00 Radha Valencia [id number] [place] [id number] Professio [id number] [address] 2020-04-25 2020-04-25 Case [facility] [id number] 00:00:00 00:00:00 Management Radha Valencia [id number] [place] [id number] Professio [id number] [address] 2020-04-19 2020-04-19 Outpatient R AGUSTÍN [facility] [id number] Univers 16:15:00 16:15:00 RADHA [id number] [facility] 2020-04-19 2020-04-19 Outpatient R AGUSTÍN [facility] [id number] Univers 16:15:00 16:15:00 RADHA [facility] 2020-04-19 2020-04-19 Orders Doctor JAEL [id number] 00:00:00 00:00:00 Only Unassigned, MARCELINO [id number] [place] [facility] [id number] 2020-03-07 2020-03-07 Outpatient R [facility] [id number] Univers 08:00:00 08:00:00 [id number] [facility] 2020-03-07 2020-03-07 Outpatient R [facility] [id number] Univers 08:00:00 08:00:00 [facility] 2020-01-04 2020-01-04 Outpatient R AGUSTÍN [facility] [id number] Univers 08:15:00 08:15:00 RADHA [id number] [facility] 2020-01-04 2020-01-04 Outpatient R AGUSTÍN [facility] [id number] Univers 08:15:00 08:15:00 RADHA [facility] 2019-12-13 2019-12-13 Outpatient R AGUSTÍN [facility] [id number] Univers 13:30:00 13:30:00 RADHA [facility] 2019-12-13 2019-12-13 Outpatient R JUDITHGERALD [facility] [id number] Univers 13:30:00 13:30:00 RADHA [facility] 2019-11-22 2019-11-22 Outpatient R TORIXUANGERALD [facility] [id number] Univers 16:00:00 16:00:00 RADHA [id number] [facility] 2019-11-22 2019-11-22 Outpatient R JUDITHGERALD, [facility] [id number] [facility] 16:00:00 16:00:00 RADHA salmeron [facility] 2019-05-03 2019-05-03 Outpatient Lalo CARTER [facility] [id number] [facility] 13:15:00 13:15:00 FELICITY harris [facility] Results This patient has no known results.
[2021-01-23] MEDS ORDERED: METOCLOPRAMIDE 10 MG/2mL INJ ONE (23:10)
[2021-01-23] MEDS ORDERED: DIPHENHYDRAMINE 50 MG/ML VIAL ONE (23:10)
--- NOTE | 2021-01-24 00:34 | EDPHYS ---
Physician Documentation [facility] Name: Veronica Moore Age: 30 yrs Sex: Female : 1990 Arrival Date: 01/23/2021 Time: 22:03 Bed 18 Private MD: ED Physician Kael Finley HPI: 01/23 23:18 This 30 yrs old Female presents to ER via Ambulatory with complaints of Vomiting, jr8 Headache. 23:18 Severity of symptoms: At their worst the symptoms were moderate in the emergency jr8 department the symptoms are unchanged. The patient has not experienced similar symptoms in the past. The patient has not recently seen a physician. This is a 30-year-old female that presented to the emergency room with complaints of vomiting and headache. Patient stated that she has had this migraine for the past 3 days. Similar symptoms in the past but symptoms this time have persisted longer than usual. Patient stated that she has associated photophobia as well. Denies any other symptoms at this time.. 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 - Social history:: Smoking status: Patient reports the use of cigarette tobacco products, smokes one-half pack cigarettes per day. ROS: 23:18 Eyes: Negative for injury, pain, redness, and discharge, ENT: Negative for injury, jr8 pain, and discharge, Neck: Negative for injury, pain, and swelling, Cardiovascular: Negative for chest pain, palpitations, and edema, Respiratory: Negative for shortness of breath, cough, wheezing, and pleuritic chest pain, Back: Negative for injury and pain, MS/Extremity: Negative for injury and deformity, Skin: Negative for injury, rash, and discoloration. 23:18 Abdomen/GI: Positive for nausea, vomiting, Negative for abdominal pain, diarrhea. 23:18 Neuro: Positive for headache. Exam: 23:18 Eyes: Pupils equal round and reactive to light, extra-ocular motions intact. Lids and jr8 lashes normal. Conjunctiva and sclera are non-icteric and not injected. Cornea within normal limits. Periorbital areas with no swelling, redness, or edema. ENT: Nares patent. No nasal discharge, no septal abnormalities noted. Tympanic membranes are normal and external auditory canals are clear. Oropharynx with no redness, swelling, or masses, exudates, or evidence of obstruction, uvula midline. Mucous membranes moist. Neck: Trachea midline, no thyromegaly or masses palpated, and no cervical lymphadenopathy. Supple, full range of motion without nuchal rigidity, or vertebral point tenderness. No Meningismus. Cardiovascular: Regular rate and rhythm with a normal S1 and S2. No gallops, murmurs, or rubs. Normal PMI, no JVD. No pulse deficits. Respiratory: Lungs have equal breath sounds bilaterally, clear to auscultation and percussion. No rales, rhonchi or wheezes noted. No increased work of breathing, no retractions or nasal flaring. Abdomen/GI: Soft, non-tender, with normal bowel sounds. No distension or tympany. No guarding or rebound. No evidence of tenderness throughout. Back: No spinal tenderness. No costovertebral tenderness. Full range of motion. Skin: Warm, dry with normal turgor. Normal color with no rashes, no lesions, and no evidence of cellulitis. MS/ Extremity: Pulses equal, no cyanosis. Neurovascular intact. Full, normal range of motion. Neuro: Awake and alert, GCS 15, oriented to person, place, time, and situation. Cranial nerves II-XII grossly intact. Motor strength 5/5 in all extremities. Sensory grossly intact. Cerebellar exam normal. Normal gait. Vital Signs: 22:07 BP 126 / 88; Pulse 77; Resp 20; Temp 97.8; Pulse Ox 100% on R/A; Weight 99.79 kg; da3 Height 5 ft. 6 in. (167.64 cm); 01/24 00:50 BP 121 / 79; Pulse 75; Resp 19; Pulse Ox 99% on R/A; sm5 01/23 22:07 Body Mass Index 35.51 (99.79 kg, 167.64 cm) da3 MDM: 01/23 22:48 Patient medically screened. jr8 01/24 00:33 Data reviewed: vital signs, nurses notes, and as a result, I will discharge patient. jr8 Data interpreted: Pulse oximetry: on room air is 100 %. Interpretation: normal. Counseling: I had a detailed discussion with the patient and/or guardian regarding: the historical points, exam findings, and any diagnostic results supporting the discharge/admit diagnosis, the need for outpatient follow up, a family practitioner, to return to the emergency department if symptoms worsen or persist or if there are any questions or concerns that arise at home. Response to treatment: the patient's symptoms have markedly improved after treatment. 01/23 23:02 Order name: IV; Complete Time: 23:11 jr8 Administered Medications: 01/23 23:27 Drug: Reglan (metoCLOPramide) 10 mg Route: IVP; Site: right forearm; 5 01/24 00:51 Follow up: Response: Marked relief of symptoms 5 01/23 23:27 Drug: Benadryl (diphenhydrAMINE) 25 mg Route: IVP; Site: right forearm; 5 01/24 00:51 Follow up: Response: Marked relief of symptoms 5 Disposition: 07:04 Co-signature as Attending Physician, Kael Finley MD I agree with the assessment and romeo plan of care. Disposition Summary: 01/24/21 00:34 Discharge Ordered Location: Home jr8 Problem: new jr8 Symptoms: have improved jr8 Condition: Stable jr8 Diagnosis - Migraine without aura, intractable jr8 Followup: jr8 - With: Private Physician - When: 2 - 3 days - Reason: Recheck today's complaints, Continuance of care, Re-evaluation by your physician Discharge Instructions: - Discharge Summary Sheet jr8 - Migraine Headache jr8 Forms: - Medication Reconciliation Form jr8 - Thank You Letter jr8 - Antibiotic Education jr8 - Work release form jr8 - Prescription Opioid Use jr8 Signatures: Kael Finley MD MD cha Roszak, Josh, PA PA jr8 Destin Domingo, RN RN da3 Carol Rodriguez RN RN sm5
--- NOTE | 2021-01-24 00:34 | ER ---
Nurse's Notes [facility] Name: Veronica Moore Age: 30 yrs Sex: Female : 1990 Arrival Date: 01/23/2021 Time: 22:03 Bed 18 Private MD: Diagnosis: Migraine without aura, intractable Presentation: 01/23 22:07 Chief complaint: Patient states: head ache x 3 days with N/V. Coronavirus screen: da3 Vaccine status: Patient reports being unvaccinated. Ebola Screen: No symptoms or risks identified at this time. Initial Sepsis Screen: Does the patient meet any 2 criteria? No. Patient's initial sepsis screen is negative. Does the patient have a suspected source of infection? No. Patient's initial sepsis screen is negative. Risk Assessment: Do you want to hurt yourself or someone else? Patient reports no desire to harm self or others. Onset of symptoms was January 14, 2021 at 15:00. 22:07 Method Of Arrival: Ambulatory da3 22:07 Acuity: EMANUEL 3 da3 Triage Assessment: 22:07 General: Appears in no apparent distress. uncomfortable, Behavior is calm, cooperative. da3 Pain: Complains of pain in head Pain currently is 10 out of 10 on a pain scale. GI: Reports vomiting. 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 - Social history:: Smoking status: Patient reports the use of cigarette tobacco products, smokes one-half pack cigarettes per day. Screenin:45 Abuse screen: Denies threats or abuse. Denies injuries from another. Nutritional sm5 screening: No deficits noted. Tuberculosis screening: No symptoms or risk factors identified. Fall Risk No fall in past 12 months (0 pts). No secondary diagnosis (0 pts). IV access (20 points). Ambulatory Aid- None/Bed Rest/Nurse Assist (0 pts). Gait- Normal/Bed Rest/Wheelchair (0 pts) Mental Status- Oriented to own ability (0 pts). Total Messina Fall Scale indicates No Risk (0-24 pts). Assessment: 23:43 General: Appears in no apparent distress. Behavior is calm, cooperative. Pain: sm5 Complains of pain in head. Neuro: Level of Consciousness is awake, alert, Oriented to person, place, time, situation. Cardiovascular: No deficits noted. Respiratory: No deficits noted. Airway is patent Trachea midline Respiratory effort is even, unlabored. GI: Abdomen is flat, non-distended, Reports vomiting. 01/24 00:50 Reassessment: Patient states symptoms have improved. sm5 Vital Signs: 01/23 22:07 BP 126 / 88; Pulse 77; Resp 20; Temp 97.8; Pulse Ox 100% on R/A; Weight 99.79 kg; da3 Height 5 ft. 6 in. (167.64 cm); 01/24 00:50 BP 121 / 79; Pulse 75; Resp 19; Pulse Ox 99% on R/A; sm5 01/23 22:07 Body Mass Index 35.51 (99.79 kg, 167.64 cm) da3 ED Course: 01/23 22:03 Patient arrived in ED. wm 22:07 Arm band placed on right wrist. da3 22:09 Triage completed. da3 22:34 Carol Rodriguez, JANICE is Primary Nurse. sm5 22:47 Wilfred Funk PA is PHCP. jr8 22:47 Kael Finley MD is Attending Physician. jr8 23:11 Inserted saline lock: 22 gauge in right forearm, using aseptic technique. ds4 23:45 Patient has correct armband on for positive identification. Bed in low position. Call sm5 light in reach. Side rails up X2. 01/24 00:50 No provider procedures requiring assistance completed. IV discontinued, intact, sm5 bleeding controlled, No redness/swelling at site. Pressure dressing applied. Administered Medications: 01/23 23:27 Drug: Reglan (metoCLOPramide) 10 mg Route: IVP; Site: right forearm; sm5 01/24 00:51 Follow up: Response: Marked relief of symptoms 5 01/23 23:27 Drug: Benadryl (diphenhydrAMINE) 25 mg Route: IVP; Site: right forearm; sm5 01/24 00:51 Follow up: Response: Marked relief of symptoms sm5 Outcome: 00:34 Discharge ordered by MD. abreu 00:50 Discharged to home ambulatory. 5 00:50 Condition: good 00:50 Discharge instructions given to patient, Instructed on discharge instructions, follow up and referral plans. Demonstrated understanding of instructions, follow-up care. 00:51 Patient left the ED. 5 Signatures: Wilfred Funk PA PA jr8 Jonny Vásquez4 Anayeli Hager David, RN RN 3 aCrol Rodriguez, JANICE RN sm5
[2021-01-24 01:28] VITALS: TEMP 97.8
[2021-01-24 01:30] VITALS: BP 121/79; O2SAT 99
== END 2021-01-24 00:51 | disposition home or self-care (01) ==
LOC: ER 21:59
DX: G43.019 Migraine without aura, intractable, without status migrainosus (principal); F41.8 Other specified anxiety disorders
CPT/HCPCS: 96375; 96374; 99283; J2765; J1200

== ENCOUNTER 2021-03-09 00:24 | Emergency (ER) | payer OTHER ==
--- OUTSIDE RECORDS SUMMARY | 2021-03-09 00:28 | XMS REPORT | Continuity of Care Document ---
:1990 Author Organization [facility] t Address [address] [place] [address] Care Team Providers Name Role Phone Group, [facility] Primary Care Physician [phone] SABINA Attending Clinician Unavailable Agustín ALCANTARA Attending Clinician AGUSTÍN Attending Clinician Unavailable Doctor Unassigned, Name Attending Clinician Unavailable Sabina BARGER Attending Clinician [address] Attending Clinician Unavailable Joe Becker DO Attending Clinician Payers Payer Name Policy Type Policy Number Effective Date Expiration Date Ariel HICKS 2 [id number] 2020 00:00:00 Problems Condition Condition Condition Status Onset Resolution Last Treating Co mments Source Name Details Category Date Date Treatment Clinician Date Obesity Obesity Disease Active 2019- Univers (BMI (BMI 1-02 ity of 30-39.9) 30-39.9) 00:00: [place] 00 Medical Branch Insomnia Insomnia Disease Active Unive rs due to due to 3-24 ity of other other 00:00: [place] mental mental 00 Medical disorder disorder Branch Chronic Chronic Disease Active 2018-02 Univers depression depression 0-29 it y of 00:00: [place] 00 Medical Branch Prediabete Prediabete Disease Active 2016-02 U nivers s s 2- ity of 00:00: [place] 00 Medical Branch Low HDL Low HDL Disease Active 2016-02 Univers (under 40) (under 40) 2- it y of 00:00: [place] 00 Medical Branch Vitamin D Vitamin D Disease Active 2016-02 Uni vers deficiency deficiency 04-07 it y of 00:00: [place] 00 Medical Branch Anxiety Anxiety Disease Active 2016-02 Univers disorder, disorder, - ity of unspecif[place] 00 Medical [place] Atopic Atopic Disease Active 2016-02 Univers dermatitis dermatitis 2- it y of , , 00:00: [place] unspecifie unspecifie 00 Me dical d type d type Branch Tobacco Tobacco Disease Active Univers use use ity of [facility] No known No known Disease Kelse y active active Sey[facility] problems problems Allergies, Adverse Reactions, Alerts Allergy Allergy Status Severity Reaction(s) Onset Inactive Treating Comm ents Source Name Type Date Date Clinician Na Propensi Active Hives 2020-02 Quynh Benzoate ty to 04-09 [place] -Sulfame adverse 00:00: thoxazol reaction 00 e-Trimet s hoprim Sulfa Propensi Active Swelling Univer s (Sulfona ty to 9-13 ity of mide adverse 00:00: [place] Antibiot reaction 00 Medica l ics) s Branch SULFA Drug Active Hives Univers (SULFONA Class 9-13 ity of MIDE 00:00: [place] ANTIBIOT 00 Medical ICS) Branch Social History Social Habit Start Date Stop Date Quantity Comments Source History of tobacco Cigarette Smoker University of use [facility] Exposure to Not sure [facility] SARS-CoV-2 (event) [facility] History SDOH Quynh zaidi Alcohol Frequency History SDOH Quynh Peters ld Alcohol Std Drinks History SDOH Quynh Peters ld Alcohol Binge Alcohol intake 2021-02-06 2021-02-06 Current drinker Ning Treviño 00:00:00 00:00:00 of alcohol (finding) Tobacco use and 2015-12-04 2015-12-04 Smokeless Quynh kent exposure 00:00:00 00:00:00 tobacco non-user Alcohol Comment 2015-12-04 2015-12-04 says "slim" very Victor M Treviño 00:00:00 00:00:00 little Cigarettes smoked 2015-12-04 2015-12-04 Quynh Treviño current (pack per 00:00:00 00:00:00 day) - Reported Cigarette 2015-12-04 2015-12-04 Quynh Treviño pack-years 00:00:00 00:00:00 Sex [birth year] Quynh kent 00:00:00 00:00:00 Smoking Status Start Date Stop Date Source Current every day smoker 2017-01-20 00:00:00 [facility] Branch Medications Ordered Filled Start Stop Current Ordering Indication Dosage Frequency Signature Comments Components Source Medication Medication Date Date Medication? Clinician (SIG) Name Name norgestimat Yes [id number] 1{tbl} Take 1 Univers e-ethinyl 1-20 tablet by ity o f estradioL 00:00: mouth [place] 0.25-35 00 daily. Medical mg-mcg per Branch tablet norgestimat Yes [id number] 1{tbl} Take 1 Univers e-ethinyl 1-20 tablet by ity o f estradioL 00:00: mouth [place] 0.25-35 00 daily. Medical mg-mcg per Branch tablet norgestimat Yes [id number] 1{tbl} Take 1 Univers e-ethinyl 1-20 tablet by ity o f estradioL 00:00: mouth [place] 0.25-35 00 daily. Medical mg-mcg per Branch tablet norgestimat Yes [id number] 1{tbl} Take 1 Univers e-ethinyl 1-20 tablet by ity o f estradioL 00:00: mouth [place] 0.25-35 00 daily. Medical mg-mcg per Branch tablet fluconazole 2021- Yes [id number] 150mg Take 1 Univers 150 mg 1-20 - tablet by ity of tablet 00:00: 05:59 [place] now for 1 Medical dose. Branch fluconazole 2021- Yes [id number] 150mg Take 1 Univers 150 mg 1-20 01-21 tablet by ity of tablet 00:00: 05:59 [place] now for 1 Medical dose. Branch Clindamycin 2020-02 Yes [id number] 300mg Take 1 Quynh HCl 300 MG 2-28 capsule Seybol d oral 00:00: (300 mg Capsule 00 total) by mouth 3 times daily Estarylla 2020-02 Yes 1{tbl} Take 1 Carly ey 0.25-35 2-11 tablet by Seybold MG-MCG oral 00:00: mouth Tablet 00 daily Bupropion 2020-02 Yes 200mg Take 200 Victor M sey HCL SR 200 0-18 mg by Seybold MG OR TB12 00:00: mouth 2 00 times daily Trazodone 2020-02 Yes TAKE 1/2 Carly ey HCl 50 MG 0-18 TO 1 [place] oral Tablet 00:00: TABLET BY 00 MOUTH AT BEDTIME methylPREDN 2020-02 Yes [id number] Follow Univers ISolone 4 0-18 package ity of mg tablets 00:00: directions [facility] benzonatate 2020-02 Yes [id number] 200mg Take 1 Univers 200 mg 0-18 capsule by ity of capsule 00:00: mouth 3 (three) Medical times Branch daily as needed for Cough. buPROPion 2020-02 Yes [id number] 200mg Take 1 U nivers 200 mg 12 0-18 tablet by ity o f hr tablet 00:00: mouth 2 (two) Medical times Branch daily. traZODone 2020-02 Yes [id number] 25mg Take 0.5-1 Univers 50 mg 0-18 tablets by ity of tablet 00:00: mouth at [place] 00 bedtime. Medical Branch vortioxetin 2020-02 Yes [id number] 1{tbl} Take 1 Univers e 0-18 tablet by ity of (TRINTELLIX 00:00: mouth ) 10 mg Tab 00 daily. Medica l Branch methylPREDN 2020-02 Yes [id number] Follow Univers ISolone 4 0-18 package ity of mg tablets 00:00: directions ex [facility] benzonatate 2020-02 Yes [id number] 200mg Take 1 Univers 200 mg 0-18 capsule by ity of capsule 00:00: mouth 3 (three) Medical times Branch daily as needed for Cough. buPROPion 2020-02 Yes [id number] 200mg Take 1 U nivers 200 mg 12 0-18 tablet by ity o f hr tablet 00:00: mouth 2 (two) Medical times Branch daily. traZODone 2020-02 Yes [id number] 25mg Take 0.5-1 Univers 50 mg 0-18 tablets by ity of tablet 00:00: mouth at [place] 00 bedtime. Medical Branch vortioxetin 2020-02 Yes [id number] 1{tbl} Take 1 Univers e 0-18 tablet by ity of (TRINTELLIX 00:00: mouth ) 10 mg Tab 00 daily. Medica l Branch methylPREDN 2020-02 Yes [id number] Follow Univers ISolone 4 0-18 package ity of mg tablets 00:00: directions T ex Medical Branch benzonatate 2020-02 Yes [id number] 200mg Take 1 Univers 200 mg 0-18 capsule by ity of capsule 00:00: mouth (three) Medical times Branch daily as needed for Cough. buPROPion 2020-02 Yes [id number] 200mg Take 1 U nivers 200 mg 12 0-18 tablet by ity o f hr tablet 00:00: mouth 2 (two) Medical times Branch daily. traZODone 2020-02 Yes [id number] 25mg Take 0.5-1 Univers 50 mg 0-18 tablets by ity of tablet 00:00: mouth at [place] bedtime. Medical Branch vortioxetin 2020-02 Yes [id number] 1{tbl} Take 1 Univers e 0-18 tablet by ity of (TRINTELLIX 00:00: mouth ) 10 mg Tab 00 daily. Medica l Branch methylPREDN 2020-02 Yes [id number] Follow Univers ISolone 4 0-18 package ity of mg tablets 00:00: directions T ex Medical Branch benzonatate 2020-02 Yes [id number] 200mg Take 1 Univers 200 mg 0-18 capsule by ity of capsule 00:00: mouth 3 (three) Medical times Branch daily as needed for Cough. buPROPion 2020-02 Yes [id number] 200mg Take 1 U nivers 200 mg 12 0-18 tablet by ity o f hr tablet 00:00: mouth 2 [place] 00 (two) Medical times Branch daily. traZODone 2020-02 Yes [id number] 25mg Take 0.5-1 Univers 50 mg 0-18 tablets by ity of tablet 00:00: mouth at [place] 00 bedtime. Medical Branch vortioxetin 2020-02 Yes [id number] 1{tbl} Take 1 Univers e 0-18 tablet by ity of (TRINTELLIX 00:00: mouth [place] ) 10 mg Tab 00 daily. Medica l Branch azithromyci 2020-02- No [id number] Take 500 Univers n 0-18 01-20 mg PO day ity of (ZITHROMAX 00:00: 00:00 1, then Nikko as Z-ES) 250 00 :00 250 mg Medical mg tablet days 2 to Branc h 5. azithromyci 2020-02- No [id number] Take 500 Univers n 0-18 01-20 mg PO day ity of (ZITHROMAX 00:00: 00:00 1, then Nikko as Z-ES) 250 00 :00 250 mg Medical mg tablet days 2 to Branc h 5. norgestimat 2021- No [id number] 1{tbl} Take 1 Univers e-ethinyl 3-10 01-20 tablet by ity of estradioL 00:00: 00:00 mouth [place] 0.25-35 00 :00 daily. Medical mg-mcg per Branch tablet norgestimat 2021- No [id number] 1{tbl} Take 1 Univers e-ethinyl 3-10 01-20 tablet by ity of estradioL 00:00: 00:00 mouth [place] 0.25-35 00 :00 daily. Medical mg-mcg per Branch tablet HydrOXYzine 2020- No TAKE ONE K elsey HCl 25 MG -02-06 OR TWO Seybold oral Tab 00:00: 00:00 TABLETS 00 :00 QHS PRN ITCHING. WILL MAKE SLEEPY Desoximetas 2015-02- No [id number] Apply Quynh one 0.25 % -02-06 sparingly Sey bold apply 00:00: 00:00 BID to externally 00 :00 rash Ointment Mon-Fri PRN. Not for use on face, armpits or groin. bromphenira Yes 10mL Take [address] [facility]-pseudo 5-25 mLs [facility] eph-DM 00:00: mouth Medical (BROMFED 00 every 6 Center DM) 2-30-10 (six) mg/5 mL hours as Syrp needed (cough). bromphenira 0 Yes 10mL Take [address] [facility] [address] mine-pseudo 5-25 mLs by [facility] - eph-DM 00:00: mouth Medical (BROMFED 00 every 6 Center DM) 2-30-10 (six) mg/5 mL hours as Syrp needed (cough). Immunizations Ordered Filled Immunization Date Status Comments [facility] Immunization Name Name [facility] 2018-09-10 Completed University of 00:00:00 [place] [address] 2018-09-10 Completed University of 00:00:00 [place] [address] 2018-09-10 Completed University of 00:00:00 [place] [address] 2018-09-10 Completed University of 00:00:00 [facility] [place] [facility] Pneumococcal 2017-01-29 Completed [place] o f Polysaccharide, 00:00:00 [facility] ical PPSV23 (PNEUMOVAX) Branch Pneumococcal 2017-01-29 Completed [place] o f Polysaccharide, 00:00:00 [place] Med ical PPSV23 (PNEUMOVAX) Branch Pneumococcal 2017-01-29 Completed [place] o f Polysaccharide, 00:00:00 [facility] ical PPSV23 (PNEUMOVAX) Branch Pneumococcal 2017-01-29 Completed [place] o f Polysaccharide, 00:00:00 [facility] ical PPSV23 (PNEUMOVAX) Branch TDAP 2013-08-19 Completed University of 00:00:00 [facility] [place] [facility] TDAP 2013-08-19 Completed University of 00:00:00 [facility] TDAP 2013-08-19 Completed University of 00:00:00 [facility] [place] [facility] TDAP 2013-08-19 Completed University of 00:00:00 [facility] Vital Signs Vital Name Observation Time Observation Value Comments Source Systolic blood 2021-03-01 19:00:00 132 mm[Hg] Univer sity of pressure [facility] [place] [facility] Diastolic blood 2021-03-01 19:00:00 79 mm[Hg] Unive rsity of pressure [facility] [place] [facility] Heart rate 2021-03-01 19:00:00 82 /min [facility] [place] [facility] [place] ty [facility] Body temperature 2021-03-01 19:00:00 36.83 Simona [facility] Respiratory rate 2021-03-01 19:00:00 18 /min [facility] Body height 2021-03-01 19:00:00 167.6 cm Universi ty [facility] Body weight 2021-03-01 19:00:00 100.426 kg Universi ty [facility] BMI 2021-03-01 19:00:00 35.73 kg/m2 Universi ty [facility] Body temperature 2021-02-06 14:54:00 36.61 Simona Carly ewelina [facility] Body weight 2021-02-06 14:54:00 100.245 kg Quynh S eybold BMI 2021-02-06 14:54:00 35.67 kg/m2 Quynh S eybold Procedures Procedure Date / Time Performing Clinician Source Performed CONSENT FOR 2021-03-01 06:01:00 Doctor Unassigned, Alexa Amaya [facility] Encounters Start End Encounter Admission Attending Care Care Encounter Source Date/Time Date/Time Type Type Clinicians Facility Department ID 2021-03-20 2021-03-20 Outpatient QUYNH MUHAMMAD [id number] Quynh 16:00:00 16:00:00 MEENAKSHI Peters ld 2021-03-01 2021-03-01 Office Agustín [facility] [id number] Univers 13:30:00 13:42:53 Visit Radha CHUNG [id number] i ty of [place] [id number] Miguel barone PROFESSIO [id number] Ny dical [address] 2021-03-01 2021-03-01 Outpatient Lalo [facility] [id number] Univers 13:30:00 13:42:53 RADHA salmeron [facility] 2021-03-01 2021-03-01 Refill Agustín [facility] [id number] Univers 00:00:00 00:00:00 Radha CHUNG [id number] i ty [place] [id number] [place] PROFESS[place] [phone] Ny dical [facility] [address] [facility] 2021-03-01 2021-03-01 Orders Doctor JAEL [id number] Univers 00:00:00 00:00:00 Only Unassigned, MARCELINO [id number] ity of [place] [facility] [id number] Nikko as [id number] [address] 2021-02-06 2021-02-06 Office ADRIAN Muhammad [id number] Quynh 09:00:00 09:15:00 Visit Meenakshi [id number] S bradley [id number] 2021-02-06 2021-02-06 Outpatient [id number] QUYNH GUERRA [id number] Quynh 07:05:00 07:05:00 Seybol d 2020-05-02 2020-05-02 Patient Eugenio [facility] [id number] 00:00:00 00:00:00 Outreach [facility] [id number] [facility] [id number] LINDA [id number] 2020-05-01 2020-05-01 Orders Doctor JAEL [id number] 00:00:00 00:00:00 Only Unassigned, MARCELINO [id number] [place] [facility] [id number] 2020-04-26 2020-04-26 Telephone Agustín MIANA [id number] 00:00:00 00:00:00 Radha Chung [id number] [place] [id number] Professio [id number] [address] 2020-04-25 2020-04-25 Case Agustín MIANA [id number] 00:00:00 00:00:00 Management Radha Chung [id number] [place] [id number] Tonio [id number] [address] 2020-04-19 2020-04-19 Orders Doctor JAEL [id number] 00:00:00 00:00:00 Only Unassigned, MARCELINO [id number] [place] [facility] [id number] Results This patient has no known results.
--- NOTE | 2021-03-09 01:40 | EDPHYS ---
Physician Documentation [facility] Name: Veronica Moore Age: 30 yrs Sex: Female : 1990 Arrival Date: 03/09/2021 Time: 00:26 Bed 18 Private MD: ED Physician Reji Palacios HPI: 03/09 01:34 This 30 yrs old Female presents to ER via Ambulatory with complaints of Knot on inner jmm thigh. 01:34 the patient presents with a swollen area of the medial aspect of right thigh. Onset: jmm The symptoms/episode began/occurred gradually. Possible cause(s): unknown. Associated signs and symptoms: Pertinent positives: erythema, Pertinent negatives: fever. Modifying factors: the symptoms are alleviated by nothing, the symptoms are aggravated by nothing. It is unknown whether or not the patient has had similar symptoms in the past. TEAM GUIDE: 00:33 LMP 02/17/2021 vc1 Historical: - Allergies: 00:33 Bactrim; vc1 - Home Meds: 00:33 control pill [Active]; vc1 - PMHx: 00:33 Anxiety; Depression; vc1 - PSHx: 00:33 section; vc1 - Immunization history:: Adult Immunizations up to date, Client reports having NOT received the Covid vaccine. Flu vaccine is not up to date. - Social history:: Smoking status: Patient reports the use of cigarette tobacco products, smokes one-half pack cigarettes per day. ROS: 01:34 Constitutional: Negative for fever, chills, and weight loss, Cardiovascular: Negative jmm for chest pain, palpitations, and edema, Respiratory: Negative for shortness of breath, cough, wheezing, and pleuritic chest pain. 01:34 Skin: Positive for erythema, swelling. 01:34 All other systems are negative. Exam: 01:34 Constitutional: This is a well developed, well nourished patient who is awake, alert, jmm and in no acute distress. Head/Face: atraumatic. Eyes: EOMI, no conjunctival erythema appreciated ENT: Moist Mucus Membranes Neck: Trachea midline, Supple Chest/axilla: Normal chest wall appearance and motion. Cardiovascular: Regular rate and rhythm. No edema appreciated Respiratory: Normal respirations, no respiratory distress appreciated Abdomen/GI: Non distended, soft Back: Normal ROM 01:34 Skin: abscess, that is moderate sized, of the medial aspect of right thigh. 01:34 Neuro: Orientation: is normal, Mentation: is normal, Memory: is normal. 01:34 Psych: Behavior/mood is pleasant, cooperative. Vital Signs: 00:28 BP 128 / 94; Pulse 100; Resp 18; Temp 97.6; Pulse Ox 97% on R/A; Weight 100.24 kg; vc1 Height 5 ft. 6 in. (167.64 cm); Pain 7/10; 00:28 Body Mass Index 35.67 (100.24 kg, 167.64 cm) vc1 Procedures: 01:37 I \T\ D: Incision and drainage was performed for an abscess of the medial aspect of right m thigh Prepped with Betadine, Anesthetized with 5 ml's 1% Lidocaine w/ Epi. Incised with #11 blade. Drained moderate amount purulent fluid. Packed with iodoform gauze, Dressing: sterile 4x4 gauze, the patient tolerated the procedure well. MDM: 01:02 Patient medically screened. [facility] 01:34 Data reviewed: vital signs, nurses notes. Counseling: I had a detailed discussion with [facility] the patient and/or guardian regarding: the historical points, exam findings, and any diagnostic results supporting the discharge/admit diagnosis, the need for outpatient follow up, to return to the emergency department if symptoms worsen or persist or if there are any questions or concerns that arise at home. Administered Medications: No medications were administered Disposition: 02:38 Co-signature as Attending Physician, Reji Palacios MD. [facility] Disposition Summary: 03/09/21 01:39 Discharge Ordered Location: Home [facility] Condition: Stable [facility] Diagnosis - Abscess of the Right Thigh [facility] Followup: [facility] - With: Dinesh Awad MD - When: 2 - 3 days - Reason: Recheck today's complaints, Continuance of care, Re-evaluation by your physician Discharge Instructions: - Discharge Summary Sheet [facility] - Incision and Drainage, Care After [facility] - Form - Excuse from Work, School, or Physical Activity sf1 Forms: - Medication Reconciliation Form [facility] - Thank You Letter [facility] - Antibiotic Education [facility] - Prescription Opioid Use [facility] Prescriptions: - Doxycycline Monohydrate 100 mg Oral Tablet - take 1 tablet by ORAL route every 12 hours for 10 days; 20 tablet; Refills: 0, jmm Product Selection Permitted Signatures: Reji Palacios MD MD pkl Miquel Bowling PA PA jmm Daniella Byrd, RN RN vc1
--- NOTE | 2021-03-09 01:40 | ER ---
Nurse's Notes [facility] Name: Veronica Moore Age: 30 yrs Sex: Female : 1990 Arrival Date: 03/09/2021 Time: 00:26 Bed 18 Private MD: Diagnosis: Abscess of the Right Thigh Presentation: 03/09 00:28 Chief complaint: Patient states: "On my right inner leg I have a spot I don't know if vc1 it is a boil, insect bite, or cyst. It is red and hot and getting harder to walk because my thighs are rubbing together.". Coronavirus screen: Vaccine status: Patient reports being unvaccinated. Ebola Screen: No symptoms or risks identified at this time. Initial Sepsis Screen: Does the patient meet any 2 criteria? No. Patient's initial sepsis screen is negative. Does the patient have a suspected source of infection? No. Patient's initial sepsis screen is negative. Risk Assessment: Do you want to hurt yourself or someone else? Patient reports no desire to harm self or others. Onset of symptoms was March 06, 2021. 00:28 Method Of Arrival: Ambulatory vc1 00:28 Acuity: EMANUEL 4 vc1 Triage Assessment: 00:33 General: Appears in no apparent distress. uncomfortable, Behavior is calm, cooperative, vc1 appropriate for age. Pain: Complains of pain in medial aspect of right thigh Pain does not radiate. Pain currently is 7 out of 10 on a pain scale. Neuro: No deficits noted. Cardiovascular: No deficits noted. Respiratory: No deficits noted. Derm: Abscess located on medial aspect of right thigh. BLOCKER HAND: 00:33 LMP 02/17/2021 vc1 Historical: - Allergies: 00:33 Bactrim; vc1 - Home Meds: 00:33 control pill [Active]; vc1 - PMHx: 00:33 Anxiety; Depression; vc1 - PSHx: 00:33 section; vc1 - Immunization history:: Adult Immunizations up to date, Client reports having NOT received the Covid vaccine. Flu vaccine is not up to date. - Social history:: Smoking status: Patient reports the use of cigarette tobacco products, smokes one-half pack cigarettes per day. Screenin:13 Abuse screen: Denies threats or abuse. Nutritional screening: No deficits noted. sf1 Tuberculosis screening: No symptoms or risk factors identified. Fall Risk None identified. Assessment: 02:11 Musculoskeletal: Reports abscess. sf1 Vital Signs: 00:28 BP 128 / 94; Pulse 100; Resp 18; Temp 97.6; Pulse Ox 97% on R/A; Weight 100.24 kg; vc1 Height 5 ft. 6 in. (167.64 cm); Pain 7/10; 00:28 Body Mass Index 35.67 (100.24 kg, 167.64 cm) vc1 ED Course: 00:26 Patient arrived in ED. es 00:33 Triage completed. vc1 00:35 Arm band placed on right wrist. vc1 00:38 Miquel Bowling PA is PHCP. jmm 00:38 Reji Palacios MD is Attending Physician. jmm 01:38 Dinesh Awad MD is Referral Physician. [facility] 01:41 Assist provider with I \\T\\ D: of an abscess on right perianal Set up I\\T\\D tray. Performed tw 5 by Miquel VILLA Wound packed. iodoform gauze, Dressing with 4X4s, tape Patient tolerated well. 02:08 Ilana Mckeon RN is Primary Nurse. sf1 02:13 Patient has correct armband on for positive identification. sf1 02:13 Patient did not have IV access during this emergency room visit. sf1 Administered Medications: No medications were administered Outcome: 01:39 Discharge ordered by MD. jm 02:13 Discharged to home ambulatory. sf1 02:13 Condition: good 02:13 Discharge instructions given to patient, Instructed on discharge instructions, follow up and referral plans. Demonstrated understanding of instructions, follow-up care, medications. 02:14 Patient left the ED. sf1 Signatures: Miquel Bowling PA PA jmm Salyer, Edna es Wood, Tiffany tw5 Daniella Byrd RN RN vc1 Ilana Mckeon RN RN sf1
[2021-03-09 02:24] VITALS: BP 128/94; TEMP 97.6; O2SAT 97
== END 2021-03-09 02:14 | disposition home or self-care (01) ==
LOC: ER 00:24
PROC: 0H9HXZZ Drainage of Right Upper Leg Skin, External Approach (ICD-10-PCS; principal; 2021-03-09)
DX: L02.415 Cutaneous abscess of right lower limb (principal); Z88.1 Allergy status to other antibiotic agents; F17.210 Nicotine dependence, cigarettes, uncomplicated
CPT/HCPCS: 99283

== ENCOUNTER 2021-07-23 21:08 | Emergency (ER) | payer OTHER ==
--- OUTSIDE RECORDS SUMMARY | 2021-07-23 21:11 | XMS REPORT | Continuity of Care Document ---
:[address] [facility] t Address [address] [place] [address] Care Team Providers Name Role Phone Group, [facility] [phone] Sabina BARGER Attending Clinician SABINA Attending Clinician Unavailable Agustín ALCANTARA Attending Clinician AGUSTÍN Attending Clinician Unavailable Doctor Unassigned, Name Attending Clinician Unavailable [address] Attending Clinician Unavailable Joe Becker DO Attending Clinician Payers Payer Name Policy Type Policy Number Effective Date Expiration Date S ource Problems Condition Condition Condition Status Onset Resolution Last Treating Co mments Source Name Details Category Date Date Treatment Clinician Date Obesity Obesity Disease Active 2019- Univers (BMI (BMI 1-02 ity of 30-39.9) 30-39.9) 00:00: [place] 00 Medical Branch Insomnia Insomnia Disease Active 2019- Unive rs due to due to 3-24 ity of other other 00:00: [place] mental mental 00 Medical disorder disorder Branch Chronic Chronic Disease Active 2018-02 Univers depression depression 0-29 it y of 00:00: [place] 00 Medical Branch Prediabete Prediabete Disease Active 2016-02 U nivers s s 04-07 ity of 00:00: [place] 00 Medical Branch Low HDL Low HDL Disease Active 2016-02 Univers (under 40) (under 40) 04-07 it y of 00:00: [place] 00 Medical Branch Vitamin D Vitamin D Disease Active 2016-02 Uni vers deficiency deficiency 04-07 it y of 00:00: [place] Medical [facility] Anxiety Anxiety Disease Active 2016-02 Univers disorder, disorder, 03-24 ity of unspecifie [place]specif[place] type 00 [place] Atopic Atopic Disease Active 2016-02 Univers dermatitis dermatitis 03-24 it y of , , 00:00: [place] unspecifie unspecifie 00 Me dical d type d type Branch Tobacco Tobacco Disease Active Univers use use ity of [facility] No known No known Disease Kelse y [...] Start Date Stop Date Quantity Comments Source Exposure to Not sure University of SARS-CoV-2 (event) [facility] History SDOH Quynh Peters ld Alcohol Frequency History SDOH Quynh Peters ld Alcohol Std Drinks History SDOH Quynh Peters ld Alcohol Binge History of tobacco Snuff User Quynh Treviño use Alcohol intake 2021 2021 Current drinker Ning gray Seybyina 00:00:00 00:00:00 of alcohol (finding) Tobacco use and 2021-02-06 2021-02-06 Smokeless Quynh Bartholomew ybyina exposure 00:00:00 00:00:00 tobacco non-user Cigarettes smoked 2021-02-06 2021-02-06 Quynh Treviño current (pack per 00:00:00 00:00:00 day) - Reported Cigarette 2021-02-06 2021-02-06 Quynh Treviño pack-years 00:00:00 00:00:00 Alcohol Comment 2015-12-04 2015-12-04 says "slim" very Victor M Treviño 00:00:00 00:00:00 little Sex [birth year] Quynh kent 00:00:00 00:00:00 Smoking Status Start Date Stop Date Source Smokes tobacco daily 2021-02-06 00:00:00 Quynh Treviño Medications Ordered Filled Start Stop Current Ordering Indication Dosage Frequency Signature Comments Components Source Medication Medication Date Date Medication? Clinician (SIG) Name Name Griffin Yes [id number] Apply BID K elsey Acid 15 % 5-16 to face Seybold apply 00:00: externally 00 Gel norgestimat Yes [id number] 1{tbl} Take 1 Univers e-ethinyl 1-20 tablet by ity o f estradioL 00:00: mouth [place] 0.25-35 00 daily. Medical mg-mcg per Branch tablet norgestimat Yes [id number] 1{tbl} Take 1 Univers e-ethinyl 1-20 tablet by ity o f estradioL 00:00: mouth [place] 0.25-35 00 daily. Medical mg-mcg per Branch tablet norgestimat Yes [id number] 1{tbl} Take 1 Univers e-ethinyl 1-20 tablet by ity o f estradioL 00:00: mouth [place] 0.25-35 00 daily. Medical mg-mcg per Branch tablet norgestimat Yes [id number] 1{tbl} Take 1 Univers e-ethinyl 1-20 tablet by ity o f estradioL 00:00: mouth [place] 0.25-35 00 daily. Medical mg-mcg per Branch tablet fluconazole 2021- No [id number] 150mg Take 1 Univers 150 mg 1-20 - tablet by ity of tablet 00:00: 05:59 [place] :[place] now for 1 Medical dose. Branch fluconazole 2021- No [id number] 150mg Take 1 Univers 150 mg -20 - tablet by ity of tablet 00:00: 05:59 [place] :[place] now for 1 Medical dose. Branch Clindamycin 2020-02 Yes [id number] 300mg Take 1 Quynh HCl 300 MG 2-28 capsule Seybol d oral 00:00: (300 mg Capsule 00 total) by mouth 3 times daily Clindamycin 2020-02- No [id number] 300mg Take 1 Quynh HCl 300 MG 2-28 05-16 capsule Seybo ld oral 00:00: 00:00 (300 mg Capsule 00 :00 total) by mouth 3 times daily Estarylla 2020-02 Yes 1{tbl} Take 1 Carly ey 0.25-35 2-11 tablet by Seybold MG-MCG oral 00:00: mouth Tablet 00 daily Estarylla 2020-02- No 1{tbl} Take 1 Victor M sey 0.25-35 2-11 05-16 tablet by Seybol d MG-MCG oral 00:00: 00:00 mouth Tablet 00 :00 daily buPROPion 2020-02 Yes [id number] 200mg Take 1 U nivers 200 mg 12 0-18 tablet by ity o f hr tablet 00:00: mouth 2 [place] 00 (two) Medical times [place] daily. traZODone 2020-02 Yes [id number] 25mg Take 0.5-1 Univers 50 mg 0-18 tablets by ity of tablet 00:00: mouth at [place] 00 bedtime. Medical Branch vortioxetin 2020-02 Yes [id number] 1{tbl} Take 1 Univers e 0-18 tablet by ity of (TRINTELLIX 00:00: mouth [place] ) 10 mg Tab 00 daily. Medica l Branch Bupropion 2020-02 Yes 200mg Take 200 Victor M sey HCL SR 200 0-18 mg by Seybold MG OR TB12 00:00: mouth 2 00 times daily Trazodone 2020-02 Yes TAKE 1/2 Carly ey HCl 50 MG 0-18 TO 1 Seybold oral Tablet 00:00: TABLET BY 00 MOUTH AT BEDTIME methylPREDN 2020-02 Yes [id number] Follow Univers ISolone 4 0-18 package ity of mg tablets 00:00: directions Medical Branch benzonatate 2020-02 Yes [id number] 200mg Take 1 Univers 200 mg 0-18 capsule by ity of capsule 00:00: mouth 3 (three) Medical times Branch daily as needed for Cough. buPROPion 2020-02 Yes [id number] 200mg Take 1 U nivers 200 mg 12 0-18 tablet by ity o f hr tablet 00:00: mouth 2 (two) Medical times Branch daily. traZODone 2020-02 Yes [id number] 25mg Take 0.5-1 Univers 50 mg 0-18 tablets by ity of tablet 00:00: mouth at [place] 00 bedtime. Medical Branch vortioxetin 2020-02 Yes [id number] 1{tbl} Take 1 Univers e 0-18 tablet by ity of (TRINTELLIX 00:00: mouth [place] ) 10 mg Tab 00 daily. Medica l Branch methylPREDN 2020-02 Yes [id number] Follow Univers ISolone 4 0-18 package ity of mg tablets 00:00: directions [facility] Medical Branch benzonatate 2020-02 Yes [id number] 200mg Take 1 Univers 200 mg 0-18 capsule by ity of capsule 00:00: mouth 3 (three) Medical times Branch daily as needed for Cough. buPROPion 2020-02 Yes [id number] 200mg Take 1 U nivers 200 mg 12 0-18 tablet by ity o f hr tablet 00:00: mouth (two) Medical times Branch daily. traZODone 2020-02 Yes [id number] 25mg Take 0.5-1 Univers 50 mg 0-18 tablets by ity of tablet 00:00: mouth at [place] 00 bedtime. Medical Branch vortioxetin 2020-02 Yes [id number] 1{tbl} Take 1 Univers e 0-18 tablet by ity of (TRINTELLIX 00:00: mouth [place] ) 10 mg Tab 00 daily. Medica l Branch methylPREDN 2020-02 Yes [id number] Follow Univers ISolone 4 0-18 package ity of mg tablets 00:00: directions [facility] Medical Branch benzonatate 2020-02 Yes [id number] 200mg Take 1 Univers 200 mg 0-18 capsule by ity of capsule 00:00: mouth 3 [place] (three) Medical times Branch daily as needed for Cough. buPROPion 2020-02 Yes [id number] 200mg Take 1 U nivers 200 mg 12 0-18 tablet by ity o f hr tablet 00:00: mouth 2 [place] (two) Medical times Branch daily. traZODone 2020-02 Yes [id number] 25mg Take 0.5-1 Univers 50 mg 0-18 tablets by ity of tablet 00:00: mouth at [place] 00 bedtime. Medical Branch vortioxetin 2020-02 Yes [id number] 1{tbl} Take 1 Univers e 0-18 tablet by ity of (TRINTELLIX 00:00: mouth [place] ) 10 mg Tab 00 daily. Medica l Branch methylPREDN 2020-02 Yes [id number] Follow Univers ISolone 4 0-18 package ity of mg tablets 00:00: directions [place] 00 Medical [place] benzonatate 2020-02 Yes [id number] 200mg Take 1 Univers 200 mg 0-18 capsule by ity of capsule 00:00: mouth 3 [place] (three) Medical times Branch daily as needed for Cough. Bupropion 2020-02- No 200mg Take 200 Ke l[place] HCL SR 200 0-18 05-16 mg by Seybold MG OR TB12 00:00: 00:00 mouth 2 00 :00 times daily Trazodone 2020-02- No TAKE 1/2 Victor M sey HCl 50 MG 0-18 05-16 TO 1 Seybold oral Tablet 00:00: 00:00 TABLET BY 00 :00 MOUTH AT BEDTIME azithromyci 2020-02- No [id number] Take 500 Univers n 0-18 01-20 mg PO day ity of (ZITHROMAX 00:00: 00:00 1, then Nikko as Z-ES) 250 00 :00 250 mg Medical mg tablet days 2 to Branc h 5. azithromyci 2020-02- No [id number] Take 500 Univers n 0-18 01-20 mg PO day ity of (ZITHROMAX 00:00: 00:00 1, then Nikko as Z-ES) 250 00 :00 250 mg Medical mg tablet days 2 to Branc h 5. norgestimat 2021- No [id number] 1{tbl} Take 1 Univers e-ethinyl 3-10 01-20 tablet by ity of estradioL 00:00: 00:00 mouth [place] 0.25-35 00 :00 daily. Medical mg-mcg per Branch tablet norgestimat 2021- No [id number] 1{tbl} Take 1 Univers e-ethinyl 3-10 01-20 tablet by ity of estradioL 00:00: 00:00 mouth [place] 0.25-35 00 :00 daily. Medical mg-mcg per Branch tablet HydrOXYzine 2020- No TAKE ONE K elsey HCl 25 MG -16 02-06 OR TWO Seybold oral Tab 00:00: 00:00 TABLETS 00 :00 QHS PRN ITCHING. WILL MAKE SLEEPY Desoximetas 2015-02- No [id number] Apply Quynh one 0.25 % -02-06 sparingly Sey bold apply 00:00: 00:00 BID to externally 00 :00 rash Ointment Mon-Fri PRN. Not for use on face, armpits or groin. bromphenira Yes 10mL Take [address] [facility] [address] [facility]-pseudo 5-25 mLs by [facility]-DM 00:00: mouth Medical (BROMFED 00 every 6 Center DM) 2-30-10 (six) mg/5 mL hours as Syrp needed (cough). bromphenira Yes 10mL Take [address] [facility] mine-pseudo 5-25 mLs by [facility]-DM 00:00: mouth Medical (BROMFED 00 every 6 Center DM) 2-30-10 (six) mg/5 mL hours as Syrp needed (cough). Immunizations Ordered Filled Immunization Date Status Comments [facility] e Immunization Name Name HPV9 2018-09-10 Completed University of 00:00:00 [facility] HPV9 2018-09-10 Completed University of 00:00:00 [facility] HPV9 2018-09-10 Completed University 00:00:00 [facility] HPV9 2018-09-10 Completed University of 00:00:00 [facility] Pneumococcal 2017-01-29 Completed [place] o f Polysaccharide, 00:00:00 [facility] ical PPSV23 (PNEUMOVAX) Branch Pneumococcal 2017-01-29 Completed [place] o f Polysaccharide, 00:00:00 [facility] ical PPSV23 (PNEUMOVAX) Branch Pneumococcal 2017-01-29 Completed [place] o f Polysaccharide, 00:00:00 [place] Med ical PPSV23 (PNEUMOVAX) Branch Pneumococcal 2017-01-29 Completed [place] o f Polysaccharide, 00:00:00 [facility] ical PPSV23 (PNEUMOVAX) Branch TDAP 2013-08-19 Completed University of 00:00:00 [facility] TDAP 2013-08-19 Completed University of 00:00:00 [facility] TDAP 2013-08-19 Completed University of 00:00:00 [facility] TDAP 2013-08-19 Completed [facility] 00:00:00 [facility] Vital Signs Vital Name Observation Time Observation Value Comments Source Body weight 2021 19:23:00 102.059 kg Quynh George bradley BMI 2021 19:23:00 36.32 kg/m2 Quynh Ariel bradley Systolic blood 2021-03-01 19:00:00 132 mm[Hg] Univer sity of pressure [facility] Diastolic blood 2021-03-01 19:00:00 79 mm[Hg] Unive rsity of [facility] Heart rate 2021-03-01 19:00:00 82 /min [facility] Body temperature 2021-03-01 19:00:00 36.83 Simona [facility] Respiratory rate 2021-03-01 19:00:00 18 /min [facility] Body height 2021-03-01 19:00:00 167.6 cm [facility] Body weight 2021-03-01 19:00:00 100.426 kg [facility] BMI 2021-03-01 19:00:00 35.73 kg/m2 [facility] Body temperature 2021-02-06 14:54:00 36.61 Simona Carly Butterfieldyina Body weight 2021-02-06 14:54:00 100.245 kg Quynh Ariel theodorenelson BMI 2021-02-06 14:54:00 35.67 kg/m2 Quynh huerta Procedures Procedure Date / Time Performing Clinician Source Performed CONSENT FOR 2021-03-01 06:01:00 Doctor Alexa Chavez [facility] Encounters Start End Encounter Admission Attending Care Care Encounter Source Date/Time Date/Time Type Type Clinicians Facility Department ID 2021 2021 Office ADRIAN Muhammad [id number] Quynh 14:15:00 14:30:00 Visit Meenakshi [id number] S bradley 1.2.7.2.686 [id number] 2021-03-20 2021-03-20 Outpatient QUYNH MUHAMMAD [id number] Quynh 16:00:00 16:00:00 MEENAKSHICHERI Peters 2021-03-01 2021-03-01 Office Agustín [facility] [id number] Univers 13:30:00 13:42:53 Visit Radha CHUNG [id number] i ty of [place]2.[place] PROF[place] [id number] [address] 2021-03-01 2021-03-01 Outpatient [facility] [id number] Univers 13:30:00 13:42:53 RADHA salmeron [facility] 2021-03-01 2021-03-01 [facility] [id number] Univers 00:00:00 00:00:00 Radha CHUNG [id number] i [place] [id number] Mn dical NAL [address] [place] [address] 2021-03-01 2021-03-01 Orders Doctor ELDER [id number] Univers 00:00:00 00:00:00 Only UnassMARCELINO garcia [id number] [facility] 4.2.7.2.686 Nikko as [id number] [address] 2021-02-06 2021-02-06 Office ADRIAN Muhammad [id number] Quynh 09:00:00 09:15:00 Visit Meenakshi [id number] S bradley 1.2.7.2.686 [id number] 2021-02-06 2021-02-[address] QUYNH GUERRA [id number] Quynh 07:05:00 07:05:00 Seybol d 2020-05-02 2020-05-02 Patient Eugenio [facility] [id number] 00:00:00 00:00:00 Outreach [facility] [id number] [facility] 4.2.7.2.686 [facility] [id number] 2020-05-01 2020-05-01 Orders Doctor JAEL [id number] 00:00:00 00:00:00 Only Unassigned, MARCELINO [id number] [place] [facility] 4.2.7.2.686 [id number] 2020-04-26 2020-04-26 Telephone Agustín TNANA [id number] 00:00:00 00:00:00 Radha Chung [id number] [place] 4.2.7.2.686 Professio [id number] [address] 2020-04-25 2020-04-25 Case Derejesee TNANA [id number] 00:00:00 00:00:00 Management Radha Chung 350.1.13.10 [place] 4.2.7.2.686 Professio [id number] [address] 2020-04-19 2020-04-19 Orders Doctor JAEL [id number] 00:00:00 00:00:00 Only Unassigned, MARCELINO [id number] [place] [facility] 4.2.7.2.686 [id number] Results This patient has no known results.
--- NOTE | 2021-07-23 23:58 | EDPHYS ---
Physician Documentation [facility] Name: Veronica Moore Age: 31 yrs Sex: Female : 1990 Arrival Date: 07/23/2021 Time: 21:12 Bed DIS1 Private MD: ED Physician Kael Finley HPI: 07/23 23:48 This 31 yrs old Female presents to ER via Ambulatory with complaints of romeo Abscess. 23:48 the patient presents with a swollen area of the left mastoid area. Description: The romeo affected area is small, localized, erythematous, fluctuant, hot, raised, streaking, swollen. Onset: The symptoms/episode began/occurred 3 day(s) ago. Possible cause(s): unknown. Associated signs and symptoms: The patient has no apparent associated signs or symptoms. Severity of symptoms: At their worst the symptoms were mild, in the emergency department the symptoms are unchanged. The patient has experienced a previous episode, last year. 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 - Family history:: pertinent for diabetes, heart disease, Mother has/had. - Code Status:: Full code. - Coronavirus screen:: The patient has NOT traveled to [place] in the past 14 days. Proceed with normal triage process as indicated. The patient has NOT had contact with known/suspected case of Coronavirus? Proceed with normal triage procedures. - Ebola Screening: : Patient denies exposure to infectious person Patient denies travel to an Ebola-affected area in the 21 days before illness onset. ROS: 23:48 Constitutional: Negative for fever, chills, and weight loss, Eyes: Negative for injury, romeo pain, redness, and discharge, Neck: Negative for injury, pain, and swelling, Cardiovascular: Negative for chest pain, palpitations, and edema, Respiratory: Negative for shortness of breath, cough, wheezing, and pleuritic chest pain, Abdomen/GI: Negative for abdominal pain, nausea, vomiting, diarrhea, and constipation, Back: Negative for injury and pain, : Negative for injury, bleeding, discharge, and swelling, MS/Extremity: Negative for injury and deformity, Skin: Negative for injury, rash, and discoloration, Neuro: Negative for headache, weakness, numbness, tingling, and seizure, Psych: Negative for depression, anxiety, suicide ideation, homicidal ideation, and hallucinations, Allergy/Immunology: Negative for hives, rash, and allergies, Endocrine: Negative for neck swelling, polydipsia, polyuria, polyphagia, and marked weight changes, Hematologic/Lymphatic: Negative for swollen nodes, abnormal bleeding, and unusual bruising. 23:48 ENT: Positive for right posterior lobe, right ear. Exam: 23:48 Constitutional: This is a well developed, well nourished patient who is awake, alert, romeo and in no acute distress. Head/Face: Normocephalic, atraumatic. Eyes: Pupils equal round and reactive to light, extra-ocular motions intact. Lids and lashes normal. Conjunctiva and sclera are non-icteric and not injected. Cornea within normal limits. Periorbital areas with no swelling, redness, or edema. Neck: Trachea midline, no thyromegaly or masses palpated, and no cervical lymphadenopathy. Supple, full range of motion without nuchal rigidity, or vertebral point tenderness. No Meningismus. Chest/axilla: Normal chest wall appearance and motion. Nontender with no deformity. No lesions are appreciated. Cardiovascular: Regular rate and rhythm with a normal S1 and S2. No gallops, murmurs, or rubs. Normal PMI, no JVD. No pulse deficits. Respiratory: Lungs have equal breath sounds bilaterally, clear to auscultation and percussion. No rales, rhonchi or wheezes noted. No increased work of breathing, no retractions or nasal flaring. Abdomen/GI: Soft, non-tender, with normal bowel sounds. No distension or tympany. No guarding or rebound. No evidence of tenderness throughout. Back: No spinal tenderness. No costovertebral tenderness. Full range of motion. Skin: Warm, dry with normal turgor. Normal color with no rashes, no lesions, and no evidence of cellulitis. MS/ Extremity: Pulses equal, no cyanosis. Neurovascular intact. Full, normal range of motion. Neuro: Awake and alert, GCS 15, oriented to person, place, time, and situation. Cranial nerves II-XII grossly intact. Motor strength 5/5 in all extremities. Sensory grossly intact. Cerebellar exam normal. Normal gait. Psych: Awake, alert, with orientation to person, place and time. Behavior, mood, and affect are within normal limits. 23:48 ENT: External ear(s): swelling, that is moderate, of the left mastoid area. Vital Signs: 21:45 BP 131 / 92; Pulse 80; Resp 16; Temp 97.7; Pulse Ox 100% ; Weight 102.97 kg; Height 5 mc4 ft. 6 in. (167.64 cm); Pain 0/10; 21:45 Body Mass Index 36.64 (102.97 kg, 167.64 cm) mc4 MDM: 23:38 Patient medically screened. [facility] 23:55 Differential diagnosis: allergic reaction, cellulitis, insect bite. Data reviewed: [facility] vital signs, nurses notes. Data interpreted: chaplaincy: not applicable for this patient encounter. Pulse oximetry: on room air is 100 %. 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 Administered Medications: 23:55 Drug: Augmentin (Amoxicillin-Clavulanate) 875 mg Route: PO; vc1 Disposition Summary: 07/23/21 23:57 Discharge Ordered Location: Home [facility] Problem: new romeo Symptoms: have improved romeo Condition: Stable romeo Diagnosis - Less than 8 weeks gestation of romeo - Sebaceous cyst - left posterior ear lobe romeo Followup: romeo - With: Private Physician - When: 2 - 3 days - Reason: Recheck today's complaints, Continuance of care, Re-evaluation by your physician Followup: romeo - With: Anya Llanos MD - When: 2 - 3 days - Reason: Recheck today's complaints, Re-evaluation by your physician Followup: [facility] - With: Mike Gaines MD - When: 2 - 3 days - Reason: Recheck today's complaints, Re-evaluation by your physician Discharge Instructions: - Discharge Summary Sheet romeo - Care romeo - Epidermal Cyst, Lkdy-es-Dsby romeo - Epidermal Cyst romeo Forms: - Medication Reconciliation Form romeo - Thank You Letter romeo - Antibiotic Education [facility] - Prescription Opioid Use [facility] Prescriptions: - Augmentin 875-125 mg Oral Tablet - take 1 tablet by ORAL route every 12 hours for 10 days; 20 tablet; Refills: 0, romeo Product Selection Permitted - Tylenol 325 mg Oral Tablet - take 2 tablets by ORAL route every 6 hours as needed; 1 bottle; Refills: 0, romeo Product Selection Permitted Signatures: Kael Finley MD MD cha Calcote, Vanessa RN RN vc1 Edith Vega mc4
--- NOTE | 2021-07-23 23:58 | ER ---
Nurse's Notes [facility] Name: Veronica Moore Age: 31 yrs Sex: Female : 1990 Arrival Date: 07/23/2021 Time: 21:12 Bed DIS1 Private MD: Diagnosis: Less than 8 weeks gestation of ;Sebaceous cyst-left posterior ear lobe Presentation: 07/23 21:45 Chief complaint: Patient states: Bump behind left ear. Bump presented 6 months ago. mc4 Progressively gotten bigger. Called juvenile corrections officer and unable to get appointment until October. Reports she had a similar bump behind right ear 7 months ago that was removed and dx as a lipoma. Coronavirus screen: Vaccine status: Patient reports being unvaccinated. At this time, the client does not indicate any symptoms associated with coronavirus-19. Ebola Screen: Patient denies exposure to infectious person. Patient denies travel to an Ebola-affected area in the 21 days before illness onset. Initial Sepsis Screen: Does the patient meet any 2 criteria? No. Patient's initial sepsis screen is negative. Does the patient have a suspected source of infection? No. Patient's initial sepsis screen is negative. Risk Assessment: Do you want to hurt yourself or someone else? Patient reports no desire to harm self or others. Onset of symptoms was February 10, 2021. Care prior to arrival: None. Activity prior to arrival: None. 21:45 Method Of Arrival: Ambulatory 4 21:45 Acuity: EMANUEL 5 mc4 Triage Assessment: 21:49 General: Appears in no apparent distress. comfortable, Behavior is calm, cooperative, mc4 appropriate for age, Denies fever, feeling ill, fatigue, chills. 21:49 Pain: Denies pain. EENT: Red raised bump noted behind left ear. . Neuro: No deficits mc4 noted. Cardiovascular: No deficits noted. Respiratory: No deficits noted. GI: No deficits noted. : No deficits noted. Derm: Skin is red, Skin temperature is warm Bump behind left ear. Musculoskeletal: No deficits noted. ROUGH RIB GRADER: 21:49 2, Full Term 1, Premature 0, 0, Living 1, LMP 06/24/2021, mc4 Verified, EDC 03/31/2022, Gestational age from LMP: 4 weeks 2 days Historical: - Allergies: 21:49 Bactrim; 4 - PMHx: 21:49 Anxiety; Depression; 4 - PSHx: 21:49 section; 4 - Immunization history:: Adult Immunizations up to date. 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 - Family history:: pertinent for diabetes, heart disease, Mother has/had. - Code Status:: Full code. - Coronavirus screen:: The patient has NOT traveled to [place] in the past 14 days. Proceed with normal triage process as indicated. The patient has NOT had contact with known/suspected case of Coronavirus? Proceed with normal triage procedures. - Ebola Screening: : Patient denies exposure to infectious person Patient denies travel to an Ebola-affected area in the 21 days before illness onset. Screenin/14 00:05 Abuse screen: Denies threats or abuse. Nutritional screening: No deficits noted. vc1 Tuberculosis screening: No symptoms or risk factors identified. Fall Risk None identified. Vital Signs: 07/23 21:45 BP 131 / 92; Pulse 80; Resp 16; Temp 97.7; Pulse Ox 100% ; Weight 102.97 kg; Height 5 4 ft. 6 in. (167.64 cm); Pain 0/10; 21:45 Body Mass Index 36.64 (102.97 kg, 167.64 cm) [facility] ED Course: 21:12 Patient arrived in ED. jj6 21:48 Triage completed. [facility] 21:49 Arm band placed on right wrist. [facility] 23:38 Kael Finley MD is Attending Physician. [facility] 23:56 Anya Llanos MD is Referral Physician. [facility] 23:56 Mike Gaines MD is Referral Physician. [facility] 07/24 00:05 Daniella Byrd RN is Primary Nurse. vc1 00:06 No provider procedures requiring assistance completed. Patient did not have IV access vc1 during this emergency room visit. 00:07 Patient has correct armband on for positive identification. vc1 Administered Medications: 07/23 23:55 Drug: Augmentin (Amoxicillin-Clavulanate) 875 mg Route: PO; vc1 Medication: 07/24 00:07 VIS not applicable for this client. vc1 Outcome: 07/23 23:57 Discharge ordered by . romeo 07/24 00:06 Discharged to home ambulatory, with family. vc1 Condition: good Discharge instructions given to patient, Instructed on discharge instructions, follow up and referral plans. medication usage, Demonstrated understanding of instructions, follow-up care, medications, Prescriptions given X 2. 00:08 Patient left the ED. vc1 Signatures: Kael Finley MD MD cha Jeffries, Jennifer jj6 Calcote, Vanessa RN RN vc1 Edith Vega mc4
[2021-07-24] MEDS ORDERED: AMOX/K CLAV 875 MG TAB ONE
[2021-07-24 00:59] VITALS: BP 131/92; TEMP 97.7; O2SAT 100
== END 2021-07-24 00:08 | disposition home or self-care (01) ==
LOC: ER 21:08
DX: O26.891 Other specified pregnancy related conditions, first trimester (principal); L72.3 Sebaceous cyst; O99.331 Smoking (tobacco) complicating pregnancy, first trimester; F17.210 Nicotine dependence, cigarettes, uncomplicated; Z3A.01 Less than 8 weeks gestation of pregnancy; Z88.1 Allergy status to other antibiotic agents
CPT/HCPCS: 99283

== ENCOUNTER 2021-10-01 19:04 | Emergency (ER) | payer OTHER ==
--- OUTSIDE RECORDS SUMMARY | 2021-10-01 19:45 | XMS REPORT | Continuity of Care Document ---
:1990 Author Organization [facility] t Address [address] [place] [address] Care Team Providers Name Role Phone Group, Quynh Treviño [facility] Primary Care Physician [phone] [email or web address] Attending Clinician Unavailable Mayco Alcantar Attending Clinician [phone] Meenakshi Muhammad MD Attending Clinician MEENAKSHI MUHAMMAD Attending Clinician Unavailable Radha Randolph PA-C Attending Clinician RADHA RANDOLPH Attending Clinician Unavailable Doctor Unassigned, [place] Attending Clinician Unavailable [id number] Attending Clinician Unavailable Thiago Becker DO Attending Clinician SCOTTY_NAVI_Ortiz_[place] Admitting Clinician Unavailable Payers Payer Name Policy Type Policy Number Effective Date Expiration Date [facility] [id number] 2013 00:00:00 Problems Condition Condition Condition Status Onset Resolution Last Treating Co mments Source Name Details Category Date Date Treatment Clinician Date Obesity Obesity Disease Active 2019-02 Univers (BMI (BMI 1-02 ity of 30-39.9) 30-39.9) 00:00: [place] 00 Medical Branch Insomnia Insomnia Disease Active Unive rs due to due to 3-24 ity of other other 00:00: [place] mental mental 00 Medical disorder disorder Branch Chronic Chronic Disease Active 2018-02 Univers depression depression 0-29 it y of 00:00: [place] 00 Medical Branch Prediabete Prediabete Disease Active 2016-02 U nivers s s 2-26 ity of 00:00: [place] 00 Medical Branch Low HDL Low HDL Disease Active 2016-02 Univers (under 40) (under 40) 2-26 it y of 00:00: [place] 00 Medical Branch Vitamin D Vitamin D Disease Active 2016-02 Uni vers deficiency deficiency 2- it y of 00:00: [place] 00 Medical Branch Anxiety Anxiety Disease Active 2016-02 Univers disorder, disorder, 2-12 ity of unspecifie unspecifie [place] d type d type 00 Medical [place] Atopic Atopic Disease Active 2016-02 Univers dermatitis dermatitis 2-12 it y of , , 00:00: [place] unspecifie unspecifie 00 Me dical d type d type Branch Tobacco Tobacco Disease Active Univers use use ity of [facility] No known No known Disease Kelse y active active Seybold problems problems Allergies, Adverse Reactions, Alerts Allergy Allergy Status Severity Reaction(s) Onset Inactive Treating Comm ents Source Name Type Date Date Clinician Na Propensi Active Hives 2020-02 Quynh Benzoate ty to 2-28 Seybold -Sulfame adverse 00:00: thoxazol reaction 00 [...] Quantity Comments Source Exposure to Not sure [facility] SARS-CoV-2 (event) [place] [facility] History SDOH Quynh zaidi Alcohol Frequency History SDOH Quynh Peters ld Alcohol Std Drinks History SDOH Quynh Peters ld Alcohol Binge History of tobacco Snuff User Quynh Treviño use Alcohol intake 2021 2021 Current drinker Ning Treviño 00:00:00 00:00:00 of alcohol (finding) Tobacco use and 2021-02-06 2021-02-06 Smokeless Quynh kent exposure 00:00:00 00:00:00 tobacco non-user Cigarettes smoked [...] Medication? Clinician (SIG) Name Name Griffin Yes [id number] Apply BID K elsey Acid 15 % 5-16 to face Seybold apply 00:00: externally 00 Gel norgestimat Yes [id number] 1{tbl} Take 1 Univers e-ethinyl 1-20 tablet by ity o f estradioL 00:00: mouth [place] 0.25-35 00 daily. Medical mg-mcg per Branch tablet norgestimat Yes [id number] 1{tbl} Take 1 Univers e-ethinyl 1-20 tablet by ity o f estradioL 00:00: mouth [place] 0.25-35 00 daily. Medical mg-mcg per Branch tablet norgestimat Yes [id number] 1{tbl} Take 1 Univers e-ethinyl 1-20 tablet by ity o f estradioL 00:00: mouth [place] 0.25-35 00 daily. Medical mg-mcg per Branch tablet norgestimat Yes [id number] 1{tbl} Take 1 Univers e-ethinyl 1-20 tablet by ity o f estradioL 00:00: mouth [place] 0.25-35 00 daily. Medical mg-mcg per Branch tablet fluconazole 2021- No [id number] 150mg Take 1 Univers 150 mg 1-20 - tablet by ity of tablet 00:00: 05:59 [place] now for 1 Medical dose. Branch fluconazole 2021- No [id number] 150mg Take 1 Univers 150 mg 1-20 -21 tablet by ity of tablet 00:00: 05:59 [place] :[place] now for 1 Medical dose. Branch Clindamycin 2020-02 Yes [id number] 300mg Take 1 Quynh HCl 300 MG 2-28 capsule Seybol d oral 00:00: (300 mg Capsule 00 total) by mouth 3 times daily Clindamycin 2020-02- No [id number] 300mg Take 1 Quynh HCl 300 MG [...] 00:00: 00:00 mouth Tablet 00 :00 daily methylPREDN 2020-02 Yes [id number] Follow Univers ISolone 4 0-18 package ity of mg tablets 00:00: directions [place] ex Medical Branch benzonatate 2020-02 Yes [id number] 200mg Take 1 Univers 200 mg 0-18 capsule by ity of capsule 00:00: mouth 3 (three) Medical times Branch daily as needed for Cough. buPROPion 2020-02 Yes [id number] 200mg Take 1 U nivers 200 mg 12 0-18 tablet by ity o f hr tablet 00:00: mouth 2 00 (two) Medical times Branch daily. traZODone 2020-02 Yes [id number] 25mg Take 0.5-1 Univers 50 mg 0-18 tablets by ity of tablet 00:00: mouth at [place] 00 bedtime. Medical Branch vortioxetin 2020-02 Yes [id number] 1{tbl} Take 1 Univers e 0-18 tablet by ity of (TRINTELLIX 00:00: mouth ) 10 mg Tab 00 daily. Medica l Branch methylPREDN 2020-02 Yes [id number] Follow Univers ISolone 4 0-18 package ity of mg tablets 00:00: directions ex Medical Branch benzonatate 2020-02 Yes [id number] 200mg Take 1 Univers 200 mg 0-18 capsule by ity of capsule 00:00: mouth 3 (three) Medical times Branch daily as needed for Cough. buPROPion 2020-02 Yes [id number] 200mg Take 1 U nivers 200 mg 12 0-18 tablet by ity o f hr tablet 00:00: mouth 2 (two) Medical times Branch daily. traZODone 2020-02 Yes [id number] 25mg Take 0.5-1 Univers 50 mg 0-18 tablets by ity of tablet 00:00: mouth at [place] bedtime. Medical Branch vortioxetin 2020-02 Yes [id number] 1{tbl} Take 1 Univers e 0-18 tablet by ity of (TRINTELLIX 00:00: mouth ) 10 mg Tab 00 daily. Medica l Branch methylPREDN 2020-02 Yes [id number] Follow Univers ISolone 4 0-18 package ity of mg tablets 00:00: directions Medical Branch benzonatate 2020-02 Yes [id number] 200mg Take 1 Univers 200 mg 0-18 capsule by ity of capsule 00:00: mouth 3 (three) Medical times Branch daily as needed for Cough. buPROPion 2020-02 Yes [id number] 200mg Take 1 U nivers 200 mg 12 0-18 tablet by ity o f hr tablet 00:00: mouth 2 (two) Medical times Branch daily. traZODone 2020-02 Yes [id number] 25mg Take 0.5-1 Univers 50 mg 0-18 tablets by ity of tablet 00:00: mouth at [place] 00 bedtime. Medical Branch vortioxetin 2020-02 Yes [id number] 1{tbl} Take 1 Univers e 0-18 tablet by ity of (TRINTELLIX 00:00: mouth [place] ) 10 mg Tab 00 daily. Medica l Branch methylPREDN 2020-02 Yes [id number] Follow Univers ISolone 4 0-18 package ity of mg tablets 00:00: directions [place] 00 Medical [place] benzonatate 2020-02 Yes [id number] 200mg Take 1 Univers 200 mg 0-18 capsule by ity of capsule 00:00: mouth 3 [place] (three) Medical times Branch daily as needed for Cough. buPROPion 2020-02 Yes [id number] 200mg Take 1 U nivers 200 mg 12 0-18 tablet by ity o f hr tablet 00:00: mouth 2 [place] (two) Medical times Branch daily. traZODone 2020-02 Yes [id number] 25mg Take 0.5-1 Univers 50 mg 0-18 tablets by ity of tablet 00:00: mouth at [place] 00 bedtime. Medical Branch vortioxetin 2020-02 Yes [id number] 1{tbl} Take 1 Univers e 0-18 tablet by ity of (TRINTELLIX 00:00: mouth [place] ) 10 mg Tab 00 daily. Medica l Branch Bupropion 2020-02 Yes 200mg Take 200 Victor M sey HCL SR 200 0-18 mg by Seybold MG OR TB12 00:00: mouth 2 00 times daily Trazodone 2020-02 Yes TAKE 1/2 Carly ey HCl 50 MG 0-18 TO 1 Seybold oral Tablet 00:00: TABLET BY 00 MOUTH AT BEDTIME Bupropion 2020-02- No 200mg Take 200 Ke lsey HCL SR 200 0-18 05-16 mg by Seybold MG OR TB12 00:00: 00:00 mouth 2 00 :00 times daily Trazodone 2020-02- No TAKE 1/2 Victor M sey HCl 50 MG 0-18 05-16 TO 1 [place] oral Tablet 00:00: 00:00 TABLET BY 00 :00 MOUTH AT BEDTIME azithromyci 2020-02- No [id number] Take 500 Univers n 0-18 01-20 mg PO day ity of (ZITHROMAX 00:00: 00:00 1, then Nikko as Z-ES) 250 00 :00 250 mg Medical mg tablet days 2 to Branc h 5. azithromyci 2020-02- No [id number] Take 500 Univers n 0-18 01-20 mg PO day ity of (ZITHROMAX 00:00: 00:00 1, then Nikko as Z-ES) 250 00 :00 250 mg Medical mg tablet days 2 to Branc h 5. norgestimat 2021- No [id number] 1{tbl} Take 1 Univers e-ethinyl 3-10 01-20 tablet by ity of estradioL 00:00: 00:00 mouth [place] 0.25-35 00 :00 daily. Medical mg-mcg per Branch tablet norgestimat 2021- No [id number] 1{tbl} Take 1 Univers e-ethinyl 3-10 01-20 tablet by ity of estradioL 00:00: 00:00 mouth [place] 0.25-35 00 :00 daily. Medical mg-mcg per Branch tablet HydrOXYzine 2020- No TAKE ONE K elsey HCl 25 MG -16 02-06 OR TWO Seybold oral Tab 00:00: 00:00 TABLETS 00 :00 QHS PRN ITCHING. WILL MAKE SLEEPY Desoximetas 2015-02- No [id number] Apply Quynh one 0.25 % 04-02 sparingly Sey bold apply 00:00: 00:00 BID [...] Immunizations Ordered Filled Immunization Date Status Comments [facility] Immunization Name Name HPV9 2018-09-10 Completed University of 00:00:00 [facility] HPV9 2018-09-10 Completed University of 00:00:00 [facility] Branch HPV9 2018-09-10 Completed University of 00:00:00 [facility] HPV9 2018-09-10 Completed University of 00:00:00 [facility] Pneumococcal 2017-01-29 Completed University o f Polysaccharide, 00:00:00 [place] Med ical PPSV23 (PNEUMOVAX) Branch Pneumococcal 2017-01-29 Completed University o f Polysaccharide, 00:00:00 [place] Med ical PPSV23 (PNEUMOVAX) Branch Pneumococcal 2017-01-29 Completed University o f Polysaccharide, 00:00:00 [place] Med ical PPSV23 (PNEUMOVAX) Branch Pneumococcal 2017-01-29 Completed University o f Polysaccharide, 00:00:00 [place] Med ical PPSV23 (PNEUMOVAX) Branch TDAP 2013-08-19 Completed University of 00:00:00 [facility] TDAP 2013-08-19 Completed University of 00:00:00 [facility] TDAP 2013-08-19 Completed University of 00:00:00 [facility] TDAP 2013-08-19 Completed University of 00:00:00 [facility] Vital Signs Vital Name Observation Time Observation Value Comments Source Body weight 2021 19:23:00 102.059 kg Quynh huerta BMI 2021 19:23:00 36.32 kg/m2 Quynh huerta Systolic blood 2021-03-01 19:00:00 132 mm[Hg] Univer sity of pressure [facility] Diastolic blood 2021-03-01 19:00:00 79 mm[Hg] Unive rsity of pressure [facility] Heart rate 2021-03-01 19:00:00 82 /min Universi [facility] Body temperature 2021-03-01 19:00:00 36.83 Simona Univ ersity [facility] Respiratory rate 2021-03-01 19:00:00 18 /[facility] height 2021-03-01 19:00:00 167.6 cm Universi ty [facility] Body weight 2021-03-01 19:00:00 100.426 kg Universi ty [facility] BMI 2021-03-01 19:00:00 35[facility]73 [facility]m2 [facility] Body temperature 2021-02-06 14:54:00 36.61 Simona Carly Treviño Body weight 2021-02-06 14:54:00 100.245 kg Quynh huerta BMI 2021-02-06 14:54:00 35.67 kg/m2 Quynh huerta Procedures Procedure Date / Time Performing Clinician Source Performed CONSENT FOR 2021-03-01 06:01:00 Doctor Unassigned, No [facility] [place] [facility] CONTRACEPTION Name [facility] Encounters Start End Encounter Admission Attending Care Care Encounter Source Date/Time Date/Time Type Type Clinicians Facility Department ID 2021-09-17 2021-09-17 Outpatient GC_[facility]_ PRIV PRIV [id number] [facility] 00:00:00 00:00:00 Shelton_G [id number] [facility] 2021-09-11 2021-09-11 Outpatient GC_[facility]WHAOMC_ PRIV PRIV [id number] [facility] 00:00:00 00:00:00 Shelton_G [id number] [facility] 2021-09-11 2021-09-11 Outpatient Alcantar, PRIV PRIV [id number] 00:00:00 00:00:00 Mayco [id number] Rule [id number] 2021-08-28 2021-08-28 Outpatient GC_[facility]AOM[facility]_ PRIV PRIV [id number] [facility] 00:00:00 00:00:00 Shelton_G [id number] [facility] 2021-08-25 2021-08-25 Outpatient GC_SWHAOMC_ PRIV PRIV [id number] [facility] 01:34:00 01:34:00 Shelton_G [id number] [facility] 2021-08-15 2021-08-15 Outpatient GC_SWHAOMC_ PRIV PRIV [id number] [facility] 07:11:00 07:11:00 Shelton_G [id number] [facility] 2021-08-14 2021-08-14 Outpatient GC_SWHAOMC_ PRIV PRIV [id number] [facility] 12:44:00 12:44:00 Shelton_G [id number] [facility] 2021-08-14 2021-08-14 Outpatient Alcantar, PRIV PRIV [id number] 00:00:00 00:00:00 Mayco [id number] Tanvir [id number] 2021-08-10 2021-08-10 Outpatient GC_[facility]AOM[facility]_ PRIV PRIV [id number] [facility] 04:14:00 04:14:00 Ortiz_G [id number] [facility] laverne 2021-08-02 2021-08-02 Outpatient GC_SWHAOMC_ PRIV PRIV [id number] [facility] 10:59:00 10:59:00 Shelton_G [id number] Medi laverne 2021-07-31 2021-07-31 Outpatient GC_SWHAOMC_ PRIV PRIV [id number] [facility] 04:45:00 04:45:00 Ortiz_G [id number] [facility] laverne 2021-07-30 2021-07-30 Outpatient GC_[facility]AOMC_ PRIV PRIV [id number] [facility] 04:26:00 04:26:00 Ortiz_G [id number] [facility] 2021-07-30 2021-07-30 Outpatient Alcantar, PRIV PRIV [id number] 00:00:00 00:00:00 Mayco [id number] Tanvir [id number] 2021-07-26 2021-07-26 Outpatient GC_[facility]WHAOMC_ PRIV PRIV [id number] [facility] 11:58:00 11:58:00 Ortiz_G [id number] [facility] 2021-07-25 2021-07-25 Outpatient PRIV PRIV [id number] [facility] 04:20:00 04:20:00 [id number] Medica l 2021 2021 Office ADRIAN Muhammad [id number] Quynh 14:15:00 14:30:00 Visit Meenakshi [id number] Ariel huerta [id number] 2021-03-20 2021-03-20 Outpatient QUYNH MUHAMMAD [id number] Quynh 16:00:00 16:00:00 MEENAKSHI zaidi 2021-03-01 2021-03-01 [facility] [id number] Univers 13:30:00 13:42:53 Visit Radha CHUNG [id number] i ty of [place] PROF[place] [id number] Md dical NAL [address] [place] [address] 2021-03-01 2021-03-01 Outpatient R [address]USTÍN [facility] [id number] Univers 13:30:00 13:42:53 RADHA ity [facility] 2021-03-01 2021-03-01 [facility] [id number] Univers 00:00:00 00:00:00 Radha JULIET [id number] i ty of [place] 4[place] PROF[place] [id number] Md dical [address] 2021-03-01 2021-03-01 Orders Doctor ELDER [id number] Univers 00:00:00 00:00:00 Only Unassigned, MARCELINO [id number] ity of [place] [facility] 4.2.7.2.686 Nikko as [id number] [address] 2021-02-06 2021-02-06 Office ADRIAN Muhammad [id number] Quynh 09:00:00 09:15:00 Visit Meenakshi [id number] S bradley 1.2.7.2.686 [id number] 2021-02-06 2021-02-06 Outpatient [id number] QUYNH GUERRA [id number] Quynh 07:05:00 07:05:00 Seybol d 2020-05-02 2020-05-02 Patient Eugenio LAANA [id number] 00:00:00 00:00:00 Outreach Thiago DERAS [id number] Joe [facility] 4.2.7.2.686 PAVILLION [id number] 2020-05-01 2020-05-01 Orders Doctor ELDER [id number] 00:00:00 00:00:00 Only Unassigned, MARCELINO [id number] [facility] [id number] [id number] 2020-04-26 2020-04-26 [facility] [id number] 00:00:00 00:00:00 Radha Chung [id number] [place] 4.2.7.2.686 Professio [id number] [address] 2020-04-25 2020-04-25 [facility] [id number] 00:00:00 00:00:00 Management Radha Chung [id number] [place] [id number] Professio [id number] [address] 2020-04-19 2020-04-19 Orders Doctor JAEL [id number] 00:00:00 00:00:00 Only Unassigned, MARCELINO [id number] [place] [facility] 4.2.7.2.686 [id number] Results This patient has no known results.
--- NOTE | 2021-10-01 21:23 | ER ---
Nurse's Notes [facility] Name: Veronica Moore Age: 31 yrs Sex: Female : 1990 Arrival Date: 10/01/2021 Time: 19:15 Bed External Waiting Private MD: Diagnosis: Migraine without aura, not intractable Presentation: 10/01 19:41 Chief complaint: Patient states: Pt reports migraine x4 days with photophobia and kb3 vomiting that began today. Coronavirus screen: Vaccine status: Patient reports being unvaccinated. Client denies travel out of the [place] in the last 14 days. Ebola Screen: Patient negative for fever greater than or equal to 101.5 degrees Fahrenheit, and additional compatible Ebola Virus Disease symptoms Patient denies exposure to infectious person. Patient denies travel to an Ebola-affected area in the 21 days before illness onset. No symptoms or risks identified at this time. Initial Sepsis Screen: Does the patient meet any 2 criteria? No. Patient's initial sepsis screen is negative. Does the patient have a suspected source of infection? No. Patient's initial sepsis screen is negative. Risk Assessment: Do you want to hurt yourself or someone else? Patient reports no desire to harm self or others. Onset of symptoms was September 27, 2021. 19:41 Method Of Arrival: Ambulatory kb3 19:41 Acuity: EMANUEL 3 kb3 Triage Assessment: 19:43 General: Appears in no apparent distress. Behavior is calm, cooperative. Pain: kb3 Complains of pain in head Pain does not radiate. Pain currently is 9 out of 10 on a pain scale. Quality of pain is described as aching, throbbing. GI: Reports nausea, vomiting. 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 - Social history:: Smoking status: Patient/guardian denies using tobacco. Assessment: 21:21 General: Attempted to room pt. Unable to locate. Registration reports that pt left ED. kb3 Vital Signs: 19:41 BP 122 / 76; Pulse 92; Resp 18; Temp 98.1; Pulse Ox 100% ; Weight 107.5 kg; Height 5 kb3 ft. 6 in. (167.64 cm); Pain 8/10; 19:41 Body Mass Index 38.25 (107.50 kg, 167.64 cm) kb3 Mitchell Coma Score: 22:03 Eye Response: spontaneous(4). Verbal Response: oriented(5). Motor Response: obeys kb commands(6). Total: 15. ED Course: 19:15 Patient arrived in ED. ja2 19:38 Julianna Arce FNP-C [facility]. kb 19:38 Kael Finley MD is Attending Physician. kb 19:43 Triage completed. kb3 19:43 Arm band placed on right wrist. kb3 Administered Medications: No medications were administered Outcome: 21:22 Patient left the ED. kb3 21:24 Patient left the ED. kb3 21:58 Discharge ordered by MD. kb 21:58 Patient left the ED. kb Signatures: Julianna Arce FNP-C FNP-Melissa Fermin2 Felisha Poole, RN RN kb3
[2021-10-01 21:44] VITALS: BP 122/76; TEMP 98.1; O2SAT 100
--- NOTE | 2021-10-01 21:58 | EDPHYS ---
Physician Documentation [facility] Name: Veronica Moore Age: 31 yrs Sex: Female : 1990 Arrival Date: 10/01/2021 Time: 19:15 Bed External Waiting Private MD: MICHAEL Physician Kael Finley HPI: 10/01 22:04 This 31 yrs old Female presents to ER via Ambulatory with complaints of kb Nausea/Vomiting, Headache, 13 WKS Gestation. 22:04 The patient complains of pain to the forehead, left alevism and right alevism. The kb patient describes the headache as throbbing. Onset: The symptoms/episode began/occurred today. Associated signs and symptoms: Pertinent positives: nausea, vomiting. Severity of symptoms: At its worst the pain was moderate, in the emergency department the pain is unchanged. Headache History: The patient has had previous headaches and this one is similar to previous episodes. The symptoms are alleviated by nothing. the symptoms are aggravated by lights, noise. The patient has not experienced similar symptoms in the past. The patient has not recently seen a physician. Patient reports migraine that started today. States this migraine is similar to ones that she had in the past. Normally takes Excedrin migraine for symptoms but cannot due to so she came in for treatment.. [employer]: 19:43 LMP 06/29/2021, Verified, EDC 04/05/2022, Gestational age from LMP: 13 weeks 4 kb3 days Historical: - Allergies: 19:43 Bactrim; kb3 19:43 Naproxen; kb3 - Home Meds: 19:43 None [Active]; kb3 - PMHx: 19:43 Anxiety; Depression; Migraine; kb3 - PSHx: 19:43 section; kb3 - Immunization history:: Adult Immunizations up to date, Client reports receiving the 2nd dose of the Covid vaccine, Last tetanus immunization: up to date. - Social history:: Smoking status: Patient/guardian denies using tobacco. ROS: 22:04 Constitutional: Negative for fever, chills, and weight loss. kb 22:04 Abdomen/GI: Positive for nausea and vomiting, Negative for abdominal pain. 22:04 Neuro: Positive for headache. 22:04 All other systems are negative. Exam: 22:04 Constitutional: This is a well developed, well nourished patient who is awake, alert, kb and in no acute distress. Head/Face: Normocephalic, atraumatic. Eyes: Pupils equal round and reactive to light, extra-ocular motions intact. Lids and lashes normal. Conjunctiva and sclera are non-icteric and not injected. Cornea within normal limits. Periorbital areas with no swelling, redness, or edema. ENT: Moist Mucous membranes Cardiovascular: Regular rate and rhythm with a normal S1 and S2. No gallops, murmurs, or rubs. No pulse deficits. Respiratory: Respirations even and unlabored. No increased work of breathing. Talking in full sentences Skin: Warm, dry with normal turgor. Normal color. MS/ Extremity: Pulses equal, no cyanosis. Neurovascular intact. Full, normal range of motion. Neuro: Awake and alert, GCS 15, oriented to person, place, time, and situation. Moves all extremities. Normal gait. Psych: Awake, alert, with orientation to person, place and time. Behavior, mood, and affect are within normal limits. Vital Signs: 19:41 BP 122 / 76; Pulse 92; Resp 18; Temp 98.1; Pulse Ox 100% ; Weight 107.5 kg; Height 5 kb3 ft. 6 in. (167.64 cm); Pain 8/10; 19:41 Body Mass Index 38.25 (107.50 kg, 167.64 cm) kb3 Mitchell Coma Score: 22:03 Eye Response: spontaneous(4). Verbal Response: oriented(5). Motor Response: obeys kb commands(6). Total: 15. MDM: 19:44 Patient medically screened. kb 22:03 Data reviewed: vital signs, nurses notes. Data interpreted: Pulse oximetry: on room air kb is 100 %. Interpretation: normal. ED course: Pt was examined in triage and we discussed a plan of care. Pt elected to leave prior to treatment. Pt may return at any time for any reason. . 10/01 20:48 Order name: IV Start kb Administered Medications: No medications were administered Disposition Summary: 10/01/21 21:58 Discharge Ordered Location: Home kb Condition: Stable kb Diagnosis - Migraine without aura, not intractable kb Followup: kb - With: Emergency Department - When: As needed - Reason: Worsening of condition Followup: kb - With: Private Physician - When: 2 - 3 days - Reason: Recheck today's complaints, Continuance of care, Re-evaluation by your physician Forms: - Medication Reconciliation Form kb - Thank You Letter kb - Antibiotic Education kb - Prescription Opioid Use kb Signatures: Julianna Arce, PATRICIA-C PATRICIA-Felisha Martinez, RN RN kb3 Corrections: (The following items were deleted from the chart) :58 21:22 before being seen by provider kb3 kb :58 21:22 unknown kb3 kb
== END 2021-10-01 21:58 | disposition home or self-care (01) ==
LOC: ER 19:04
DX: Z02.9 Encounter for administrative examinations, unspecified (principal)
CPT/HCPCS: 99281

== ENCOUNTER 2022-10-11 17:14 | Emergency (ER) | payer OTHER, SELFPAY ==
--- OUTSIDE RECORDS SUMMARY | 2022-10-11 17:22 | XMS REPORT | Continuity of Care Document ---
:1990 Author Organization [facility] t Address [address] [place] [address] Care Team Providers Name Role Phone Group, [facility] [phone] Maxx Alcantar Attending Clinician Unavailable Blanca Patel Attending Clinician Lab, Ang - Db Attending Clinician Unavailable BLANCA COHEN Attending Clinician Unavailable Doctor Unassigned, [place] Attending Clinician Unavailable ANAI_Ortiz_Raleigh Attending Clinician Unavailable Mayco Alcantar Attending Clinician Unavailable Jenni Attending Clinician Unavailable Mayco Alcantar Attending Clinician [phone] Chiquita Muhammad MD Attending Clinician CHIQUITA MUHAMMAD Attending Clinician Unavailable Qing Randolph PA-C Attending Clinician QING RANDOLPH Attending Clinician Unavailable Zenon CAMACHO, Sahra Dawkins Attending Clinician Unavailable SAM العراقي Attending Clinician Unavailable Only, Ang Db Test Attending Clinician Unavailable Sam Loomis Attending Clinician [id number] Attending Clinician Unavailable ANGELA OSEGUERA Attending Clinician Unavailable Angela Oseguera DO Attending Clinician Felicity Carter MD Attending Clinician FELICITY CARTER Attending Clinician Unavailable Thiago Becker DO Attending Clinician Farzaneh Loredo MD Attending Clinician GC_[email or web address]_Raleigh Admitting Clinician Unavailable Mayco Alcantar Admitting Clinician Unavailable Jenni Admitting Clinician Unavailable Payers Payer Name Policy Type Policy Number Effective Date Expiration Date [facility] [id number] 2022 [place] 00:[place]:00 (MEDICAID HMO) [facility] [id number] 2013 00:00:00 [place] [id number] 2018 OF STATE 00:00:00 Problems Condition Condition Condition Status Onset Resolution Last Treating Co mments Source Name Details Category Date Date Treatment Clinician Date Obesity Obesity Disease Active 2019-02 Univers (BMI (BMI 1-02 ity of 30-39.9) 30-39.9) 00:00: [place] [address] Medical Branch Insomnia Insomnia Disease Active Unive rs due to due to 3-24 ity of other other 00:00: [place] mental mental 00 Medical disorder disorder Branch Chronic Chronic Disease Active 2018-02 Univers depression depression 0-29 it y of 00:00: [place] [address] Medical Branch Prediabete Prediabete Disease Active 2016-02 U nivers s s 2-26 ity of 00:00: [place] [address] Medical Branch Low HDL Low HDL Disease Active 2016-02 Univers (under 40) (under 40) 2-26 it y of 00:00: [place] 00 Medical Branch Vitamin D Vitamin D Disease Active 2016-02 Uni vers deficiency deficiency - it y of 00:00: [place] 00 Medical Branch Anxiety Anxiety Disease Active 2016-02 Univers disorder, disorder, 2-12 ity of unspecifie [place] type 00 Medical [place] Atopic Atopic Disease Active 2016-02 Univers dermatitis dermatitis 2-12 it y of , , 00:00: [place] unspecifie unspecifie 00 Me dical d type d type Branch No known No known Disease Kelse y active active [facility] problems problems Tobacco Tobacco Disease Active Univers use use ity of [facility] Allergies, Adverse Reactions, Alerts Allergy Allergy Status Severity Reaction(s) Onset Inactive Treating Comm ents Source Name Type Date Date Clinician SULFAMET DRUG Active Swelling Univer s HOXAZOLE 6-22 ity of -TRIMETH 00:00: [place] [facility] Medical Branch Sulfamet Drug Active Swelling Univer s hoxazole Allergy 6-22 ity of -Trimeth 00:00: [place] oprim 00 [facility] Branch sulfamet DA Active U [facility] hoxazole 2-09 [facility] 00:[facility]: [facility] [place] trimetho DA Active [facility] prim 2-09 [facility] 00[facility]: [facility] l of [place] Na Propensi Active Hives 2020-02 Quynh Benzoate ty to 2-28 [facility] -Sulfame adverse 00:00: thoxazol reaction 00 e-Trimet s hoprim Sulfa Propensi Active Swelling Univer s (Sulfona ty to 9-13 ity of mide adverse 00:00: [place] Antibiot reaction 00 Medica l ics) s Branch SULFA Drug Active Hives Univers (SULFONA Class 9-13 ity of MIDE 00:00: [place] ANTIBIOT 00 Medical ICS) Branch Sulfa Propensi Active Swelling Univer s (Sulfona ty to 9-13 ity of mide adverse 00:00: [place] Antibiot reaction 00 Medica l ics) s Branch No Known DA Active U [facility] Allergie 7-10 [facility] s 00:00: [facility] [place] Bactrim Allergy Active [facility] to Medical substan e Social History Social Habit Start Date Stop Date Quantity Comments Source History of tobacco Cigarette Smoker University of use [facility] History SDOH Quyhn zaidi Alcohol Frequency Exposure to Not sure University of SARS-CoV-2 (event) [facility] History SDOH Quynh zaidi Alcohol Std Drinks History SDOH Quynh zaidi Alcohol Binge Tobacco use and 2022-08-01 2022-08-01 Smokeless Universit y of exposure 00:00:00 00:00:00 tobacco non-user [facility] dical Branch Cigarette 2022-08-01 2022-08-01 University of pack-years 00:00:00 00:00:00 [facility] Alcohol intake 2021 2021 Current drinker Ning Treviño 00:00:00 00:00:00 of alcohol (finding) Cigarettes smoked 2021-02-06 2021-02-06 Quynh Treviño current (pack per 00:00:00 00:00:00 day) - Reported Alcohol Comment 2015-12-04 2015-12-04 says "slim" very Victor M Treviño 00:00:00 00:00:00 little Sex Assigned At [address] [facility] kes 00:00:00 [facility]:00 [facility] Smoking Status Start Date Stop Date Source Heavy Tobacco Smoker Jayant galloway Smokes tobacco daily 2022-08-01 00:00:00 [facility] Medications Ordered Filled Start Stop Current Ordering Indication Dosage Frequency Signature Comments Components Source Medication Medication Date Date Medication? Clinician (SIG) Name Name Griffin Yes [id number] Apply BID K elsey Acid 15 % 5-16 to face Seybold apply 00:00: externally 00 Gel norgestimat Yes [id number] 1{tbl} Take 1 Univers e-ethinyl 1-20 tablet by ity o f estradioL 00:00: mouth [place] 0.25-35 00 daily. Medical mg-mcg per Branch tablet norgestimat Yes [id number] 1{tbl} Take 1 Univers e-ethinyl 1-20 tablet by ity o f estradioL 00:00: mouth [place] 0.25-35 00 daily. Medical mg-mcg per Branch tablet norgestimat 2021-0 Yes [id number] 1{tbl} Take 1 Univers e-ethinyl 1-20 tablet by ity o f estradioL 00:00: mouth [place] 0.25-35 00 daily. Medical mg-mcg per Branch tablet norgestimat 2021-0 Yes [id number] 1{tbl} Take 1 Univers e-ethinyl 1-20 tablet by ity o f estradioL 00:00: mouth [place] 0.25-35 00 daily. Medical mg-mcg per Branch tablet norgestimat 2021-0 Yes [id number] 1{tbl} Take 1 Univers e-ethinyl 1-20 tablet by ity o f estradioL 00:00: mouth [place] 0.25-35 00 daily. Medical mg-mcg per Branch tablet norgestimat 2021- Yes [id number] 1{tbl} Take 1 Univers e-ethinyl 1-20 tablet by ity o f estradioL 00:00: mouth [place] 0.25-35 00 daily. Medical mg-mcg per Branch tablet norgestimat 2021-0 Yes [id number] 1{tbl} Take 1 Univers e-ethinyl 1-20 tablet by ity o f estradioL 00:00: mouth [place] 0.25-35 00 daily. Medical mg-mcg per Branch tablet norgestimat 2021-0 Yes [id number] 1{tbl} Take 1 Univers e-ethinyl 1-20 tablet by ity o f estradioL 00:00: mouth [place] 0.25-35 00 daily. Medical mg-mcg per Branch tablet norgestimat 2021-0 Yes [id number] 1{tbl} Take 1 Univers e-ethinyl 1-20 tablet by ity o f estradioL 00:00: mouth [place] 0.25-35 00 daily. Medical mg-mcg per Branch tablet norgestimat 2021-0 Yes [id number] 1{tbl} Take 1 Univers e-ethinyl 1-20 tablet by ity o f estradioL 00:00: mouth [place] 0.25-35 00 daily. Medical mg-mcg per Branch tablet norgestimat 2021-0 Yes [id number] 1{tbl} Take 1 Univers e-ethinyl 1-20 tablet by ity o f estradioL 00:00: mouth [place] 0.25-35 00 daily. Medical mg-mcg per Branch tablet norgestimat Yes [id number] 1{tbl} Take 1 Univers e-ethinyl 1-20 tablet by ity o f estradioL 00:00: mouth [place] 0.25-35 00 daily. Medical mg-mcg per Branch tablet fluconazole 2021- No [id number] 150mg Take 1 Univers 150 mg 1-20 -21 tablet by ity of tablet 00:00: 05:59 [place] :[place] now for 1 Medical dose. [place] fluconazole 2021- No [id number] 150mg Take 1 Univers 150 mg 1-20 -21 tablet by ity of tablet 00:00: 05:59 [place] :[place] now for 1 Medical dose. [place] Clindamycin 2020-02 Yes [id number] 300mg Take 1 Quynh HCl 300 MG 2-28 capsule Seybol d oral 00:00: (300 mg Capsule 00 total) by mouth 3 times daily Clindamycin 2020-02- No [id number] 300mg Take 1 Quynh HCl 300 MG [...] 00:00: 00:00 mouth Tablet 00 :00 daily Bupropion 2020-02 Yes 200mg Take 200 Victor M sey HCL SR 200 0-18 mg by Seybold MG OR TB12 00:00: mouth 2 00 times daily Trazodone 2020-02 Yes TAKE 1/2 Carly ey HCl 50 MG 0-18 TO 1 [facility] oral Tablet 00:00: TABLET BY 00 MOUTH AT BEDTIME methylPREDN 2020-02 Yes [id number] Follow Univers ISolone 4 0-18 package ity of mg tablets 00:00: directions [place] benzonatate 2020-02 Yes [id number] 200mg Take 1 Univers 200 mg 0-18 capsule by ity of capsule 00:00: mouth 3 (three) Medical times Branch daily as needed for Cough. buPROPion 2020-02 Yes [id number] 200mg Take 1 U nivers 200 mg 12 0-18 tablet by ity o f hr tablet 00:00: mouth 2 (two) Medical times Branch daily. traZODone 2020-02 Yes [id number] 25mg Take 0.5-1 Univers 50 mg 0-18 tablets by ity of tablet 00:00: mouth at [place] 00 bedtime. Medical Branch vortioxetin 2020-02 Yes [id number] 1{tbl} Take 1 Univers e 0-18 tablet by ity of (TRINTELLIX 00:00: mouth ) 10 mg Tab 00 daily. Medica l Branch methylPREDN 2020-02 Yes [id number] Follow Univers ISolone 4 0-18 package ity of mg tablets 00:00: directions Medical Branch benzonatate 2020-02 Yes [id number] 200mg Take 1 Univers 200 mg 0-18 capsule by ity of capsule 00:00: mouth (three) Medical times Branch daily as needed for Cough. buPROPion 2020-02 Yes [id number] 200mg Take 1 U nivers 200 mg 12 0-18 tablet by ity o f hr tablet 00:00: mouth (two) Medical times Branch daily. traZODone 2020-02 Yes [id number] 25mg Take 0.5-1 Univers 50 mg 0-18 tablets by ity of tablet 00:00: mouth at 00 bedtime. Medical Branch vortioxetin 2020-02 Yes [id number] 1{tbl} Take 1 Univers e 0-18 tablet by ity of (TRINTELLIX 00:00: mouth ) 10 mg Tab 00 daily. Medica l Branch methylPREDN 2020-02 Yes [id number] Follow Univers ISolone 4 0-18 package ity of mg tablets 00:00: directions Medical Branch benzonatate 2020-02 Yes [id number] 200mg Take 1 Univers 200 mg 0-18 capsule by ity of capsule 00:00: mouth 3 [place] 00 (three) Medical times Branch daily as needed for Cough. buPROPion 2020-02 Yes [id number] 200mg Take 1 U nivers 200 mg 12 0-18 tablet by ity o f hr tablet 00:00: mouth 2 (two) Medical times Branch daily. traZODone 2020-02 Yes [id number] 25mg Take 0.5-1 Univers 50 mg 0-18 tablets by ity of tablet 00:00: mouth at [place] 00 bedtime. Medical Branch vortioxetin 2020-02 Yes [id number] 1{tbl} Take 1 Univers e 0-18 tablet by ity of (TRINTELLIX 00:00: mouth ) 10 mg Tab 00 daily. Medica l Branch methylPREDN 2020-02 Yes [id number] Follow Univers ISolone 4 0-18 package ity of mg tablets 00:00: directions [place] Medical Branch benzonatate 2020-02 Yes [id number] 200mg Take 1 Univers 200 mg 0-18 capsule by ity of capsule 00:00: mouth 3 (three) Medical times Branch daily as needed for Cough. buPROPion 2020-02 Yes [id number] 200mg Take 1 U nivers 200 mg 12 0-18 tablet by ity o f hr tablet 00:00: mouth 2 (two) Medical times Branch daily. traZODone 2020-02 Yes [id number] 25mg Take 0.5-1 Univers 50 mg 0-18 tablets by ity of tablet 00:00: mouth at [place] 00 bedtime. Medical Branch vortioxetin 2020-02 Yes [id number] 1{tbl} Take 1 Univers e 0-18 tablet by ity of (TRINTELLIX 00:00: mouth ) 10 mg Tab 00 daily. Medica l Branch methylPREDN 2020-02 Yes [id number] Follow Univers ISolone 4 0-18 package ity of mg tablets 00:00: directions [place] Medical Branch benzonatate 2020-02 Yes [id number] 200mg Take 1 Univers 200 mg 0-18 capsule by ity of capsule 00:00: mouth 3 (three) Medical times Branch daily as needed for Cough. buPROPion 2020-02 Yes [id number] 200mg Take 1 U nivers 200 mg 12 0-18 tablet by ity o f hr tablet 00:00: mouth 2 [place] 00 (two) Medical times Branch daily. traZODone 2020-02 Yes [id number] 25mg Take 0.5-1 Univers 50 mg 0-18 tablets by ity of tablet 00:00: mouth at [place] 00 bedtime. Medical Branch vortioxetin 2020-02 Yes [id number] 1{tbl} Take 1 Univers e 0-18 tablet by ity of (TRINTELLIX 00:00: mouth [place] ) 10 mg Tab 00 daily. Medica l Branch methylPREDN 2020-02- No [id number] Follow Univers ISolone 4 0-18 06-22 package ity of mg tablets 00:00: 00:00 directions [place] 00 :00 Medical Branch benzonatate 2020-02- No [id number] 200mg Take 1 Univers 200 mg 0-18 06-22 capsule by ity of capsule 00:00: 00:00 mouth 3 [place] 00 :00 (three) Medical times Branch daily as needed for Cough. buPROPion 2020-02- No [id number] 200mg Take 1 Univers 200 mg 12 0-18 06-22 tablet by ity of hr tablet 00:00: 00:00 mouth 2 [place] 00 :00 (two) Medical times Branch daily. traZODone 2020-02- No [id number] 25mg Take 0.5-1 Univers 50 mg 0-18 06-22 tablets by ity of tablet 00:00: 00:00 mouth at [place] 00 :00 bedtime. Medical Branch vortioxetin 2020-02- No [id number] 1{tbl} Take 1 Univers e 0-18 06-22 tablet by ity of (TRINTELLIX 00:00: 00:[place] ) 10 mg Tab 00 :00 daily. Medica l Branch methylPREDN 2020-02- No [id number] Follow Univers ISolone 4 0-18 06-22 package ity of mg tablets 00:00: 00:00 directions [place] 00 :00 Medical Branch benzonatate 2020-02- No [id number] 200mg Take 1 Univers 200 mg 0-18 06-22 capsule by ity of capsule 00:00: 00:00 mouth 3 [place] 00 :00 (three) Medical times Branch daily as needed for Cough. buPROPion 2020-02- No [id number] 200mg Take 1 Univers 200 mg 12 0-18 06-22 tablet by ity of hr tablet 00:00: 00:00 mouth 2 [place] 00 :00 (two) Medical times [place] daily. traZODone 2020-02- No [id number] 25mg Take 0.5-1 Univers 50 mg 0-18 06-22 tablets by ity of tablet 00:00: 00:00 mouth at [place] 00 :00 bedtime. Medical Branch vortioxetin 2020-02- No [id number] 1{tbl} Take 1 Univers e 0-18 06-22 tablet by ity of (TRINTELLIX 00:00: 00:[place] ) 10 mg Tab 00 :[facility]- No [id number] Follow Univers ISolone 4 0-18 06-22 package ity of mg tablets 00:00: 00:00 directions [place] 00 :00 Medical Branch benzonatate 2020-02- No [id number] 200mg Take 1 Univers 200 mg 0-18 06-22 capsule by ity of capsule 00:00: 00:00 mouth 3 [place] 00 :00 (three) [facility] daily as needed for Cough. buPROPion 2020-02- No [id number] 200mg Take 1 Univers 200 mg 12 0-18 06-22 tablet by ity of hr tablet 00:00: 00:00 mouth 2 [place] 00 :00 (two) Medical times [place] daily. traZODone 2020-02- No [id number] 25mg Take 0.5-1 Univers 50 mg 0-18 06-22 tablets by ity of tablet 00:00: 00:00 mouth at [place] 00 :00 bedtime. Medical Branch vortioxetin 2020-02- No [id number] 1{tbl} Take 1 Univers e 0-18 06-22 tablet by ity of (TRINTELLIX 00:00: 00:[place] ) 10 mg Tab 00 :[facility]. [facility] B[facility] 2020-02- No 200mg Take 200 Ke [facility] HCL SR 200 0-18 05-16 mg by Seybold MG OR TB12 00:00: 00:00 mouth 2 00 :00 times daily Trazodone 2020-02- No TAKE 1/2 Victor M sey HCl 50 MG 0-18 -16 TO 1 [facility] oral Tablet 00:00: 00:00 TABLET BY 00 :00 MOUTH AT BEDTIME azithromyci 2020-02- No [id number] Take 500 Univers n 0-18 01-20 mg PO day ity of (ZITHROMAX 00:00: 00:00 1, then Nikko as Z-ES) 250 00 :00 250 mg Medical mg tablet days 2 to Branc h 5. azithromyci 2020-02- No [id number] Take 500 Univers n 0-18 01-20 mg PO day ity of (ZITHROMAX 00:00: 00:00 1, then Nikko as Z-ES) 250 00 :00 250 mg Medical mg tablet days 2 to Branc h 5. norgestimat 2021- No [id number] 1{tbl} Take 1 Univers e-ethinyl 3-10 01-20 tablet by ity of estradioL 00:00: 00:00 mouth [place] 0.25-35 00 :00 daily. Medical mg-mcg per Branch tablet norgestimat 2021- No [id number] 1{tbl} Take 1 Univers e-ethinyl 3-10 01-20 tablet by ity of estradioL 00:00: 00:00 mouth [place] 0.25-35 00 :00 daily. Medical mg-mcg per Branch tablet HydrOXYzine 2020- No TAKE ONE K elsey HCl 25 MG 02-25 OR TWO [facility]bold oral Tab 00:00: 00:00 TABLETS 00 :00 QHS PRN ITCHING. WILL MAKE SLEEPY Desoximetas 2015-02- No [id number] Apply Quynh one 0.25 % 04-02- sparingly Sey bold apply 00:00: 00:00 BID to externally 00 :00 rash Ointment Mon-Fri PRN. Not for use on face, armpits or groin. bromphenira Yes 10mL Take [address] [facility] mine-pseudo 5-25 mLs by José Miguel eph-DM 00:00: mouth Medical (BROMFED 00 every [...] [address] [facility] mine-pseudo 5-25 mLs by [facility] eph- 00:00: mouth Medical (BROMFED 00 every 6 Center DM) 2-30-10 (six) mg/5 mL hours as Syrp needed (cough). ID NOW ID NOW No ID NOW [facility] COVID-19 COVID-19 COVID-19 Med ical Test Kit Test Kit Test Kit TEST TEST TEST DIRECTED DIRECTED DIRECTED + + No + [facility] DHA DHA DHA Medical ID NOW ID NOW No ID NOW [facility] COVID-19 COVID-19 COVID-19 Med ical Test Kit Test Kit Test Kit TEST TEST TEST DIRECTED DIRECTED DIRECTED + + No + [facility] DHA DHA DHA Medical ID NOW ID NOW No ID NOW [facility] COVID-19 COVID-19 COVID-19 Med ical Test Kit Test Kit Test Kit TEST TEST TEST DIRECTED DIRECTED DIRECTED + + No + [facility] DHA DHA DHA Medical ID NOW ID NOW No ID NOW [facility] COVID-19 COVID-19 COVID-19 Med ical Test Kit Test Kit Test Kit TEST TEST TEST DIRECTED DIRECTED DIRECTED + + No + [facility] DHA DHA DHA Medical ID NOW ID NOW No ID NOW [facility] COVID-19 COVID-19 COVID-19 Med ical Test Kit Test Kit Test Kit TEST TEST TEST DIRECTED DIRECTED DIRECTED + + No + [facility] DHA DHA DHA Medical ID NOW ID NOW No ID NOW [facility] COVID-19 COVID-19 COVID-19 Med ical Test Kit Test Kit Test Kit TEST TEST TEST DIRECTED DIRECTED DIRECTED + + No + [facility] DHA DHA DHA Medical ID NOW ID NOW No ID NOW [facility] COVID-19 COVID-19 COVID-19 Med ical Test Kit Test Kit Test Kit TEST TEST TEST DIRECTED DIRECTED DIRECTED OneTouch OneTouch No OneTouch Mandy via Delica Plus Delica Plus [facility]ica Medical Lancet 33 Lancet 33 Plus gauge USE gauge USE Lancet 33 FOUR TIMES FOUR TIMES gauge USE DAILY DAILY FOUR TIMES DAILY OneTouch OneTouch No OneTouch Mandy via Ultra Test Ultra Test Ultra Test Medical strips USE strips USE strips USE FOUR TIMES FOUR TIMES FOUR TIMES DAILY DAILY DAILY OneTouch OneTouch No OneTouch Mandy via Ultra2 Ultra2 Ultra2 Medical Meter USE Meter USE Meter USE FOUR TIMES FOUR TIMES FOUR TIMES DAILY DAILY DAILY + + No + [facility] DHA DHA DHA Medical ID NOW ID NOW No ID NOW [facility] COVID-19 COVID-19 COVID-19 Med ical Test Kit Test Kit Test Kit TEST TEST TEST DIRECTED DIRECTED DIRECTED OneTouch OneTouch No OneTouch Mandy via Delica Plus Delica Plus Delica Medical Lancet 33 Lancet 33 Plus gauge USE gauge USE Lancet 33 FOUR TIMES FOUR TIMES gauge USE DAILY DAILY FOUR TIMES DAILY OneTouch OneTouch No OneTouch Mandy via Ultra Test Ultra Test Ultra Test Medical strips USE strips USE strips USE FOUR TIMES FOUR TIMES FOUR TIMES DAILY DAILY DAILY OneTouch OneTouch No OneTouch Mandy via Ultra2 Ultra2 Ultra2 Medical Meter USE Meter USE Meter USE FOUR TIMES FOUR TIMES FOUR TIMES DAILY DAILY DAILY + + No + [facility] DHA DHA DHA Medical ID NOW ID NOW No ID NOW [facility] COVID-19 COVID-19 COVID-19 Med ical Test Kit Test Kit Test Kit TEST TEST TEST DIRECTED DIRECTED DIRECTED metformin metformin No metformin [facility] 500 mg 500 mg 500 mg Medical tablet TAKE tablet TAKE tablet 1 TABLET BY 1 TABLET BY TAKE 1 MOUTH TWICE MOUTH TWICE TABLET BY DAILY DAILY MOUTH TWICE DAILY OneTouch OneTouch No OneTouch Mandy via Delica Plus Delica Plus [facility]ica Medical Lancet 33 Lancet 33 Plus gauge USE gauge USE Lancet 33 FOUR TIMES FOUR TIMES gauge USE DAILY DAILY FOUR TIMES DAILY OneTouch OneTouch No OneTouch Mandy via Ultra Test Ultra Test Ultra Test Medical strips USE strips USE strips USE FOUR TIMES FOUR TIMES FOUR TIMES DAILY DAILY DAILY OneTouch OneTouch No OneTouch Mandy via Ultra2 Ultra2 Ultra2 Medical Meter USE Meter USE Meter USE FOUR TIMES FOUR TIMES FOUR TIMES DAILY DAILY DAILY + + No + [facility] Medical ID NOW ID NOW No ID NOW [facility] COVID-19 COVID-19 COVID-19 Med ical Test Kit Test Kit Test Kit TEST TEST TEST DIRECTED DIRECTED DIRECTED metformin metformin No metformin [facility] 500 mg 500 mg 500 mg Medical tablet TAKE tablet TAKE tablet 1 TABLET BY 1 TABLET BY TAKE 1 MOUTH TWICE MOUTH TWICE TABLET BY DAILY DAILY MOUTH TWICE DAILY OneTouch OneTouch No OneTouch Mandy via Delica Plus Delica Plus [facility]ica Medical Lancet 33 Lancet 33 Plus gauge USE gauge USE Lancet 33 FOUR TIMES FOUR TIMES gauge USE DAILY DAILY FOUR TIMES DAILY OneTouch OneTouch No OneTouch Mandy via Ultra Test Ultra Test Ultra Test Medical strips USE strips USE strips USE FOUR TIMES FOUR TIMES FOUR TIMES DAILY DAILY DAILY OneTouch OneTouch No OneTouch Mandy via Ultra2 Ultra2 Ultra2 Medical Meter USE Meter USE Meter USE FOUR TIMES FOUR TIMES FOUR TIMES DAILY DAILY DAILY + + No + [facility] Medical ID NOW ID NOW No ID NOW [facility] COVID-19 COVID-19 COVID-19 Med ical Test Kit Test Kit Test Kit TEST TEST TEST DIRECTED DIRECTED DIRECTED metformin metformin No metformin [facility] 500 mg 500 mg 500 mg Medical tablet TAKE tablet TAKE tablet 1 TABLET BY 1 TABLET BY TAKE 1 MOUTH TWICE MOUTH TWICE TABLET BY DAILY DAILY MOUTH TWICE DAILY OneTouch OneTouch No OneTouch Mandy via Delica Plus Delica Plus [facility]ica Medical Lancet 33 Lancet 33 Plus gauge USE gauge USE Lancet 33 FOUR TIMES FOUR TIMES gauge USE DAILY DAILY FOUR TIMES DAILY OneTouch OneTouch No OneTouch Mandy via Ultra Test Ultra Test Ultra Test Medical strips USE strips USE strips USE FOUR TIMES FOUR TIMES FOUR TIMES DAILY DAILY DAILY OneTouch OneTouch No OneTouch Mandy via Ultra2 Ultra2 Ultra2 Medical Meter USE Meter USE Meter USE FOUR TIMES FOUR TIMES FOUR TIMES DAILY DAILY DAILY + + No + [facility] Medical ID NOW ID NOW No ID NOW [facility] COVID-19 COVID-19 COVID-19 Med ical Test Kit Test Kit Test Kit TEST TEST TEST DIRECTED DIRECTED DIRECTED metformin metformin No metformin [facility] 500 mg 500 mg 500 mg Medical tablet TAKE tablet TAKE tablet 1 TABLET BY 1 TABLET BY TAKE 1 MOUTH TWICE MOUTH TWICE TABLET BY DAILY DAILY MOUTH TWICE DAILY OneTouch OneTouch No OneTouch Mandy via Delica Plus Delica Plus Delica Medical Lancet 33 Lancet 33 Plus gauge USE gauge USE Lancet 33 FOUR TIMES FOUR TIMES gauge USE DAILY DAILY FOUR TIMES DAILY OneTouch OneTouch No OneTouch Mandy via Ultra Test Ultra Test Ultra Test Medical strips USE strips USE strips USE FOUR TIMES FOUR TIMES FOUR TIMES DAILY DAILY DAILY OneTouch OneTouch No OneTouch Mandy via Ultra2 Ultra2 Ultra2 Medical Meter USE Meter USE Meter USE FOUR TIMES FOUR TIMES FOUR TIMES DAILY DAILY DAILY + + No + [facility] Medical hydrocodone hydrocodone No hydrocodon [facility] 5 5 e 5 Medical mg-acetamin mg-acetamin mg-acetami ophen 325 ophen 325 nophen 325 mg tablet mg tablet mg tablet TAKE 1 TAKE 1 TAKE 1 TABLET BY TABLET BY TABLET BY MOUTH EVERY MOUTH EVERY MOUTH 4 HOURS 4 HOURS EVERY 4 NEEDED NEEDED HOURS NEEDED ibuprofen ibuprofen No ibuprofen [facility] 600 mg 600 mg 600 mg Medical tablet TAKE tablet TAKE tablet 1 TABLET BY 1 TABLET BY TAKE 1 MOUTH EVERY MOUTH EVERY TABLET BY 6 HOURS 6 HOURS MOUTH NEEDED FOR NEEDED FOR EVERY 6 MILD PAIN. MILD PAIN. HOURS USE FIRST USE FIRST NEEDED FOR MILD PAIN. USE FIRST ID NOW ID NOW No ID NOW [facility] COVID-19 COVID-19 COVID-19 Med ical Test Kit Test Kit Test Kit TEST TEST TEST DIRECTED DIRECTED DIRECTED metformin metformin No metformin [facility] 500 mg 500 mg 500 mg Medical tablet TAKE tablet TAKE tablet 1 TABLET BY 1 TABLET BY TAKE 1 MOUTH TWICE MOUTH TWICE TABLET BY DAILY DAILY MOUTH TWICE DAILY OneTouch OneTouch No OneTouch Mandy via Delica Plus Delica Plus [facility]ica Medical Lancet 33 Lancet 33 Plus gauge USE gauge USE Lancet 33 FOUR TIMES FOUR TIMES gauge USE DAILY DAILY FOUR TIMES DAILY OneTouch OneTouch No OneTouch Mandy via Ultra Test Ultra Test Ultra Test Medical strips USE strips USE strips USE FOUR TIMES FOUR TIMES FOUR TIMES DAILY DAILY DAILY OneTouch OneTouch No OneTouch Mandy via Ultra2 Ultra2 Ultra2 Medical Meter USE Meter USE Meter USE FOUR TIMES FOUR TIMES FOUR TIMES DAILY DAILY DAILY + + No + [facility] Medical hydrocodone hydrocodone No hydrocodon [facility] 5 5 e 5 Medical mg-acetamin mg-acetamin mg-acetami ophen 325 ophen 325 nophen 325 mg tablet mg tablet mg tablet TAKE 1 TAKE 1 TAKE 1 TABLET BY TABLET BY TABLET BY MOUTH EVERY MOUTH EVERY MOUTH 4 HOURS 4 HOURS EVERY 4 NEEDED NEEDED HOURS NEEDED ibuprofen ibuprofen No ibuprofen [facility] 600 mg 600 mg 600 mg Medical tablet TAKE tablet TAKE tablet 1 TABLET BY 1 TABLET BY TAKE 1 MOUTH EVERY MOUTH EVERY TABLET BY 6 HOURS 6 HOURS MOUTH NEEDED FOR NEEDED FOR EVERY 6 MILD PAIN. MILD PAIN. HOURS USE FIRST USE FIRST NEEDED FOR MILD PAIN. USE FIRST ID NOW ID NOW No ID NOW [facility] COVID-19 COVID-19 COVID-19 Med ical Test Kit Test Kit Test Kit TEST TEST TEST DIRECTED DIRECTED DIRECTED metformin metformin No metformin [facility] 500 mg 500 mg 500 mg Medical tablet TAKE tablet TAKE tablet 1 TABLET BY 1 TABLET BY TAKE 1 MOUTH TWICE MOUTH TWICE TABLET BY DAILY DAILY MOUTH TWICE DAILY Microgestin Microgestin No 1 Q1D Microgesti [facility] / (21) 1 / (21) 1 n /20 Medical mg-20 mcg mg-20 mcg (21) 1 tablet Take tablet Take mg-20 mcg 1 tablet 1 tablet tablet every day every day Take 1 by oral by oral tablet route. route. every day by oral route. OneTouch OneTouch No OneTouch Mandy via Delica Plus Delica Plus [facility] Medical Lancet 33 Lancet 33 Plus gauge USE gauge USE Lancet 33 FOUR TIMES FOUR TIMES gauge USE DAILY DAILY FOUR TIMES DAILY OneTouch OneTouch No OneTouch Mandy via Ultra Test Ultra Test Ultra Test Medical strips USE strips USE strips USE FOUR TIMES FOUR TIMES FOUR TIMES DAILY DAILY DAILY OneTouch OneTouch No OneTouch Mandy via Ultra2 Ultra2 Ultra2 Medical Meter USE Meter USE Meter USE FOUR TIMES FOUR TIMES FOUR TIMES DAILY DAILY DAILY + + No + [facility] Medical ID NOW ID NOW No ID NOW [facility] COVID-19 COVID-19 COVID-19 Med ical Test Kit Test Kit Test Kit TEST TEST TEST DIRECTED DIRECTED DIRECTED + + No + [facility] DHA DHA DHA Medical ID NOW ID NOW No ID NOW [facility] COVID-19 COVID-19 COVID-19 Med ical Test Kit Test Kit Test Kit TEST TEST TEST DIRECTED DIRECTED DIRECTED + + No + [facility] DHA DHA DHA Medical Immunizations Ordered Filled Immunization Date Status Comments [facility] e Immunization Name Name HPV9 2018-09-10 Completed University of 00:00:00 [facility] HPV9 2018-09-10 Completed University of 00:00:00 [facility] HPV9 2018-09-10 Completed University of 00:00:00 [facility] HPV9 2018-09-10 Completed University of 00:00:00 [facility] HPV9 2018-09-10 Completed University of 00:00:00 [facility] HPV9 2018-09-10 Completed University of 00:00:00 [facility] HPV9 2018-09-10 Completed University of 00:00:[address] [facility]9 2018-09-10 Completed University of 00:00:00 [facility] HPV9 2018-09-10 Completed University of 00:00:00 [facility] HPV9 2018-09-10 Completed University of 00:00:00 [facility] HPV9 2018-09-10 Completed University of 00:00:00 [facility] HPV9 2018-09-10 Completed University of 00:00:00 [facility] Pneumococcal 2017-01-29 Completed University o f Polysaccharide, 00:00:00 [place] [facility] ical PPSV23 (PNEUMOVAX) Branch Pneumococcal 2017-01-29 Completed University o f Polysaccharide, 00:00:00 [place] [facility] ical PPSV23 (PNEUMOVAX) Branch Pneumococcal 2017-01-29 [...] Completed University o f Polysaccharide, 00:00:00 [place] [facility] ical PPSV23 (PNEUMOVAX) Branch TDAP 2013-08-19 Completed University of 00:00:00 [facility] TDAP 2013-08-19 Completed University of 00:00:00 [facility] TDAP 2013-08-19 Completed University of 00:00:00 [facility] TDAP 2013-08-19 Completed University of 00:00:00 [facility] TDAP 2013-08-19 Completed University of 00:00:00 [facility] TDAP 2013-08-19 Completed University of 00:00:00 [facility] TDAP 2013-08-19 Completed University of 00:00:00 [facility] TDAP 2013-08-19 Completed University of 00:00:00 [facility] TDAP 2013-08-19 Completed University of 00:00:00 [facility] TDAP 2013-08-19 Completed University of 00:00:00 [facility] TDAP 2013-08-19 Completed University of 00:00:00 [facility] TDAP 2013-08-19 Completed University of 00:00:00 [facility] Vital Signs Vital Name Observation Time Observation Value Comments Source Systolic blood 2022-08-01 21:09:00 118 mm[Hg] Univer sity of pressure [facility] Diastolic blood 2022-08-01 21:09:00 83 mm[Hg] Unive rsity of pressure [facility] Heart rate 2022-08-01 21:09:00 89 /min Universi of [facility] Body temperature 2022-08-01 21:09:00 36.67 Simona [facility] Respiratory rate 2022-08-01 21:09:00 18 /min [facility] Body height 2022-08-01 21:09:00 167.6 cm [facility] Body weight 2022-08-01 21:09:00 115.939 kg [facility] BMI 2022-08-01 21:09:00 41.25 kg/m2 [facility] Oxygen saturation in 2022-08-01 21:09:00 98 /min [facility] Arterial blood by [facility] Pulse oximetry Branch BP Diastolic 2022-05-03 00:00:00 79 mm[Hg] Jayant Blanchard edical Height 2022-05-03 00:00:00 66 [in_i] Jayant Blanchard edical BMI (Body Mass 2022-05-03 00:00:00 40 kg/m2 [facility] Medical Index) BP Systolic 2022-05-03 00:00:00 112 mm[Hg] Jayant Blanchard edical Body Weight 2022-05-03 00:00:00 248 [lb_av] Jayant Blanchard edical BP Diastolic 2022-04-05 00:00:00 88 mm[Hg] Jayant Blanchard edical Height 2022-04-05 00:00:00 66 [in_i] Jayant Blanchard edical BMI (Body Mass 2022-04-05 00:00:00 40.4 kg/m2 [facility] Medical Index) BP Systolic 2022-04-05 00:00:00 127 mm[Hg] Jayant Blanchard edical Body Weight 2022-04-05 00:00:00 250 [lb_av] Jayant Blanchard edical BP Diastolic 2022-03-18 00:00:00 82 mm[Hg] Jayant Blanchard edical Height 2022-03-18 00:00:00 66 [in_i] Jayant Blanchard edical BMI (Body Mass 2022-03-18 00:00:00 43.6 kg/m2 [facility] Medical Index) BP Systolic 2022-03-18 00:00:00 128 mm[Hg] Jay[facility] Blanchard ed[facility] Body Weight 2022-03-18 00:00:00 270 [lb_av] Jayant Blanchard edical BP Diastolic 2022-03-14 00:00:00 70 mm[Hg] [facility] ed[facility] Height 2022-03-14 00:00:00 66 [in_i] [facility] BP Systolic 2022-03-14 00:00:00 120 mm[Hg] [facility] ed[facility] Body Weight 2022-03-14 00:00:00 270 [lb_av] [facility] ed[facility] BP Diastolic 2022-03-08 00:00:00 78 mm[Hg] [facility] ed[facility] Height 2022-03-08 00:00:00 66 [in_i] [facility] M ed[facility] BMI (Body Mass 2022-03-08 00:00:00 43.3 kg/m2 [facility] Medical Index) BP Systolic 2022-03-08 00:00:00 108 mm[Hg] [facility] Body Weight 2022-03-08 00:00:00 268 [lb_av] [facility] BP Diastolic 2022-02-22 00:00:00 86 mm[Hg] [facility] Height 2022-02-22 00:00:00 66 [in_i] [facility] BMI (Body Mass 2022-02-22 00:00:00 42.8 kg/m2 [facility] Index) BP Systolic 2022-02-22 00:00:00 132 mm[Hg] [facility] Body Weight 2022-02-22 00:00:00 265 [lb_av] [facility] BP Diastolic 2022-02-08 00:00:00 74 mm[Hg] [facility] Height 2022-02-08 00:00:00 66 [in_i] [facility] BP Systolic 2022-02-08 00:00:00 118 mm[Hg] [facility] Body Weight 2022-02-08 00:00:00 258 [lb_av] [facility] BP Diastolic 2022-01-25 00:00:00 80 mm[Hg] [facility] Height 2022-01-25 00:00:00 66 [in_i] [facility] BP Systolic 2022-01-25 00:00:00 124 mm[Hg] [facility] Body Weight 2022-01-25 00:00:00 258.5 [lb_av] [facility] BP Diastolic 2022-01-11 00:00:00 62 mm[Hg] [facility] BP Systolic 2022-01-11 00:00:00 118 mm[Hg] [facility] Body Weight 2022-01-11 00:00:00 258 [lb_av] [facility] M edical BP Diastolic 2021-12-14 00:00:00 72 mm[Hg] [facility] Height 2021-12-14 00:00:00 66 [in_i] [facility] BMI (Body Mass 2021-12-14 00:00:00 40.2 kg/m2 [facility] Index) BP Systolic 2021-12-14 00:00:00 122 mm[Hg] [facility] Body Weight 2021-12-14 00:00:00 249 [lb_av] [facility] BP Diastolic 2021-11-14 00:00:00 76 mm[Hg] [facility] Height 2021-11-14 00:00:00 66 [in_i] [facility] BMI (Body Mass 2021-11-14 00:00:00 39.1 kg/m2 [facility] Index) BP Systolic 2021-11-14 00:00:00 122 mm[Hg] [facility] Body Weight 2021-11-14 00:00:00 242 [lb_av] [facility] BP Diastolic 2021-10-17 00:00:00 70 mm[Hg] [facility] Height 2021-10-17 00:00:00 66 [in_i] [facility] BMI (Body Mass 2021-10-17 00:00:00 38.3 kg/m2 [facility] Index) BP Systolic 2021-10-17 00:00:00 110 mm[Hg] [facility] Body Weight 2021-10-17 00:00:00 237 [lb_av] [facility] BP Diastolic 2021-10-09 00:00:00 62 mm[Hg] [facility] Height 2021-10-09 00:00:00 66 [in_i] [facility] ed[facility] BMI (Body Mass 2021-10-09 00:00:00 [facility]9 [facility] Sy[facility]olic 2021-10-09 00:00:00 120 mm[Hg] [facility] M edical Body Weight 2021-10-09 00:00:00 235 [lb_av] [facility] M ed[facility] BP Diastolic 2021-09-11 00:00:00 76 mm[Hg] [facility] Height 2021-09-11 00:00:00 66 [in_i] Jayant Blanchard edical BMI (Body Mass 2021-09-11 00:00:00 38.3 [facility]2 [facility] BP Systolic 2021-09-11 00:00:00 118 mm[Hg] [facility] Body Weight 2021-09-11 00:00:00 237 [lb_av] Jay[facility] Blanchard edical BP Diastolic 2021-08-14 00:00:00 82 mm[Hg] [facility] Height 2021-08-14 00:00:00 66 [in_i] Jay[facility] Blanchard edical BMI (Body Mass 2021-08-14 00:00:00 37.8 kg/m2 [facility] Medical Index) BP Systolic 2021-08-14 00:00:00 128 mm[Hg] [facility] M [facility] Body Weight 2021-08-14 00:00:00 234 [lb_av] [facility] BP Diastolic 2021-07-30 00:00:00 82 mm[Hg] [facility] Height 2021-07-30 00:00:00 66 [in_i] Jayant Blanchard edical BMI (Body Mass 2021-07-30 00:00:00 37.1 [facility] BP Systolic 2021-07-30 00:00:00 122 mm[Hg] [facility] Body Weight 2021-07-30 00:00:00 230 [lb_av] [facility] Body weight 2021 19:23:00 102.059 kg Quynh George bradley BMI 2021 19:23:00 36.32 kg/m2 Quynh huerta Systolic blood 2021-03-01 19:00:00 132 mm[Hg] Jose Luis kraus of [facility] Diastolic blood 2021-03-01 19:00:00 79 mm[Hg] Unive rsity of pressure [facility] Heart rate 2021-03-01 19:00:00 82 /min [facility] Body temperature 2021-03-01 19:00:00 36.83 [facility]ona [facility] Res[facility] rate 2021-03-01 19:00:00 18 /min [facility] Body height 2021-03-01 19:00:00 167.6 cm [facility] Body weight 2021-03-01 19:00:00 100.426 kg [facility]i [facility] BMI 2021-03-01 19:00:00 35.73 kg/m2 [facility] Body temperature 2021-02-06 14:54:00 36.61 Simona Carly theodore Seybyina Body weight 2021-02-06 14:54:00 100.245 kg Quynh S eybold BMI 2021-02-06 14:54:00 35.67 kg/m2 Quynh S eybold Procedures Procedure Date / Time Performing Clinician Source Performed ASSIGNMENT OF BENEFITS 2022-08-01 21:02:01 Doctor Unassigned, No [facility] [id number] 2022-03-21 00:00:00 [facility] NON TO STRESS TEST 2022-03-18 00:00:00 Mandy via Medical NON TO STRESS TEST 2022-03-14 00:00:00 Mandy via Medical NON TO STRESS TEST 2022-02-22 00:00:00 Mandy via Medical ABDOMINAL ULTRASOUND OF 2022-02-22 00:00:00 [facility] UTERUS (GREATER OR EQUAL TO 14 WEEKS 0 DAYS) SINGLE OR FIRST FETUS ABDOMINAL ULTRASOUND OF 2021-10-17 00:00:00 [facility] UTERUS (GREATER OR EQUAL TO 14 WEEKS 0 DAYS) SINGLE OR FIRST FETUS ABDOMINAL ULTRASOUND OF 2021-08-14 00:00:00 [facility] UTERUS (LESS THAN 14 WEEKS 0 DAYS) SINGLE OR FIRST FETUS ABDOMINAL ULTRASOUND OF 2021-07-30 00:00:00 [facility] UTERUS (LESS THAN 14 WEEKS 0 DAYS) SINGLE OR FIRST FETUS CONSENT FOR 2021-03-01 06:01:00 Doctor Unassradha, Alexa [facility] [place] CONTRACEPTION Name Medical Branch Delivery [facility] Medical Plan of Care Planned Activity Planned Date Details Comments Source Diagnostic Test 2022-05-03 Cytomegalovirus Ab [facility] Pending 00:00:00 [Titer] in Serum or Plasma by Latex agglutination [code = 5121-9] Diagnostic Test 2022-05-03 Weight of 24 hour [facility] Pending 00:00:00 Specimen [code = 3153-4] Encounters Start End Encounter Admission Attending Care Care Encounter Source Date/Time Date/Time Type Type Clinicians Facility Department ID 2022-02-12 Inpatient TANNER Alcantar [facility] DIAB [id number] [facility] 09:47:00 [place] [address] [facility] 2022-02-12 Inpatient TANNER Alcantar [facility] DIAB [id number] [facility] 09:47:00 [place] [address] [facility] 2022-08-02 2022-08-02 [facility]phone [facility] [id number] Univers 00:00:00 00:00:00 Blanca A HEALTH [id number] i ty of [place] [id number] Nikko as JULIAN?BLEA [id number] [address] MEDICAL OFFICE BUILDING 2022-08-01 2022-08-01 Filler In Lab, Ang - Db [facility] [id number] Univers 17:00:00 17:15:00 Visit Blanca Cohen HEALTH [id number] ity of [place] [id number] Nikko as JULIAN?BLEA [id number] [facility] [address] MEDICAL OFFICE BUILDING 2022-08-01 2022-08-01 [facility] [id number] Univers 16:30:00 16:51:49 BLANCA salmeron [facility] 2022-08-01 2022-08-01 [facility] [id number] Univers 16:30:00 16:51:49 Visit Blanca Patricia [facility] [id number] i ty [facility] [id number] Nikko as JULIAN?BLEA [id number] [address] MEDICAL OFFICE BUILDING 2022-08-01 2022-08-01 Orders Doctor JAEL [id number] Univers 00:00:00 00:00:00 Only Unassigned, MARCELINO [id number] ity of [place] [facility] [id number] Nikko as [id number] [address] 2022-05-24 2022-05-24 Outpatient GC_SWHAOMC_ PRIV PRIV [id number] [facility] 00:00:00 00:00:00 Ortiz_G [id number] [facility] 2022-05-03 2022-05-03 Outpatient GC_SWHAOMC_ PRIV PRIV [id number] [facility] 00:00:00 00:00:00 Ortiz_G [id number] [facility] 2022-05-03 2022-05-03 Outpatient GC_SWHAOMC_ PRIV PRIV [id number] [facility] 00:00:00 00:00:00 Ortiz_[place] [id number] [facility] 2022-05-03 2022-05-03 Mayco [facility] 24 [facility] 00:00:00 00:00:00 [facility] cesar Alcantar GC_NAVI_ : [address], [place] [address] , Ph. 2022-05-02 2022-05-02 Outpatient GC_SWHAOMC_ PRIV PRIV [id number] [facility] 00:00:00 00:00:00 Ortiz_G [id number] [facility] 2022-04-25 2022-04-25 Outpatient GC_SWHAOMC_ PRIV PRIV [id number] [facility] 00:00:00 00:00:00 Gertrude [id number] [facility] 2022-04-05 2022-04-05 Outpatient GC_SWHAOMC_ PRIV PRIV [id number] [facility] 00:00:00 00:00:00 Ortiz_G [id number] [facility] 2022-04-05 2022-04-05 Outpatient GC_SWHAOMC_ PRIV PRIV [id number] [facility] 00:00:00 00:00:00 Ortiz_[place] [id number] [facility] 2022-04-05 2022-04-05 Mayco [facility] 00:00:00 00:00:00 Tanvir [facility] - Medic cesar AlcantarDAVID MD: [address], [place] [address] , Ph. 2022-04-04 2022-04-04 Outpatient GC_SWHAOMC_ PRIV PRIV 242 [id number] [facility] 00:00:00 00:00:00 Gertrude [id number] Medi laverne 2022-03-28 2022-03-28 Outpatient GC_SWHAOMC_ PRIV PRIV [id number] [facility] 00:00:00 00:00:00 Gertrude [id number] [facility] 2022-03-27 2022-03-27 Outpatient GC_SWHAOMC_ PRIV PRIV 242 [id number] [facility] 00:00:00 00:00:00 OrtizBeltran [id number] [facility] 2022-03-21 2022-03-[address] [facility] OB [id number] [facility] 10:04:00 17:51:[address] 2022-03-18 2022-03-18 Mayco [facility] 06 [facility] 00:00:00 00:00:00 Tanvir [facility] - Medic cesar AlcantarDAVID MD: [address]* [place], [address], [place] [address] , Ph. 2022-03-14 2022-03-14 Mayco [facility] [id number] [facility] 00:00:00 00:00:00 Tanvir [facility] - Medic cesar AlcantarDAVID MD: [address]* [place], [facility] [address], [place] [address] , Ph. 2022-03-08 2022-03-08 Outpatient GC_SWHAOMC_ PRIV PRIV [id number] [facility] 00:00:00 00:00:00 Gertrude [id number] [facility] 2022-03-08 2022-03-08 Outpatient GC_SWHAOMC_ PRIV PRIV [id number] [facility] 00:00:00 00:00:00 Ortiz_G [id number] [facility] laverne 2022-03-08 2022-03-08 Outpatient GC_SWHAOMC_ PRIV PRIV [id number] [facility] 00:00:00 00:00:00 Ortiz_G [id number] [facility] 2022-03-08 2022-03-08 Outpatient GC_SWHAOMC_ PRIV PRIV [id number] [facility] 00:00:00 00:00:00 Shelton_G [id number] [facility] 2022-03-08 2022-03-08 Outpatient GC_SWHAOMC_ PRIV PRIV [id number] [facility] 00:00:00 00:00:00 Ortiz_G [id number] [facility] 2022-03-08 2022-03-08 Outpatient GC_SWHAOMC_ PRIV PRIV 242 [id number] [facility] 00:00:00 00:00:00 Ortiz_G [id number] [facility] 2022-03-08 2022-03-08 Outpatient GC_SWHAOMC_ PRIV PRIV 242 [id number] [facility] 00:00:00 00:00:00 Sarahjoceline_G [id number] [facility] 2022-03-08 2022-03-08 Outpatient GC_SWHAOMC_ PRIV PRIV [id number] [facility] 00:00:00 00:00:00 Ortiz_G [id number] [facility] 2022-03-08 2022-03-08 Mayco [facility] 27 [facility] 00:00:00 00:00:00 [facility] Ortiz, GC_NAOMIOMC_ MD: [address] [facility], [address], [place] [address] , Ph. 2022-03-04 2022-03-04 Outpatient GC_SWHATBIC PRIV PRIV [id number] [facility] 00:00:00 00:00:00 _Ortiz [id number] Medic al 2022-03-04 2022-03-04 Outpatient GC_SWHAOMC_ PRIV PRIV [id number] [facility] 00:00:00 00:00:00 OrtizMargaretR[place] [id number] Medi laverne 2022-02-28 2022-02-28 Outpatient GC_SWHATBIC PRIV PRIV [id number] [facility] 00:00:00 00:00:00 _Ortiz [id number] Medic al 2022-02-22 2022-02-22 Outpatient GC_SWHAOMC_ PRIV PRIV [id number] [facility] 00:00:00 00:00:00 OrtizMargaretR[place] [id number] Medi laverne 2022-02-22 2022-02-22 Outpatient GC_SWHAOMC_ PRIV PRIV [id number] [facility] 00:00:00 00:00:00 SarahbelkisR[place] [id number] Medi laverne 2022-02-22 2022-02-22 Mayco [facility] 00:00:00 00:00:00 [facility] - Medic cesar Alcantar GC_NAVI_ : [address] [facility]* [place], [address], [place] [address] , Ph. 2022-02-12 2022-02-12 Outpatient TANNER Alcantar, [facility] [id number] [facility] 17:00:00 17:00:00 [place] [facility] 2022-02-08 2022-02-08 Mayco [facility] [id number] [facility] 00:00:00 00:00:00 [facility] Medic cesar Alcantar GC_NAVI_ : [address]* [place], [address], [place] [address] , Ph. 2022-01-25 2022-01-25 Outpatient GC_SWHAOMC_ PRIV PRIV [id number] [facility] 00:00:00 00:00:00 Gertrude [id number] Medi laverne 2022-01-25 2022-01-25 Outpatient GC_SWHAOMC_ PRIV PRIV [id number] [facility] 00:00:00 00:00:00 Gertrude [id number] [facility] laverne 2022-01-25 2022-01-25 Outpatient GC_SWHAOMC_ PRIV PRIV [id number] [facility] 00:00:00 00:00:00 Ortiz_G [id number] Medi laverne 2022-01-25 2022-01-25 Outpatient GC_SWHAOMC_ PRIV PRIV [id number] [facility] 00:00:00 00:00:00 Ortiz_G [id number] Medi laverne 2022-01-25 2022-01-25 Outpatient GC_SWHAOMC_ PRIV PRIV 242 [id number] [facility] 00:00:00 00:00:00 Ortiz_G [id number] Medi laverne 2022-01-25 2022-01-25 Mayco [facility] [id number] [facility] 00:00:00 00:00:00 [facility] - Medic DAVID Simon MD: [address]* [place], [address], [place] [address] , Ph. 2022-01-14 2022-01-14 Outpatient GC_SWHAOMC_ PRIV PRIV [id number] [facility] 00:00:00 00:00:00 Ortiz_G [id number] [facility] laverne 2022-01-14 2022-01-14 Outpatient GC_SWHAOMC_ PRIV PRIV [id number] [facility] 00:00:00 00:00:00 Gertrude [id number] Medi laverne 2022-01-11 2022-01-11 Outpatient GC_SWHATBIC PRIV PRIV [id number] [facility] 00:00:00 00:00:00 _Ortiz [id number] Medic al 2022-01-11 2022-01-11 Mayco [facility] [id number] [facility] 00:00:00 00:00:00 [facility] - Medic DAVID Simon MD: [address]* [place], [address], [place] [address] , Ph. 2021-12-19 2021-12-19 Outpatient GC_SWHAOMC_ PRIV PRIV [id number] [facility] 00:00:00 00:00:00 Gertrude [id number] [facility] laverne 2021-12-14 2021-12-14 Outpatient GC_SWHAOMC_ PRIV PRIV [id number] [facility] 00:00:00 00:00:00 Gertrude [id number] [facility] 2021-12-14 2021-12-14 Mayco [facility] [id number] [facility] 00:00:00 00:00:00 [facility] cesar Alcantar, GC_BARBARAMISTIOMMoncho_ : [address]* [place], [address], [place] [address] , Ph. 2021-12-13 2021-12-13 Outpatient GC_SWHAOMC_ PRIV PRIV 242 [id number] [facility] 00:00:00 00:00:00 Gertrude [id number] [facility] 2021-11-17 2021-11-17 Outpatient GC_SWHATBIC PRIV PRIV [id number] [facility] 00:00:00 00:00:00 _Ortiz [id number] Medic al 2021-11-14 2021-11-14 Outpatient GC_SWHAOMC_ PRIV PRIV [id number] [facility] 00:00:00 00:00:00 Gertrude [id number] [facility] 2021-11-14 2021-11-14 Mayco [facility] 05 [facility] 00:00:00 00:00:00 [facility] - [facility] Ortiz, GC_BARBARAMISTICATHIE_ : [address]* [place], [address], [place] [address] , Ph. 2021-11-13 2021-11-13 Outpatient GC_SWHAOMC_ PRIV PRIV [id number] [facility] 00:00:00 00:00:00 Ortiz_[place] [id number] [facility] 2021-11-02 2021-11-02 Outpatient GC_SWHATBIC PRIV PRIV [id number] [facility] 00:00:00 00:00:00 _Ortiz [id number] Medic al 2021-10-23 2021-10-23 Outpatient GC_SWHAOMC_ PRIV PRIV [id number] [facility] 00:00:00 00:00:00 Gertrude [id number] [facility] 2021-10-17 2021-10-17 Outpatient GC_SWHAOMC_ PRIV PRIV [id number] [facility] 00:00:00 00:00:00 Gertrude [id number] [facility] 2021-10-17 2021-10-17 Outpatient Alcantar, PRIV PRIV [id number] 00:00:00 00:00:00 Mayco [id number] Tanvir [id number] 2021-10-17 2021-10-17 Mayco [facility] [id number] [facility] 00:00:00 00:00:00 [facility] - Medic oh Ortiz, SCOTTY_NAVI_ : [address] [facility]* [place], [address], [place] [address] , Ph. 2021-10-16 2021-10-16 Outpatient [facility]_ PRIV PRIV [id number] [facility] 00:00:00 00:00:00 Gertrude [id number] [facility] 2021-10-09 2021-10-09 Outpatient [facility]_ PRIV PRIV [id number] [facility] 00:00:00 00:00:00 Gertrude [id number] [facility] 2021-10-09 2021-10-09 Mayco [facility] 30 [facility] 00:00:00 00:00:00 [facility] cesar Alcantar, SCOTTY_NAVI_ : [address] [facility]* [place], [address], [place] [address] , Ph. 2021-09-17 2021-09-17 Outpatient [facility]_ PRIV PRIV [id number] [facility] 00:00:00 00:00:00 [place] [id number] Medi laverne 2021-09-11 2021-09-11 Outpatient [facility]_ PRIV PRIV [id number] [facility] 00:00:00 00:00:00 [place] [id number] [facility] 2021-09-11 2021-09-11 Outpatient Alcantar, PRIV PRIV [id number] 00:00:00 00:00:00 Mayco [id number] Tanvir [id number] 2021-09-11 2021-09-11 Mayco [facility] [id number] [facility] 00:00:00 00:00:00 [facility] cesar Alcantar ANAI_ : [address], [address], [place] [address] , Ph. 2021-08-28 2021-08-28 Outpatient [facility]_ PRIV PRIV [id number] [facility] 00:00:00 00:00:00 Ortiz_G [id number] [facility] laverne 2021-08-25 2021-08-25 Outpatient [facility]_ PRIV PRIV [id number] [facility] 01:34:00 01:34:00 Ortiz_G [id number] [facility] 2021-08-15 2021-08-15 Outpatient [facility]_ PRIV PRIV [id number] [facility] 07:11:00 07:11:00 [facility]iz_G [id number] [facility] [facility] 2021-08-14 2021-08-14 Outpatient GC_SWHAOMC_ PRIV PRIV [id number] [facility] 12:44:00 12:44:00 Ortiz_G [id number] [facility] 2021-08-14 2021-08-14 Mayco [facility] [id number] [facility] 00:00:00 00:00:00 [facility] cesar DAVID Alcantar MD: [address] Office* [place], [address], [place] [address] , Ph. 2021-08-14 2021-08-14 Outpatient Alcantar, PRIV PRIV [id number] 00:00:00 00:00:00 Mayco [id number] Tanvir [id number] 2021-08-10 2021-08-10 Outpatient GC_SWHAOMC_ PRIV PRIV [id number] [facility] 04:14:00 04:14:00 Ortiz_[place] [id number] [facility] 2021-08-02 2021-08-02 Outpatient GC_SWHAOMC_ PRIV PRIV [id number] [facility] 10:59:00 10:59:00 Gertrude [id number] [facility] 2021-07-31 2021-07-31 Outpatient GC_SWHAOMC_ PRIV PRIV [id number] [facility] 04:45:00 04:45:00 Gertrude [id number] [facility] 2021-07-30 2021-07-30 Outpatient GC_SWHAOMC_ PRIV PRIV [id number] [facility] 04:26:00 04:26:00 Gertrude [id number] [facility] 2021-07-30 2021-07-30 Mayco [facility] 00:00:00 00:00:00 [facility] oh Alcantar, GC_SWMISTIOMC_ MD: [address] [facility], [address], [place] [address] , Ph. 2021-07-30 2021-07-30 Outpatient NICOLE Alcantar [id number] 00:00:00 00:00:00 Mayco [id number] Tanvir [id number] 2021-07-26 2021-07-26 Outpatient GC_SWHAOMC_ PRIV PRIV [id number] [facility] 11:58:00 11:58:00 Gertrude [id number] [facility] 2021-07-25 2021-07-25 Outpatient PRIV PRIV [id number] [facility] 04:20:00 04:20:00 [id number] [facility] 2021 2021 Office ADRIAN Muhammad 1.2.840.114 [id number] [facility] 14:15:00 14:30:00 Visit Chiquita 350.1.13.13 Ariel huerta 1.2.7.2.686 [id number] 2021-03-20 2021-03-20 Outpatient QUYNH MUHAMMAD [id number] [facility] 16:00:00 16:00:00 CHIQUITA zaidi 2021-03-01 2021-03-01 Office MIRANDA Randolph 1.2.238.945 [id number] [facility] 13:30:00 13:42:53 Visit Qing CHUNG 350.1.13.10 i ty of [place] [phone] Wa dical NAL 134 [facility] 2021-03-01 2021-03-01 Outpatient R AGUSTÍN [facility] [id number] [facility] 13:30:00 13:42:53 QING ity [facility] 2021-03-01 2021-03-01 Outpatient R AGUSTÍN [facility] [id number] Univers 13:30:00 13:30:00 [facility] 2021-03-01 2021-03-01 [facility] 1.2.186.513 [id number] Univers 00:00:00 00:00:00 Qing CHUNG 350.1.13.10 i [place] [phone] Wa dical NAL [address] [place] [address] 2021-03-01 2021-03-01 Orders Doctor JAEL 1.2.840.114 [id number] Univers 00:00:00 00:00:00 Only Unassigned, MARCELINO 350.1.13.10 ity of [place] [facility] 4.2.7.2.686 Nikko as [phone] [facility] [address] 2021-02-21 2021-02-21 Letter JAEL Yarbrough 1.2.840.114 [id number] Univers 00:00:00 00:00:00 (Out) Sahra BENSON 350.1.13.10 it y of HOSPITAL 4.2.7.2.686 [place] as [phone] [facility] [address] 2021-02-19 2021-02-19 Outpatient R MALCOM [facility] [id number] Univers 19:15:00 19:40:16 SAM salmeron o f [facility] 2021-02-19 2021-02-19 Laboratory Only, Ang Db Test [facility] 1.2.8 40.114 [id number] Univers 19:15:00 19:30:00 Only Sam العراقي 350.1.13.10 ity [facility] 4.2.7.2.686 [place] as JULIAN?BLEA [phone] Wa larry PAIGE [address] [place] [address] MEDICAL OFFICE BUILDING 2021-02-06 2021-02-06 Office ADRIAN Muhammad 1.2.840.114 [id number] [facility] 09:00:00 09:15:00 Visit Chiquita 350.1.13.13 S bradley 1.2.7.2.686 [id number] [id number] 2021-02-06 2021-02-06 Outpatient [id number] QUYNH GUERRA [id number] [facility] 07:05:00 07:05:00 Seybol d 2021-02-04 2021-02-04 [facility] [id number] Univers 13:44:00 14:53:00 ANGELA salmeron [facility] 2021-02-04 2021-02-04 Emergency [facility] 1.2.840.114 [id number] Univers 13:44:00 14:53:00 Angela Fenton [place] 350.1.13.10 ity [facility] 4.2.7.2.686 [place] [facility] [phone] [address] 2020-12-12 2020-12-12 Outpatient R AGUSTÍN [facility] [id number] Univers 13:00:00 13:00:00 QING salmeron [facility] 2020-11-27 2020-11-27 Office [facility] 1.2.840.114 [id number] Univers 12:55:17 13:47:11 Visit [facility] 350.1.13.10 ity [facility] 4.2.7.2.686 [place] Julian?Blea [phone] Wa larry [address] Medical Office [facility] 2020-11-27 2020-11-27 Outpatient R RAUL [facility] [id number] Univers 13:15:00 13:15:00 WONDIFUL ity o f [facility] 2020-10-23 2020-10-23 Office [facility] 1.2.985.192 [id number] Univers 08:15:46 08:56:45 Visit Qing Chung 350.1.13.10 i ty of [place] [phone] Wa dical nal [address] [facility] 2020-10-23 2020-10-23 Outpatient R AGUSTÍN [facility] [id number] [facility] 08:30:00 08:30:00 QING salmeron of [facility] 2020-10-23 2020-10-23 Orders Doctor JAEL 1.2.840.114 [id number] Univers 00:00:00 00:00:00 Only Unassigned, MARCELINO 350.1.13.10 ity of [place] [facility] 4.2.7.2.686 Nikko as [phone] [address] 2020-10-23 2020-10-23 Orders Doctor JAEL 1.2.840.114 [id number] Univers 00:00:00 00:00:00 Only Unassigned, MARCELINO 350.1.13.10 ity of [place] [facility] 4.2.7.2.686 [place]ko as [phone] [facility] [address] 2020-05-02 2020-05-02 Patient Eugenio [facility] 1.2.840.114 [id number] Univers 00:00:00 00:00:00 Outreach Thiago PRIMARY 350.1.13.10 i ty of [place].2.7.2.[place] [phone] Wa dical [address] 2020-05-02 2020-05-02 Patient Eugenio [facility] 1.2.840.114 [id number] 00:00:00 00:00:00 Outreach Thiago PRIMARY 350.1.13.10 [place] 4.2.7.2.686 PAVILLION [phone] [facility] 2020-05-01 2020-05-01 Orders Doctor JAEL 1.2.840.114 [id number] Univers 00:00:00 00:00:00 Only Unassigned, MARCELINO 350.1.13.10 ity of [place] [facility] 4.2.7.2.686 Nikko as [phone] [address] 2020-05-01 2020-05-01 Orders Doctor JAEL 1.2.840.114 [id number] 00:00:00 00:00:00 Only Unassigned, MARCELINO 350.1.13.10 [place] [facility] 4.2.7.2.686 [id number] 009 2020-04-26 2020-04-26 Telephone Agustín [facility] 1.2.840.114 [id number] Univers 00:00:00 00:00:00 Qing Chung 350.1.13.10 i ty of [place] [phone] [address] 2020-04-26 2020-04-26 Telephone [facility] 1.2.840.114 [id number] 00:00:00 00:00:00 Qing Chung 350.1.13.10 [place] 4.2.7.2.686 Professio [phone] [address] 2020-04-25 2020-04-25 Case Agustín [facility] 1.2.569.671 [id number] [facility] 00:00:00 00:00:00 Management Qing Chung 350.1.13.10 ity of [place] [phone] [address] 2020-04-25 2020-04-25 Case Agustín [facility] 1.2.578.270 [id number] 00:00:00 00:00:00 Management Qing Chung 350.1.13.10 [place] 4.2.7.2.686 Professio [phone] [address] 2020-04-19 2020-04-19 Office Agustín [facility] 1.2.498.958 [id number] [facility] 15:53:40 16:23:40 Visit Qing Chung 350.1.13.10 i ty of [place].2.[place] [phone] [address] 2020-04-19 2020-04-19 Outpatient R AGUSTÍN [facility] [id number] Univers 16:15:00 16:15:00 QING ity of [facility] 2020-04-19 2020-04-19 Orders Doctor JAEL 1.2.840.114 [id number] Univers 00:00:00 00:00:00 Only Unassigned, MARCELINO 350.1.13.10 ity of [place] [facility] 4.2.7.2.686 Nikko as [phone] [address] 2020-04-19 2020-04-19 Orders Doctor JAEL 1.2.840.114 [id number] 00:00:00 00:00:00 Only Unassigned, MARCELINO 350.1.13.10 [place] [facility] 4.2.7.2.686 [id number] [facility] 2020-03-07 2020-03-07 Outpatient R [facility] [id number] Univers 08:00:00 08:[facility]00 [facility] 2020-01-04 Office [facility] 1.2.846.640 [id number] Univers 07:59:56 08:53:24 Visit Qing Chung 350.1.13.10 i ty of [place] [phone] Wa dic[address] 2020-01-04 2020-01-04 [facility] [id number] Univers 08:15:00 08:15:00 QING salmeron [facility] 2020-01-03 2020-01-03 [facility] 1.2.840.114 [id number] Univers 00:00:00 00:00:00 Qing Chung 350.1.13.10 i ty of [place].2.[place] [phone] Wa dical nal [address] [place] [address] 2019-12-14 2019-12-14 Case [facility] 1.2.229.478 [id number] Univers 00:00:00 00:00:00 Management Qing Chung 350.1.13.10 ity of [place]2.[place].2.[place] [phone] [address] 2019-12-14 2019-12-14 Telephone MikysandraeseLOVELACE [facility] 1.2.840.114 [id number] Univers 00:00:00 00:00:00 Qing Erik 350.1.13.10 i ty of [place] 4.2.7.2.[place] [phone] [address] 2019-12-13 2019-12-13 Office [facility] 1.2.353.333 [id number] Univers 12:57:21 15:45:27 Visit Qing Erik 350.1.13.10 i ty of [place] 4.2.7.2.[place] [phone] [address] 2019-12-13 2019-12-13 [facility]patient [facility] [id number] Univers 13:30:00 13:30:00 QING ity [facility] 2019-12-13 2019-12-13 Orders Doctor JAEL 1.2.840.114 [id number] Univers 00:00:00 00:00:00 Only Unassigned, MARCELINO 350.1.13.10 ity of [place] [facility] 4.2.7.2.686 Nikko as [phone] [address] 2019-11-22 2019-11-22 Outpatient [facility] [id number] Univers 16:00:00 16:00:00 QING ity [facility] 2019-11-18 2019-11-18 Refill [facility] 1.2.941.554 [id number] Univers 00:00:00 00:00:00 Qingcarmen Chung 350.1.13.10 i ty of [place].2.[place] [phone] [address] 2019-05-03 2019-05-03 Telemedici [facility] 1.2.840.114 [id number] Univers 07:41:33 16:13:04 ne Visit [facility] [place] 350.1.13.10 ity of [place] 4.2.7.2.686 [place]ko as Professio [phone] [address] 2019-05-03 2019-05-03 Outpatient R RAUL [facility] [id number] Univers 13:15:00 13:15:00 WONDIFUL ity o f [facility] 2019-03-22 2019-03-22 Office Raul [facility] 1.2.840.114 [id number] Univers 12:34:12 13:27:02 Visit [facility] 350.1.13.10 ity of [place] 4.2.7.2.686 [place] Professio [phone] [address] 2019-03-22 2019-03-22 Orders Doctor JAEL 1.2.840.114 [id number] Univers 00:00:00 00:00:00 Only Unassigned, MARCELINO 350.1.13.10 ity of [place] [facility] 4.2.7.2.686 Nikko as [phone] [address] 2018-09-10 2018-09-10 Office Facundo [facility] 1.2.840.114 [id number] Univers 10:51:47 11:52:08 Visit Farzanehmarina Chung 350.1.13.10 i ty of [place] 4[place]2.[place].2.[place] [phone] [facility] [address] [facility] 2018-09-10 2018-09-10 Orders Doctor JAEL 1.2.840.114 [id number] Univers 00:00:00 00:00:00 Only Unassigned, MARCELINO 350.1.13.10 ity of [place] [facility] 4.2.7.2.686 Nikko as [phone] [address] 2018-09-07 2018-09-09 Office [facility] 1.2.840.114 [id number] Univers 09:08:44 14:47:23 Visit [facility] 350.1.13.10 ity of [place] 4.2.7.2.686 [place] as Professio [phone] [address] 2018-08-31 2018-08-31 Office [facility] 1.2.840.114 [id number] Univers 11:22:16 12:01:46 Visit Yours Florally 350.1.13.10 [place] 4.2.7.2.686 [place] as Tonio [phone] Wa dical nal [address] One Results Test Description Test Time Test Comments Results Result Comments Source GLUBED 2022-03-24 11:29:00 Test Item Value Reference Range Interpretation Comme nts GLUBED (test code = GLUBED) 109 mg/dL 65-110 N [id number] 06:21:00 Test Item Value Reference Range Interpretation Comments GLUBED (test code = GLUBED) 98 mg/dL 65-110 N [id number] 22:40:00 Test Item Value Reference Range Interpretation Comments GLUBED (test code = GLUBED) 112 mg/dL 65-110 H [id number] 16:07:00 Test Item Value Reference Range Interpretation Comments GLUBED (test code = GLUBED) 132 mg/dL 65-110 H [id number] 10:28:00 Test Item Value Reference Range Interpretation Comments GLUBED (test code = GLUBED) 101 mg/dL 65-110 N [id number] 05:11:00 Test Item Value Reference Range Interpretation Comments GLUBED (test code = GLUBED) 79 mg/dL 65-110 N [id number] 22:13:00 Test Item Value Reference Range Interpretation Comments GLUBED (test code = GLUBED) 130 mg/dL 65-110 H [id number] 10:04:00 Test Item Value Reference Range Interpretation Comments GLUBED (test code = GLUBED) 125 mg/dL 65-110 H [id number] 07:48:00 Test Item Value Reference Range Interpretation Comments HEMOGLOBIN (test code = HGB) 11.8 g/dL 10.1-13.8 N HEMATOCRIT (test code = HCT) 35.7 % 32.5-41.8 N [id number] 11:27:00 Test Item Value Reference Range Interpretation Comments GLUCOSE (test code = GLU) 85 mg/dL 65-110 N AG HEPATITIS B [id number] 15:28:00 Test Item Value Reference Range Interpretation Comments AG HEPATITIS B SURFACE (test code NONREACTIVE NONREACTIVE = HBSAG) AB HEPATITIS C [id number] 15:28:00 Test Item Value Reference Range Interpretation Comments AB HEPATITIS C (test code = NONREACTIVE NONREACTIVE HCVAB) SIGNAL TO CUTOFF (test code = 0.16 <0.80 N CUTOFF) AB [id number] 15:28:00 Test Item Value Reference Range Interpretation Comments AB TREPONEMA (test code = TREPAB) NONREACTIVE NONREACTIVE AB HIV 1 15:28:00 Test Item Value Reference Range Interpretation Comments AB HIV 1 2 (test NONREACTIVE NONREACTIVE [facility] code = [id number]) 4th Gen HIV Ag/Ab Combo Screen COMPREHENSIVE METABOLIC [id number] 13:14:00 Test Item Value Reference Range Interpretation Comments SODIUM (test code = 137 mEq/L 135-145 N NA) POTASSIUM (test code 3.9 mEq/L 3.5-5.0 N = K) CHLORIDE (test code 102 mEq/L 100-115 N = CL) CARBON DIOXIDE (test 22 mEq/L 22-31 N code = CO2) ANION GAP (test code 17.10 10-20 N = GAP) GLUCOSE (test code = 160 mg/dL 65-110 H GLU) BLOOD UREA NITROGEN 9 mg/dL 7-18 N (test code = BUN) GLOMERULAR 100 ml/min >60 N The Glomerular FILTRATION RATE Filtration R ate is a (test code = GFR) calculated parameterbased on serum Creatinin e, patient age and sex. GFR valuesless than 60 mL/min/1.73 squ are meters are bigg cative ofChronic Kidne y Disease. Values less than 15 mL/min/1.73squa re meters indicate Kidney failure. The calculation for GFR is based on the CK D-EPI (2020) calculat ion. This formulais race indifferent and is the recommended for reid for GFRby the N [facility] on for Adults.The GFR will not calculate i f the sex is unknown or if thepatient's ag e is <18 years. CREATININE (test 0.8 mg/dL 0.5-1.0 N code = CREAT) TOTAL PROTEIN (test 6.2 gm/dL 6.3-8.2 L code = PROT) ALBUMIN (test code = 2.4 gm/dL 3.4-4.8 L ALB) CALCIUM (test code = 8.7 mg/dL 8.4-10.2 N CA) BILIRUBIN TOTAL 0.1 mg/dL 0.2-1.0 L (test code = BILT) SGOT/AST (test code 17 units/L 15-37 N = AST) SGPT/ALT (test code 16 units/L 12-78 N = ALT) ALKALINE PHOSPHATASE 235 units/L 46-116 H TOTAL (test code = ALKP) CBC W/AUTO [id number] 12:17:00 Test Item Value Reference Range Interpretation Comments WHITE BLOOD CELL (test code = WBC) 10.7 K/mm3 6.5-12.3 N RED BLOOD CELL (test code = RBC) 4.11 M/mm3 3.51-4.69 N HEMOGLOBIN (test code = HGB) 12.7 g/dL 10.1-13.8 N HEMATOCRIT (test code = HCT) 37.8 % 32.5-41.8 N MEAN CELL VOLUME (test code = MCV) 92.0 fL 84.6-96.6 N MEAN CELL HGB (test code = MCH) 30.9 pg 27.3-33.9 N MEAN CELL HGB CONCETRATION (test 33.6 gm/dL 32.0-34.2 N code = MCHC) RED CELL DISTRIBUTION WIDTH (test 14.5 % 12.2-16.3 N code = RDW) PLATELET COUNT (test code = PLT) 238 K/mm3 134-363 N MEAN PLATELET VOLUME (test code = 11.1 fL 9.2-12.7 N MPV) NEUTROPHIL % (test code = NT%) 73.7 % 57.9-77.3 N LYMPHOCYTE % (test code = LY%) 18.7 % 14.5-29.7 N MONOCYTE % (test code = MO%) 6.2 % 3.6-10.2 N EOSINOPHIL % (test code = EO%) 0.5 % 0.0-3.0 N BASOPHIL % (test code = BA%) 0.3 % 0.1-0.9 N NEUTROPHIL # (test code = NT#) 7.9 K/mm3 LYMPHOCYTE # (test code = LY#) 2.0 K/mm3 MONOCYTE # (test code = MO#) 0.7 K/mm3 EOSINOPHIL # (test code = EO#) 0.05 K/mm3 BASOPHIL # (test code = BA#) 0.0 K/mm3 RBC MORPHOLOGY REQUIRED (test code NORMAL NORMAL = RBCM) PLATELET MORPHOLOGY REQUIRED (test NORMAL NORMAL code = PLTMR) Urinalysis macro (dipstick) panel - [id number] 10:54:00 Test Item Value Reference Range Interpretation Comments Protein (test code = Protein) Negative Glucose (test code = Glucose) Trace [facility] MedicalStreptococcus agalactiae [Presence] in Specimen by Organism specific [id number] 00:00:00 Test Item Value Reference Range Interpretation Comments culture, genital (strep B) (test positive negative A code = culture, genital (strep B)) [facility] MedicalStreptococcus agalactiae [Presence] in Specimen by Organism specific [id number] 00:00:00 Test Item Value Reference Range Interpretation Comments culture, genital (strep B) (test positive negative A code = culture, genital (strep B)) [facility] MedicalStreptococcus agalactiae [Presence] in Specimen by Organism specific [id number] 00:00:00 Test Item Value Reference Range Interpretation Comments culture, genital (strep B) (test positive negative A code = culture, genital (strep B)) [facility] MedicalHIV 1+2 Ab+HIV1 p24 Ag [Presence] in Serum or Plasma by [id number] 00:00:00 Test Item Value Reference Range Interpretation Comments HIV Ag/Ab (test code = HIV non-reactive non-reactive Ag/Ab) [facility] MedicalReagin Ab [Presence] in Serum by [id number] 00:00:00 Test Item Value Reference Range Interpretation Comments RPR (test code = RPR) non-reactive non-reactive [facility] MedicalHIV 1+2 Ab+HIV1 p24 Ag [Presence] in Serum or Plasma by [id number] 00:00:00 Test Item Value Reference Range Interpretation Comments HIV Ag/Ab (test code = HIV non-reactive non-reactive Ag/Ab) [facility] MedicalReagin Ab [Presence] in Serum by [id number] 00:00:00 Test Item Value Reference Range Interpretation Comments RPR (test code = RPR) non-reactive non-reactive [facility] MedicalHIV 1+2 Ab+HIV1 p24 Ag [Presence] in Serum or Plasma by [id number] 00:00:00 Test Item Value Reference Range Interpretation Comments HIV Ag/Ab (test code = HIV non-reactive non-reactive Ag/Ab) [facility] MedicalReagin Ab [Presence] in Serum by [id number] 00:00:00 Test Item Value Reference Range Interpretation Comments RPR (test code = RPR) non-reactive non-reactive [facility] MedicalUrinalysis macro (dipstick) panel - [id number] 10:38:00 Test Item Value Reference Range Interpretation Comments Protein (test code = Protein) Negative Glucose (test code = Glucose) Normal [facility] MedicalUrinalysis macro (dipstick) panel - [id number] 10:38:00 Test Item Value Reference Range Interpretation Comments Protein (test code = Protein) Negative Glucose (test code = Glucose) Normal [facility] MedicalUrinalysis macro (dipstick) panel - [id number] 10:38:00 Test Item Value Reference Range Interpretation Comments Protein (test code = Protein) Negative Glucose (test code = Glucose) Normal [facility] MedicalUrinalysis macro (dipstick) panel - [id number] 10:31:00 Test Item Value Reference Range Interpretation Comments Protein (test code = Protein) Trace Glucose (test code = Glucose) Normal [facility] MedicalUrinalysis macro (dipstick) panel - [id number] 10:31:00 Test Item Value Reference Range Interpretation Comments Protein (test code = Protein) Trace Glucose (test code = Glucose) Normal [facility] MedicalUrinalysis macro (dipstick) panel - [id number] 10:31:00 Test Item Value Reference Range Interpretation Comments Protein (test code = Protein) Trace Glucose (test code = Glucose) Normal [facility] MedicalUrinalysis macro (dipstick) panel - [id number] 11:12:25 Test Item Value Reference Range Interpretation Comments Protein (test code = Protein) Trace [facility] MedicalUrinalysis macro (dipstick) panel - [id number] 11:12:25 Test Item Value Reference Range Interpretation Comments Protein (test code = Protein) Trace [facility] MedicalUrinalysis macro (dipstick) panel - [id number] 11:12:25 Test Item Value Reference Range Interpretation Comments Protein (test code = Protein) Trace [facility] MedicalUrinalysis macro (dipstick) panel - [id number] 10:58:00 Test Item Value Reference Range Interpretation Comments Protein (test code = Protein) Negative Glucose (test code = Glucose) Negative [facility] MedicalUrinalysis macro (dipstick) panel - [id number] 10:58:00 Test Item Value Reference Range Interpretation Comments Protein (test code = Protein) Negative Glucose (test code = Glucose) Negative [facility] MedicalGlucose [Mass/volume] in Serum or Plasma --post 50 g glucose 2022-01-17 00:00:00 Test Item Value Reference Range Interpretation Comments glu.1HR(glucola)preg. (test code = 159 mg/dL <130 H glu.1HR(glucola)preg.) [facility] MedicalGlucose [Mass/volume] in Serum or Plasma --post 50 g glucose 2022-01-17 00:00:00 Test Item Value Reference Range Interpretation Comments glu.1HR(glucola)preg. (test code = 159 mg/dL <130 H glu.1HR(glucola)preg.) [facility] MedicalCBC panel - Blood by Automated [id number] 00:00:00 Test Item Value Reference Range Interpretation Comments WBC (test code = WBC) 14.6 10 3.7-12.0 H RBC (test code = RBC) 3.61 10 3.60-5.50 HGB (test code = HGB) 11.1 g/dL 11.5-15.6 L HCT (test code = HCT) 32.5 % 34.5-46.5 L MCV (test code = MCV) 90.0 um 80.0-102.0 MCH (test code = MCH) 30.7 pg 25.0-34.1 MCHC (test code = MCHC) 34.2 g/dL 29.0-35.0 RDW (test code = RDW) 14.1 % 10.9-16.9 plt (test code = plt) 332 10 136-392 MPV (test code = MPV) 7.9 um 7.4-11.1 gran % (test code = gran %) 80.4 % 36.0-78.0 H lymph % (test code = lymph %) 12.8 % 12.0-48.0 mono % (test code = mono %) 6.0 % 0.0-13.0 eos % (test code = eos %) 1 % 0-8 baso % (test code = baso %) 0 % 0-2 gran # (test code = gran #) 11.8 10 1.2-6.8 H lymph # (test code = lymph #) 1.9 10 1.2-3.2 mono # (test code = mono #) 0.9 10 0.3-0.8 H eos # (test code = eos #) 0.1 10 0.0-0.2 baso # (test code = baso #) 0.0 10 0.0-0.2 [facility] panel - Blood by Automated [id number] 00:00:00 Test Item Value Reference Range Interpretation Comments WBC (test code = WBC) 14.6 10 3.7-12.0 H RBC (test code = RBC) 3.61 10 3.60-5.50 HGB (test code = HGB) 11.1 g/dL 11.5-15.6 L HCT (test code = HCT) 32.5 % 34.5-46.5 L MCV (test code = MCV) 90.0 um 80.0-102.0 MCH (test code = MCH) 30.7 pg 25.0-34.1 MCHC (test code = MCHC) 34.2 g/dL 29.0-35.0 RDW (test code = RDW) 14.1 % 10.9-16.9 plt (test code = plt) 332 10 136-392 MPV (test code = MPV) 7.9 um 7.4-11.1 gran % (test code = gran %) 80.4 % 36.0-78.0 H lymph % (test code = lymph %) 12.8 % 12.0-48.0 mono % (test code = mono %) 6.0 % 0.0-13.0 eos % (test code = eos %) 1 % 0-8 baso % (test code = baso %) 0 % 0-2 gran # (test code = gran #) 11.8 10 1.2-6.8 H lymph # (test code = lymph #) 1.9 10 1.2-3.2 mono # (test code = mono #) 0.9 10 0.3-0.8 H eos # (test code = eos #) 0.1 10 0.0-0.2 baso # (test code = baso #) 0.0 10 0.0-0.2 [facility] - [id number] 09:28:00 Test Item Value Reference Range Interpretation Comments Protein (test code = Protein) Negative Glucose (test code = Glucose) Negative [facility] (dipstick) panel - [id number] 11:19:02 Test Item Value Reference Range Interpretation Comments Protein (test code = Protein) Negative Glucose (test code = Glucose) Negative [facility] Medical[facility]inalysis macro (dipstick) panel - [id number] 11:19:02 Test Item Value Reference Range Interpretation Comments Protein (test code = Protein) Negative Glucose (test code = Glucose) Negative [facility] MedicalUrinalysis macro (dipstick) panel - [id number] 11:19:02 Test Item Value Reference Range Interpretation Comments Protein (test code = Protein) Negative Glucose (test code = Glucose) Negative [facility] QmjgbbqKxigw-0-Vxbzpkghkyd [Mass/volume] in Serum or [id number] 00:00:00 Test Item Value Reference Range Interpretation Comments dating method: (test edc by ultrasound code = dating method:) (provide edc date below) enter date here: (test 04/05/2022 code = enter date here:) ethnicity: (test code other = ethnicity:) insulin dependent N diabetic: (test code = insulin dependent diabetic:) number of fetuses: 1 (test code = number of fetuses:) race: (test code = white () race:) maternal serum AFP negative screen (test code = maternal serum AFP screen) [facility] [id number]-3-Ssmykdxdbgb [Mass/volume] in Serum or [id number] 00:00:00 Test Item Value Reference Range Interpretation Comments dating method: (test edc by ultrasound code = dating method:) (provide edc date below) enter date here: (test 04/05/2022 code = enter date here:) ethnicity: (test code other = ethnicity:) insulin dependent N diabetic: (test code = insulin dependent diabetic:) number of fetuses: 1 (test code = number of fetuses:) race: (test code = white () race:) maternal serum AFP negative screen (test code = maternal serum AFP screen) [facility] HhplfqeTuidj-1-Fntuoaujueg [Mass/volume] in Serum or [id number] 00:00:00 Test Item Value Reference Range Interpretation Comments dating method: (test edc by ultrasound code = dating method:) (provide edc date below) enter date here: (test 04/05/2022 code = enter date here:) ethnicity: (test code other = ethnicity:) insulin dependent N diabetic: (test code = insulin dependent diabetic:) number of fetuses: 1 (test code = number of fetuses:) race: (test code = white () race:) maternal serum AFP negative screen (test code = maternal serum AFP screen) [facility] MedicalBacteria identified in Urine by [id number] 00:00:00 Test Item Value Reference Range Interpretation Comments bacteria, urine (test code = none none-few bacteria, urine) blood, urine (test code = negative negative blood, urine) bilirubin, urine (test code = negative negative bilirubin, urine) cast, granular, ur (test code none seen 0-1 = cast, granular, ur) cast, hyaline, urine (test 0-4 0-4 code = cast, hyaline, urine) cast, RBC, urine (test code = none seen 0-1 cast, RBC, urine) character (test code = clear clear character) color (test code = color) yellow yellow, straw, lillian crystal amt. urine (test code none none = crystal amt. urine) crystals urine (test code = none none crystals urine) culture, urine (test code = see below no growth A culture, urine) epithelial cells, ur (test few none-few code = epithelial cells, ur) glucose, urine (test code = negative negative glucose, urine) ketone, urine (test code = negative negative ketone, urine) leukocyte esterase (test code negative negative = leukocyte esterase) nitrites urine (test code = negative negative nitrites urine) pH urine (test code = pH 7.5 5.0-8.0 urine) protein, urine (test code = negative negative protein, urine) RBC, urine (test code = RBC, none seen none seen urine) specific gravity ur (test code 1.011 1.003-1.030 = specific gravity ur) urobilinogen urine (test code 0.2 mg/dL 0.2-1.0 = urobilinogen urine) WBC, urine (test code = WBC, 0-4 0-4 urine) [place] [address] panel - Serum and [id number] 00:00:00 Test Item Value Reference Range Interpretation Comments WBC (test code = 9.75 x10(3)/uL 4.00-10.10 WBC) RBC (test code = 4.28 x10(6)/uL 3.58-5.19 RBC) HGB (test code = 12.9 g/dL 11.0-15.5 HGB) HCT (test code = 37.6 % 31.5-44.8 HCT) MCV (test code = 87.9 fL 78.0-98.0 MCV) MCH (test code = 30.1 pg 25.2-32.6 MCH) MCHC (test code = 34.3 g/dL 31.0-34.7 MCHC) RDW (test code = 13.8 % 12.0-15.5 RDW) platelet count (test 290 x10(3)/uL 140-425 code = platelet count) lymphs (test code = 19.9 % 13.7-50.9 lymphs) monos (test code = 10.5 % 3.0-11.9 monos) eos (test code = 0.8 % 0.0-5.0 eos) basos (test code = 0.3 % 0.0-1.0 basos) MPV (test code = 10.2 fL 8.6-12.1 MPV) polys (test code = 68.2 % 37.1-78.1 polys) RPR (test code = non-reactive non-reactive RPR) immature 0.3 % 0.0-1.0 granulocytes (test code = immature granulocytes) ABO/Rh blood type O pos (test code = ABO/Rh blood type) antibody screen negative negative (test code = antibody screen) hep. B surf. Ag non-reactive non-reactive (test code = hep. B surf. Ag) rubella,IgG (test 103.3 [IU]/mL See_Comment [Automat ed code = rubella,IgG) message] The system which generated this result transmitted reference range : immune >9.9. Th e reference range was not used to interpret this result as normal/abnormal . [facility] MedicalBacteria identified in Urine by [id number] 00:00:00 Test Item Value Reference Range Interpretation Comments bacteria, urine (test code = none none-few bacteria, urine) blood, urine (test code = negative negative blood, urine) bilirubin, urine (test code = negative negative bilirubin, urine) cast, granular, ur (test code none seen 0-1 = cast, granular, ur) cast, hyaline, urine (test 0-4 0-4 code = cast, hyaline, urine) cast, RBC, urine (test code = none seen 0-1 cast, RBC, urine) character (test code = clear clear character) color (test code = color) yellow yellow, straw, lillian crystal amt. urine (test code none none = crystal amt. urine) crystals urine (test code = none none crystals urine) culture, urine (test code = see below no growth A culture, urine) epithelial cells, ur (test few none-few code = epithelial cells, ur) glucose, urine (test code = negative negative glucose, urine) ketone, urine (test code = negative negative ketone, urine) leukocyte esterase (test code negative negative = leukocyte esterase) nitrites urine (test code = negative negative nitrites urine) pH urine (test code = pH 7.5 5.0-8.0 urine) protein, urine (test code = negative negative protein, urine) RBC, urine (test code = RBC, none seen none seen urine) specific gravity ur (test code 1.011 1.003-1.030 = specific gravity ur) urobilinogen urine (test code 0.2 mg/dL 0.2-1.0 = urobilinogen urine) WBC, urine (test code = WBC, 0-4 0-4 urine) [facility] 1996 panel - Serum and [id number] 00:00:00 Test Item Value Reference Range Interpretation Comments WBC (test code = 9.75 x10(3)/uL 4.00-10.10 WBC) RBC (test code = 4.28 x10(6)/uL 3.58-5.19 RBC) HGB (test code = 12.9 g/dL 11.0-15.5 HGB) HCT (test code = 37.6 % 31.5-44.8 HCT) MCV (test code = 87.9 fL 78.0-98.0 MCV) MCH (test code = 30.1 pg 25.2-32.6 MCH) MCHC (test code = 34.3 g/dL 31.0-34.7 MCHC) RDW (test code = 13.8 % 12.0-15.5 RDW) platelet count (test 290 x10(3)/uL 140-425 code = platelet count) lymphs (test code = 19.9 % 13.7-50.9 lymphs) monos (test code = 10.5 % 3.0-11.9 monos) eos (test code = 0.8 % 0.0-5.0 eos) basos (test code = 0.3 % 0.0-1.0 basos) MPV (test code = 10.2 fL 8.6-12.1 MPV) polys (test code = 68.2 % 37.1-78.1 polys) RPR (test code = non-reactive non-reactive RPR) immature 0.3 % 0.0-1.0 granulocytes (test code = immature granulocytes) ABO/Rh blood type O pos (test code = ABO/Rh blood type) antibody screen negative negative (test code = antibody screen) hep. B surf. Ag non-reactive non-reactive (test code = hep. B surf. Ag) rubella,IgG (test 103.3 [IU]/mL See_Comment [Automat ed code = rubella,IgG) message] The system which generated this result transmitted reference range : immune >9.9. Th e reference range was not used to interpret this result as normal/abnormal . [facility] MedicalHIV 1+2 Ab+HIV1 p24 Ag [Presence] in Serum or Plasma by [id number] 00:00:00 Test Item Value Reference Range Interpretation Comments ethnicity: (test code = other ethnicity:) race: (test code = race:) unknown HIV Ag/Ab (test code = HIV non-reactive non-reactive Ag/Ab) [facility] MedicalHepatitis C virus Ab [Presence] in [id number] 00:00:00 Test Item Value Reference Range Interpretation Comments ethnicity: (test code = other ethnicity:) race: (test code = race:) unknown hep C Ab. (S/co ratio) (test 0.07 S/co <0.80 code = hep C Ab. (S/co ratio)) hep. C Ab. (test code = hep. C non-reactive non-reactive Ab.) [facility] MedicalHIV 1+2 Ab+HIV1 p24 Ag [Presence] in Serum or Plasma by [id number] 00:00:00 Test Item Value Reference Range Interpretation Comments ethnicity: (test code = other ethnicity:) race: (test code = race:) unknown HIV Ag/Ab (test code = HIV non-reactive non-reactive Ag/Ab) [facility] MedicalHepatitis C virus Ab [Presence] in [id number] 00:00:00 Test Item Value Reference Range Interpretation Comments ethnicity: (test code = other ethnicity:) race: (test code = race:) unknown hep C Ab. (S/co ratio) (test 0.07 S/co <0.80 code = hep C Ab. (S/co ratio)) hep. C Ab. (test code = hep. C non-reactive non-reactive Ab.) [facility] MedicalThyrotropin [Units/volume] in Serum or [id number] 00:00:00 Test Item Value Reference Range Interpretation Comments TSH (test code = TSH) 1.460 uIU/mL 0.178-4.530 [facility] MedicalChlamydia trachomatis+Neisseria gonorrhoeae rRNA [Presence] in Urine by [id number] 00:00:00 Test Item Value Reference Range Interpretation Comments aptima combo 2 urine (CT) (test code = CT neg negative aptima combo 2 urine (CT)) aptima combo 2 urine (GC) (test code = GC neg negative aptima combo 2 urine (GC)) [facility] Medical Notes Date/Time Note Provider Source 2022-03-24 14:08:00-00:00 [facility]) OB Disch REPORT#:[id number] REPORT STATUS: Signed DATE:03/24/22 TIME: 8218 PATIENT: BRIAN MCGARRY MARY UNIT #: [id number] ROOM/BED: [facility]78A : 88 AGE: 31 SEX: F ATTEND: Clay Alcantar MD ADM AUTHOR: Vonda Aguilra MD * ALL edits or amendments must be made on the [employer]/computer document * Subjective Subjective Admission EGA: Weeks: 38 Days: 0 Status/day: post , post operative, d3 Patient reports: Patient reports: Yes: normal lochia, pain management effective, tolerating po well, voiding well, tolerating ambulation, flatus, bowel movem ent. No: complaints. Objective General VS: Vital Signs Date Temp Pulse Resp B/P B/P Mean Pulse Ox FiO2 03/23-03/24 97.9-98.6 99-100 18-19 127-131/73-8 6 100.9 Last Documented: Result Date Time B/P 131/86 03/24 1252 B/P Mean 100.9 03/24 1252 Temp 98.6 03/24 1252 Pulse 99 03/24 1252 Resp 19 03/24 1252 Pulse Ox 95 03/23 0106 PATIENT WEIGHT: Weight (lb): 270 Weight (oz): 8.12 Weight (kg): 122.700 Physical Exam Neuro: Exam: alert, oriented x3 Incision site: well approximated edges, dry, no drainage Uterus: involution appropriate Lochia: normal Lower extremities: Edema: trace Discharge Summary General Free Text A P: 31yo @39+0 with prior cs admitted for repeat cs. complicated by GDM on metformin. Pt doing w ell, pain controlled. Ready for discharge. in NICU Assessment: nml progress, gest diab, on oral agents Date of admission: Date of admission: 03/21/22 Admission diagnosis: diabetes-gestational, previ ous uterine incision Hospital course: repeat admit Procedures: epidural anesthesia, repeat CS divine paige Discharge condition: stable Discharge to: Home/Self Care Discharge diagnosis: previous uterine incision, gestational diabetes Baby A: status: live born Gender: male 1 minute: 8 5 minutes: 9 Plan: routine care Discharge Instructions Instructions: routine instr sheet given, instr a nd warnings rev'd, specific instr as noted Diet: Resume Home Diet/Feeds Activity: Do not Submerge Incision, Light Duty, No Hymera for 6 Wks, No Lifting >10lbs Additional discharge routines: Attending Follow- Up Contraception discussed: abstinence for 4-6 week s, will discuss at PP visit Discharge meds: Continue taking these medications: PNV/FE FUM/FA ( MULTIVITAMIN) 28 MG IRON -800 MCG TAB 1 TABLET ORAL DAILY. metFORMIN (GLUCOPHAGE) 500 MG TAB 500 MILLIGRAM ORAL DAILY. Start taking the following new medications: IBUPROFEN (MOTRIN) 600 MG TAB 600 MILLIGRAM ORAL EVERY 6 HOURS NEEDED. as needed for PAIN SCALE 1-3 ( USE 1ST) Qty = 30 No Refills DOCUSATE SODIUM (COLACE) 100 MG CAP 200 MILLIGRAM ORAL BEDTIME. Qty = 10 No Refills HYDROcodone/APAP (HYDROcodone/APAP 5/325) 5 MG-3 25 MG TAB 1 TABLET ORAL EVERY FOUR HOURS. as needed for p ain Qty = 30 No Refills Prescriptions: e-prescribe Add'l Follow-up Appointments Attending Physician: Attending Physician: Mayco Alcantar MD Electronically Signed by Vonda Aguilar MD on 03/13 04/04 at 1412 RPT #:[id number] END OF REPORT 2022-03-23 10:54:00-00:00 [facility] ([facility]) OB Postpart Progr Note REPORT#:[id number] REPORT STATUS: Signed DATE:03/23/22 TIME: 1054 PATIENT: BRIAN MCGARRY UNIT #: [id number] ROOM/BED: [facility]78-A : 88 AGE: 31 SEX: F ATTEND: Clay Alcantar MD ADM AUTHOR: Enriqueta Rodrigues MD * ALL edits or amendments must be made on the el [employer]/computer document * Subjective Subjective Status/day: post , post operative, d2 Comments: pt in NICU at time of MD rounds Objective Nursing Documentation Review Nursing data: The data set between the solid lines has been im ported from nursing documentation. Any exceptions have been noted be low under Provider comments. Feeding preference: Post hemorrhage risk score: High Risk for Hemorrhage. Provider comments on imported nursing data: [] General VS: Vital Signs Date Temp Pulse Resp B/P B/P Mean Pulse Ox FiO2 03/23 97.9 88 18 116/68 83.9 95 Last Documented: Result Date Time Pulse Ox 95 03/23 0106 B/P 116/68 03/23 105 B/P Mean 83.9 03/23 105 Temp 97.9 03/23 010 Pulse 88 03/23 010 Resp 18 03/23 105 PATIENT WEIGHT: Weight (lb): 270 Weight (oz): 8.12 Weight (kg): 122.700 Diagnosis, Assessment Plan Diagnosis, Assessment Plan Free text A P: pod 2, rpt c/s; male infant in NICU at 0848 RPT #:[id number] END OF REPORT 2022-03-22 08:21:00-00:00 [facility] ([facility]) OB Postpart Progr Note REPORT#:[id number] REPORT STATUS: Signed DATE:03/22/22 TIME: 0821 PATIENT: BRIAN MCGARRY MARY UNIT #: [id number] [address] AGE: 31 SEX: F ATTEND: Clay Alcantar MD ADM AUTHOR: Mayco Alcantar MD * ALL edits or amendments must be made on the el [employer]/computer document * Subjective Subjective Admission EGA: Weeks: 38 Days: 0 Status/Day: post operative (d1) Patient reports: Patient reports: Yes no complaints, Yes pain management effectiv e, Yes tolerating po well Objective Nursing Documentation Review Nursing Data: The data set between the solid lines has been im ported from nursing documentation. Any exceptions have been noted be low under Provider comments. Feeding preference: Post hemorrhage risk score: High Risk for Hemorrhage. Provider comments on imported nursing data: [] General VS: Vital Signs: Date Time Temp Pulse Resp B/P B/P Pulse O2 O2 F low FiO2 Mean Ox Delivery Rate 03/22 0356 97.8 80 18 106/68 03/21 2329 98.6 68 18 98/61 03/21 1954 98.4 77 18 104/65 03/21 1600 86.0 03/21 1600 70 7 115/67 96 03/21 1545 89.0 03/21 1545 87 33 118/72 96 03/21 1531 83.0 03/21 1531 128/58 03/21 1530 72 36 97 03/21 1515 94.0 02/ 1515 78 17 121/74 97 02/ 1500 83.0 02/ 1500 75 109/69 97 02/ 1445 83.0 02/ 1445 67 106/67 95 02/ 1431 83.0 02/ 1431 98/78 02/ 1430 71 98 02/ 1415 74.0 02/ 1415 71 104/56 98 02/ 1400 76.0 02/ 1400 75 106/59 98 02/ 1345 81.0 02/ 1345 84 110/62 98 02/ 1330 79.0 02/ 1330 82 16 105/62 100 / 1315 76.0 02/ 1315 84 16 103/59 99 02/ 1314 75.0 02/ 1314 105/60 02/ 1311 97.7 16 100 02/ 1026 106.0 / 1026 97.9 100 18 137/84 PATIENT WEIGHT: Weight (lb): 270 Weight (oz): 8.12 Weight (kg): 122.700 Physical Exam Neuro: Exam: alert, oriented x3 Abdomen: soft, no abnormal tenderness Incision site: well approximated edges, dry, no drainage, no inflammation Uterus: firm, non-tender Fundus: firm, below the umbilicus, non-tender Result Findings/Data: Laboratory Tests: 03/22 03/21 0724 1030 Chemistry Glucose (65 - 110 mg/dL) 85 Hematology Hgb (10.1 - 13.8 g/dL) 11.8 Hct (32.5 - 41.8 %) 35.7 Diagnosis, Assessment Plan Diagnosis, Assessment Plan Assessment: nml progress Plan: routine care at 0822 RPT #:[id number] END OF REPORT 2022-03-21 13:03:00-00:00 [facility] ([facility]) OB Delivery Note REPORT#:[id number] REPORT STATUS: Signed DATE:03/21/22 TIME: 1303 PATIENT: BRIAN MCGARRY UNIT #: [id number] [address]BED: [address] : 88 AGE: 31 SEX: F ATTEND: Clay Alcantar MD ADM AUTHOR: Mayco Alcantar MD * ALL edits or amendments must be made on the el [employer]/computer document * OB Delivery Nursing Documentation Review Nursing data: The data set between the solid lines has been im ported from nursing documentation. Any exceptions have been noted be low under Provider comments. _ ROM date: 03/21/22 ROM time: 1239 Membranes rupture method: AROM Amniotic fluid color: Clear Amniotic fluid amount: Steroids prior to arrival: Antibiotic prophylaxis given: Yes Post hemorrhage risk score: Delivery date A: 03/21/22 Delivery time infant A: 1239 Birthweight (gm) A: 3880 Weight (lb) A: Weight (oz) infant A: Gender infant A: Male 1 minute A: 8 5 minutes A: 9 10 minutes A: Cord pH obtained infant A: Vacuum time infant A: Vacuum # pulls infant A: Vacuum # popoffs infant A: QBL at delivery: __ Provider comments on imported nursing data: [] Pre-delivery GBS status: GBS status: positive Prophylaxis administered: cephazolin Admission EGA: Weeks: 38 Days: 0 Admission indication: GDM, prev C/S Blood Loss/Details Blood loss at delivery: <1K: no sx hypovol=no he m, no more than expected EBL at delivery (ml's): 700 Baby A Information Baby A information Delivery date: 03/21/22 Delivery time: 1239 status: live born Wt of baby (lbs/oz): 89 Gender: male 1 minute: 8 5 minutes: 9 Presentation: vertex Nuchal cord Baby A Nuchal cord: no Op/Inv Proc Note - Brief )( Procedure(s) performed: repeat low transverse c/s )( Primary Surgeon: Raleigh Alcantar )( Human Resources Professional(s): Ariel Durant )( Pre-procedure diagnosis: 38 wks, GDM, prev C/S )( Post-procedure diagnosis: same )( Technique/Procedure: LTCS Anesthesia: combined spinal/epidural )( Estimated blood loss (ml): 700 )( Specimen removed/altered: none )( Complications: none )( Finding(s): nl ut/ov/tubes. hemostatic. counts correct. Condition: stable Delivery Delivery section indication: elective repeat Priority: scheduled : : contraindicated Antibiotic prior to incision: 1 dose )(SCDs applied activated: Yes Uterine incision: low transverse Uterine scar: intact Consent: indication discussed, questions answer ed, pt consent to op delivery Mother's condition: mother stable Infant's condition: stable in nursery at 1306 RPT #:[id number] END OF REPORT 2022-03-21 11:54:00-00:00 [facility]) OB Admission / H P REPORT#:[id number] REPORT STATUS: Signed DATE:03/21/22 TIME: 1154 PATIENT: BRIAN MCGARRY UNIT #: [id number] RO[address]BED: [address] : 88 AGE: 31 SEX: F ATTEND: Clay Alcantar MD ADM AUTHOR: Mayco Alcantar MD * ALL edits or amendments must be made on the el [employer]/computer document * OB History Chief complaint: scheduled history: : 2 Term: 1 Previous : low uterine trans incis Number of prev : 1 Current : Admission EGA (weeks) 39 Admission EGA (days) 0 Conditions of : diabetes - gestational, previous uterine incision Labs: Blood type: O Rh: positive Rubella: immune Hepatitis B: negative HIV: negative STD: negative Syphilis: currently negative GBS: positive Procedures: ultrasound, genetic testing, n on stress test Past History Additional Medical History: denies Past Surgical History: Reports: . Alcohol Use Denies EtOH use Drug Use Denies recreational drugs Smoking status for patients 13 years old or olde r: Never Smoker Allergies: Coded Allergies: sulfamethoxazole (From BACTRIM) (RASH 03/21/22) trimethoprim (From BACTRIM) (RASH 03/21/22) Objective General VS: Last Documented: Result Date Time B/P Mean 106.0 03/21 1026 B/P 137/84 03/21 1026 Temp 97.9 03/21 1026 Pulse 100 03/21 1026 Resp 18 03/21 1026 Vital Signs Date Temp Pulse Resp B/P B/P Mean Pulse Ox FiO2 03/21 97.9 100 18 137/84 106.0 PATIENT WEIGHT: Weight (lb): 270 Weight (oz): 8.12 Weight (kg): 122.700 Physical Exam HEENT: normocephalic w/o injury Neuro: Exam: alert, oriented x3 Abdomen: gravid, soft, no abnormal tenderness Cervical/ exam: Dilatation (cm): 0 - closed Effacement (%): 0 Est wt (gms): 3600 Suspected macrosomia: No Suspected > 5000 grams: No station: - 2 presentation: cephalic Membranes: Membranes: Intact Baby A: Baby A baseline: 135 bpm Baby A variability: moderate 6-25 bpm Baby A accelerations: 15 X 15 Baby A decelerations: none Baby A FHR category: category 1 Results Findings/Data: Laboratory Tests: 03/21 1030 Chemistry Glucose (65 - 110 mg/dL) 85 Diagnosis, Assessment Plan Diagnosis, Assessment Plan Assessment/Impression: previous C/S, for repeat Plan: scheduled Reason-sched C section: elective repeat at 1159 RPT #:[id number] END OF REPORT
[2022-10-11] MEDS ORDERED: HYDROMORPHONE HCL 0.5 MG/0.5 ML INJ ONE (18:11)
--- NOTE | 2022-10-11 18:17 | ER ---
Nurse's Notes [facility] Name: Veronica Moore Age: 32 yrs Sex: Female : 1990 Arrival Date: 10/11/2022 Time: 17:14 Bed 14 Private MD: Diagnosis: Cellulitis of face-ear;Acute mastoiditis Presentation: 10/11 17:30 Chief complaint: Patient states: Left ear pain, radiating to neck. First noticed about nj1 2 days ago, but notice swelling, nodules, increased pain and muffled sounds today. Coronavirus screen: Vaccine status: Patient reports being unvaccinated. Ebola Screen: Patient denies travel to an Ebola-affected area in the 21 days before illness onset. Initial Sepsis Screen: Does the patient meet any 2 criteria? HR > 90 bpm. No. Patient's initial sepsis screen is negative. Does the patient have a suspected source of infection? No. Patient's initial sepsis screen is negative. Risk Assessment: Do you want to hurt yourself or someone else? Patient reports no desire to harm self or others. Onset of symptoms was October 09, 2022. 17:30 Method Of Arrival: Ambulatory [facility] [place] 17:30 Acuity: EMANUEL 4 nj1 Triage Assessment: 17:43 General: Appears in no apparent distress. comfortable, Behavior is calm, cooperative. db Pain: Complains of pain in left ear. 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 - Social history:: Smoking status: Patient reports the use of cigarette tobacco products, smokes one-half pack cigarettes per day. Screenin:43 [facility] ED Fall Risk Assessment (Adult) History of falling in the last 3 months, db including since admission No falls in past 3 months (0 pts) Confusion or Disorientation No (0 pts) Intoxicated or Sedated No (0 pts) Impaired Gait No (0 pts) Mobility Assist Device Used No (0 pt) Altered Elimination No (0 pt) Score/Fall Risk Level 0 - 2 = Low Risk Oriented to surroundings, Maintained a safe environment. Abuse screen: Denies threats or abuse. Denies injuries from another. Nutritional screening: No deficits noted. Tuberculosis screening: No symptoms or risk factors identified. Assessment: 17:43 Reassessment: Patient appears in no apparent distress at this time. Patient and/or db family updated on plan of care and expected duration. Pain level reassessed. Patient is alert, oriented x 3, equal unlabored respirations, skin warm/dry/pink. Reassessment: STATES SWELLING AND BEHIND EAR PAIN STARTED THIS AM WITH NODULES. General: Appears in no apparent distress. comfortable. General: Appears in no apparent distress. comfortable, Behavior is calm, cooperative. Pain: Complains of pain in neck and left ear. Neuro: Level of Consciousness is awake, alert, obeys commands, Oriented to person, place, time, situation. EENT: Reports pain in left ear. 18:38 Reassessment: Patient appears in no apparent distress at this time. Patient and/or db family updated on plan of care and expected duration. Pain level reassessed. Patient is alert, oriented x 3, equal unlabored respirations, skin warm/dry/pink. General: Appears in no apparent distress. comfortable. Vital Signs: 17:30 BP 133 / 99; Pulse 98; Resp 18; Temp 99.1; Pulse Ox 100% ; Weight 113.4 kg; Height 5 nj1 ft. 6 in. ; Pain 6/10; 18:30 BP 129 / 90; Pulse 96; Resp 16; Pulse Ox 96% on R/A; db 17:30 Body Mass Index 40.35 (113.40 kg, 167.64 cm) nj1 17:30 Pain Scale: Adult [facility] ED Course: 17:19 Patient arrived in ED. mg5 17:22 Enriqueta Spivey FNP-C is PHCP. snw 17:22 Abimael Barrientos MD is Attending Physician. snw 17:32 Triage completed. nj1 17:32 Arm band placed on right wrist. nj1 17:36 Mary Gallegos, JANICE is Primary Nurse. db 18:15 Anya Llanos MD is Referral Physician. snw 18:38 Patient has correct armband on for positive identification. Bed in low position. Call db light in reach. Side rails up X 1. Provided Education on: discharge . 18:38 No provider procedures requiring assistance completed. Patient did not have IV access db during this emergency room visit. Administered Medications: 18:00 Drug: HYDROmorphone IM 0.5 mg Route: IM; Site: left deltoid; db 18:39 Follow up: Response: No adverse reaction db 18:17 CANCELLED (Other Intervention Used): Clindamycin IM 600 mg IM once snw 18:20 Drug: LevOfloxacin PO 500 mg Route: PO; db 18:39 Follow up: Response: No adverse reaction db 18:20 Drug: Clindamycin PO 300 mg Route: PO; db 18:39 Follow up: Response: No adverse reaction db 18:20 Drug: predniSONE PO 20 mg Route: PO; db 18:39 Follow up: Response: No adverse reaction db 18:20 Drug: Famotidine PO 20 mg Route: PO; db 18:39 Follow up: Response: No adverse reaction db Medication: 17:43 VIS not applicable for this client. db Point of Care Testing: Blood Glucose: 18:04 Blood Glucose: 95 mg/dL; db Ranges: Outcome: 18:17 Discharge ordered by . snw 18:38 Discharged to home ambulatory. db 18:38 Condition: stable 18:38 Discharge instructions given to patient, Instructed on discharge instructions, follow up and referral plans. Prescriptions given X x5 18:39 Patient left the ED. db Signatures: Enriqueta Spivey FNP-C BAG MACHINE HELPER-Csnw Mary Gallegos RN RN db Ivon Acosta RN RN nj1 Ashutosh Mary Carmen mg5
--- NOTE | 2022-10-11 18:17 | EDPHYS ---
Physician Documentation [facility] Name: Veronica Moore Age: 32 yrs Sex: Female : 1990 Arrival Date: 10/11/2022 Time: 17:14 Bed 14 Private MD: ED Physician Abimael Barrientos HPI: 10/11 18:01 This 32 yrs old Female presents to ER via Ambulatory with complaints of Ear Pain - snw Swelling, Neck/Head Tenderness. 18:01 The patient presents with pain, swelling, tenderness. The complaints affect the left snw ear. Onset: The symptoms/episode began/occurred acutely. Severity of symptoms: At their worst the symptoms were moderate. The patient has not experienced similar symptoms in the past. It is unknown whether or not the patient has recently seen a physician. 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 - Social history:: Smoking status: Patient reports the use of cigarette tobacco products, smokes one-half pack cigarettes per day. ROS: 18:00 Constitutional: Negative for fever, chills, and weight loss, Eyes: Negative for injury, snw pain, redness, and discharge, Neck: Negative for injury, pain, and swelling, Cardiovascular: Negative for chest pain, palpitations, and edema, Respiratory: Negative for shortness of breath, cough, wheezing, and pleuritic chest pain, Abdomen/GI: Negative for abdominal pain, nausea, vomiting, diarrhea, and constipation, Back: Negative for injury and pain, : Negative for injury, bleeding, discharge, and swelling, MS/Extremity: Negative for injury and deformity, Skin: Negative for injury, rash, and discoloration, Neuro: Negative for headache, weakness, numbness, tingling, and seizure, Psych: Negative for depression, anxiety, suicide ideation, homicidal ideation, and hallucinations. 18:00 ENT: Positive for ear pain, hearing loss, of the left ear. Exam: 17:59 Constitutional: This is a well developed, well nourished patient who is awake, alert, snw and in no acute distress. Head/Face: Normocephalic, atraumatic. Eyes: Pupils equal round and reactive to light, extra-ocular motions intact. Lids and lashes normal. Conjunctiva and sclera are non-icteric and not injected. Cornea within normal limits. Periorbital areas with no swelling, redness, or edema. Neck: Trachea midline, no thyromegaly or masses palpated, and no cervical lymphadenopathy. Supple, full range of motion without nuchal rigidity, or vertebral point tenderness. No Meningismus. Chest/axilla: Normal chest wall appearance and motion. Nontender with no deformity. No lesions are appreciated. Cardiovascular: Regular rate and rhythm with a normal S1 and S2. No gallops, murmurs, or rubs. Normal PMI, no JVD. No pulse deficits. Respiratory: Lungs have equal breath sounds bilaterally, clear to auscultation and percussion. No rales, rhonchi or wheezes noted. No increased work of breathing, no retractions or nasal flaring. Abdomen/GI: Soft, non-tender, with normal bowel sounds. No distension or tympany. No guarding or rebound. No evidence of tenderness throughout. Back: No spinal tenderness. No costovertebral tenderness. Full range of motion. Skin: Warm, dry with normal turgor. Normal color with no rashes, no lesions, and no evidence of cellulitis. MS/ Extremity: Pulses equal, no cyanosis. Neurovascular intact. Full, normal range of motion. Neuro: Awake and alert, GCS 15, oriented to person, place, time, and situation. Cranial nerves II-XII grossly intact. Motor strength 5/5 in all extremities. Sensory grossly intact. Cerebellar exam normal. Normal gait. Psych: Awake, alert, with orientation to person, place and time. Behavior, mood, and affect are within normal limits. 17:59 ENT: External ear(s): pain with movement, of the pinna of left ear, left ear lobe, left ear canal and left mastoid area, swelling, that is moderate, of the pinna of left ear, left ear lobe, left ear canal, left preauricular area and left mastoid area, TM's: fluid levels, on the left, Nose: is normal, Mouth: is normal, Posterior pharynx: Tonsils: Uvula: erythema, swelling, that is mild, Voice: is normal. Vital Signs: 17:30 BP 133 / 99; Pulse 98; Resp 18; Temp 99.1; Pulse Ox 100% ; Weight 113.4 kg; Height 5 nj1 ft. 6 in. ; Pain 6/10; 18:30 BP 129 / 90; Pulse 96; Resp 16; Pulse Ox 96% on R/A; db 17:30 Body Mass Index 40.35 (113.40 kg, 167.64 cm) nj1 17:30 Pain Scale: Adult nj1 MDM: 17:38 Patient medically screened. snw 18:14 Differential diagnosis: otitis media, otitis externa, mastoiditis. Data reviewed: vital snw signs, nurses notes. I considered the following discharge prescriptions or medication management in the emergency department Medications were administered in the Emergency Department. See MAR. Counseling: I had a detailed discussion with the patient and/or guardian regarding the historical points, exam findings, and any diagnostic results supporting the discharge/admit diagnosis, the presence of at least one elevated blood pressure reading (>120/80) during this emergency department visit, the need for outpatient follow up, for definitive care, to return to the emergency department if symptoms worsen or persist or if there are any questions or concerns that arise at home. Special discussion: I have referred the patient to see his PCP for further evaluation of high blood pressure. Based on the history and exam findings, there is no indication for further emergent testing or inpatient evaluation. I discussed with the patient/guardian the need to see the ENT specialist for further evaluation of the symptoms. I discussed with the patient/guardian the need to see the primary care provider for further evaluation of the symptoms. 10/11 18:16 Order name: Glucose, Ancillary Testing; Complete Time: 18:21 EDMS 10/11 17:50 Order name: FSBS; Complete Time: 18:04 snw Administered Medications: 18:00 Drug: HYDROmorphone IM 0.5 mg Route: IM; Site: left deltoid; db 18:39 Follow up: Response: No adverse reaction db 18:17 CANCELLED (Other Intervention Used): Clindamycin IM 600 mg IM once snw 18:20 Drug: LevOfloxacin PO 500 mg Route: PO; db 18:39 Follow up: Response: No adverse reaction db 18:20 Drug: Clindamycin PO 300 mg Route: PO; db 18:39 Follow up: Response: No adverse reaction db 18:20 Drug: predniSONE PO 20 mg Route: PO; db 18:39 Follow up: Response: No adverse reaction db 18:20 Drug: Famotidine PO 20 mg Route: PO; db 18:39 Follow up: Response: No adverse reaction db Point of Care Testing: Blood Glucose: 18:04 Blood Glucose: 95 mg/dL; db Ranges: Critical Glucose Levels:Adult <50 mg/dl or >400 mg/dl <40 mg/dl or >180 mg/dl Disposition: 20:29 Co-signature as Attending Physician, Abimael Barrientos MD I reviewed the patient's care rn provided by the Advanced Practice Provider and agree with the diagnosis and treatment plan. Disposition Summary: 10/11/22 18:17 Discharge Ordered Location: Home snw Condition: Stable snw Diagnosis - Cellulitis of face - ear snw - Acute mastoiditis snw Followup: snw - With: Emergency Department - When: As needed - Reason: Worsening of condition Followup: snw - With: Anya Llanos MD - When: 2 - 3 days - Reason: Recheck today's complaints, Continuance of care, Re-evaluation by your physician Discharge Instructions: - Discharge Summary Sheet snw - Cellulitis, Adult snw - Mastoiditis, Pediatric snw Forms: - Medication Reconciliation Form snw - Thank You Letter snw - Antibiotic Education snw - Prescription Opioid Use snw - Patient Portal Instructions snw - Leadership Thank You Letter snw Prescriptions: - Clindamycin HCl 300 mg Oral Capsule - take 1 capsule by ORAL route every 8 hours for 10 days; 30 capsule; Refills: 0, snw Product Selection Permitted - Zyrtec 10 mg Oral Tablet - take 1 tablet by ORAL route once daily As needed; 20 tablet; Refills: 0, snw Product Selection Permitted - Prednisone 20 mg Oral Tablet - take 2 tablets by ORAL route once daily for 5 days; 10 tablet; Refills: 0, snw Product Selection Permitted - Pepcid 20 mg Oral Tablet - take 1 tablet by ORAL route once daily; 20 tablet; Refills: 0, Product snw Selection Permitted - levofloxacin 500 mg Oral Tablet - take 1 tablet by ORAL route once daily for 14 days; 14 tablet; Refills: 0, snw Product Selection Permitted Signatures: Spivey, Enriqueta, ACCOUNTING RECRUITER-C ACCOUNTING RECRUITER-Csnw Abimael Barrientos MD MD rn Benton, Danielle RN RN Ivon Barros RN RN nj1 Corrections: (The following items were deleted from the chart) 18:17 18:13 Clindamycin IM 600 mg IM once ordered. snw snw
[2022-10-11] MEDS ORDERED: FAMOTIDINE 20 MG TAB ONE (18:35)
[2022-10-11] MEDS ORDERED: levoFLOXacin 500 MG TAB ONE (18:36)
[2022-10-11] MEDS ORDERED: predniSONE 20 MG TAB ONE (18:36)
[2022-10-11 18:53] VITALS: TEMP 99.1
[2022-10-11 18:58] VITALS: BP 129/90; O2SAT 96
== END 2022-10-11 18:39 | disposition home or self-care (01) ==
LOC: ER 17:14
DX: H60.12 Cellulitis of left external ear (principal); H70.002 Acute mastoiditis without complications, left ear; F17.210 Nicotine dependence, cigarettes, uncomplicated; Z88.1 Allergy status to other antibiotic agents; Z88.6 Allergy status to analgesic agent
CPT/HCPCS: 82947; 96372; 99284; J7512; J1170

== ENCOUNTER 2023-05-23 19:42 | Emergency (ER) | payer OTHER, SELFPAY ==
[2023-05-23] MEDS ORDERED: ACETAMINOPHEN 500 MG TAB ONE (20:53)
[2023-05-23] MEDS ORDERED: KETOROLAC 30 MG/ML INJ ONE (20:53)
[2023-05-23] MEDS ORDERED: OXYCODONE *CR* 10 MG TAB PO ONE (20:53)
--- NOTE | 2023-05-23 21:04 | RAD REPORT ---
EXAM DESCRIPTION: RAD - Forearm Left - 05/23/2023 8:55 pm CLINICAL HISTORY: injury COMPARISON: No comparisons TECHNIQUE: Left forearm, 2 views. FINDINGS: Comminuted and mildly displaced fracture of the distal radius, with intra-articular extens ion. Small displaced chip fracture at the base of the ulnar styloid. There is no dislocation or perio steal reaction noted. No foreign body or other soft tissue abnormality. IMPRESSION: Fractures of the distal radius and base of the ulnar styloid as above.
--- NOTE | 2023-05-23 21:47 | ER ---
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 patient reports that she did hit her head, denies LOC and is not on any blood thinners. Coronavirus screen: At this time, the client does not indicate any symptoms associated with coronavirus-19. Ebola Screen: No symptoms or risks identified at this time. Initial Sepsis Screen: Does the patient meet any 2 criteria? No. Patient's initial sepsis screen is negative. Does the patient have a suspected source of infection? No. Patient's initial sepsis screen is negative. Risk Assessment: Do you want to hurt yourself or someone else? Patient reports no desire to harm self or others. Onset of symptoms was May 23, 2023. 20:04 Method Of Arrival: Ambulatory ap3 20:04 Acuity: EMANUEL 4 ap3 Triage Assessment: 20:07 General: Appears uncomfortable, Behavior is calm, cooperative. Pain: Complains of pain ap3 in left wrist Pain currently is 10 out of 10 on a pain scale. Pain began suddenly. Neuro: Level of Consciousness is awake, alert, obeys commands, Oriented to person, place, time, situation. Cardiovascular: Patient's skin is warm and dry. Respiratory: Airway is patent Respiratory effort is even, unlabored, Respiratory pattern is regular, symmetrical. 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 Last tetanus immunization: unknown, Flu vaccine is not up to date. - Infectious Disease History:: Denies. - Social history:: Smoking status: Patient reports the use of cigarette tobacco products, smokes one pack cigarettes per day. Screenin:08 [facility] ED Fall Risk Assessment (Adult) History of falling in the last 3 months, ap3 including since admission Yes- single mechanical fall (1 pt) Confusion or Disorientation No (0 pts) Intoxicated or Sedated No (0 pts) Impaired Gait No (0 pts) Mobility Assist Device Used No (0 pt) Altered Elimination No (0 pt) Score/Fall Risk Level 0 - 2 = Low Risk Oriented to surroundings, Maintained a safe environment, Educated pt \T\ family on fall prevention, incl call for assistance when getting out of bed, Assessed \T\ reinforced patient's understanding of fall precautions, Provided non-skid footwear, Hourly rounding (assess needs \T\ fall precautionary measures) done, Used ambulatory aids as needed (educated on \T\ assisted with), Used gait belt as appropriate. Abuse screen: Denies threats or abuse. Nutritional screening: No deficits noted. Tuberculosis screening: No symptoms or risk factors identified. Assessment: 20:20 General: Appears in no apparent distress. uncomfortable, Behavior is calm, cooperative, jw7 appropriate for age. 20:20 Pain: Complains of pain in left arm and left wrist Pain does not radiate. Pain jw7 currently is 10 out of 10 on a pain scale. Quality of pain is described as sharp, throbbing, Pain began suddenly, Is continuous. Neuro: Level of Consciousness is awake, alert, obeys commands, Oriented to person, place, time, situation. Cardiovascular: Heart tones S1 S2 present Capillary refill < 3 seconds Clubbing of nail beds is absent JVD is absent Patient's skin is warm and dry. Respiratory: Airway is patent Trachea midline Respiratory effort is even, unlabored, Respiratory pattern is regular, symmetrical, Breath sounds are clear bilaterally. GI: Abdomen is round non-distended, Bowel sounds present X 4 quads. Abd is soft and non tender X 4 quads. : No deficits noted. No signs and/or symptoms were reported regarding the genitourinary system. EENT: No deficits noted. No signs and/or symptoms were reported regarding the EENT system. Derm: Skin is intact, is healthy with good turgor, Skin is dry, Skin is normal, Skin temperature is warm. Musculoskeletal: Circulation, motion, and sensation intact. Range of motion: limited in left wrist. 21:18 Reassessment: Patient appears in no apparent distress at this time. No changes from jw7 previously documented assessment. Patient and/or family updated on plan of care and expected duration. Pain level reassessed. Patient is alert, oriented x 3, equal unlabored respirations, skin warm/dry/pink. 22:15 Reassessment: Patient appears in no apparent distress at this time. Patient and/or jw7 family updated on plan of care and expected duration. Pain level reassessed. Patient is alert, oriented x 3, equal unlabored respirations, skin warm/dry/pink. Patient states symptoms have improved. Vital Signs: 20:04 BP 115 / 86; Pulse 86; Resp 17; Temp 98.2; Pulse Ox 100% ; Weight 117.93 kg; Height 5 ap3 ft. 6 in. ; Pain 10/10; 21:30 BP 120 / 83; Pulse 84; Resp 16 S; Pulse Ox 99% on R/A; jw7 20:04 Body Mass Index 41.96 (117.93 kg, 167.64 cm) ap3 20:04 Pain Scale: Adult ap3 ED Course: 19:57 Patient arrived in ED. gm2 20:06 Triage completed. ap3 20:08 Arm band placed on right wrist. ap3 20:10 Jesús Watts MD is Attending Physician. ec2 20:20 Patient has correct armband on for positive identification. Bed in low position. Call jw7 light in reach. Provided Education on: Use of Call Light. 20:56 Forearm Left XRAY In Process Unspecified. EDMS 21:09 Teri Jane, JANICE is Primary Nurse. jw7 21:46 Colt Sanders MD is Referral Physician. ec2 21:53 Orthoglass splint: Sugar tong splint applied on left arm. Sling applied to left arm. oe 22:15 No provider procedures requiring assistance completed. Patient did not have IV access jw7 during this emergency room visit. Administered Medications: 21:00 Drug: Ketorolac IM 30 mg IM once Route: IM; Site: right deltoid; jw7 22:16 Follow up: Response: No adverse reaction; Marked relief of symptoms; Pain is decreased jw7 21:00 Drug: Acetaminophen PO 1000 mg PO once Route: PO; jw7 22:16 Follow up: Response: No adverse reaction; Marked relief of symptoms; Pain is decreased jw7 21:00 Drug: oxyCODONE PO 10 mg PO once Route: PO; jw7 22:15 Follow up: Response: No adverse reaction; Marked relief of symptoms; Pain is decreased jw7 Medication: 22:15 VIS not applicable for this client. jw7 Outcome: 21:46 Discharge ordered by . ec2 22:15 Discharged to home ambulatory, jw7 22:15 Condition: stable 22:15 Discharge instructions given to patient, Instructed on discharge instructions, follow up and referral plans. medication usage, Demonstrated understanding of instructions, follow-up care, medications, Prescriptions given X 1, 22:16 Patient left the ED. jw7 Signatures: Dispatcher [employer] EDMS Chuck Wing Amanda RN RN [email or web address] Teri Jane RN RN jw7 Jesús Watts MD MD ec2 Linda Kan 2 Corrections: (The following items were deleted from the chart) 22:16 22:15 Reassessment: Patient appears in no apparent distress at this time. Patient jw7 and/or family updated on plan of care and expected duration. Pain level reassessed. Patient is alert, oriented x 3, equal unlabored respirations, skin warm/dry/pink. Patient states symptoms have improved. jw7
--- NOTE | 2023-05-23 21:47 | EDPHYS ---
Physician Documentation [facility] Name: Veronica Moore Age: 32 yrs Sex: Female : 1990 Arrival Date: 05/23/2023 Time: 19:42 Bed 12 Private MD: ED Physician Jesús Watts HPI: 05/22 20:24 This 32 yrs old Female presents to ER via Ambulatory with complaints of Fall ec2 Injury, Wrist Injury, Wrist Pain. 20:24 Patient arrives today for evaluation after ground-level fall. States that she fell with ec2 her outstretched hand, attempted reports her mother left hand. Patient reports no LOC, no blood thinners. Patient planing of wrist and forearm pain of the left upper extremity.. 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 Last tetanus immunization: unknown, Flu vaccine is not up to date. - Infectious Disease History:: Denies. - Social history:: Smoking status: Patient reports the use of cigarette tobacco products, smokes one pack cigarettes per day. ROS: 20:24 Constitutional: as per hpi ec2 Exam: 20:24 Constitutional: GEN: No acute distress HEENT: -Head: no deformities -Eyes: EOMI CV: ec2 regular rate LUNGS: no respiratory distress ABD: non-tender SKIN: no wounds appreciated MSK: No C/T/L spine deformities RUE w/o bony deformity LUE with deformity to the left wrist, intact distal neurovascular status, TTP to forearm as well as elbow. RLE w/o bony deformity LLE w/o bony deformity NEURO: moves all extremities equally, GCS 15 (E4, V5, M6) Vital Signs: 20:04 BP 115 / 86; Pulse 86; Resp 17; Temp 98.2; Pulse Ox 100% ; Weight 117.93 kg; Height 5 ap3 ft. 6 in. ; Pain 10/10; 21:30 BP 120 / 83; Pulse 84; Resp 16 S; Pulse Ox 99% on R/A; jw7 20:04 Body Mass Index 41.96 (117.93 kg, 167.64 cm) ap3 20:04 Pain Scale: Adult ap3 MDM: 20:18 Patient medically screened. ec2 20:25 Data reviewed: vital signs. ED course: Patient arrives today for evaluation after wrist ec2 injury. Examination remarkable for MSK findings as above. Will obtain radiographs of the left elbow, forearm, wrist, evaluating for contusion, possible fracture, possible dislocation as well.. 21:08 ED course: Forearm x-ray independently reviewed and interpreted me, shows comminuted ec2 distal radius fracture. No significant displacement appreciated. Will splint the patient in a sugar-tong and have her follow-up with orthopedic surgery. . 05/22 20:24 Order name: Forearm Left XRAY; Complete Time: 21:07 ec2 05/22 21:08 Order name: Sugar Tong Forearm Splint; Complete Time: 22:05 ec2 Administered Medications: 21:00 Drug: Ketorolac IM 30 mg IM once Route: IM; Site: right deltoid; jw7 22:16 Follow up: Response: No adverse reaction; Marked relief of symptoms; Pain is decreased jw7 21:00 Drug: Acetaminophen PO 1000 mg PO once Route: PO; jw7 22:16 Follow up: Response: No adverse reaction; Marked relief of symptoms; Pain is decreased jw7 21:00 Drug: oxyCODONE PO 10 mg PO once Route: PO; jw7 22:15 Follow up: Response: No adverse reaction; Marked relief of symptoms; Pain is decreased jw7 Disposition Summary: 05/23/23 21:46 Discharge Ordered Notes: Location: Home ec2 Condition: Stable ec2 Diagnosis - Distal Radius Fracture ec2 Followup: ec2 - With: Colt Sanders MD - When: - Reason: Recheck today's complaints Discharge Instructions: - Discharge Summary Sheet ec2 - Wrist Fracture Treated With Immobilization, [id number] ec2 Forms: - Medication Reconciliation Form ec2 - Thank You Letter ec2 - Antibiotic Education ec2 - Prescription Opioid Use ec2 - Patient Portal Instructions ec2 - Leadership Thank You Letter ec2 Prescriptions: - acetaminophen-codeine 300-15 mg Oral tablet - take 1 tablet ORAL route 4 times per day; 15 tablet; Refills: 0, Product ec2 Selection Permitted Signatures: Dispatcher [employer] Rubina Hines RN RN ap3 Teri Jane RN RN jw7 Jesús Watts MD MD ec2 Corrections: (The following items were deleted from the chart) 20:24 20:24 Elbow Left 3 View+RAD.RAD.BRZ ordered. EDMS EDMS 20:24 20:24 Forearm Left+RAD.RAD.BRZ ordered. EDMS EDMS 20:24 20:24 Wrist Left 3 View+RAD.RAD.BRZ ordered. EDMS EDMS
[2023-05-24 06:36] VITALS: BP 120/83; TEMP 98.2; O2SAT 99
== END 2023-05-23 22:16 | disposition home or self-care (01) ==
LOC: ER 19:42
PROC: 2W3DX1Z Immobilization of Left Lower Arm using Splint (ICD-10-PCS; principal; 2023-05-23)
DX: S52.502A Unspecified fracture of the lower end of left radius, initial encounter for closed fracture (principal)
CPT/HCPCS: 96372; 99284

== ENCOUNTER 2023-06-23 18:18 | Emergency (ER) | payer SELFPAY ==
[2023-06-23 19:00] LABS: Absolute Basophils 0.1 K/uL (0-0.5); Absolute Eosinophils 0.1 K/uL (0-0.5); Absolute Lymphocytes (CBC) 1.9 K/uL (0.7-4.9); Absolute Monocytes 0.7 K/uL (0.1-1.3); Absolute Neutrophil 8.8 K/uL (1.8-8.0); Basophils % 0.8 % (0-1.3); Eosinophils % 0.8 % (0-4.4); Hematocrit 40.6 % (36.0-45.0); Hemoglobin 13.5 g/dL (12.0-15.0); Lymphocytes % 16.7 % (15.3-44.8); MCHC 33.3 g/dL (32.0-36.0); MCV 90.1 fL (80-100); MPV 7.9 fL (7.6-11.3); Monocytes % 6.3 % (3.3-12.3); Neutrophils % 75.4 % (41.7-73.7); Platelets 304 thou/uL (152-406); Red Cell Distribution Width 14.5 % (12.1-15.2)
[2023-06-23] MEDS ORDERED: ONDANSETRON 4 MG/2 ML VIAL ONE (19:03)
[2023-06-23] MEDS ORDERED: NA CHLORIDE 0.9% 1,000 ML ONE (19:04)
[2023-06-23] MEDS ORDERED: MORPHINE 4 MG/ML SYR ONE (19:04)
[2023-06-23 19:44] LABS: ALT/SGPT 21 U/L (13-56); Albumin 3.3 g/dL (3.4-5.0); Albumin/Globulin Ratio 0.8 (1.1-1.8); Alkaline Phosphatase 104 U/L (45-117); Anion Gap 10.6 mEq/L (5.0-15.0); BUN Blood Urea Nitrogen 8 mg/dL (7-18); Bicarbonate 23 mEq/L (21-32); Bilirubin Total 0.3 mg/dL (0.2-1.0); Globulin 4.3 g/dL (2.3-3.5); Glomerular Filtration Rate 96 ml/min (=/>90); Glucose Level 103 mg/dL (74-106); Lipase 28 U/L (13-75); Potassium 3.6 mEq/L (3.5-5.1); Protein, Total 7.6 g/dL (6.4-8.2); Sodium Level 135 mEq/L (136-145)
[2023-06-23 19:58] LABS: AST/SGOT < 10 U/L (15-37)
[2023-06-23 20:40] LABS: Specific Gravity 1.028 (1.005-1.030); Sqamous Epithelial <5 /HPF (None Seen); Urine Bacteria None Seen /HPF (<20); Urine Bilirubin NEGATIVE (Negative); Urine Blood 2+ (Negative); Urine Clarity Turbid (Clear); Urine Color Yellow (Yellow); Urine Crystals Unidentified Few /HPF (None Seen); Urine Culture Reflex Order NOT NEEDED; Urine Glucose NEGATIVE (Negative); Urine Ketones NEGATIVE (Negative); Urine Microscopic Reflex YN ORDER UMIC; Urine Mucus 1+ /HPF (None Seen); Urine Nitrite NEGATIVE (Negative); Urine Protein TRACE (Negative); Urine RBC <5 /HPF (None Seen); Urine Urobilinogen 1+ (Normal); Urine WBC <5 /HPF (<5); Urine Yeast (Budding) Trace /HPF (None Seen); Urine pH 5.5 (5.0-7.0)
[2023-06-23] MEDS ORDERED: FENTANYL CITR 100 MCG/2 ML ONE (20:53)
--- NOTE | 2023-06-23 21:25 | RAD REPORT ---
EXAM DESCRIPTION: CTAbdomen Pelvis W Contrast - 06/23/2023 9:03 pm CLINICAL HISTORY: ABD PAIN COMPARISON: Abdomen Pelvis W Contrast dated 06/12/2020; Abdomen Pelvis W Contrast dated 04/16/2020; Abdomen Pelvis W Contrast dated 07/14/2017 TECHNIQUE: CT of the abdomen and pelvis was performed with IV contrast. All CT scans are performed using dose optimization technique as appropriate and may include automated exposure control or mA/KV adjustment according to patient size. FINDINGS: Lower chest: Mild circumferential thickened distal esophagus. Liver: Hepatic steatosis. No focal mass . Biliary: No biliary ductal dilatation. Stomach: No significant focal abnormality. Duodenum: No significant focal abnormality. Pancreas: No significant abnormality. Spleen: No significant abnormality. Adrenal: No suspicious lesions. Kidney/ureter: No hydronephrosis. No renal calculi. Retroperitoneum: No retroperitoneal adenopathy. Vascular: No aneurysm. Bowel: No significant focal abnormality. Normal appendix . Peritoneum: No ascites or free air. Bladder: Grossly unremarkable. Reproductive: Right adnexal cyst which is almost certainly physiologic in a patient of this age. It m easures 3 cm. No follow-up imaging required. Bones: No acute fracture. Other: n/a IMPRESSION: No acute intra-abdominal or pelvic finding. Normal appendix.
--- NOTE | 2023-06-23 22:02 | ER ---
Nurse's Notes [facility] Name: Veronica Moore Age: 32 yrs Sex: Female : 1990 Arrival Date: 06/23/2023 Time: 18:18 Bed 17 Private MD: Diagnosis: Other ovarian cysts;Lower abdominal pain, unspecified Presentation: 06/22 18:26 Chief complaint: Patient states: SUPRAPUBIC PAIN x2 HR, DENIES N/V/D, DYSURIA AND VAG bp BLEEDING. Coronavirus screen: At this time, the client does not indicate any symptoms associated with coronavirus-19. Ebola Screen: No symptoms or risks identified at this time. Initial Sepsis Screen: Does the patient meet any 2 criteria? No. Patient's initial sepsis screen is negative. Does the patient have a suspected source of infection? No. Patient's initial sepsis screen is negative. Risk Assessment: Do you want to hurt yourself or someone else? Patient reports no desire to harm self or others. Onset of symptoms was June 23, 2023 at 16:00. 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 - Infectious Disease History:: Denies. - Social history:: Smoking status: unknown. Screenin:40 [facility] ED Fall Risk Assessment (Adult) History of falling in the last 3 months, me1 including since admission No falls in past 3 months (0 pts) Confusion or Disorientation No (0 pts) Intoxicated or Sedated No (0 pts) Impaired Gait No (0 pts) Mobility Assist Device Used No (0 pt) Altered Elimination No (0 pt) Score/Fall Risk Level 0 - 2 = Low Risk Maintained a safe environment, Provided non-skid footwear, Hourly rounding (assess needs \T\ fall precautionary measures) done. Abuse screen: Denies threats or abuse. Nutritional screening: No deficits noted. Tuberculosis screening: No symptoms or risk factors identified. Assessment: 18:40 General: Appears uncomfortable, well groomed, well developed, well nourished, Behavior me1 is calm, cooperative, appropriate for age, Reports sudden onset of suprapubic pain, 8/10 that feels like squeezing or cramping. Pain: Complains of pain in suprapubic area Pain does not radiate. Pain currently is 8 out of 10 on a pain scale. Quality of pain is described as crampy, squeezing, Pain began suddenly, Is continuous. Neuro: Level of Consciousness is awake, alert, obeys commands, Oriented to person, place, time, situation, Appropriate for age. Cardiovascular: Capillary refill < 3 seconds Patient's skin is warm and dry. Respiratory: Airway is patent Respiratory effort is even, unlabored, Respiratory pattern is regular, symmetrical. : No signs and/or symptoms were reported regarding the genitourinary system. EENT: No signs and/or symptoms were reported regarding the EENT system. Derm: Skin is intact, is healthy with good turgor, Skin is pink, warm \T\ dry. Musculoskeletal: No signs and/or symptoms reported regarding the musculoskeletal system. 18:48 GI: Abdomen is non-distended, Bowel sounds present X 4 quads. Abd is soft X 4 quads. me1 Vital Signs: 18:26 BP 113 / 78; Pulse 96; Resp 16; Temp 98; Pulse Ox 99% ; bp 19:00 BP 105 / 71; Pulse 89; Resp 16; Pulse Ox 99% on R/A; me1 20:00 Pain 5/10; me1 22:14 BP 112 / 71; Pulse 74; Resp 16; Temp 98.3(O); Pulse Ox 99% on R/A; Pain 4/10; tl4 20:00 Pain Scale: Adult me1 22:14 Pain Scale: Adult tl4 ED Course: 18:19 Patient arrived in ED. rg4 18:20 May Rocha PA-C is PHCP. sb4 18:20 William Reese DO is Attending Physician. sb4 18:27 Triage completed. bp 18:27 Arm band placed on. bp 18:40 Patient has correct armband on for positive identification. Bed in low position. Call me1 light in reach. Side rails up X2. Provided Education on: POC. Verbalized understanding. . Client placed on continuous cardiac and pulse oximetry monitoring. NIBP monitoring applied. Pulse ox on. NIBP on. 18:40 No provider procedures requiring assistance completed. me1 18:56 CBC with Diff Sent, CMP, Lipase Sent. me1 18:56 Initial lab(s) drawn, by me, sent to lab. Missed attempt(s): 22 gauge in right me1 antecubital area. 19:02 Inserted saline lock: 22 gauge in left antecubital area, using aseptic technique. me1 19:10 Inserted saline lock: 22 gauge in left antecubital area, using aseptic technique. me1 19:11 CMP, Lipase, Test, Urine Sent. me1 21:05 CT Abd/Pelvis - IV Contrast Only In Process Unspecified. EDMS 22:01 Nikia Medina MD is Referral Physician. sb4 22:15 IV discontinued, intact, bleeding controlled, No redness/swelling at site. Pressure tl4 dressing applied. Administered Medications: 19:11 Drug: NS 0.9% IV 1000 ml IV at 1 bolus Per protocol; 1000 mL bolus Route: IV; Rate: 1 ll1 bolus; Site: left antecubital; 22:13 Follow up: Response: No adverse reaction; IV Status: Completed infusion; IV Intake: tl4 1000ml 22:13 Follow up: Response: No adverse reaction; IV Status: Completed infusion; IV Intake: me1 1000ml 19:11 Drug: Ondansetron IVP 4 mg IVP once; over 2 minutes Route: IVP; Site: left antecubital; ll1 20:00 Follow up: Response: No adverse reaction ll1 20:00 Follow up: Response: No adverse reaction me1 19:11 Drug: morphine IVP or IV 4 mg IVP once over 4 mins Route: IVP; Infused Over: 4 mins; ll1 Site: left antecubital; 20:00 Follow up: Pain 5/10 Adult; Response: No adverse reaction; Pain is decreased ll1 20:00 Follow up: Pain 5/10 Adult; Response: No adverse reaction; Pain is decreased me1 20:54 Drug: fentaNYL (PF) IVP 50 mcg IVP once Route: IVP; Site: left antecubital; ll1 22:13 Follow up: Response: No adverse reaction; Pain is decreased [facility] Medication: 18:40 VIS not applicable for this client. me1 Intake: 22:13 IV: 1000ml; Total: 1000ml. me1 Outcome: 22:01 Discharge ordered by . sb4 22:15 Discharged to home ambulatory, tl4 22:15 Condition: stable 22:15 Discharge instructions given to patient, Instructed on discharge instructions, follow up and referral plans. Demonstrated understanding of instructions, follow-up care, 22:15 Patient left the ED. tl4 Signatures: Dispatcher [employer] Melany Tate rg4 Aries Strauss RN RN bp Lewis, Lynsay, RN RN ll1 May Rocha PA-C PA-C sb4 Eddleman, Michelle, RN RN me1 Pj Stevens RN RN tl4 Corrections: (The following items were deleted from the chart) 18:27 18:27 PSHx: section; bp bp 22:43 19:00 BP 105 / 71; Pulse 89bpm; Resp 16bpm; Pulse Ox 99% RA; 1 nc1 22:43 19:52 LMP 06/19/2023, unknown [facility] 22:44 18:40 Patient has correct armband on for positive identification. Bed in low position. me1 Call light in reach. Side rails up X2. 1 22:44 18:40 Provided Education on: POC. Verbalized understanding. . [facility] 22:44 18:40 Client placed on continuous cardiac and pulse oximetry monitoring. NIBP nc1 monitoring applied. Pulse ox on. NIBP on. 1 22:44 18:40 VIS not applicable for this client. 1 nc1 22:44 20:00 Response: No adverse reaction [place] [id number] 22:44 20:00 Pain 5/10 Adult; Response: No adverse reaction; Pain is decreased 1 nc1 22:44 22:13 Response: No adverse reaction; Pain is decreased 4 [facility] 22:44 22:13 Response: No adverse reaction; IV Status: Completed infusion; IV Intake: 1000ml nc1 tl4 22:45 18:40 General: Appears uncomfortable, well groomed, well developed, well nourished, nc1 Behavior is calm, cooperative, appropriate for age, Reports sudden onset of suprapubic pain, 8/10 that feels like squeezing or cramping. [facility] 22:45 18:40 Pain: Complains of pain in suprapubic area Pain does not radiate. Pain currently me1 is 8 out of 10 on a pain scale. Quality of pain is described as crampy, squeezing, Pain began suddenly, Is continuous, [facility] 22:45 18:40 Neuro: Level of Consciousness is awake, alert, obeys commands, Oriented to me1 person, place, time, situation, Appropriate for age [facility] 22:45 18:40 Cardiovascular: Capillary refill < 3 seconds Patient's skin is warm and dry. [place] [id number] :45 18:40 Respiratory: Airway is patent Respiratory effort is even, unlabored, Respiratory me1 pattern is regular, symmetrical, [facility] 22:45 18:40 GI: Abdomen is non-distended, Bowel sounds present X 4 quads. Abd is soft X 4 me1 quads [facility] :45 18:40 : No signs and/or symptoms were reported regarding the genitourinary system. [facility] :45 18:40 EENT: No signs and/or symptoms were reported regarding the EENT system. [place] [id number] :45 18:40 Derm: Skin is intact, is healthy with good turgor, Skin is pink, warm \T\ dry. [place] [id number] 22:45 18:40 Musculoskeletal: No signs and/or symptoms reported regarding the musculoskeletal me1 system. [facility] 22:46 18:40 [facility] ED Fall Risk Assessment (Adult) History of falling in the last 3 months, me1 including since admission No falls in past 3 months (0 pts) Confusion or Disorientation No (0 pts) Intoxicated or Sedated No (0 pts) Impaired Gait No (0 pts) Mobility Assist Device Used No (0 pt) Altered Elimination No (0 pt) Score/Fall Risk Level 0 - 2 = Low Risk Maintained a safe environment, Provided non-skid footwear, Hourly rounding (assess needs \T\ fall precautionary measures) done, [facility] :46 18:40 Abuse screen: Denies threats or abuse. [place] [id number] :46 18:40 Nutritional screening: No deficits noted. [place] [id number] :46 18:40 Tuberculosis screening: No symptoms or risk factors identified. [place] [id number] :47 18:46 Belkis Pinedo RN is Primary Nurse. [place] [id number] 22:47 18:56 CBC+H.LAB.BRZ drawn and sent. [place] [id number] 22:47 18:56 COMPREHENSIVE METABOLIC PANEL+C.LAB.BRZ drawn and sent. [place] [id number] 22:47 18:56 LIPASE+C.LAB.BRZ drawn and sent. [place] [id number] 22:47 18:56 Initial lab(s) drawn, by me, sent to lab. [place] [id number] :47 19:02 Inserted saline lock: 22 gauge in left antecubital area, using aseptic technique. [place] [id number] :47 19:10 Inserted saline lock: 22 gauge in left antecubital area, using aseptic technique. [place] [id number] 22:47 19:11 COMPREHENSIVE METABOLIC PANEL+C.LAB.BRZ drawn and sent. [place] [id number] :47 19:11 LIPASE+C.LAB.BRZ drawn and sent. [place] [address] 22:47 19:11 Test, Urine+UC.LAB.BRZ drawn and sent. [place] [id number] 22:47 18:40 No provider procedures requiring assistance completed. [place] [id number] 22:48 18:56 Missed attempt(s): 22 gauge in right antecubital area. [place] [id number] 22:48 18:56 Initial lab(s) drawn, by me, sent to lab. [place] [id number] 22:48 18:56 Initial lab(s) drawn, by me, sent to lab. [place] [id number]
--- NOTE | 2023-06-23 22:02 | EDPHYS ---
Physician Documentation [facility] Name: Veronica Moore Age: 32 yrs Sex: Female : 1990 Arrival Date: 06/23/2023 Time: 18:18 Bed 17 Private MD: ED Physician William Reese HPI: 06/22 18:30 This 32 yrs old Female presents to ER via Ambulatory with complaints of Abdominal Pain. sb4 18:30 The patient presents with abdominal pain in the lower abdomen. Onset: The sb4 symptoms/episode began/occurred just prior to arrival. The symptoms do not radiate. Associated signs and symptoms: none. The symptoms are described as sharp. Modifying factors: The symptoms are alleviated by nothing, the symptoms are aggravated by nothing. The patient has not experienced similar symptoms in the past. The patient has not recently seen a physician. 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 - Infectious Disease History:: Denies. - Social history:: Smoking status: unknown. ROS: 18:30 Constitutional: Negative for fever, chills, and weight loss, sb4 18:30 Abdomen/GI: Positive for abdominal pain, 18:30 All other systems are negative, Exam: 18:30 Head/Face: Normocephalic, atraumatic. Eyes: Extra-ocular motions intact. Periorbital sb4 areas with no swelling, redness, or edema. ENT: Mucous membranes moist. Cardiovascular: Regular rate and rhythm with a normal S1 and S2. Respiratory: Lungs have equal breath sounds bilaterally, clear to auscultation and percussion. No rales, rhonchi or wheezes noted. No increased work of breathing, no retractions or nasal flaring. Abdomen/GI: Soft, non-tender, no distension. Skin: Warm, dry with normal turgor. Normal color with no rashes, no lesions, and no evidence of cellulitis. MS/ Extremity: Pulses equal, no cyanosis. Neurovascular intact. Full, normal range of motion. 18:30 Constitutional: The patient appears alert, awake, obese, in obvious pain, uncomfortable, Vital Signs: 18:26 BP 113 / 78; Pulse 96; Resp 16; Temp 98; Pulse Ox 99% ; bp 19:00 BP 105 / 71; Pulse 89; Resp 16; Pulse Ox 99% on R/A; me1 20:00 Pain 5/10; me1 22:14 BP 112 / 71; Pulse 74; Resp 16; Temp 98.3(O); Pulse Ox 99% on R/A; Pain 4/10; tl4 20:00 Pain Scale: Adult me1 22:14 Pain Scale: Adult tl4 MDM: 18:22 Patient medically screened. sb4 21:30 Data reviewed: vital signs, nurses notes, lab test result(s), radiologic studies, and sb4 as a result, I will discharge patient. Care significantly affected by the following Social Determinants of Health: Poor access to healthcare and/or lack of insurance. Counseling: I had a detailed discussion with the patient and/or guardian regarding the historical points, exam findings, and any diagnostic results supporting the discharge/admit diagnosis, lab results, radiology results, the need for outpatient follow up, an OB/Gyne specialist, to return to the emergency department if symptoms worsen or persist or if there are any questions or concerns that arise at home. 06/22 18:26 Order name: CBC with Diff; Complete Time: 19:01 4 06/22 18:26 Order name: CMP; Complete Time: 20:06 [facility] 06/22 18:26 Order name: Lipase; Complete Time: 20:06 [facility] 06/22 18:26 Order name: Test, Urine; Complete Time: 20:43 4 06/22 18:26 Order name: Urinalysis w/ reflexes; Complete Time: 20:43 [facility] 06/22 18:26 Order name: CT Abd/Pelvis - IV Contrast Only; Complete Time: 21:27 4 06/22 18:27 Order name: IV Saline Lock; Complete Time: 19:11 sb4 06/22 18:27 Order name: Labs collected and sent; Complete Time: 18:56 [facility] 06/22 19:05 Order name: Misc. Order: RECOLLECT - LIGHT GREEN; Complete Time: 19:19 ll1 Administered Medications: 19:11 Drug: NS 0.9% IV 1000 ml IV at 1 bolus Per protocol; 1000 mL bolus Route: IV; Rate: 1 ll1 bolus; Site: left antecubital; 22:13 Follow up: Response: No adverse reaction; IV Status: Completed infusion; IV Intake: tl4 1000ml 22:13 Follow up: Response: No adverse reaction; IV Status: Completed infusion; IV Intake: me1 1000ml 19:11 Drug: Ondansetron IVP 4 mg IVP once; over 2 minutes Route: IVP; Site: left antecubital; ll1 20:00 Follow up: Response: No adverse reaction ll1 20:00 Follow up: Response: No adverse reaction me1 19:11 Drug: morphine IVP or IV 4 mg IVP once over 4 mins Route: IVP; Infused Over: 4 mins; ll1 Site: left antecubital; 20:00 Follow up: Pain 5/10 Adult; Response: No adverse reaction; Pain is decreased ll1 20:00 Follow up: Pain 5/10 Adult; Response: No adverse reaction; Pain is decreased me1 20:54 Drug: fentaNYL (PF) IVP 50 mcg IVP once Route: IVP; Site: left antecubital; ll1 22:13 Follow up: Response: No adverse reaction; Pain is decreased me1 Disposition: 18:34 I was immediately available on-site in the Emergency Department for consultation in the ms3 care of the patient. Disposition Summary: 06/23/23 22:01 Discharge Ordered Notes: Location: Home sb4 Problem: new sb4 Symptoms: have improved sb4 Condition: Stable sb4 Diagnosis - Other ovarian cysts sb4 - Lower abdominal pain, unspecified sb4 Followup: sb4 - With: Nikia Medina MD - When: As needed - Reason: Further diagnostic work-up, Recheck today's complaints, Re-evaluation by your physician Discharge Instructions: - Discharge Summary Sheet sb4 - Abdominal Pain, Adult, [id number]-Dhag sb4 - Ovarian Cyst, Xpmh-or-Epbe sb4 Forms: - Patient Portal Instructions sb4 - Leadership Thank You Letter sb4 Signatures: Dispatcher [employer] Aries Munoz RN RN bp Belkis Pinedo RN RN ll1 William Reese DO DO ms3 May Rocha PA-C PA-C sb4 Annetta Angel RN me1 Pj Stevens RN tl4 Corrections: (The following items were deleted from the chart) 18:27 PSHx: section; bp bp
[2023-06-23 22:26] VITALS: BP 112/71; TEMP 98.3; O2SAT 99
== END 2023-06-23 22:15 | disposition home or self-care (01) ==
LOC: ER 18:18
DX: N83.299 Other ovarian cyst, unspecified side (principal); Z88.1 Allergy status to other antibiotic agents; Z88.6 Allergy status to analgesic agent
CPT/HCPCS: 36415; 74177; 80053; 81001; 81025; 83690; 85025; 96361; 96374; 96375; 99284; J2405; J3010; J7030; Q9967

== ENCOUNTER 2024-01-04 17:10 | Emergency (ER) | payer SELFPAY ==
--- NOTE | 2024-01-04 17:27 | ER ---
Nurse's Notes [facility] Name: Veronica Moore Age: 33 yrs Sex: Female : 1990 Arrival Date: 01/04/2024 Time: 17:10 Bed 16 Private MD: Diagnosis: Laceration without foreign body of left thumb without damage to nail Presentation: 01/03 17:18 Chief complaint: EMS states: Cut L thumb slicing an onion w/ a mandolin, bleeding ph controlled w/ pressure dressing. Coronavirus screen: Vaccine status: Patient reports being unvaccinated. Ebola Screen: No symptoms or risks identified at this time. Initial Sepsis Screen: Does the patient meet any 2 criteria? No. Patient's initial sepsis screen is negative. Does the patient have a suspected source of infection? No. Patient's initial sepsis screen is negative. Risk Assessment: Do you want to hurt yourself or someone else? Patient reports no desire to harm self or others. Onset of symptoms was January 04, 2024. 17:18 Method Of Arrival: EMS: [facility] ph 17:18 Acuity: EMANUEL 4 ph Triage Assessment: 17:19 General: Appears in no apparent distress. comfortable, well groomed, Behavior is calm, ph cooperative, appropriate for age. Pain: Complains of pain in palmar aspect of distal phalanx of left thumb. Neuro: Level of Consciousness is awake, alert, obeys commands, Oriented to person, place, time, situation. Cardiovascular: Capillary refill < 3 seconds in bilateral fingers Patient's skin is warm and dry. Respiratory: Airway is patent Respiratory effort is even, unlabored. Derm: Skin is pink, warm \T\ dry. Injury Description: Avulsion sustained to palmar aspect of distal phalanx of left thumb. Historical: - Allergies: 17:19 Bactrim; ph 17:19 Naproxen; ph - PMHx: 17:19 Anxiety; Depression; Migraine; ph - PSHx: 17:19 section; ph - Immunization history:: Adult Immunizations up to date, Last tetanus immunization: up to date. - Infectious Disease History:: Denies. - Social history:: Smoking status: unknown. Screenin:20 [facility] ED Fall Risk Assessment (Adult) History of falling in the last 3 months, ph including since admission No falls in past 3 months (0 pts) Confusion or Disorientation No (0 pts) Intoxicated or Sedated No (0 pts) Impaired Gait No (0 pts) Mobility Assist Device Used No (0 pt) Altered Elimination No (0 pt) Score/Fall Risk Level 0 - 2 = Low Risk Oriented to surroundings, Maintained a safe environment, Hourly rounding (assess needs \T\ fall precautionary measures) done. Abuse screen: Denies threats or abuse. Denies injuries from another. Nutritional screening: No deficits noted. Tuberculosis screening: No symptoms or risk factors identified. Assessment: 17:21 General: SEE TRIAGE ASSESSMENT. ph Vital Signs: 17:18 BP 138 / 97; Pulse 89; Resp 18; Temp 97.3; Pulse Ox 99% on R/A; ph ED Course: 17:12 Patient arrived in ED. sb4 17:12 May Rocha PA-C is PHCP. sb4 17:12 Jesús Watts MD is Attending Physician. sb4 17:18 Saima Mendoza, RN is Primary Nurse. ph 17:19 Triage completed. ph 17:20 Arm band placed on right wrist. ph 17:21 Patient has correct armband on for positive identification. Bed in low position. Call ph light in reach. Side rails up X 1. Pulse ox on. NIBP on. Door closed. Noise minimized. Pillow given. 17:21 No provider procedures requiring assistance completed. Patient did not have IV access ph during this emergency room visit. Wound care: to avulsion located on palmar aspect of distal phalanx of left thumb was cleaned with Hibiclens, irrigated with normal saline, dressed with Neosporin, Kerlix, Patient tolerated well. Administered Medications: 17:33 Drug: Hydrocodone-Acetaminophen PO (7.5 mg-325 mg) 1 tabs PO once Route: PO; ph 17:46 Follow up: Response: No adverse reaction ph Medication: 17:21 VIS not applicable for this client. ph Outcome: 17:27 Discharge ordered by . sb4 17:46 Discharged to home ambulatory, ph 17:46 Condition: good 17:46 Discharge instructions given to patient, Instructed on discharge instructions, follow up and referral plans. wound care, Demonstrated understanding of instructions, follow-up care, wound care, 17:47 Patient left the ED. ph Signatures: Saima Mendoza, RN RN ph May Rocha, PA-C PA-C sb4
--- NOTE | 2024-01-04 17:27 | EDPHYS ---
Physician Documentation [facility] Name: Veronica Moore Age: 33 yrs Sex: Female : 1990 Arrival Date: 01/04/2024 Time: 17:10 Bed 16 Private MD: ED Physician Jesús Watts HPI: 01/03 17:13 This 33 yrs old Female presents to ER via Unassigned with complaints of thumb sb4 laceration. 17:14 The patient has a laceration related to: cooking, mandoline, occurred at home, and sb4 there are no complicating factors. The injury was accidental. The laceration(s) is(are) located on the palmar aspect of distal phalanx of left thumb. Onset: The symptoms/episode began/occurred just prior to arrival. The patient has not experienced similar symptoms in the past. The patient has not recently seen a physician. sliced thumb with mandolin cutting onion this evening. tdap within the last year. Historical: - Allergies: 17:19 Bactrim; ph 17:19 Naproxen; ph - PMHx: 17:19 Anxiety; Depression; Migraine; ph - PSHx: 17:19 section; ph - Immunization history:: Adult Immunizations up to date, Last tetanus immunization: up to date. - Infectious Disease History:: Denies. - Social history:: Smoking status: unknown. ROS: 17:14 Constitutional: Negative for fever, chills, and weight loss, sb4 17:14 Skin: Positive for laceration(s), of the palmar aspect of distal phalanx of left thumb, 17:14 All other systems are negative, Exam: 17:14 Constitutional: This is a well developed, well nourished patient who is awake, alert, sb4 and in no acute distress. Head/Face: Normocephalic, atraumatic. Eyes: Extra-ocular motions intact. Periorbital areas with no swelling, redness, or edema. ENT: Mucous membranes moist. 17:14 Skin: injury, laceration(s), the wound is approximately 2 cm(s), with a depth of .5 cm(s), of the palmar aspect of distal phalanx of left thumb, that can be described as clean, no foreign body, without bleeding, skin avulsion, Vital Signs: 17:18 BP 138 / 97; Pulse 89; Resp 18; Temp 97.3; Pulse Ox 99% on R/A; ph MDM: 17:12 Medical Screening Exam initiated sb4 17:14 Differential diagnosis: superficial laceration, tendon injury, vascular injury. Data sb4 reviewed: vital signs, nurses notes, EMS record, and as a result, I will discharge patient. Counseling: I had a detailed discussion with the patient and/or guardian regarding the historical points, exam findings, and any diagnostic results supporting the discharge/admit diagnosis, the need for outpatient follow up, for definitive care, to return to the emergency department if symptoms worsen or persist or if there are any questions or concerns that arise at home. ED course: skin was fully removed in accident, nothing to repair. will clean thoroughly and discharge with wound care instructions. 01/03 17:12 Order name: Wound Care; Complete Time: 17:18 sb4 01/03 17:12 Order name: Wound dressing; Complete Time: 17:18 sb4 Administered Medications: 17:33 Drug: Hydrocodone-Acetaminophen PO (7.5 mg-325 mg) 1 tabs PO once Route: PO; ph 17:46 Follow up: Response: No adverse reaction ph Disposition Summary: 01/04/24 17:27 Discharge Ordered Notes: Location: Home sb4 Problem: new sb4 Symptoms: have improved sb4 Condition: Stable sb4 Diagnosis - Laceration without foreign body of left thumb without damage to nail sb4 Followup: sb4 - With: Private Physician - When: As needed - Reason: Recheck today's complaints, Re-evaluation by your physician Discharge Instructions: - Discharge Summary Sheet sb4 - Nonsutured Laceration Care sb4 - Wound Care, Adult sb4 Forms: - Patient Portal Instructions sb4 - Leadership Thank You Letter sb4 Signatures: Saima Mendoza RN RN ph May Rocha PA-C PA-C sb4
[2024-01-04] MEDS ORDERED: HYDROCODONE/APAP 7.5/325 MG TAB ONE (17:28)
[2024-01-04 20:05] VITALS: BP 138/97; TEMP 97.3; O2SAT 99
== END 2024-01-04 17:47 | disposition home or self-care (01) ==
LOC: ER 17:10
DX: S61.012A Laceration without foreign body of left thumb without damage to nail, initial encounter (principal)
CPT/HCPCS: 99284

== ENCOUNTER 2024-07-01 00:53 | Emergency (ER) | payer SELFPAY ==
[2024-07-01 01:32] LABS: Specific Gravity 1.019 (1.005-1.030)
[2024-07-01 01:34] LABS: Absolute Basophils 0.1 K/uL (0-0.5); Absolute Eosinophils 0.1 K/uL (0-0.5); Absolute Monocytes 0.8 K/uL (0.1-1.3); Absolute Neutrophil 6.3 K/uL (1.8-8.0); Basophils % 0.6 % (0-1.3); Eosinophils % 1.4 % (0-4.4); Hematocrit 40.7 % (36.0-45.0); Hemoglobin 14.2 g/dL (12.0-15.0); Lymphocytes % 28.6 % (15.3-44.8); MCH 30.2 pg (27.0-35.0); MCHC 34.9 g/dL (32.0-36.0); MCV 86.5 fL (80-100); MPV 8.4 fL (7.6-11.3); Monocytes % 7.9 % (3.3-12.3); Neutrophils % 61.5 % (41.7-73.7); Nucleated Red Blood Cells % 0.1 % (0-0); Platelets 319 thou/uL (152-406); RBC Red Blood Cell Count 4.71 M/uL (3.86-4.86); Red Cell Distribution Width 14.6 % (12.1-15.2)
[2024-07-01 01:34] LABS: Specific Gravity 1.019 (1.005-1.030); Urine Bacteria <20 /HPF (<20); Urine Bilirubin NEGATIVE (Negative); Urine Blood Negative (Negative); Urine Clarity Extremely Turbid (Clear); Urine Color Light-Yellow (Yellow); Urine Culture Reflex Order NOT NEEDED; Urine Glucose NEGATIVE (Negative); Urine Ketones NEGATIVE (Negative); Urine Microscopic Reflex YN ORDER UMIC; Urine Mucus Slight /HPF (None Seen); Urine Nitrite NEGATIVE (Negative); Urine Protein NEGATIVE (Negative); Urine RBC None Seen /HPF (None Seen); Urine Urobilinogen Normal (Normal); Urine WBC <5 /HPF (<5); Urine pH 6.5 (5.0-7.0)
[2024-07-01 01:43] LABS: Anion Gap 10.8 mEq/L (5.0-15.0); Potassium 3.8 mEq/L (3.5-5.1)
[2024-07-01] MEDS ORDERED: MORPHINE 4 MG/ML SYR ONE (02:52)
--- NOTE | 2024-07-01 04:34 | EDPHYS ---
Physician Documentation [facility] Name: Veronica Moore Age: 34 yrs Sex: Female : 1990 Arrival Date: 07/01/2024 Time: 00:53 Bed 7 Private MD: ED Physician Abimael Barrientos HPI: 07/01 01:05 This 34 yrs old Female presents to ER via Unassigned with complaints of Back Pain. rn 01:05 The patient presents with pain that is acute. The symptoms are located in the left mid rn back. Onset: The symptoms/episode began/occurred last night. Modifying factors: The patient symptoms are alleviated by nothing, the patient symptoms are aggravated by any movement. Severity of symptoms: At their worst the symptoms were moderate, in the emergency department the symptoms are unchanged. The patient has not experienced similar symptoms in the past. Patient reports left flank pain, nonradiating, sharp and stabbing. Brother has history of kidney stones. Denies any trauma. No bowel or bladder issues. No radiation down leg.. 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 - Infectious Disease History:: Denies. - Family history:: not pertinent. - Social history:: Smoking status: unknown. - Hospitalizations: : No recent hospitalization is reported. ROS: 01:05 Constitutional: Negative for fever, chills, and weight loss, Cardiovascular: Negative rn for chest pain, palpitations, and edema, Respiratory: Negative for shortness of breath, cough, wheezing, and pleuritic chest pain, Abdomen/GI: Negative for abdominal pain, nausea, vomiting, diarrhea, and constipation, Back: Positive for left flank pain : Negative for injury, bleeding, discharge, and swelling, MS/Extremity: Negative for injury and deformity, Neuro: Negative for headache, weakness, numbness, tingling, and seizure, Exam: 01:05 Constitutional: This is a well developed, well nourished patient who is awake, alert, rn and in no acute distress. Ambulatory to room and bathroom without assistance or difficulty Back: Painful range of motion with twisting Neuro: Awake and alert, GCS 15, normal strength and sensation bilateral lower extremities. Normal gait. Vital Signs: 01:15 BP 114 / 78; Pulse 86; Resp 18; Temp 97.5; Pulse Ox 100% on R/A; Weight 90.72 kg; br2 Height 5 ft. 6 in. ; Pain 8/10; 01:16 BP 122 / 87; Pulse 94; Resp 16; Pulse Ox 98% on R/A; kd3 01:35 BP 111 / 83; Pulse 86; Resp 17; Pulse Ox 99% on R/A; kd3 02:55 BP 115 / 72; Pulse 85; Resp 17; Temp 97.5; Pulse Ox 98% ; Pain 8/10; bm8 04:06 BP 118 / 84; Pulse 75; Resp 16; Temp 97.5; Pulse Ox 97% ; Pain 4/10; bm8 01:15 Body Mass Index 32.28 (90.72 kg, 167.64 cm) br2 01:15 Pain Scale: Adult br2 02:55 Pain Scale: Adult bm8 04:06 Pain Scale: Adult bm8 [place] Coma Score: 02:55 Eye Response: spontaneous(4). Motor Response: obeys commands(6). Verbal Response: bm8 oriented(5). Total: 15. 04:06 Eye Response: spontaneous(4). Motor Response: obeys commands(6). Verbal Response: bm8 oriented(5). Total: 15. MDM: 00:55 Medical Screening Exam initiated rn 04:32 Differential diagnosis: arthritis, Fatigue Hydronephrosis Perforated Ulcer ruptured rn disc, sprain, Ureterolithiasis. Data reviewed: vital signs, nurses notes, lab test result(s), radiologic studies, CT scan, and as a result, I will discharge patient. Counseling: I had a detailed discussion with the patient and/or guardian regarding the historical points, exam findings, and any diagnostic results supporting the discharge/admit diagnosis, lab results, radiology results, the need for outpatient follow up, to return to the emergency department if symptoms worsen or persist or if there are any questions or concerns that arise at home. Response to treatment: the patient's symptoms have mildly improved after treatment, and as a result, I will discharge patient. Special discussion: I discussed with the patient/guardian in detail that at this point there is no indication for admission to the hospital. It is understood, however, that if the symptoms persist or worsen the patient needs to return immediately for re-evaluation. ED course: No acute findings and workup today. Imaging is negative for acute findings as well as blood in urine. Will discharge home with as needed medication and return precautions.. 07/01 01:03 Order name: CBC with Diff; Complete Time: 01:47 rn 07/01 01:03 Order name: Basic Metabolic Panel; Complete Time: :47 rn 07/01 01:03 Order name: Test, Urine; Complete Time: :47 rn 07/01 01:03 Order name: UA Rfx Tez Cult if indicated; Complete Time: :47 rn 07/01 01:03 Order name: CT Stone Protocol rn 07/01 01:03 Order name: IV Start; Complete Time: 01:15 rn Administered Medications: 02:54 Drug: morphine IVP or IV 4 mg IVP once over 4 mins Route: IVP; Infused Over: 4 mins; bm8 Site: right antecubital; 04:07 Follow up: Response: No adverse reaction bm8 04:44 Drug: Decadron - Dexamethasone IVP 10 mg IVP once Route: IVP; Site: right antecubital; kd3 04:44 Drug: Gabapentin PO 300 mg PO once Route: PO; kd3 Disposition Summary: 07/01/24 04:34 Discharge Ordered Notes: Location: Home rn Problem: new rn Symptoms: have improved rn Condition: Stable rn Diagnosis - Low back pain rn Followup: rn - With: Private Physician - When: As needed - Reason: Recheck today's complaints, Re-evaluation by your physician Discharge Instructions: - Discharge Summary Sheet rn - Acute Back Pain, Adult rn Forms: - Medication Reconciliation Form rn - Antibiotic contracts intern - Prescription Opioid Use rn - Patient Portal Instructions rn - Leadership Thank You Letter rn Prescriptions: - gabapentin 100 mg Oral capsule - take 1 capsule ORAL route 2 times per day As needed; 14 capsule; Refills: 0, rn Product Selection Permitted - Cyclobenzaprine 10 mg Oral tablet - take 1 tablet ORAL route every 8-12 hours As needed; 14 tablet; Refills: 0, rn Product Selection Permitted - Medrol (Elvin) 4 mg Oral Tablets, Dose Pack - take 1 tablet ORAL route as directed - follow package instructions; 1 packet; rn Refills: 0, Product Selection Permitted Signatures: Dispatcher [employer] Abimael Valladares MD MD rn Maria R Lee RN RN kd3 Brayden Meza RN RN bm8
--- NOTE | 2024-07-01 04:34 | ER ---
Nurse's Notes [facility] Name: Veronica Moore Age: 34 yrs Sex: Female : 1990 Arrival Date: 07/01/2024 Time: 00:53 Bed 7 Private MD: Diagnosis: Low back pain Presentation: 07/01 01:15 Chief complaint: Patient states: LEFT LOWER BACK PAIN...DENIES URINARY SYMPTOMS OR br2 INJURY. Coronavirus screen: Client denies travel out of the [place] in the last 14 days. Ebola Screen: Patient denies exposure to infectious person. Initial Sepsis Screen: Does the patient meet any 2 criteria? No. Patient's initial sepsis screen is negative. Does the patient have a suspected source of infection? No. Patient's initial sepsis screen is negative. Risk Assessment: Do you want to hurt yourself or someone else? Patient reports no desire to harm self or others. Onset of symptoms was June 30, 2024. 01:15 Method Of Arrival: Ambulatory br2 01:15 Acuity: EMANUEL 3 br2 01:16 Chief complaint: Patient states: I am having some mid back/flank pain to the right kd3 side. It hurts more with movement. I do not have any urinary symptoms. Coronavirus screen:. Ebola Screen: No symptoms or risks identified at this time. Initial Sepsis Screen: Does the patient meet any 2 criteria? No. Patient's initial sepsis screen is negative. Does the patient have a suspected source of infection? No. Patient's initial sepsis screen is negative. Risk Assessment: Do you want to hurt yourself or someone else? Patient reports no desire to harm self or others. Onset of symptoms was July 01, 2024. 01:16 Method Of Arrival: Ambulatory kd3 01:16 Acuity: EMANUEL 3 kd3 Triage Assessment: 01:17 General: Appears uncomfortable, Behavior is calm, cooperative. Musculoskeletal: kd3 Capillary refill < 3 seconds. 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 - Infectious Disease History:: Denies. - Family history:: not pertinent. - Social history:: Smoking status: unknown. - Hospitalizations: : No recent hospitalization is reported. Screenin:16 [facility] ED Fall Risk Assessment (Adult) History of falling in the last 3 months, kd3 including since admission No falls in past 3 months (0 pts) Confusion or Disorientation No (0 pts) Intoxicated or Sedated No (0 pts) Impaired Gait No (0 pts) Mobility Assist Device Used No (0 pt) Altered Elimination No (0 pt) Score/Fall Risk Level 0 - 2 = Low Risk Oriented to surroundings. Abuse screen: Denies threats or abuse. Denies injuries from another. Nutritional screening: No deficits noted. Tuberculosis screening: No symptoms or risk factors identified. Assessment: 01:07 General: Appears in no apparent distress. Behavior is calm, cooperative. Pain: kd3 Complains of pain in left mid back. Neuro: Level of Consciousness is awake, alert, obeys commands, Oriented to person, place, time, situation. Cardiovascular: Capillary refill < 3 seconds Patient's skin is warm and dry. Respiratory: Airway is patent Trachea midline Respiratory effort is even, unlabored, Respiratory pattern is regular, symmetrical. 02:55 Reassessment: Patient appears in no apparent distress at this time. Patient and/or bm8 family updated on plan of care and expected duration. Pain level reassessed. Pain: Pain currently is 9 out of 10 on a pain scale. 04:06 Reassessment: Patient appears in no apparent distress at this time. Patient and/or bm8 family updated on plan of care and expected duration. Pain level reassessed. Patient is alert, oriented x 3, equal unlabored respirations, skin warm/dry/pink. Patient states feeling better. Patient states symptoms have improved. Vital Signs: 01:15 BP 114 / 78; Pulse 86; Resp 18; Temp 97.5; Pulse Ox 100% on R/A; Weight 90.72 kg; br2 Height 5 ft. 6 in. ; Pain 8/10; 01:16 BP 122 / 87; Pulse 94; Resp 16; Pulse Ox 98% on R/A; kd3 01:35 BP 111 / 83; Pulse 86; Resp 17; Pulse Ox 99% on R/A; kd3 02:55 BP 115 / 72; Pulse 85; Resp 17; Temp 97.5; Pulse Ox 98% ; Pain 8/10; bm8 04:06 BP 118 / 84; Pulse 75; Resp 16; Temp 97.5; Pulse Ox 97% ; Pain 4/10; bm8 01:15 Body Mass Index 32.28 (90.72 kg, 167.64 cm) br2 01:15 Pain Scale: Adult br2 02:55 Pain Scale: Adult bm8 04:06 Pain Scale: Adult bm8 [place] Coma Score: 02:55 Eye Response: spontaneous(4). Motor Response: obeys commands(6). Verbal Response: bm8 oriented(5). Total: 15. 04:06 Eye Response: spontaneous(4). Motor Response: obeys commands(6). Verbal Response: bm8 oriented(5). Total: 15. ED Course: 00:55 Patient arrived in ED. jj6 00:55 Abimael Barrientos MD is Attending Physician. rn 00:57 Maria R Lee RN is Primary Nurse. kd3 01:15 CBC with Diff Sent. kd3 01:15 Basic Metabolic Panel Sent. kd3 01:15 Test, Urine Sent. kd3 01:15 UA Rfx Tez Cult if indicated Sent. kd3 01:16 Inserted saline lock: 22 gauge in right antecubital area, using aseptic technique. kd3 Blood collected. Flushed with 10 mL NS. 01:17 Triage completed. kd3 01:17 Arm band placed on left wrist. kd3 01:53 CT Stone Protocol In Process Unspecified. EDMS 04:06 No provider procedures requiring assistance completed. bm8 04:06 Patient has correct armband on for positive identification. Bed in low position. Call bm8 light in reach. Side rails up X 1. Adult w/ patient. Client placed on continuous cardiac and pulse oximetry monitoring. NIBP monitoring applied. Pulse ox on. NIBP on. Door closed. Noise minimized. Warm blanket given. Pillow given. Verbal reassurance given. Head of bed elevated. 04:49 IV discontinued, intact, bleeding controlled, No redness/swelling at site. Pressure kd3 dressing applied. 04:49 Provided Education on: steroids . kd3 Administered Medications: 02:54 Drug: morphine IVP or IV 4 mg IVP once over 4 mins Route: IVP; Infused Over: 4 mins; bm8 Site: right antecubital; 04:07 Follow up: Response: No adverse reaction bm8 04:44 Drug: Decadron - Dexamethasone IVP 10 mg IVP once Route: IVP; Site: right antecubital; kd3 04:44 Drug: Gabapentin PO 300 mg PO once Route: PO; kd3 Medication: 04:06 VIS not applicable for this client. bm8 Outcome: 04:34 Discharge ordered by . adelaida 04:49 Discharged to home ambulatory, kd3 04:49 Condition: stable 04:49 Discharge instructions given to patient, Instructed on discharge instructions, follow up and referral plans. medication usage, Demonstrated understanding of instructions, follow-up care, medications, Prescriptions given X 3, 04:50 Patient left the ED. kd3 Signatures: Dispatcher [employer] EDMS Abimael Barrientos MD MD rn Jeffries, Jennifer jj6 Doucette, Kyli RN RN kd3 Brayden Meza RN RN bm8 Emily Rocha RN RN br2
[2024-07-01] MEDS ORDERED: GABAPENTIN 300 MG CAP ONE (04:39)
[2024-07-01] MEDS ORDERED: dexAMETHasone 10 MG/ML VIAL ONE (04:39)
[2024-07-01 04:59] VITALS: TEMP 97.5
[2024-07-01 05:04] VITALS: BP 118/84; O2SAT 97
--- NOTE | 2024-07-01 05:13 | RAD REPORT ---
CLINICAL HISTORY: Left flank pain. COMPARISON: CT Abdomen pelvis 06/23/2023. TECHNIQUE: CT ABDOMEN PELVIS WITHOUT IV CONTRAST on 07/01/2024 1:03 AM CDT This exam was performed according to our departmental dose-optimization program, which includes autom ated exposure control, adjustment of the mA and/or kV according to patient size and/or use of iterative reconstruction technique. FINDINGS: Lower lungs are clear. Abdomen: The liver is normal in appearance. There is no biliary dilatation. Gallbladder is decompress ed. The pancreas and spleen are normal in appearance. The adrenal glands and kidneys are unremarkable. Abdominal aorta is normal in course and caliber without aneurysm. There is no free air. There is no r etroperitoneal adenopathy. Pelvis: There is no bowel obstruction. Urinary bladder is unremarkable. There is no free fluid. Uteru s is normal in size. Appendix is normal. Skeleton: There are no acute osseous findings. No suspicious bony lesions. IMPRESSION: No acute process. Electronically signed by: Noel Herman MD 07/01/2024 04:05 AM CDT Due to temporary technical issues with the PACS/[employer] reporting system, reports are being shu d by the in-house radiologist without review as a courtesy to ensure prompt reporting the interpreting radiologist is fully responsible for the content of the report. Transcribed Date/Time: 07/01/2024 5:13 AM
== END 2024-07-01 04:50 | disposition home or self-care (01) ==
LOC: ER 00:53
DX: M54.50 Low back pain, unspecified (principal)
CPT/HCPCS: 36415; 74176; 76377; 80048; 81001; 81025; 85025; 96374; 96375; 99284; J1100